=== PATIENT | female | born 1975 | race Caucasian/White ===

== ENCOUNTER 2024-10-19 06:40 | Observation (INO) | payer OTHER, SELFPAY ==
[2024-10-19] VITALS (15 sets, daily range): BP systolic 95–126; BP diastolic 53–85; PULSE 68–80; RESP 16–19; TEMP 36.6–37.1; O2SAT 97–100; BMI 28.3
--- NOTE | ~2024-10-19 | US_ITS ---
Limited Abdominal Sonogram: Real-time sonographic imaging of the right upper quadrant was performed. Clinical History: Gallstones Findings: The liver appears normal with no evidence of mass lesion or bile duct dilatation. Main por elio vein demonstrates normal direction of flow. The gallbladder is well distended, and appears normal with no evidence of gallstone or wall thickening. The common bile duct measures 2 mm. The visualize d pancreas, aorta, and IVC are unremarkable. Impression: No significant abnormality seen. Reviewed, dictated and finalized at location . Impression: No significant abnormality seen.
--- NOTE | ~2024-10-19 | CT_ITS ---
EXAMINATION: CTA chest abdomen pelvis DATE: 10/19/2024 08:45 INDICATION: Chest pain and radiation to back and abdomen TECHNIQUE: Computed tomographic angiography (CTA) of the chest, abdomen and pelvis was performed with 150 cc of Omnipaque-350 intravenous contrast. Additional 3D reconstructions utilizing rotating maxim um intensity projection (MIP) were performed. Automated exposure control and iterative reconstruction technique were employed. The dose-length product was 478.22 mGy-cm. COMPARISON: None FINDINGS: Chest: Lungs are clear with no pneumonia, pulmonary edema or other pulmonary infiltrates. No pleural effusi on or pneumothorax. Heart size is normal. No pericardial effusion. Thoracic aorta is normal in calibe r with no atherosclerotic plaque or dissection. Chronic appearing mild anterior wedging of T12 with s uperimposed Schmorl's node along the superior endplate. Mild thoracic and moderate lower cervical spo ndylosis. Abdomen and pelvis: Liver, spleen, pancreas, bilateral adrenal glands and kidneys are normal. Gallbladder is mildly dilat ed to maximal diameter 4.4 cm but with no abnormal wall thickening or pericolic cystic component proj ecting to suggest acute cholecystitis. The common bile duct is dilated to 9-10 mm with suggestion of subtle small gallstone at the distal common bile duct. Bones are unremarkable with no wall thickening or obstruction. Bladder is normal. The uterus is not identified and has likely been surgically resec fawad. No free intraperitoneal gas or fluid. No pathologically enlarged abdominal or pelvic lymphadenop athy. Abdominal aorta is normal in caliber with no dissection. No evident atherosclerotic plaque alexander g the abdominal aorta or its major branch vessels. Severe spondylosis at L5-S1 with mild spondylosis more cephalad lumbar spine. IMPRESSION: 1. Suggestion of obstructing choledocholithiasis with common bile duct measuring up to 9-10 mm and sm all intraluminal nodular density at the distal common bile duct. Correlate with liver function tests and if clinically indicated could consider further evaluation with MRCP or ERCP. 2. Normal caliber aorta with no dissection or evident atherosclerosis. Reviewed, dictated and finalized at location A. IMPRESSION: 1. Suggestion of obstructing choledocholithiasis with common bile duct measurin g up to 9-10 mm and small intraluminal nodular density at the distal common merry e duct. Correlate with liver function tests and if clinically indicated could c onsider further evaluation with MRCP or ERCP. 2. Normal caliber aorta with no dissection or evident atherosclerosis.
--- NOTE | ~2024-10-19 | MR_ITS ---
EXAMINATION: MR MRCP wo/w con/w 3D wo ind DATE: 10/20/2024 10:24 INDICATION: Choledocholithiasis TECHNIQUE: Magnetic resonance imaging (MRI) of the abdomen was performed without and with 13 mL Multi renetta intravenous contrast. Sequences included coronal T2-weighted SS-FSE, coronal T2-weighted FS SS- FSE, coronal T2-weighted FS FIESTA, axial T2-weighted FS FIESTA, axial T2-weighted FIESTA, sagittal T 2-weighted SS-FSE, axial T1-weighted dual-echo FSPGR, axial T2-weighted SS-FSE, axial T1-weighted LAV A, axial T2-weighted STIR FSE. Thick-slab T2-weighted FRFSE-XL images were obtained for magnetic reso nance cholangiopancreatography (MRCP). Rotating maximum intensity projection 3-D reconstructions of t he volumetric data were created by the technologist. Postcontrast sequences included a time course of axial T1-weighted LAVA. COMPARISON: CT dated 10/29/2024 FINDINGS: ABDOMEN MRI: Heart size is normal. No pericardial or pleural effusion. Liver, gallbladder, spleen, pancreas and bi lateral adrenal glands are normal. T2 hyperintense nonenhancing 1.4 cm parapelvic cyst at the lower p ole the left kidney and a couple subcentimeter T2 hyperintense nonenhancing probable cyst at the uppe r pole of the right kidney measuring up to 6 mm. Visualized bowels are unremarkable with no obstructi on. No pathologically enlarged abdominal or upper pelvic lymphadenopathy. Severe disc height loss wit h mild fibrofatty and fibrovascular degenerative endplate changes at L5-S1 with mild spondylosis and more cephalad lumbar spine. Chronic mild anterior wedging at T12 with superimposed Schmorl's node zelda ng the superior endplate. ABDOMEN MRCP: Common bile duct is up to 6-7 mm in maximal diameter which is at the upper limits of normal. No filli ng defects to suggest choledocholithiasis. No intrahepatic biliary ductal dilation. The main pancreat ic duct is normal. IMPRESSION: 1. No cholelithiasis or choledocholithiasis with borderline common bile duct measuring up to 6-7 mm. Reviewed, dictated and finalized at location A. IMPRESSION: 1. No cholelithiasis or choledocholithiasis with borderline common bile duct me asuring up to 6-7 mm.
--- NOTE | ~2024-10-19 | XR_ITS ---
EXAMINATION: XR chest 2V DATE: 10/19/2024 07:57 INDICATION: Chest pain and shortness of breath TECHNIQUE: PA and lateral views of the chest were obtained. COMPARISON: None FINDINGS: The lungs are clear with no focal airspace opacities, pulmonary edema, pleural effusion or pneumothor ax. The cardiomediastinal silhouette is normal. Moderate thoracic spondylosis. IMPRESSION: 1. No acute cardiopulmonary disease. Reviewed, dictated and finalized at location A.
--- NOTE | ~2024-10-19 | NM_ITS ---
EXAMINATION: NM stress w perf spect multi DATE: 10/20/2024 12:22 INDICATION: Chest pain TECHNIQUE: Rest images were obtained following intravenous administration of 10.8 mCi Tc99m tetrofosm in (NetMinder). The patient performed an exercise activity. At peak exercise, 32.8 mCi Tc99m tetrofosmi n (Myoview) was administered intravenously, and stress images were obtained. Data was reconstructed i nto short axis and horizontal and vertical long axis SPECT images. Gated SPECT images were also obtai gilmar. COMPARISON: None. FINDINGS: There is normal left ventricular perfusion without definite evidence of reversible or fixed perfusion abnormality to suggest ischemia or infarction. There is normal left ventricular chamber size, wall motion and ejection fraction. Left ventricular ejection fraction measures 57%. IMPRESSION: 1. Normal myocardial perfusion at rest and during stress. 2. Left ventricular ejection fraction measuring 57%. Reviewed, dictated and finalized at location A.
--- NOTE | 2024-10-19 06:46 | ECG_ITS ---
Test Date: 2024-10-19 06:51:05 Measurements Intervals [place] Rate: 73 P: -19 W[place]: 133 QRS: -16 QRSD: 93 T: -11 QT: 376 QTc: 415 Interpretive Statements SINUS RHYTHM MODERATE T-WAVE ABNORMALITY IN ANT/INF LEADS, CONSIDER ISCHEMIA BASELINE ARTIFACT- I, II, III, AVR, AVL ABNORMAL ECG No previous ECG available for comparison Electronically Signed On 10-19-2024 07:38:43 CDT by Cem Martin D.O.
[2024-10-19 06:57] LABS: Basophils Percent Auto 0.7 % (0.2-1.2); Hematocrit 39.4 % (37.0-47.0); Immature Granulocyte Absolute 0.01 K/mm3 (0.00-0.031); Immature Granulocyte Percent A 0.2 % (0-0.5); Lymphocytes Absolute Auto 0.98 K/mm3 (0.9-3.2); Lymphocytes Percent Auto 23.4 % (18.3-44.2); Mean Corpuscular Hemoglobin 29.4 pg (26-34); Mean Corpuscular Volume 89.1 fl (80-100); Mean Platelet Volume 8.7 fl (7.4-10.4); Monocytes Absolute Auto 0.3 K/mm3 (0.1-0.6); Monocytes Percent Auto 6.7 % (2.6-8.5); Neutrophils Absolute Auto 2.9 K/mm3 (1.3-6.7); Platelet Count Result 230 k/mm3 (150-375); Red Blood Count 4.42 M/mm3 (4.2-5.4); Red Cell Distribution Width 13.7 % (11.5-14.5); White Blood Count 4.2 K/mm3 (4.5-10.0)
[2024-10-19 07:08] LABS: INR 1.1; Prothrombin Time 14.2 Seconds (11.1-14.7)
[2024-10-19 07:09] LABS: Partial Thromboplastin Time 27.4 Seconds (22.3-36.8)
[2024-10-19 07:11] LABS: Alanine Aminotransferase 18 U/L (6-35); Albumin Level 4.4 g/dL (3.5-5.1); Alkaline Phosphatase 47 U/L (38-126); Anion Gap 11 mmol/L (4-12); Aspartate Amino Transferase 31 U/L (14-36); Bilirubin,Total 0.5 mg/dL (0.2-1.3); Blood Urea Nitrogen 8 mg/dL (7-17); Calcium 9.7 mg/dL (8.4-10.2); Carbon Dioxide 25 mmol/L (22-30); Chloride 97 mmol/L (98-107); Estimated CRCL calculation 85 ml/min; Estimated Glomerular Filt Rate > 60; Glucose 104 mg/dL (65-110); Lipase 371 U/L (23-300); Sodium 133 mmol/L (137-145); Total Protein 7.6 g/dL (6.3-8.2)
[2024-10-19 07:23] LABS: Troponin I < 0.012 ng/mL (0.000-0.034)
--- OUTSIDE RECORDS SUMMARY | 2024-10-19 07:43 | XMS_ITS | Data Portability ---
Author Organization [place] - [facility] [employer], Main Office Address [address] [place] [address] Assessment No assessment recorded. Plan of Treatment Reminders Order Date Submit Date Provider Last Modified By Organization Details Last Modified Time Details Appointments Follow Up 2024 04:40P M Chyna Levi NP Not available Not available Not available Any 15 2024 03:30P M Marbin Muñoz MD Not available Not available Not available Lab CBC w/ auto diff 2023 024 [email or web address], [facility] [address], [place], [address], 07/08/2024 11:25:51 CMP, serum or plasma 2023 024 [email or web address] [facility], [facility] [address], [place], [address], 07/08/2024 11:25:50 lipid panel, serum 2023 024 [email or web address] [facility], [facility] [address], [place], [address], 07/08/2024 11:25:51 Referral None recorded. Procedures colonosco py screening (PROC) - Please call patient to schedule. [address] [place] [address] Gastroenterol ogy, [address], [place], [address], 07/16/2024 09:55:10 Surgeries None recorded. Imaging None recorded. Medication Orders Medrol (Naveed) 4 mg tablets in a dose pack 2024 025 [facility] [address] In [facility], [address] [place] [address], [address], 09/23/2024 17:10:39 ipratropi um bromide 42 mcg (0.06 %) nasal spray 2024 025 [facility] [address], [address], 09/23/2024 17:10:39 Zepbound 7.5 mg/0.5 mL subcutane ous pen injector 2024 025 [facility] [address], [address], 08/04/2024 10:09:39 hydrochlo rothiazid e 25 mg tablet 2024 025 [facility] [address], [address], 08/04/2024 10:09:39 Zepbound 5 mg/0.5 mL subcutane ous pen injector 2024 025 [email or web address] [facility] [address], [address], 07/07/2024 09:06:59 Zepbound 2.5 mg/0.5 mL subcutane ous pen injector 2023 024 [email or web address] [address], [address], 05/15/2024 14:55:24 atorvasta tin 20 mg tablet 2023 024 [facility] [address], [address], 10/21/2023 17:01:41 Patient TargetsNo targets recorded. Patient Instructions Encounter Date Encounter Id Patient Instructions Last Modified By Organization Details Last Modified Time 04/29/2024 [id number] advance care planning: care instructions Not available 04/29/2024 17:17:25 advance directives: care instructions Not available 04/29/2024 17:17:25 [place] Advance Directives Not available 04/29/2024 17:17:25 risk assessment* Not available 04/29/2024 17:17:25 Reason for Referral None Reported. Results Created Date Observation Date Name Description Value Unit Range Abnormal Flag Note LastModifiedBy Organization Detail LastModifiedTime Result Notes None recorded. Problems Name Problem SNOMED Code Status Onset Date Resolution Date Notes Provider Name and Address Organization Details Recorded Time Bipolar disorder 12801888 Active 2021 Not Available [facility] 3 23:30:54 Serum iron below reference range 200682875 Active 2021 Not Available [facility] 3 23:30:54 Loose skin folds, abdominal wall 119349096 Active 2021 Not Available [facility] 3 23:30:54 Anemia 961312197 Active 2021 Not Available [facility] 3 23:30:55 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 Not Available [facility] 3 23:30:55 Injury of great toe 840384941 Active 2021 Not Available [facility] 3 23:30:55 Pain of multiple joints 20814955 Active 2021 Not Available [facility] 3 23:30:55 Closed fracture of metatarsa l bone 00950143 Completed Not Available [facility] 3 23:30:55 Fracture of lower leg 453948822 Completed Not Available [facility] 3 23:30:55 Obesity 320368844 Active 2021 Not Available [facility] 3 23:30:55 Anxiety 96651233 Active 2021 Not Available [facility] 3 23:30:55 Essential hypertens ion 56891181 Active 2021 Not Available [employer] 3 23:30:55 Melanocyt ic nevus of skin 985384785 Active 2023 Marbin Muñoz MD [address], [place], [address] , [facility] [employer] [facility] 4 16:35:45 Skin nodule 04955098 Active 2023 Marbin Muñoz MD [address], [place], [address] , [facility] [employer] [facility] [employer] [facility] 4 09:38:22 Chest pain 49995578 Active 2023 Marbin Muñoz MD [address], [place], [address] , [facility] [employer] [facility] 4 16:59:05 Hyperlipi demia 11645578 Active 2023 Marbin Muñoz MD [address], [place], [address] , [facility] [employer] [facility] [employer] [facility] 4 17:00:52 Abnormal weight 89487784 Active 2023 Danelle saez, RMA null, [place] - [facility] [employer] [facility] 4 12:06:22 Dysfuncti on of left eustachia n tube 62325317067 39163 Active 2024 RADHA Edwards [address], [place], [address] , [facility] 5 17:09:47 Posterior rhinorrhe a 10474756 Active 2024 RADHA Edwards [address], [place], [address] , [facility] [employer] [facility] 5 17:10:08 Pruritic rash 10986031 Active 2024 GINA Ferreira [address], [place], [address] , [facility] [employer] [facility] 11:00:48 Problem Notes None recorded. Procedures Surgical History Date Name Laterality Status Provider Name and Address Organization Details Recorded Time Gastric bypass for obesity completed Not Available [facility] 07/11/2022 23:29:21 completed Not Available [facility] 0 07/11/2022 23:29:21 completed Not Available [facility] 0 07/11/2022 23:29:21 Imaging Results None recorded. Procedure Notes None recorded. Medical Equipment None Reported. Allergies No known drug allergies Medications Name Sig Start Date Stop Date Status Note LastModified by Organization Details LastModified Time amoxicill in 500 mg capsule TAKE 1 CAPSULE BY MOUTH EVERY 8 HOURS 09/23 completed Not Available Not Available Not Available lamotrigi ne 150 mg tablet TAKE 1 TABLET BY MOUTH EVERY DAY AT BEDTIME FOR 30 DAYS active Not Available Not Available No t Available atorvasta tin 20 mg tablet TAKE 1 TABLET BY MOUTH EVERY DAY IN THE EVENING active Not Available Not Available No t Available lisinopri l 20 mg tablet TAKE 1 TABLET BY MOUTH EVERY DAY 02/20 completed Not Available Not Available Not Available Medrol (Naveed) 4 mg tablets in a dose pack Take 1 dose pk by oral route. 2024 active Not Available Not Available Not Avai lable chlorthal idone 25 mg tablet 04/24 completed Not Available Not Available Not Available lamotrigi ne 25 mg tablet TAKE 1 TABLET BY MOUTH TWICE A DAY active Pt states she is taking 75 mg twice a day Not Available Not Available Not Available ferrous sulfate 325 mg (65 mg iron) tablet TAKE 1 TABLET BY MOUTH TWICE A DAY 08/06 completed Not Available Not Available Not Available sertralin e 25 mg tablet TAKE 1 TABLET BY MOUTH EVERY DAY 08/06 completed Not Available Not Available Not Available diclofena c sodium 75 mg tablet,de layed release 04/24 completed Not Available Not Available Not Available hydrochlo rothiazid e 25 mg tablet TAKE 2 TABLETS BY MOUTH EVERY DAY IN THE MORNING active Not Available Not Available No t Available ipratropi um bromide 42 mcg (0.06 %) nasal spray [place] 2 sprays 3 times a day by intranas al route. 2024 active Not Available Not Available Not Avai lable fluoxetin e 20 mg capsule 04/24 completed Not Available Not Available Not Available fluticaso ne propionat e 50 mcg/actua tion nasal spray,lamine pension 08/06 completed Not Available Not Available Not Available clotrimaz ole 1 % topical cream APPLY TO AFFECTED AREA TWICE A DAY IN THE MORNING AND IN THE EVENING active Not Available Not Available No t Available lamotrigi ne 100 mg tablet TAKE 1 TABLET BY MOUTH EVERY DAY IN THE MORNING active Not Available Not Available No t Available aripipraz ole 5 mg tablet TAKE 1 TABLET BY MOUTH EVERY DAY 08/06 completed Not Available Not Available Not Available nitrofura ntoin monohydra te/macroc rystals 100 mg capsule 04/24 completed Not Available Not Available Not Available lamotrigi ne 25 mg (35) tablets in a dose pack Take 1 tablet by oral route as directed . 08/06 completed Please follow directio ns on packet Not Available Not Available Not Available chlorhexi dine gluconate 0.12 % mouthwash SWISH 15 ML IN MOUTH FOR 30 SECONDS THEN SPIT OUT TWICE A DAY AFTER MEALS active Not Available Not Available No t Available sertralin e 02/20 completed Not Available Not Available Not Available hydrochlo rothiazid e Once daily 02/20 completed Not Available Not Available Not Available Zepbound 5 mg/0.5 mL subcutane ous pen injector Inject 5 mg every week by subcutan eous route for 28 days. 07/07 completed Not Available Not Available Not Available Zepbound 2.5 mg/0.5 mL subcutane ous pen injector Inject 2.5 mg every week by subcutan eous route. 05/15 completed increase d to 5mg dose Not Available Not Available Not Available Zepbound 7.5 mg/0.5 mL subcutane ous pen injector INJECT 7.5MG SUBCUTAN EOUSLY ONE TIME PER WEEK active Not Available Not Available No t Available Vitals Date Recorded Body height Body mass index (BMI) Body weight Body temperature Heart rate Oxygen saturation Oxygen saturation in Arterial blood by Pulse oximetry Systolic blood pressure Diastolic blood pressure Provider Name and Address Organization Details Last Updated DateTime 01/16/202 5 152.4 cm 35.9 kg/m2 81462 g 97.2 [degF] 66 /min 96 % 96 % 122 mm[Hg] 84 mm[Hg] CASSIUS Caputo [place] [employer] [facility] [employer] [facility] 14:07:21 Date Recorded Body height Body mass index (BMI) Body weight Body temperature Oxygen saturation Oxygen saturation in Arterial blood by Pulse oximetry Heart rate Systolic blood pressure Diastolic blood pressure Provider Name and Address Organization Details Last Updated DateTime 5 152.4 cm 31.8 kg/m2 85386.5 6 g 97.1 [degF] 96 % 96 % 70 /min 118 mm[Hg] 82 mm[Hg] Alina castro [facility] [employer] [facility] 5 09:28:01 Date Recorded Body height Body mass index (BMI) Body weight Body temperature Provider Name and Address Organization Details Last Updated DateTime 09/23/2024 152.4 cm 31 kg/m2 66014.75 g 97.7 [degF] Apoorva Arriola RN [facility] [employer] [facility] 09/23/2024 16:56:59 Date Recorded Body height Body mass index (BMI) Body weight Body temperature Heart rate Oxygen saturation Oxygen saturation in Arterial blood by Pulse oximetry Systolic blood pressure Diastolic blood pressure Provider Name and Address Organization Details Last Updated DateTime 4 152.4 cm 36.9 kg/m2 60883.9 6 g 97.5 [degF] 55 /min 95 % 95 % 110 mm[Hg] 70 mm[Hg] Danelle quinteros Nery [place] [employer] [facility] [employer] [facility] 4 16:39:31 Date Recorded Body height Body mass index (BMI) Body weight Body temperature Heart rate Oxygen saturation Oxygen saturation in Arterial blood by Pulse oximetry Systolic blood pressure Diastolic blood pressure Provider Name and Address Organization Details Last Updated DateTime 4 152.4 cm 37.7 kg/m2 02389.3 3 g 97.5 [degF] 62 /min 98 % 98 % 120 mm[Hg] 80 mm[Hg] CASSIUS Caputo [place] [employer] [facility] [employer] [facility] 4 12:03:59 Social History Question Answer Notes LastModified by Organizat ion Details LastModified Time Tobacco Smoking Status Never Smoker Not Available [facility] 07/11/2022 23:29:12 Do You Have An Advance Directive? No MIGRATION.01116 [id number] Information not available 07/11/2022 What Is Your Level Of Caffeine Consumption? Moderate [email or web address] Information not available 04/29/2024 In The 14 Days Before Symptom Onset, Have You Had Close Contact With A Laboratory-confir med COVID-19 While That Case Was Ill? No MIGRATION.54311 45812 Information not available 07/11/2022 In The 14 Days Before Symptom Onset, Have You Had Close Contact With A Person Who Is Under Investigation For COVID-19 While That Person Was Ill? No MIGRATION.00275 32207 Information not available 07/11/2022 What Type Of Diet Are You Following? REGULAR MIGRATION.83503 17594 Information not available 07/11/2022 What Is The Highest Grade Or Level Of School You Have Completed Or The Highest Degree You Have Received? LR06107-1 MIGRATION.59320 85525 Information not available 07/11/2022 How Many Days Of Moderate To Strenuous Exercise, Like A Brisk Walk, Did You Do In The Last 7 Days? 7 [email or web address] Information not available 04/29/2024 On Those Days That You Engage In Moderate To Strenuous Exercise, How Many Minutes, On Average, Do You Exercise? 20 [email or web address] Information not available 04/29/2024 Have There Been Any Changes To Your Family Or Social Situation? No MIGRATION.15598 53902 Information not available 07/11/2022 What Is The Fluoride Status Of Your Home? Fluoridated [email or web address] Information not available 04/29/2024 Are There Any Guns Present In Your Home? Yes MIGRATION.57560 56833 Information not available 07/11/2022 Do You Use Insect Repellent Routinely? No MIGRATION.89689 81670 Information not available 07/11/2022 Where Do You Live? SingleLevelHouse [email or web address] Information not available 04/29/2024 Do You Have A Medical Power Of Drafter Commercial? No [email or web address] Information not available 04/29/2024 What Was The Date Of Your Most Recent Tobacco Screening? 04/29/2024 [email or web address] Information not available 04/29/2024 How Many Children Do You Have? 3 [email or web address] Information not available 04/29/2024 Do You Have Any Pets? Yes MIGRATION.37553 44058 Information not available 07/11/2022 What Is Your Relationship Status? MIGRATION.04078 95689 Information not available 07/11/2022 Do You Use Your Seat Belt Or Car Seat Routinely? Yes [email or web address] Information not available 04/29/2024 Are You Sexually Active? No [email or web address] Information not available 04/29/2024 Do You Have Smoke And Carbon Monoxide Detectors In Your Home? Yes MIGRATION.78257 09217 Information not available 07/11/2022 Are You Passively Exposed To Smoke? No MIGRATION.86298 20977 Information not available 07/11/2022 Are There Any Smokers In Your House? No MIGRATION.42717 66436 Information not available 07/11/2022 What Types Of Sporting Activities Do You Participate In? None [email or web address] Information not available 04/29/2024 Do You Use Sunscreen Routinely? No MIGRATION.44829 39920 Information not available 07/11/2022 Has Tobacco Cessation Counseling Been Provided? No MIGRATION.54566 99997 Information not available 07/11/2022 Have You Recently Traveled Abroad? No MIGRATION.65175 55075 Information not available 07/11/2022 Do You Have Any Dietary Restrictions? No MIGRATION.83563 44498 Information not available 07/11/2022 Sex: Unknown Functional Status Question Answer Note LastModified by Organizat ion Details LastModified Time Do you use any illicit or recreational drugs? No MIGRATION.503599 7794 Information not available 07/11/2022 Do you or have you ever used any other forms of tobacco or nicotine? No MIGRATION.060194 9277 Information not available 07/11/2022 What is your level of alcohol consumption? None MIGRATION.556565 2714 Information not available 07/11/2022 Are you currently employed? 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 Occasional MIGRATION.742194 0104 Information not available 07/11/2022 Mental Status Question Answer Note LastModified by Organizat ion Details LastModified Time Do you feel stressed (tense, restless, nervous, or anxious, or unable to sleep at night)? XI2766-7 MIGRATION.[id number] 6 Information not available 07/11/2022 Family History Relationship Description Onset Age of this Age Resolved Age Notes LastModified by Organization Details LastModified Time Unspecified Relation Hyperlipidem ia MIGRATION.008 [id number] Not available 07/11/2022 23:29:25 Unspecified Relation Hypertensive disorder MIGRATION.099 [id number] Not available 07/11/2022 23:29:25 Unspecified Relation Heart disease MIGRATION.028 7195537 Not available 07/11/2022 23:29:25 Unspecified Relation Depressive disorder MIGRATION.037 5180033 Not available 07/11/2022 23:29:25 Unspecified Relation Anxiety disorder MIGRATION.102 5395931 Not available 07/11/2022 23:29:25 Unspecified Relation Diabetes mellitus MIGRATION.893 [id number] Not available 07/11/2022 23:29:25 Notes:FAMILIAL HX: SINUSES Medical History Condition Response HEART DISEASE/HEART PROBLEMS Y HYPERTENSION Y Gynecological HistoryNo gynecological history recorded. Obstetrics History GPAL:G 0 P 0 0 0 0 Past Encounters Encounter ID Performer Location Encounter Start Date Encounter Closed Date Diagnosis/Indication Diagnosis SNOMED-CT Code Diagnosis ICD10 Code Diagnosis Note [id number] Marbin Muñoz MD [facility] [address] [place] [address] 02/20/2022 00:00:00 02/20/2022 15:36:58 [id number] Marbin Muñoz MD [facility] [address] [place] [address] 04/24/2022 00:00:00 04/24/2022 16:41:23 [id number] Marbin Muñoz MD [facility] [address] [place] [address] 03/13/2023 16:02:21 03/13/2023 16:36:10 Essential hypertension 09625474 I10 UNDER CONTYROL Anxiety 26613266 F41.9 under control Blind right eye 41297038 0 H54.40 Anemia 015709282 D64.9 labs Obesity 423803862 E66.9 advise dto lose more Pain of mu ltiple joints 54395813 M25.50 otc Bipolar disorder 5932726 4 F31.9 under contyrol Screening mammography 24 912424 Z12.31 did not get mammogram, willing [id number] Marbin Muñoz MD [facility] [address] [place] [address] 08/07/2023 16:13:09 08/07/2023 16:36:08 Essential hypertension 05548142 I10 under control Anxiety 85161002 F41.9 under control Blind right eye 75525644 0 H54.40 gets eye exam Anemia 751146448 D64.9 labs Obesity 518657848 E66.9 advised to lose more Pain of mu ltiple joints 18563233 M25.50 otc Bipolar disorder 0898726 4 F31.9 under control Screening mammography 24 192613 Z12.31 did not get mammogram, willing Screening for malignant neoplasm of colon 958246842 Z12.11 wants to wait Melanocyti c nevus of skin 022196089 D22.9 benign, [id number] Marbin Muñoz MD [facility] [address] [address] 09/26/2023 09:11:14 09/26/2023 09:36:38 Skin nodule 27849970 R22.9 watch [id number] Marbin Muñoz MD [facility] [address] [address] 10/21/2023 16:28:46 10/21/2023 17:02:29 Essential hypertension 84477871 I10 under control Anxiety 64110662 F41.9 under control Chest pain 66449545 R07. 9 [facility] Hyperlipidemia 31657701 E78.5 start meds [id number] Marbin Muñoz MD [facility] [address] [place] [address] 04/29/2024 11:47:24 04/29/2024 12:54:15 Obesity 406624755 E66.9 unable to lose on her own with diet and exercisesh e may benefit from zepboundsi de effects discussed Essential hypertension 70739148 I10 under control Hyperlipidemia 86150493 E78.5 on meds History of bariatric surgical procedure 058796730 Z98.84 Screening for malignant neoplasm of colon 561651062 Z12.11 wants to wait Adult heal th examination 498092750 Z00.00 Depression screening 171 700446 Z13.31 Normal bod y mass index 60024871 Z68.37 [id number] Marbin Muñoz MD [facility] Internal Med [facility] [address] [place] [address] 05/28/2024 14:01:29 05/28/2024 14:39:13 Obesity 696861283 E66.9 doing diet and exerciseke ep watching the portion size and stay active^ the dose [id number] Chyna Levi NP [facility] [address] [address] 06/09/2024 15:38:35 06/09/2024 18:37:41 [id number] Chyna Levi NP [facility] [address] [address] 07/08/2024 16:45:59 07/08/2024 18:31:21 [id number] Marbin Muñoz MD [facility] Internal [address] [place] [address] 08/04/2024 09:19:10 08/04/2024 14:19:57 Obesity 771518880 E66.9 doing diet and exerciseke ep the same dose Essential hypertension 84739034 I10 under control [id number] Chyna Levi NP [facility] [address] [address] 09/07/2024 16:47:46 09/08/2024 12:40:17 [id number] Orlando Vann MD [facility] ENT [place] [address] [place] [address] 09/23/2024 16:47:47 09/24/2024 10:40:06 Dysfunction of left eustachian tube 9511508855 916985 H69.92 Posterior rhinorrhea 758 86284 J34.89 [id number] Chyna Levi NP [facility] [address] [place] [address] 10/12/2024 17:10:21 10/13/2024 15:11:40 Health Concerns Section Related Observation LastModified by Organization Detai ls LastModified Time None Recorded Concern Status LastModified by Organization Details LastModified Time None Recorded Advance Directives Directive N: Payers Encounter Date Sequence Insurance Name Policy Number Policy Fuentes Covered Member ID Fuentes Member ID Guarantor Name 10/21/2023 1 [facility] [id number] Jazmin Lc [id number] [place]OS[place] [id number] GEHA Jazmin Lc 04/29/2024 1 [employer] [id number] Jazmin Lc [id number] SOSA [id number] GEHA Jazmin Lc 05/28/2024 1 [employer] [id number] Jazmin Lc [id number] SOSA [id number] GEHA Jazmin Lc 08/04/2024 1 [facility] DOS 05/13/2024 AND AFTER Jazmin Lc [id number] Jazmin Lc 09/23/2024 1 [facility] DOS 05/13/2024 AND AFTER Jazmin Lc [id number] Jazmin Lc Notes Date Note Type Note Provider Name and Address Organization Details Recorded Time 10/21/2023 text/html She is here toda y for a routine follow upRecord reviewed from the hospital and discussed.She was also recently admitted to [facility] for chest tightness and dizziness. Had a cardiac work up due to her troponin levels being elevated. 0.068. 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 HTN-under control with meds, was on Lisinopril but stopped due to bp being too low about a year agoMed- HCTZ 25 mgAnxiety- meds help , mood and anxiety is stableMed- lamictal Anemia/Low iron- has anemia all her life, h/o blood transfusion in the past, had anemia even before the gastric bypassMed- was on Ferrous sulfate 325Obesity- Has history of gastric bypass in 2009, has lost 130 lbs, gained some back, watching diet, Marbin Muñoz MD [address], [place], [address], [employer] 10/21/2023 17:01:48 04/29/2024 text/html Pt is here today to discuss a weight lossPossibly start Zepbound she is gaining weight instead of doing exercise and being on low carb diet.she had gastric bypass in 2009, was 340 lbs and lost a lot.she has HTN and hyperlipidemiano h/o thyroid disease hospital visit noteShe is here today for a routine follow upRecord reviewed from the hospital and discussed.She was also recently admitted to [facility] for chest tightness and dizziness. Had a cardiac work up due to her troponin levels being elevated. 0.068. 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 HTN-under control with meds, was on Lisinopril but stopped due to bp being too low about a year agoMed- HCTZ 25 mgAnxiety- meds help , mood and anxiety is stableMed- lamictal Anemia/Low iron- has anemia all her life, h/o blood transfusion in the past, had anemia even before the gastric bypass, last cbc nlMed- was on Ferrous sulfate 325Obesity- Has history of gastric bypass in 2009, did lose 130 lbs but gained some back Marbin Muñoz MD [address], [address], [place], [address], [employer] 04/29/2024 17:17:29 05/28/2024 text/html Pt is here today for a 1 month follow upShe was started on Zepbound 2.5mg last month and has lost 9 lbsTolerating it well. no side effects.she is has made changes with her diet. Also Kids are concerned about her hearing She was 340lb at her biggest and has a lost of loose skin and would like to have Panniculectomy done once she reaches her goal.Colonoscopy schedule for August 15 Marbin Muñoz MD [address], [address], [place], [address], [employer] [facility] [employer] [facility] 05/28/2024 14:38:43 08/04/2024 text/html Pt here for a 1 month f/u for zepbound 7.5, tolerating it well. She is watching her diet.no side effectsSHE HAS LOST 30 LBS IN 2 MONTHSshe is very active,Pt is not fasting Marbin Muñoz MD [address], [place], [address], [employer] [facility] [employer] 08/04/2024 10:11:35 09/23/2024 text/html This patient has a pmhx significant for HLD, obesity, anemia, bipolar disorder, anxiety, right eye blindness, and HTN who presents to the office for a complaint of left ear congestion that has been present over the last 1-2 years. She reports thinking that this is caused by silent reflux. She reports feeling that she sounds like she is in a tunnel. She also reports feeling of a lump in her throat and having to clear mucous, often. Denies any sinus infection hx or other related sinus pressures/pain. She has attempted OTC nasal sprays and antihistamines without relief. She reports that this has been going on for many years. She was recently started on Omeprazole 5 days ago by her PCP. She reports use of Gavascon with meals, additionally. She is having to clear her often throughout her examination. RADHA Edwards [address], [place], [address], [employer] [facility] [employer] 09/24/2024 10:39:39 OBGyn Episode No OBEpisode recorded.
--- OUTSIDE RECORDS SUMMARY | 2024-10-19 07:43 | XMS_ITS | Encounter Summary ---
Author Organization [employer] Address 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 Dx) Social History Tobacco Use Types Packs/Day Years Used Date Smoking Tobacco: Never Assessed Comments Unknown Sex and Gender Information Value Date Recorded Sex Assigned at Not on file 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
--- OUTSIDE RECORDS SUMMARY | 2024-10-19 07:43 | XMS_ITS | Referral Summary ---
Author Organization [facility] Address [address] [place] [address] Care Team Providers Care Deputy General Counsel Name Role Phone Marbin Muñoz MD Primary Care Provider Encounters Date Type Department Care Team Description 10/14/2024 3:00 PM CDT Office Visit [facility] Ophthalmology [address] [facility] [address] [place] [address] Dev Vinson MD Phthisis bulbi of right eye (Primary Dx) 09/25/2024 Telephone [facility]hthal[facility] [place] [address] Dev Vinson MD 09/24/2024 [facility] Ophthalmology [address] [place] [phone] No, Physician from Last 3 Months Allergies No known active allergies Medications lamoTRIgine (LaMICtal) 100 mg tablet 5 Active lamoTRIgine (LaMICtal) 150 mg tablet TAKE 1/2 TABLET BY MOUTH IN THE MORNING AND 1 AT BEDTIME Active Zepbound 7.5 mg/0.5 mL pen injector INJECT 7.5MG SUBCUTANEOUSLY ONE TIME PER WEEK Active hydroCHLOROthi azide (HYDRODIURIL) 25 mg tablet TAKE 2 TABLETS BY MOUTH EVERY DAY IN THE MORNING 1 Active zinc gluconate 100 mg tablet Take by mouth Ac tive Active Problems No known active problems Social History Tobacco Use Types Packs/Day Years Used Date Smoking Tobacco: Never Passive Smoke Exposure: Never Smokeless Tobacco: Never Tobacco Cessation:Counseling Given: No Comments Unknown Sex and Gender Information Value Date Recorded Sex Assigned at Not on file 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
--- OUTSIDE RECORDS SUMMARY | 2024-10-19 07:43 | XMS_ITS | Continuity of Care Document ---
Author Organization [facility] Address [address] [place] [address] Phone Care Team Providers Care Divine Healer Name Role Phone Deborah Matthew Unavailable Unavailable Deborah Matthew Unavailable Unavailable Allergies, Adverse Reactions, Alerts Substance [...] N Resin Composite, 3 Surfaces, Posterior O ct-2024 Periodontal Risk Assessment Substance Use Risk Assessment [...] Alcohol and/or drug screening HEMOGLOBIN; GLYCOSYLATED (A1C) Quantity Not Sufficient/Test Not Perform uri Carty [...] Evaluation 6 Surgical extr erupted tooth Full [facility] Series Of Radiographic Image s Dental Panoramic [...] Date Provider Providers Copied on Encounter [facility], [address], [place], [place], [address] , [place] tel:[phone] [facility] Other specified diseases of hard tissues of teethPartial loss of teeth due to oth cause, unspecified class 5 [facility]. [address], [place], [place], [address]. tel:[phone] Referring Provider: Shelby Meneses, [address], [place], [address]. tel:[phone] lting Provider: Deborah Vipul, [address], [place], [address]. tel:[phone] [facility], [address], [place], [place], [address] , [place] tel:[phone] [facility] Encounter for dental exam and cleaning w abnormal findings 5 [facility]. [address], [place], [place], [address]. tel:[phone] Referring Provider: Shelby Meneses, [address], [place], [address]. tel:[phone] [facility], [address], [place], [place], [address] , [place] tel:[phone] [facility] Dental caries on pit and fissure surfc penetrat into dentin 4 [facility]. [address], [place], [place], [address]. tel:[phone] Referring Provider: Shelby Meneses, [address], [place], [address]. tel:[phone] [facility], [address], [place], [place], [address] , [place] tel:[phone] [facility] Dental caries on pit and fissure surfc penetrat into dentin 4 [facility]. [address], [place], [place], [address]. tel:[phone] Referring Provider: Shelby Meneses [address], [place], [address]. tel:[phone] [facility], [address], [place], [place], [address] , [place] tel:[phone] [facility] Dental caries on smooth surface penetrating into dentin 4 [facility]. [address], [place], [place], [address]. tel:[phone] Referring Provider: Shelby Meneses [address], [place], [address]. tel:[phone] [facility], [address], [place], [place], [address] , [place] tel: [phone] [facility] Dental caries on pit and fissure surfc penetrat into dentin 4 [facility]. [address], [place], [place], [address]. tel:[phone] Referring Provider: Shelby Meneses [address], [place], [address]. tel:[phone] [facility], [address], [place], [place], [address] , [place] tel: [phone] [facility] Encounter for dental exam and cleaning w abnormal findings 4 [facility]. [address], [place], [place], [address]. tel:[phone] Referring Provider: Shelby Meneses [address], [place], [address]. tel:[phone] [facility], [address], [place], [place], [address] , [place] tel: [phone] [facility] Encounter for dental exam and cleaning w abnormal findings 4 [facility]. [address], [place], [place], [address]. tel:[phone] Referring Provider: Shelby Meneses [address], [place], [address]. tel:[phone] [facility], [address], [place], [place], [address] , [place] tel:[phone] [facility] Encounter for dental exam and cleaning w abnormal findings 4 [facility]. [address], [place], [place], [address]. tel:[phone] Referring Provider: Shelby Meneses, [address], [place], [address]. tel:[phone] [facility], [address], [place], [place], [address] , [place] tel: [phone] [facility] Abnormalities of size and form of teeth 4 [facility]. [address], [place], [place], [address]. tel:[phone] Referring Provider: Shelby Meneses, [address], [place], [address]. tel:[phone] [facility], [address], [place], [place], [address] , tel: [phone] [facility] Encounter for dental exam and cleaning w abnormal findings 4 [facility]. [address], [place], [place], [address]. tel:[phone] [facility], [address], [place], [place], [address] , tel: [phone] [facility] No Information 3 Strafford Caprice. [address], [place], [place], [address], [place]. tel:[phone] [facility], [address], [place], [place], [address] , [place] tel: [phone] [facility] No Information 2 Strafford Caprice. [address], [place], [place], [address], [place]. tel:[phone] OFFICE/OUTPA TIENT VISIT, EST [facility], [address], [place], [place], [address] , [place] tel: [phone] [facility] Leg swollen /Meds Refill (chief complaint) Body mass index (BMI) 38.0-38.9, adultEssential (primary) hypertensionEn counter for screening for other disorderEncoun ter for screening, unspecified 2 Lloyd Vasques. [address], [place], [place], [address], . tel:[phone] Referring Provider: Lucius Anthony, [address], [place], [address]. tel:[phone] [facility], [address], [place], [place], [address] , tel: [phone] [facility] No Information No Information OFFICE/OUTPA TIENT VISIT, EST [facility], [address], [place], [place], [address] , tel: [phone] [facility] episode dizziness (chief complaint) DizzinessEssen tial (primary) hypertension 7 No Information OFFICE/OUTPA TIENT VISIT, EST [facility], [address], [place], [place], [address] , [place] tel: [phone] [facility] (LT) earache (chief complaint) Acute upper respiratory infection, unspecified 7 Raj Kan. [address], [place], [place], [address], . tel:[phone] Referring Provider: Lucius Anthony, [address], [place], [address]. tel:[phone] OFFICE/OUTPA TIENT VISIT, EST [facility], [address], [place], [place], [address] , [place] tel: [phone] [facility] abnormal bleeding (chief complaint) Encntr screen for infections w sexl mode of transmissAbnor mal uterine and vaginal bleeding, unspecifiedEnc ounter for other screening for malignant neoplasm of breastGenerali zed abdominal pain 7 Luis Alberto Smith. [address], [place], [place], [address], [place]. tel:[phone] Referring Provider: Sarah Sahu, [address], [place], [address]. tel:[phone] [facility], [address], [place], [place], [address] , [place] tel: [phone] Urgent Care Encounter for screening for respiratory tuberculosis 7 Anthony Lucius. [address], [place], [place], [address], . tel:[phone] OFFICE/OUTPA TIENT VISIT, EST [facility], [address], [place], [place], [address] , [place] tel: [phone] [facility] nex/removal (chief complaint) Encounter for surveillance of other contraceptives 6 Pancho Kang. [address], [place], [place], [address], [place]. tel:[phone] Referring Provider: Pearl Deleon, [address], [place], [address]. [phone] OFFICE/OUTPA TIENT VISIT, EST [facility], [address], [place], [place], [address] , [place] tel: [phone] [facility] hypertension (chief complaint)kylie norrhea (chief complaint) Essential (primary) hypertensionAm enorrhea, unspecifiedOth er specified disorders of teeth and supporting structures 6 No Information [facility], [address], [place], [place], [address] , [place] tel: [phone] [facility] Encounter for dental exam and cleaning w abnormal findings 6 Hallie Horner. [address], [place], [place], [address]. tel:[phone] Referring Provider: Evens Paul, [address], [place], [address]. tel:[phone] [facility], [address], [place], [place], [address] , [place] tel:[phone] [facility] Dental caries on pit and fissure surface penetrat into pulp 0 6 No Information OFFICE OUTPT EST 25 MIN [facility], [address], [place], [place], [address] , [place] tel: [phone] [facility] hypertension (chief complaint)kylie norrhea (chief complaint) Essential (primary) hypertensionAm enorrhea, unspecifiedEnc ounter for screening mammogram for cancer of breast 6 No Information OFFICE/OUTPA TIENT VISIT, EST [facility], [address], [place], [place], [address] , [place] tel: [phone] Urgent Care high blood pressure (chief complaint)nec k pain (chief complaint) Essential (primary) hypertensionCe rvicalgiaAmeno rrheaChest pain 6 Christian Ortiz. [address], [place], [place], [address], [place]. tel:[phone] Referring Provider: Diana Gonzales, [address], [place], [address]. [phone] OFFICE OUTPT EST 25 MIN [facility], [address], [place], [place], [address] , [place] tel: [phone] [facility] hypertension (chief complaint)pre g test (chief complaint)ane camacho (chief complaint) Essential (primary) hypertensionAn emiaVitamin D deficiencyAmen orrhea, unspecified 6 No Information [facility], [address], [place], [place], [address] , [place] tel: [phone] [facility] Encounter for dental exam and cleaning w abnormal findings 6 Hallie Horner. [address], [place], [place], [address]. tel:[phone] Referring Provider: Evens Paul, [address], [place], [address]. tel:[phone] [facility], [address], [place], [place], [address] , [place] tel:[phone] [facility] No Information 6 Hallie Horner. [address], [place], [place], [address]. tel:[phone] Referring Provider: Evens Paul [address], [place], [address]. tel:[phone] OFFICE/OUTPA TIENT VISIT, EST [facility], [address], [place], [address] [place] [address] , tel: [phone] [facility] ED follow up (chief complaint) Chest painEssential (primary) hypertensionVi tamin B deficiencyAnem ia 6 No Information [facility], [address], [place], [address] [place] [address] , [place] tel: [phone] [facility] No Information 6 No Information [facility], [address], [place], [address] [place] [address] , [place] tel: [phone] [facility] No Information 6 Nurse Registered. [address], [place], [address] [place] [address], . tel:[phone] Referring Provider: Registered Nurse, [address], [place], [address] [place] [address]. tel:[phone] [facility], [address], [place], [address] [place] [address] , tel: [phone] [facility] Vitamin B deficiency 6 No Information [facility], [address], [place], [address] [place] [address] , [place] tel: [phone] [facility] No Information 6 Nurse Registered. [address], [place], [address] [place] [address], . tel:[phone] Referring Provider: Registered Nurse, [address], [place], [address] [place] [address]. tel:[phone] [facility], [address], [place], [address] [place] [address] , tel: [phone] [facility] Vitamin B deficiency 6 Nurse Registered. [address], [place], [address] [place] [address], . tel:[phone] Referring Provider: Km Piper, [address], [place], [address]. tel:[phone] [facility], [address], [place], [place], [address] , [place] tel: [phone] [facility] No Information Nurse Registered. [address], [place], [place], [address], [place]. tel:[phone] Referring Provider: Registered Nurse, [address], [place], [address]. tel:[phone] OFFICE OUTPT EST 25 MIN [facility], [address], [place], [place], [address] , [place] tel: [phone] [facility] Anemia (chief complaint)Toe nail fell off (chief complaint)ezra sea (chief complaint)not had a period in 2 months (chief complaint) Gastric bypass status for obesityEssenti al (primary) hypertensionAn emiaNail disorder, unspecifiedNau sea without vomitingAmenor rheaVitamin B deficiency No Information OFFICE/OUTPA TIENT VISIT, EST [facility], [address], [place], [place], [address] , [place] tel: [phone] [facility] Follow Up of blood test results (chief complaint) Anemia 6 Anitha Barbour. [address], [place], [place], [address], [place]. tel:[phone] Referring Provider: Km Piper, [address], [place], [address]. tel:[phone] [facility], [address], [place], [place], [address] , [place] tel: [phone] [facility] Encounter for test, result unknown 6 Anitha Barbour. [address], [place], [place], [address], [place]. 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) w/o abn findingsGastri c bypass status for obesityDisorde r of thyroid, unspecifiedEnc ntr screen for infections w sexl mode of transmissEncou nter for screening mammogram for malignant neoplasm of breastAnemia 6 No Information OFFICE/OUTPA TIENT VISIT, NEW [facility], [address], [place], [place], [address] , tel: [phone] [facility] [place] toothache (chief complaint) Broken tooth, sequelaEncount er for screening for other disorder No Information Family History Family Member Type Diagnosis Age At Onset Father Problem (finding) hypertension Brother Problem (finding) hypertension Mother Problem (finding) hypertension Immunizations Vaccine Date Status Comments Influenza, injectable, 3 yrs or older (Fluzone) administered Source: New Immuniza tion Record Payers Payer name Insurance type Covered green party ID Authoriza tion(s) D BCBS FEP CI [id number] [facility] CI [id number] Social History Type Description Quantity Date Captured Comments Sex Female Smoking Status No Information Sexual Orientation Straight or heterosexual Aug Gender Identity Female Chief Complaint And Reason For Visit No Information Reason For Referral Reason For Referral No Information Plan Of Treatment Date Type Action Status Referral Referred To: [facility] Hematology [address] [place], [id number] Ordered: Referrals: Hematology. [facility] Hematology ordered Appointment Loly Platt Cremer D3 BOOKED Appointment Jazmin Platt BOOKED Patient Education Iron-Rich Diet: Care In structions completed Patient Education DASH Diet: Care Instruc tions completed Future Order: Radiology Order Sc reening Mammography, Bilateral, Digital (G0202), Ordered on: Ordered Future Order: Lab Order Chlamydi a/Neisseria gonorrhoeae RNA, TMA () ([id number]), Collected on: , Sent on: Sent Future Order: Lab Order SureSwab (R), Trichomonas vaginalis FEMALE RNA, Qualitative, TMA () ([id number]), Collected on: , Sent on: Sent Future Order: Lab Order FSH (OC1 09), Ordered on: Ordered Future Order: Radiology Order Sc reening Mammography, Bilateral, Digital (G0202), Ordered on: Ordered Future Order: Lab Order HCG (Pre gnancy Test) - Urine - POC (OC5), Ordered on: Ordered Future Order: Radiology Order Ch est; 2 views ([id number]), Ordered on: Ordered Future Order: Lab Order Helicoba cter pylori Antigen, EIA, Stool () ([id number]), Ordered on: Ordered Future Order: Lab Order [...] y for 1 month. Mild night sweat. 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 Pt s/p Nexplanon 6 yrs ago - scheduled to see SENIOR TALENT ACQUISITION SPECIALIST for removal. amenorrhea LMP: 01/2016. Im planon placed in 2009. Amenorrheic [id number]. Irregular menses for last few years and no menses last two months. Using condoms inconsistently. Pt states has not had a mammogram. hypertension Here for HTN f/u . Dx in ER 5 to 6 months ago. Seen in f/u and lisinopril continued. Seen 3 weeks for increase in BP a/w with dental procedure. Lisinopril increased. Went to 03/14/16 and then [facility] ER in [place] on same day. Lisinopril increased 20 mg daily at . Given clonidine in ER and [place]=870/80 but did not send home with Rx. [...] Pt seen by Abel cho today for [place] tooth extraction & sent to PCP due to uncontrolled HTN. At Dental: initial KG=452/98, received 3 injections of lidocaine & septo BY=265/112 stopped procedure. Repeat BP 148/104, 152/102. Hx HTN - on lisinopril 5 mg daily x 3 months. Here [place]=014/98 and repeat 140/84. Pt denies any chest pain, palpitations, dyspnea, headache, or BLE edema. No tobacco use. Dental procedure rescheduled with oral surgery. ED follow up Went to [facility] muniz se her blood pressure was very highg and she was having chest pressure.EKG was normal in the ED and all blood work was negative for OH.Was told she has a spot on her [...] hemoglobin electrophoresiscontraception / condoms with spermicide, see [facility] regarding implant replacement Follow Up of blood [...] hypertension Thyroid test normalFollow up wit h SENIOR TALENT ACQUISITION SPECIALIST Related to Amenorrhea, unspecified Follow up SENIOR TALENT ACQUISITION SPECIALIST for contraception/ Nexplanon removal Related to Amenorrhea, [...] needed Related to Essential (primary) hypertension Continue iron daily. Eat iron rich diet.F/U 3 months daily. Related to Anemia Continue vitamin B o rally daily.F/U 3 months daily. Related to Vitamin B deficiency Continue lisinopril as prescribed. Exercise.Low sodium diet.Exercise.F/U 3 months. Related to Essential (primary) hypertension Normal EKG in office .Take a baby aspirin daily. Related to Chest pain More info - [employer] http://familydoctor.org Related to Essential (primary) hypertension Increase activity. Related to Es sential (primary) hypertension Follow a low sodium diet. Relate d to Essential (primary) hypertension Goal - Prevent [...] future visits Related to Essential (primary) hypertension 1mg Vit B 12 vax adm inistered today.F/U for Vit B 12 vax daily for 7 days.Get levels drawn.If still low, administered Vit B 12 vax once weekly for 1 month.Then administer Vit B 12 vax monthly for maintenance. Related to Vitamin B deficiency Labs ordered today.Take Fe.F/U w /OBGYN. Related to Amenorrhea Wash feet with antib acterial soap and water.Keep feet dry.Avoid getting pedicure at nail salon.F/U 6wks. Related to Nail disorder, unspecified Take Fe, folic acid, and vit d.Vit B 12 vax administered in office today.Labs drawn today.F/U in 6 wks for lab redraw. Related to Gastric bypass status for obesity H pylori test destiney vicenteDiscussed food elimination diet and handout given.F/U 6 wks. Related to Nausea without vomiting Start lisinopril.Low sodium diet.Exercise.Lose weight.F/U 1 month. Related to Essential (primary) hypertension Continue folic acid. Continue ferrous sulfate. Related to Anemia Goal - Prevent damag e to heart, brain & kidneys. Keep BP below 140/90 Related to Essential (primary) hypertension Diet - lots of veget sonam and fruits, avoid animal fat and excess salt Related to Essential (primary) hypertension Increase activity. [...] to Essential (primary) hypertension More info - [employer] http://familydoctor.org Related to Essential (primary) hypertension Safe sexual practices discussed. Related to Encntr screen for infections w sexl mode of transmiss Thyroid levels orderd today. Rel ated to Disorder of thyroid, unspecified Discussed well round ed diet.Take daily multivitamin.Labs ordered today. Related to Gastric bypass status for obesity Mammogram ordered. Related to En counter for screening mammogram for malignant neoplasm of breast Discussed contracept ion and removal of Nexplanon.Undecided on form of contraception.Will make appt for Nexplanon removal.Safe sexual practices discusses.STI screening ordered.Screening mammogram ordered.F/U annually for WWE. 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
--- OUTSIDE RECORDS SUMMARY | 2024-10-19 07:43 | XMS_ITS | Clinical Summary ---
Author Organization [facility] Address [address] [place] [address] Care Team Providers Care Sidehand Name Role Phone Marbin Muñoz MD Primary Care Provider Allergies No known active allergies Medications lamoTRIgine [...] tive Active Problems No known active problems Encounters Date Type Department Care Team Description 10/14/2024 3:00 PM CDT Office Visit [facility] Ophthalmology [address] [facility] Out[facility] Health [address] [place] [id number] Dev Vinson MD Phthisis bulbi of right eye (Primary Dx) 09/25/2024 Telephone [facility] Ophthalmology [address] [place] [address] Dev Vinson MD 09/24/2024 Telephone [facility] Ophthalmology [address] [place] [address] No, Physician from Last 3 Months Surgical History Surgery Date Site/Laterality Comments GASTRIC BYPASS 05/13/2009 - 05/12/2010 Social History Tobacco Use Types Packs/Day Years Used Date Smoking Tobacco: Never Passive Smoke Exposure: Never Smokeless Tobacco: Never Tobacco Cessation:Counseling Given: No Comments Unknown Sex and Gender Information Value Date Recorded Sex Assigned at Not on file 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 Gender Identity Not on file Sexual Orientation Not on file Obstetrics History Plan of Treatment Health Maintenance Due Date Last Done Comments Breast Cancer Screening-Mammogram 1973 Colon Cancer Screening-Colonoscopy 1973 Depression Screening 1973 Hepatitis C Screening 1973 DTaP/Tdap/Td Vaccine (1 - Tdap) 1984 Hepatitis B Screening 1991 Regular Well Visit/Exam 18-64 1991 Cervical Cancer Screening 02/27/2020 02/26/2019 Zoster Vaccine (1 of 2) 2023 Covid-19 Vaccine (2 - 2023-2 5 season) 2024 02/10/2021 Influenza Vaccine (Season Ended) 2025 03/18/2017, 03/22/2016 Pneumococcal vaccine <65 Aged Out No longer eligible based on patient's age to complete this topic [place] [address] [place] [address] [facility] H[facility]/PPO Address: [facility] [id number] [place] [id number] Care Teams Sidehand Relationship Specialty Start Date End Date Marbin Muñoz MD [address] [place] [address] PCP - General Internal Medicine 10/14/24
--- OUTSIDE RECORDS SUMMARY | 2024-10-19 07:43 | XMS_ITS | Clinical Summary ---
Author Organization [facility] [employer] Address [address] [place] [address] Care Team Providers Care Rider Ticket Worker Name Role Phone Héctor Lehman DO Unavailable [phone] Ezra Zhong MD Primary Care Provider [phone] Source Comments [facility],non-owned Affiliates and Associated Physician Practices is amultiple site organization consisting of ambulatory clinics and hospital sitesin [place], [place], [place] and [place]. This disclosure is being madepursuant to the Care Everywhere program and may not contain all information available regarding this patient. Last updated 18.[facility] [employer] Allergies No known active allergies Medications * Be aware that medications may not be up to date on this document. Alwaysverify current medications with the patient. etonogestrel (NEXPLANON) 68 MG implant Inject 68 mg subcutaneously 11/09/19 16 Active sertraline (ZOLOFT) 50 MG tabletIndication s:Major Depressive Disorder Take 1 tablet by mouth once daily Reasons: Major Depressive Disorder 30 tablet 5 11/24/19 20 Active phentermine (PRO-FAST SA) 8 MG tabletIndication s:Exogenous Obesity Take 1 tablet by mouth once daily Reasons: Obesity due to Overeating 30 tablet 5 12/17/19 20 Active ibuprofen (MOTRIN) 800 MG tabletIndication s:Osteoarthritis Take 1 tablet by mouth 3 times daily as needed with food for Pain Reasons: Joint Damage causing Pain and Loss of Function 90 tablet 5 01/22/20 20 Active fluticasone propionate (FLONASE) 50 MCG/ACT nasal spray SPRAY 2 SPRAYS INTO EACH NOSTRIL ONCE A DAY 16 g 5 04/04/20 20 Active topiramate (TOPAMAX) 50 MG tabletIndication s:Non morbid obesity due to excess calories,Encount er for weight loss counseling TAKE 1 TABLET BY MOUTH ONCE DAILY 30 tablet 5 04/25/20 20 Active hydroCHLOROthiaz sailaja (HYDRODIURIL) 25 MG tabletIndication s:Essential hypertension TAKE ONE TABLET BY MOUTH ONCE DAILY 90 tablet 1 11/18/19 21 Active lisinopril (PRINIVIL; ZESTRIL) 20 MG tabletIndication s:Essential hypertension TAKE 1 TABLET BY MOUTH EVERY DAY 30 tablet 02/18/20 21 Active Active Problems Problem Noted Date Diagnosed Date Closed fracture of metatarsal bone 11/24/2019 Fracture of lower leg 11/24/2019 Recurrent major depressive disorder, in [facility] n 08/06/2017 Essential hypertension Encounters Date Type Department Care Team Description 10/19/2024 2:20 AM CDT - 10/19/2024 4:32 AM CDT Emergency [facility] [address] [place] [address] Other chest pain Discharge Disposition: Left Against Medical Advice/Discontinued Care 10/18/2024 Travel from Last 3 Months Immunizations Immunization Administration Dates Next Due INFLUENZA VACCINE 03/18/2017 INFLUENZA VACCINE, QUADR. 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 Gender Identity Not on file Sexual Orientation Not on file Last Filed Vital Signs Vital Sign Reading Time Taken Comments Blood Pressure 136/87 10/18/2024 10:22 PM CDT Pulse 93 10/18/2024 10:20 PM CDT Temperature 36.5 C (97.7 F) 10/18/2024 10:20 PM CDT Respiratory Rate 16 10/18/2024 10:20 PM CDT Oxygen Saturation 100% 10/18/2024 10:20 PM CDT Inhaled Oxygen Concentration - - Weight 67.1 kg (148 lb) 10/18/2024 10:20 PM CDT Height 152.4 cm (5') 10/18/2024 10:20 PM CDT Body Mass Index 28.9 10/18/2024 10:20 PM CDT Plan of Treatment Health Maintenance Due Date Last Done Comments COLOGUARD (AGES 45-75) - COLON CA SCREENING 1973 COLON MONITORING 1973 COLONOSCOPY - COLON CA SCREENING 1973 CT COLONOGRAPHY - COLON CA SCREENING 1973 Colorectal Cancer Screening 1973 FIT - COLON CA SCREENING 1973 FLEX SIG - COLON CA SCREENING 1973 MAMMOGRAM 1973 DTAP/TDAP/TD VACCINES (1 - Tdap) 1992 HEPATITIS B VACCINE (1 of 3 - 19+ 3-dose series) 1992 PAP SMEAR 02/26/2022 02/26/2019, 10/08/2016 PNEUMOCOCCAL VACCINE 50+ (1 of 1 - PCV) 2023 ZOSTER VACCINE (1 of 2) 2023 COVID-19 VACCINE (2 - season) 2024 02/10/2021 DEPRESSION SCREENING 05/13/2024 INFLUENZA VACCINE (Season Ended) 2025 03/18/2017, 03/22/2016 SCREENING FOR DIABETES 07/07/2025 , 07/07/2022, 07/07/2022, Additional history exists LIPID TESTING 07/07/2027 07/07/2022, 04/06/2017, 03/04/2017, Additional history exists HEPATITIS C SCREENING Completed 06/28/2015 HIV SCREENING Completed 03/04/2018, 06/28/2015 HIB VACCINE Aged Out No longer eligi ble based on patient's age to complete this topic HPV VACCINE Aged Out No longer eligi ble based on patient's age to complete this topic MENINGOCOCCAL (Group B) VACCINE SHARED DECISION-MAKING Aged Out No longer eligible based on patient's age to complete this topic MENINGOCOCCAL GROUPS A/C/Y/W VACCINE Aged Out No longer eligible based on patient's age to complete this topic Procedures Procedure Name Priority Date/Time Associated Diagnosis Comments TROPONIN-I HIGH SENSITIVE REFLEX 1HOUR Timed 10/18/2024 11:57 PM CDT COMPREHENSIVE METABOLIC PANEL STAT 10/18/2024 10:42 PM CDT CBC W AUTO DIFFERENTIAL STAT 10/18/2024 10:42 PM CDT TROPONIN-I HIGH SENSITIVE BASELINE + 1HR STAT 10/18/2024 10:42 PM CDT HIV-1 HIV-2 ANTIGEN/ANTIBODY W RFLX Routine 03/04/2018 5:07 PM CDT Screen for STD (sexually transmitted disease) LIPID PROFILE Routine 08/22/2017 4:33 PM CDT Dyslipidemia from Last 3 Months or Most Recently Relevant to Health Maintenance Results * TROPONIN-I HIGH SENSITIVE REFLEX 1HOUR (10/18/2024 11:57 PM CDT) Troponin I High Sensitive 5 <=14 ng/L 10/19/2024 12:49 AM CDT [facility] Delta Troponin I HS <0 <6 ng/L 10/19/2024 12:49 AM CDT [facility] Blood BLOOD SPECIMEN / Unknown Venipuncture / Unknown 10/18/2024 11:57 PM CDT 10/19/2024 12:19 AM CDT us Gadiel Horvath MD LAB - CHEMISTRY ORDERABLES F inal Result [facility] [address] [place] [address], [facility] [phone] * TROPONIN-I HIGH SENSITIVE BASELINE + 1HR (10/18/2024 10:42 PM CDT) [facility] Troponin I High Sensitive 7 <=14 ng/L 10/18/2024 11:24 PM [facility] Blood BLOOD SPECIMEN / Unknown Venipuncture / Unknown 10/18/2024 10:42 PM CDT 10/18/2024 10:48 PM CDT Gadiel Horvath MD LAB - CHEMISTRY ORDERABLES F inal Result [facility] [address] [place] [address], [facility] [phone] * (ABNORMAL) CBC W AUTO DIFFERENTIAL (10/18/2024 10:42 PM CDT) [facility] WBC 4.1 4.0 - 10.7 x10E9/L 10/18/2024 10:55 PM [facility] RBC Count 4.68 3.90 - 5.20 x10E12/L 10/18/2024 10:55 PM [facility] Hemoglobin 14.2 11.9 - 15.8 g/dL 10/18/2024 10:55 PM [facility] Hematocrit 40.4 34.8 - 46.1 % 10/18/2024 10:55 PM [facility] MCV 86.3 80.0 - 98.0 fL 10/18/2024 10:55 PM [facility] MCH 30.3 26.7 - 33.6 pg 10/18/2024 10:55 PM [facility] MCHC 35.1 31.7 - 36.3 g/dL 10/18/2024 10:55 PM [facility] RDW-CV 13.6 11.3 - 14.8 % 10/18/2024 10:55 PM [facility] Platelet Count 225 150 - 420 x10E9/L 10/18/2024 10:55 PM [facility] MPV 8.9 7.8 - 11.4 fL 10/18/2024 10:55 PM [facility] Neutrophil % 68.8 41.0 - 74.0 % 10/18/2024 10:55 PM T [facility] Lymphocyte % 21.7 17.0 - 47.0 % 10/18/2024 10:55 PM [facility] Monocyte % 6.6 3.0 - 11.0 % 10/18/2024 10:55 PM [facility] Eosinophil % 1.5 0.0 - 7.0 % 10/18/2024 10:55 PM [facility] Basophil % 1.2 0.0 - 1.6 % 10/18/2024 10:55 PM [facility] Immature Granulocytes % 0.2 0.0 - 1.0 % 10/18/2024 10:55 PM [facility] Neutrophil Absolute 2.83 1.60 - 7.50 x10E9/L 10/18/2024 10:55 PM [facility] Lymphocyte Absolute 0.89(L) 1.00 - 4.40 x10E9/L 10/18/2024 10:55 PM [facility] Monocyte Absolute 0.27 0.15 - 1.00 x10E9/L 10/18/2024 10:55 PM [facility] Eosinophil Absolute 0.06 0.00 - 0.60 x10E9/L 10/18/2024 10:55 PM [facility] Basophil Absolute 0.05 0.00 - 0.13 x10E9/L 10/18/2024 10:55 PM [facility] Blood BLOOD SPECIMEN / Unknown Venipuncture / Unknown 10/18/2024 10:42 PM CDT 10/18/2024 10:48 PM CDT us Gadiel Horvath MD LAB - HEMATOLOGY ORDERABLES Final Result [address] [address], [facility] [phone] * (ABNORMAL) COMPREHENSIVE METABOLIC PANEL (10/18/2024 10:42 PM CDT) BUN 10 7 - 26 mg/dL 10/18/2024 11:21 PM [facility] Creatinine 0.58 0.56 - 0.96 mg/dL 10/18/2024 11:21 PM [facility] Sodium 137 136 - 145 mmol/L 10/18/2024 11:21 PM [facility] Potassium 3.0(L) 3.5 - 4.5 mmol/L 10/18/2024 11:21 PM [facility] Chloride 100 98 - 107 mmol/L 10/18/2024 11:21 PM [facility] CO2 23 22 - 29 mmol/L 10/18/2024 11:21 PM [facility] Glucose 86 70 - 99 mg/dL 10/18/2024 11:21 PM [facility] Calcium 9.8 8.4 - 10.2 mg/dL 10/18/2024 11:21 PM [facility] Protein Total 7.8 6.0 - 8.3 g/dL 10/18/2024 11:21 PM [facility] Albumin 4.3 3.4 - 5.0 g/dL 10/18/2024 11:21 PM [facility] Bilirubin Total 0.5 0.2 - 1.2 mg/dL 10/18/2024 11:21 PM [facility] Alkaline Phosphatase 47 40 - 150 U/L 10/18/2024 11:21 PM [facility] ALT 13 5 - 55 U/L 10/18/2024 11:21 PM [facility] AST 28 5 - 34 U/L 10/18/2024 11:21 PM [facility] Anion Gap 14 6 - 16 10/18/2024 11:21 PM [facility] BUN/Creatinine Ratio 17 7 - 23 10/18/2024 11:21 PM [facility] Osmolality Calculated 282 275 - 295 mOsm/kg 10/18/2024 11:21 PM [facility] Albumin/Globulin Ratio 1.2 1.1 - 2.3 10/18/2024 11:21 PM [facility] eGFR by CKD-EPI >90 >=90 mL/min/1.7 3 m2 10/18/2024 11:21 PM CDT [facility] Blood BLOOD SPECIMEN / Unknown Venipuncture / Unknown 10/18/2024 10:42 PM CDT 10/18/2024 10:48 PM CDT Narrative [facility] - 10/18/2024 11:21 PM CDT Estimated Glomerular Filtration Rate (eGFR) calculated using the CKD-EPI Creatinine Equation (2020), per the National Kidney Foundation and [place] Society [employer] Nephrology recommendations. us Gadiel Horvath MD LAB - CHEMISTRY ORDERABLES F inal Result [facility] [address] [place] [address], [facility] [phone] * HIV-1 HIV-2 ANTIGEN/ANTIBODY W RFLX (03/04/2018 5:07 PM CDT) HIV Screen 4th Generation w Reflex Non Reactive Non Reactive [facility] ACCOUNT BILL Blood BLOOD SPECIMEN / Unknown 03/04/2018 5:07 PM CDT 03/04/2018 Narrative Resulting Agency Comment [facility] [address] [facility] [phone] Ezra Zhong MD LAB - SEROLOGY ORDERABLES Bridgett l Result Performing Organization Address City/[facility]/ZIP Co de Phone Number [facility] ACCOUNT BILL [address] [place] [address] * (ABNORMAL) LIPID PROFILE (08/22/2017 4:33 PM CDT) Cholesterol 204(H) <200 mg/dL [facility] ACCOUNT BILL Triglycerides 58 <150 mg/dL [facility] ACCOUNT BILL HDL Cholesterol 82 >40 mg/dL [facility] ACCOUNT BILL VLDL Calculated 12 <=30 mg/dL [facility] ACCOUNT BILL LDL Calculated 110 <130 mg/dL [facility] ACCOUNT BILL Blood BLOOD SPECIMEN / Unknown 08/22/2017 4:33 PM CDT 08/22/2017 Narrative Resulting Agency Comment [facility] [address] [facility] [id number] Ezra Zhong MD LAB - CHEMISTRY ORDERABLES Fin al Result [facility] ACCOUNT BILL [address] [place] [address] from Last 3 Months or Most Recently Relevant to Health Maintenance Insurance [employer] [facility] * Guarantor: ARCHIE SAUCEDA Account Type Relation to Patient Date of Phone Billing Address Company Employer 1976 [phone] (Work) [address] [place] [id number] [employer] Member Subscriber Plan / Payer (Ef fective for All Dates) Name:Jazmin Platt Member ID:Not on file Relation to Subscriber:Employee Name:ARCHIE SAUCEDA Subscriber ID:Not on file [phone] (Home) [phone] (Work) Address: [address] [place] [address] Payer ID:Not on file Group ID:Not on file Type:Commercial [employer] Care Teams Rider Ticket Worker Relationship Specialty Start Date End Date Ezra Zhong MD [address] [place] [address] PCP - General Family Medicine 08/11/18 Héctor Lehman DO [address] [facility] [address] [place] [address] 03/24/18
--- OUTSIDE RECORDS SUMMARY | 2024-10-19 07:43 | XMS_ITS | Encounter Summary ---
Author Organization [employer] Address [address] [place] [address] Care Team Providers Care Cook Fish Eggs Name Role Phone Marbin Muñoz MD Primary Care Provider [phone] Encounter Details Date Type Department Care Team (Late st Contact Info) Description 12/05/2003 Outpatient Historical [facility] [place] [address] [address] Er, Authorized P NO ADDRESS ON FILE INSECT BITE HIP & LEG (Primary Dx) Social History Tobacco Use Types Packs/Day Years Used Date Smoking Tobacco: Never Assessed Comments Unknown Sex and Gender Information Value Date Recorded Sex Assigned at Not on file Legal Sex Female 3:28 AM EMTS Gender Identity Not on file Sexual Orientation Not on file documented as of this encounter Plan of Treatment Not on file documented as of this encounter Visit Diagnoses Diagnosis Hip, thigh, leg, and ankle, insect bite, nonvenomous, without mention of infection(916.4)- Primary Hip, thigh, leg, and ankle, insect bite, nonvenomous, without mention of infection documented in this encounter Care Teams Cook Fish Eggs Relationship Specialty Start Date End Date Marbin Muñoz MD [address] [address] PCP - General Internal Medicine 03/21/22 documented as of this encounter
--- OUTSIDE RECORDS SUMMARY | 2024-10-19 07:43 | XMS_ITS | Clinical Summary ---
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 Gender Identity Not on file Sexual Orientation Not on file Plan of Treatment Health Maintenance Due Date Last Done Comments Hepatitis C Virus (HCV) Screening 1973 TdaP Immunization 1973 Hepatitis B Immunization (1 of 3 - 19+ 3-dose series) 1992 Colonoscopy 2018 Colorectal Cancer Screening 2018 Cologuard 2023 Immunochemical Fecal Occult Blood 2023 Pneumococcal Immunization (5 0+ years) (1 of 1 - PCV) 2023 Zoster Immunization (1 of 2) 2023 SARS-COV-2 Immunization (3 - season) 2024 02/10/2021, 08/23/2020 Influenza Immunization (Seas on Ended) 2025 Respiratory Syncytial Virus (RSV) Immunization (Adult) (1 - 1-dose 75+ series) 2048 Human Papillomavirus (HPV) Immunization Aged Out No longer eligible b ased on patient's age to complete this topic Meningococcal Immunization (ACWY) Aged Out No longer eligible b ased on patient's age to complete this topic Rotavirus Immunization Aged Out No lo nger eligible based on patient's age to complete this topic
--- OUTSIDE RECORDS SUMMARY | 2024-10-19 07:44 | XMS_ITS | Encounter Summary ---
Author Organization [employer] Address 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
--- OUTSIDE RECORDS SUMMARY | 2024-10-19 07:44 | XMS_ITS | CONTINUITY OF CARE DOCUMENT ---
Author Name angelica dominguez Address Unknown Organization [facility] Address [address] [place] [address] Phone [phone] Care Team Providers Care Outboard Motor Tester Name Role Phone Lissa Mccabe MD Unavailable Radha Corey MD Unavailable Marbin Muñoz MD Unavailable PROBLEMS Condition Status Date Provider Notes Hypertension active Servando Ahmedzai Glaucoma active Servando Ahmedzalaura Chest pain--stress nuc nl, e cho ef 50%, mild phtn, 10/2023 active Servando Angulo Alcohol abuse completed - Lissa Mccabe MD Anxiety associated with depression completed - Servando Angulo Personality disorder active Servando Angulo Family hx of heart disease active Servando moulton Hyperlipidemia active Servando Ahmedzai ENCOUNTERS Date Type Provider Location Encounter Diag nosis - In-person encounter Office Visit Lissa Mccabe MD [place] [facility] Chest pain--stress nuc nl, echo ef 50%, mild phtn, lcohol abuseAnxiety associated with depressionPersonality disorderFamily hx of heart diseaseHyperlipidemia VITAL SIGNS Date Observation Value Provider Body Mass Index (Ratio) 36.09 kg/m2 Bridger Mccabe MD blood pressure, diastolic -1 mm[Hg] Li nkLogic blood pressure, systolic 107 mm[Hg] Nyla kLogic blood pressure, diastolic 77 mm[Hg] Duy blood pressure, systolic 107 mm[Hg] [facility] pulse rate 59 /min Manuel blood pressure, cuff size regular [facility] respiratory rate E&M 14 /min oxygen saturation, oximetry 93 % height E&M 61 [in_i] Manuel y weight E&M 191 [lb_av] Manuel ALLERGIES No Known Drug Allergies HISTORY OF MEDICATION USE Medication Status Instructions Dates Provider Indications Com ments atorvastatin 20 mg tablet active Take 1 tablet by mouth every evening Servando Ahmedzai hydrochlorothiazide 25 mg tablet active Servando Ahmedzai lamotrigine 150 mg tablet active Servando Ahmedzai SOCIAL HISTORY Date Observation Value Provider smoking status Never smoker INSURANCE PROVIDERS Payer name Policy type / Coverage type [place] [employer] party ID [id number] [id number] ADVANCE DIRECTIVES Name Date DISCUSSED - NO DECISION MADE TREATMENT PLAN Date Name Performer Cardiology Servando Angulo Cardiology Servando Ahmedzai Cardiology: H er updated medication list for this problem includes: Atorvastatin 20 Mg Tablet (Atorvastatin) ..... Take 1 tablet by mouth every evening Servando Kimimedzai Cardiology Servando Ahmedzai Cardiology: H er updated medication list for this problem includes: Hydrochlorothiazide 25 Mg Tablet (Hydrochlorothiazide) Servando Boldenmedzai HISTORY OF PROCEDURES Procedure Date Procedure Name Provider Procedure Notes S tatus EKG Lissa Mccabe MD completed
--- OUTSIDE RECORDS SUMMARY | 2024-10-19 07:44 | XMS_ITS | Encounter Summary ---
Author Organization [employer] Address [address] [place] [address] Care Team Providers Care Channeling Machine Runner Name Role Phone Marbin Muñoz MD Primary Care Provider [phone] Encounter Details Date Type Department Care Team (Late st Contact Info) Description 09/02/1999 Outpatient Historical [facility] Bradley Beebe MD NO ADDRESS ON FILE Er, Authorized P NO ADDRESS ON FILE Incomplete spontaneous without mention of complication (Primary Dx) Social History Tobacco Use Types Packs/Day Years Used Date Smoking Tobacco: Never Assessed Comments Unknown Sex and Gender Information Value Date Recorded Sex Assigned at Not on file 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
--- OUTSIDE RECORDS SUMMARY | 2024-10-19 07:44 | XMS_ITS | Encounter Summary ---
Author Organization [facility] Address [address] [place] [address] Care Team Providers Care Environmental Services Attendant Name Role Phone Héctor Lehman DO Unavailable [phone] Ezra Zhong MD Primary Care Provider [phone] Reason for Visit * Reason Comments Chest Pain PT BIBSelf for centr al CP that feels aching and like pressure, also endorses some pain to her back. Pt was at [place] but left AMA. Also endorses burning pain in epigastric region. Reports a previous cardiac event Encounter Details Date Type Department Care Team (Late st Contact Info) Description 10/19/2024 2:20 AM CDT - 10/19/2024 4:32 AM T Emergency [facility] [address] [place] [address] Other chest pain Discharge Disposition: Left Against Medical Advice/Discontinued Care Social History Tobacco Use Types Packs/Day Years Used Date Smoking Tobacco: Never Smokeless Tobacco: Never Alcohol Use Standard Drinks/Week Comments No 0 (1 standard drink = 0.6 oz pur e alcohol) recovering alcoholic Comments No Sex and Gender Information Value Date Recorded Sex Assigned at Not on file 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 Gender Identity Not on file Sexual Orientation Not on file documented as of this encounter Last Filed Vital Signs Vital Sign Reading [...] Mass Index 28.9 10/18/2024 10:20 PM CDT documented in this encounter Medications at Time of Discharge etonogestrel (NEXPLANON) 68 MG implant Inject 68 mg subcutaneously 6 fluticasone propionate (FLONASE) 50 MCG/ACT nasal spray SPRAY 2 SPRAYS INTO EACH NOSTRIL ONCE A DAY 16 g 5 0 hydroCHLOROthiazi de (HYDRODIURIL) 25 MG tabletIndications :Essential hypertension TAKE ONE TABLET BY MOUTH ONCE DAILY 90 tablet 1 1 ibuprofen (MOTRIN) 800 MG tabletIndications :Osteoarthritis Take 1 tablet by mouth 3 times daily as needed with food for Pain Reasons: Joint Damage causing Pain and Loss of Function 90 tablet 5 0 lisinopril (PRINIVIL; ZESTRIL) 20 MG tabletIndications :Essential hypertension TAKE 1 TABLET BY MOUTH EVERY DAY 30 tablet 1 phentermine (PRO-FAST SA) 8 MG tabletIndications :Exogenous Obesity Take 1 tablet by mouth once daily Reasons: Obesity due to Overeating 30 tablet 5 0 sertraline (ZOLOFT) 50 MG tabletIndications :Major Depressive Disorder Take 1 tablet by mouth once daily Reasons: Major Depressive Disorder 30 tablet 5 0 topiramate (TOPAMAX) 50 MG tabletIndications :Non morbid obesity due to excess calories,Encounte r for weight loss counseling TAKE 1 TABLET BY MOUTH ONCE DAILY 30 tablet 5 0 documented as of this encounter ED Notes * Bernice Green - 10/19/2024 2:18 AM CDT Patient left AMA when they were last seen they were alert and oriented x 4, walking with a steady gait AMA signed and uploaded * Amparo Campos, RN - 10/19/2024 1:22 AM CDT Patient up to triage asking about wait time, informed they are still in process waiting for provider at this time. Patient back to waiting room at this time * Ludy Liu RN - 10/18/2024 11:42 PM CDT Patient requesting why others are called back before her. Patient educated on triage process/rooming process. Based off Vitals/labs/acuity documented in this encounter Plan of Treatment Scheduled Orders Name Type Priority Associated Diagnoses Orde r Schedule EKG 12-LEAD ECG STAT Other chest pain ONCE for 1 Occurrences starting 10/18/2024 until 10/18/2024 documented as of this encounter Procedures Procedure Name Priority Date/Time Associated Diagnosis Comments TROPONIN-I HIGH SENSITIVE REFLEX 1HOUR Timed 10/18/2024 11:57 PM CDT TROPONIN-I HIGH SENSITIVE BASELINE + 1HR STAT 10/18/2024 10:42 PM CDT CBC W AUTO DIFFERENTIAL STAT 10/18/2024 10:42 PM CDT COMPREHENSIVE METABOLIC PANEL STAT 10/18/2024 10:42 PM CDT documented in this encounter Results * TROPONIN-I HIGH SENSITIVE REFLEX 1HOUR (10/18/2024 11:57 PM CDT) Troponin I High Sensitive 5 <=14 ng/L 10/19/2024 12:49 AM CDT [facility] Delta Troponin I HS <0 <6 ng/L 10/19/2024 12:49 AM [facility] Blood BLOOD SPECIMEN / Unknown Venipuncture / Unknown 10/18/2024 11:57 PM CDT 10/19/2024 12:19 AM CDT us Gadiel Horvath MD LAB - CHEMISTRY ORDERABLES F inal Result [facility] [address] [place] [phone], [facility] [phone] * (ABNORMAL) COMPREHENSIVE METABOLIC PANEL (10/18/2024 10:42 PM CDT) BUN 10 7 - 26 mg/dL 10/18/2024 11:21 PM [facility] Creatinine 0.58 0.56 - 0.96 mg/dL 10/18/2024 11:21 PM [facility] Sodium 137 136 - 145 mmol/L 10/18/2024 11:21 PM [facility] Potassium 3.0(L) 3.5 - 4.5 mmol/L 10/18/2024 11:21 PM [facility] Chloride 100 98 - 107 mmol/L 10/18/2024 11:21 PM [facility] CO2 23 22 - 29 mmol/L 10/18/2024 11:21 PM [facility] Glucose 86 70 - 99 mg/dL 10/18/2024 11:21 PM [facility] Calcium 9.8 8.4 - 10.2 mg/dL 10/18/2024 11:21 PM [facility] Protein Total 7.8 6.0 - 8.3 g/dL 10/18/2024 11:21 PM [facility] Albumin 4.3 3.4 - 5.0 g/dL 10/18/2024 11:21 PM [facility] Bilirubin Total 0.5 0.2 - 1.2 mg/dL 10/18/2024 11:21 PM [facility] Alkaline Phosphatase 47 40 - 150 U/L 10/18/2024 11:21 PM [facility] ALT 13 5 - 55 U/L 10/18/2024 11:21 PM [facility] AST 28 5 - 34 U/L 10/18/2024 11:21 PM [facility] Anion Gap 14 6 - 16 10/18/2024 11:21 PM [facility] BUN/Creatinine Ratio 17 7 - 23 10/18/2024 11:21 PM [facility] Osmolality Calculated 282 275 - 295 mOsm/kg 10/18/2024 11:21 PM [facility] Albumin/Globulin Ratio 1.2 1.1 - 2.3 10/18/2024 11:21 PM [facility] eGFR by CKD-EPI >90 >=90 mL/min/1.7 3 m2 10/18/2024 11:21 PM [facility] Blood BLOOD SPECIMEN / Unknown Venipuncture / Unknown 10/18/2024 10:42 PM CDT 10/18[facility]18/[facility]24 11:21 PM [facility] Estimated Glomerular Filtration Rate (eGFR) calculated using the CKD-EPI Creatinine Equation (2020), per the National Kidney Foundation and [place] [employer]ph[employer] recommendations. us Gadiel Horvath MD LAB - CHEMISTRY ORDERABLES F inal Result [facility] [address] [place] [address], [facility] [phone] * (ABNORMAL) CBC W AUTO DIFFERENTIAL (10/18/2024 10:42 PM CDT) WBC 4.1 4.0 - 10.7 x10E9/L 10/18/2024 10:55 PM [facility] RBC Count 4.68 3.90 - 5.20 x10E12/L 10/18/2024 10:55 PM [facility] Hemoglobin 14.2 11.9 - 15.8 g/dL 10/18/2024 10:55 PM [facility] Hematocrit 40.4 34.8 - 46.1 % 10/18/2024 10:55 PM [facility] MCV 86.3 80.0 - 98.0 fL 10/18/2024 10:55 PM [facility] MCH 30.3 26.7 - 33.6 pg 10/18/2024 10:55 PM [facility] MCHC 35.1 31.7 - 36.3 g/dL 10/18/2024 10:55 PM [facility] RDW-CV 13.6 11.3 - 14.8 % 10/18/2024 10:55 PM [facility] Platelet Count 225 150 - 420 x10E9/L 10/18/2024 10:55 PM [facility] MPV 8.9 7.8 - 11.4 fL 10/18/2024 10:55 PM [facility] Neutrophil % 68.8 41.0 - 74.0 % 10/18/2024 10:55 PM [facility] Lymphocyte % 21.7 17.0 - 47.0 % 10/18/2024 10:55 PM [facility] Monocyte % 6.6 3.0 - 11.0 % 10/18/2024 10:55 PM [facility] Eosinophil % 1.5 0.0 - 7.0 % 10/18/2024 10:55 PM [facility] Basophil % 1.2 0.0 - 1.6 % 10/18/2024 10:55 PM [facility] Immature Granulocytes % 0.2 0.0 - 1.0 % 10/18/2024 10:55 PM [facility] Neutrophil Absolute 2.83 1.60 - 7.50 x10E9/L 10/18/2024 10:55 PM [facility] Lymphocyte Absolute 0.89(L) 1.00 - 4.40 x10E9/L 10/18/2024 10:55 PM [facility] Monocyte Absolute 0.27 0.15 - 1.00 x10E9/L 10/18/2024 10:55 PM [facility] Eosinophil Absolute 0.06 0.00 - 0.60 x10E9/L 10/18/2024 10:55 PM [facility] Basophil Absolute 0.05 0.00 - 0.13 x10E9/L 10/18/2024 10:55 PM CDT [facility] Blood BLOOD SPECIMEN / Unknown Venipuncture / Unknown 10/18/2024 10:42 PM CDT 10/18/2024 10:48 PM CDT Gadiel Horvath MD LAB - HEMATOLOGY ORDERABLES Final Result Performing Organization Address City/[facility]/ZIP Co de Phone Number [address] [address], [facility] [phone] * TROPONIN-I HIGH SENSITIVE BASELINE + 1HR (10/18/2024 10:42 PM CDT) Troponin I High Sensitive 7 <=14 ng/L 10/18/2024 11:24 PM CDT [facility] Blood BLOOD SPECIMEN / Unknown Venipuncture / Unknown 10/18/2024 10:42 PM CDT 10/18/2024 10:48 PM CDT Gadiel Horvath MD LAB - CHEMISTRY ORDERABLES F inal Result Performing Organization Address City/[facility]/ZIP Co de Phone Number [address] [address], [facility] [phone] documented in this encounter Visit Diagnoses Diagnosis Other chest pain documented in this encounter Administered Medications Inactive Administered Medications - up to 3 most recent administrations Medication Order MAR Action Action Date Dose Rate Site 0.9% NaCl injection 1-10 mL 1-10 mL, Intracatheter, PRN, Other, peripheral line flush, Starting on Sat10/18/24 at 2223, Until Sat10/19/24 at 0532, Flush peripheral IV catheter with 1-10 mL of normal saline before and after medications and prn to clear blood from the line or to verify patency. 0.9% NaCl injection 3 mL 3 mL, Intracatheter, EVERY 8 HOURS, First dose on Sat10/18/24 at 2300, Until Discontinued, Flush peripheral IV catheter with 3 mL of normal saline every 8 hours. documented in this encounter Active and Recently Administered Medications Times are shown in CDT. Scheduled Medication Order 10/17/2024 10/18/2024 10/19/2024 0.9% NaCl injection 3 mL(Linked Group 1) 3 mL, Intracatheter, EVERY 8 HOURS, First dose on 10/18/24 at 2300, Until Discontinued, Flush peripheral IV catheter with 3 mL of normal saline every 8 hours. 2300 (Due) aspirin chew tablet 324 mg 324 mg, Oral, NOW, 1 dose, On 10/18/24 at 2230, Administer if not previously done by patient or EMS or medication is not contraindicated. 2243 (Not Administered - Provider: Ludy Liu RN - Reason: Taken prior to admission - Comment: given at [facility]) PRN Medication Order 10/17/2024 10/18/2024 10/19/2024 0.9% NaCl injection 1-10 mL(Linked Group 1) 1-10 mL, Intracatheter, PRN, Other, peripheral line flush, Starting on 10/18/24 at 2223, Until 10/19/24 at 0532, Flush peripheral IV catheter with 1-10 mL of normal saline before and after medications and prn to clear blood from the line or to verify patency. Linked Groups Order Group 1: SALINE LOCK, INSERT AND MAINTAIN (CANCELED) Routine, CONTINUOUS, Starting on 10/18/24 at 2230, Until Specified, New collection, Task Completed: Yes And 0.9% NaCl injection 3 mLJump to med 3 mL, Intracatheter, EVERY 8 HOURS, First dose on 10/18/24 at 2300, Until Discontinued, Flush peripheral IV catheter with 3 mL of normal saline every 8 hours. And 0.9% NaCl injection 1-10 mLJump to med 1-10 mL, Intracatheter, PRN, Other, peripheral line flush, Starting on 10/18/24 at 2223, Until Sat10/19/24 at 0532, Flush peripheral IV catheter with 1-10 mL of normal saline before and after medications and prn to clear blood from the line or to verify patency. documented in this encounter Care Teams Environmental Services Attendant Relationship Specialty Start Date End Date Ezra Zhong MD [address] [place] [phone] PCP - General Family Medicine 08/11/18 Héctor Lehman DO [address] [address] [place] [address] 03/24/18 documented as of this encounter
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
--- OUTSIDE RECORDS SUMMARY | 2024-10-19 07:44 | XMS_ITS | Encounter Summary ---
Author Organization [employer] Address [address] [place] [address] Care Team Providers Care Distributor Of Directories Name Role Phone Marbin Muñoz MD Primary Care Provider [phone] Encounter Details Date Type Department Care Team (Late st Contact Info) Description 07/21/1998 Inpatient Historical HIS PATIENT IN A BED Leandro Caballero MD [address] [facility] [address] [place] [address] Jair So MD [address] [place] [address] Obstruction caused by malposition of fetus at onset of labor, delivered(660.01) (Primary Dx) Social History Tobacco Use Types Packs/Day Years Used Date Smoking Tobacco: Never Assessed Comments Unknown Sex and Gender Information Value Date Recorded Sex Assigned at Not on file Legal Sex Female 3:28 AM ADMITTING OFFICER Gender Identity Not on file Sexual Orientation Not on file documented as of this encounter Plan of Treatment Not on file documented as of this encounter Visit Diagnoses Diagnosis Obstruction caused by malposition of fetus at onset of labor, delivered(660.01)- Primary Obstruction caused by malposition of fetus at onset of labor, delivered documented in this encounter Care Teams Distributor Of Directories Relationship Specialty Start Date End Date Marbin Muñoz MD [address] [facility] [address] [place] [address] PCP - General Internal Medicine 03/21/22 documented as of this encounter
--- OUTSIDE RECORDS SUMMARY | 2024-10-19 07:44 | XMS_ITS | Encounter Summary ---
Author Organization [facility] Address [address] [place] [address] Care Team Providers Care Fixture Maker Name Role Phone Héctor Lehman DO Unavailable [phone] Ezra Zhong MD Primary Care Provider [phone] Encounter Details Date Type Department Care Team (Latest Contact Info) Description 10/18/2024 Travel Social History Tobacco Use Types Packs/Day Years Used Date Smoking Tobacco: Never Smokeless Tobacco: Never Alcohol Use Standard Drinks/Week Comments No 0 (1 standard drink = 0.6 oz pur e alcohol) recovering alcoholic Comments No Sex and Gender Information Value Date Recorded Sex Assigned at Not on file Legal Sex Female 6:00 AM ONLINE MEDIA DIRECTOR Gender Identity Not on file Sexual Orientation Not on file documented as of this encounter Plan of Treatment Not on file documented as of this encounter Visit Diagnoses Not on filedocumented in this encounter Care Teams Fixture Maker Relationship Specialty Start Date End Date Ezra Zhong MD [facility] [facility] [address] [place] [address] PCP - General Family Medicine 08/11/18 Héctor Lehman DO [address] [facility] [address] [place] [address] 03/24/18 documented as of this encounter
--- OUTSIDE RECORDS SUMMARY | 2024-10-19 07:44 | XMS_ITS | Clinical Summary ---
Author Organization [facility] Address [address] [place] [address] Phone Care Team Providers Care Sat Math Tutor Name Role Phone Marbin Muñoz MD Primary Care Provider [phone] Allergies No known active allergies Medications hydroCHLOROthia zide 25 mg tablet Take 25 mg by mouth daily. Verified per [facility] pharmacy and patient Active multivitamin,ca lcium,minerals, iron,folic acid (THERA-M,THERA- M PLUS) 9 mg iron-400 mcg Tablet Take 1 Tablet by mouth daily. 03/25/2022 Active ferrous sulfate 325 mg (65 mg iron) tablet Take 325 mg by mouth daily. Active lamoTRIgine (LaMICtal) 25 mg tabletIndicatio ns:bipolar disorder Take 2 Tablets (50 mg) by mouth 2 times daily. 60 Tablet 1 07/10/2022 Active thiamine (VITAMIN B-1) 100 mg tabletIndicatio ns:Supplements. Take 1 Tablet (100 mg) by mouth daily. 30 Tablet 1 07/15/2022 Active Active Problems Problem Noted Date Diagnosed Date Alcohol dependence with uncomplicated intoxicati on 07/08/2022 Assessment & Plan (07/08/2022 12:30 PM SUNGLASS CLIP ATTACHER): SUBSTANCE USE DISORDER DIAGNOSIS DOCUMENTATION Patient Denies Patient Reports Within a 12 month period [] [] Often taken in larger amounts or over a longer period than intended [] [] Persistent desire or unsuccessful efforts to cut down or control use [] [] Great deal of time spent obtaining, using or recovering from substance's effects [] [] Craving or strong desire/urge to use [] [] Recurrent use resulting in failure to fulfill major role obligations at work, school or home [] [] Continued use despite persistent or recurrent social or interpersonal problems caused or exacerbated by effects of the substance [] [] Important social, occupational or recreational activities given up or reduced because of substance use [] [] Recurrent use in situations in which it is physically hazardous [] [] Continued use despite knowledge of having a persistent or recurrent physical or psychological problem likely to have been caused or exacerbated by the substance [] [] *Tolerance: need for markedly increased amounts to achieve intoxication or desired effect OR Markedly diminished affect with continued use of the same amount of substance [] [] * Withdrawal: characteristic withdrawal syndrome OR taking substance (or closely related one) to relieve or avoid withdrawal symptoms *NOT considered to be met individuals taking substances solely under appropriate medical supervision 2-3 - Mild Use Disorder (Abuse or Non-Dependent Use) 4-5 - Moderate Use Disorder (Dependence) >6 - Severe Use Disorder (Dependence) Remission status: not in remission -CIWA started with Ativan for detox and withdrawal symptoms -Highly recommend stopping alcohol consumption and looking at treatment OP Hyponatremia 03/22/2022 Bipolar affective disorder, depressed, severe Assessment & Plan (07/08/2022 12:28 PM SUNGLASS CLIP ATTACHER): Acute and Uncontrolled. Continue current treatment. -Restart Lamictal and increase dosage to 25 mg daily and 50 mg HS for mood stability. Every Word Counts - Depression ([facility]) PTSD (post-traumatic stress disorder) 03/22/2022 Assessment & Plan (07/08/2022 12:30 PM SUNGLASS CLIP ATTACHER): Acute. -Recommend trauma therapy in OP Borderline personality disorder 03/22/2022 Assessment & Plan (07/08/2022 12:29 PM SUNGLASS CLIP ATTACHER): Acute. -Recommend DBT therapy once discharged from the hospital setting. Alcohol dependence with withdrawal 03/22/2022 DOUG (generalized anxiety disorder) 03/22/2022 Assessment & Plan (07/08/2022 12:29 PM SUNGLASS CLIP ATTACHER): Acute. -Hydroxyzine PRN for anxiety Depression Hypertension Routine general medical examination at [facility] Family History Medical History Relation Name Comments Diabetes Father Heart Disease Father Seizures Father Cancer Mother Stroke Other Seizures Paternal Grandfather Stroke Paternal Grandfather Relation Name Status Comments Father Mother Other Paternal Grandfather Social History Tobacco Use Types Packs/Day Years Used Date Smoking Tobacco: Former Cigarettes Smokeless Tobacco: Never Tobacco Cessation:Counseling Given: Not Answered Alcohol Use Standard Drinks/Week Comments Yes 0 (1 standard drink = 0.6 oz pur e alcohol) 3 beers a day Comments No Sex and Gender Information Value Date Recorded Sex Assigned at Not on file Legal Sex Female 3:28 AM SUNGLASS CLIP ATTACHER Gender Identity Not on file Sexual Orientation Not on file Last Filed Vital Signs Vital Sign Reading Time Taken Comments Blood Pressure 129/87 07/10/2022 7:42 AM SUNGLASS CLIP ATTACHER Pulse 83 07/10/2022 7:42 AM SUNGLASS CLIP ATTACHER Temperature 36.5 C (97.7 F) 07/10/2022 7:42 AM SUNGLASS CLIP ATTACHER Respiratory Rate 18 07/10/2022 7:42 AM SUNGLASS CLIP ATTACHER Oxygen Saturation 99% 07/10/2022 7:42 AM SUNGLASS CLIP ATTACHER Inhaled Oxygen Concentration - - Weight 100.7 kg (222 lb) 07/07/2022 6:00 PM SUNGLASS CLIP ATTACHER Height 154.9 cm (5' 1) 07/07/2022 6:00 PM SUNGLASS CLIP ATTACHER Body Mass Index 41.95 07/07/2022 6:00 PM SUNGLASS CLIP ATTACHER Plan of Treatment Health Maintenance Due Date Last Done Comments DTAP/TDAP/TD VACCINES (1 - Tdap) 1992 HEPATITIS B VACCINES (1 of 3 - 19+ 3-dose series) 03/15 BREAST CANCER SCREENING 2013 COLORECTAL SCREENING 2018 Colorectal Cancer Screening 2018 FIT-DNA Q 3 years 2018 FIT/FOBT Q 1 year 2018 Flex Sig/CT Colonography Q 5 years 2018 PAP SMEAR 02/26/2022 02/26/2019 ZOSTER VACCINE (1 of 2) 2023 INFLUENZA VACCINE (#1) 2023 03/22/2016 COVID-19 Vaccine (2 - season) 01/12/202405/2020 CERVICAL CANCER SCREENING 02/27/2024 HPV/Cotest (21-29) 02/27/2024 02/26/2019 HPV/Cotest (30-65) 02/27/2024 02/26/2019 Procedures Procedure Name Priority Date/Time Associated Diagnosis Comments CERV/VAG CYTO AGE BASED SCREEN PAP Routine 02/26/2019 4:24 PM CDT Well woman exam with routine gynecological exam from Last 3 Months or Most Recently Relevant to Health Maintenance Results * CERV/VAG CYTO AGE BASED SCREEN PAP (02/26/2019 4:24 PM CDT) COMMENT (PAP): SEE COMMENT 2:09 PM CDT [facility] Comment: This order for age-based cervical cancer and STI screening follows ACOG guidelines(PB 168, 140, PMC928). See individual assays for performing site location. CLINICAL INFORMATION Information not provided 03/04/2019 2:09 PM CDT [facility] LAST MENSTRUAL PERIOD Information not provided 03/04/2019 2:09 PM CDT [facility] PREV PAP: Information not provided 03/04/2019 2:09 PM CDT [facility] PREV BX: Information not provided 03/04/2019 2:09 PM CDT [facility] SOURCE Endocervix 03/04/2019 2:09 PM CDT [facility] ADEQUACY: SEE COMMENT 03/04/2019 2:09 PM CDT [facility] Comment: Satisfactory for evaluation. Endocervical/transformation zone component absent. Age and/or menstrual status not provided PAP INTERP Negative for intraepithelial lesion or malignancy. 03/04/2019 2:09 PM CDT [facility] CYTOLOGY INFECTION Shift in vaginal kadi suggestive of bacterial vaginosis. 03/04/2019 2:09 PM CDT [facility] COMMENT SEE COMMENT 03/04/2019 2:09 PM CDT [facility] Comment: This case could not be evaluated with computer assisted technology. The slide was manually screened according to routine procedures. SENIOR SOFTWARE MANAGER: SEE COMMENT 2018 2:09 PM CDT [facility] Comment: ABC, CT(ASCP) CT screening location: [place] [address] [address] [address] REVIEW SENIOR SOFTWARE MANAGER: SEE COMMENT 03/04/2019 2:09 PM CDT [facility] Comment: MDG, CT(ASCP) CT screening location: [place] [address] [place] [address] EXPLANATORY NOTE SEE COMMENT 019 2:09 PM CDT [facility] Comment: EXPLANATORY NOTE: The Pap is a screening test for cervical cancer. It is not a diagnostic test and is subject to false negative and false positive results. It is most reliable when a satisfactory sample, regularly obtained, is submitted with relevant clinical findings and history, and when the Pap result is evaluated along with historic and current clinical information. HPV E6/E7 Not Detected Not Detected 03/04/2019 2:09 PM CDT [facility] Comment: This test was performed using the APTIMA HPV Assay ([employer] This assay detects E6/E7 viral messenger RNA (mRNA) from 14 high-risk HPV types (16,18,31,33,35,39,45,51,52,56,58,59,66,68). The analytical performance characteristics of this assay have been determined by [facility]. The modifications have not been cleared or approved by the FDA. This assay has been validated pursuant to the CLIA regulations and is used for clinical purposes. Genital SWAB OF ENDOCERVIX / Unknown Collection / Unknown 02/26/2019 4:24 PM CDT 02/26/2019 10:22 PM CDT Narrative [facility] - 03/04/2019 2:09 PM CDT Performing Organization Information: Site ID: [id number] Name: [facility] Address: [id number] [place] [id number] Director: Varun Johnston D.O., MPH Site ID: [id number] [facility] Address: [address] [address] [address] Director: Raj Garcia Pool Potter MD PATHOLOGY/CYTOLOGY ORDERABLES Final Result [facility] [phone] from Last 3 Months or Most Recently Relevant to Health Maintenance [place] [address] OPTIONS P[place] [id number] [place] [id number] Advance Directives For more information, please contact: [phone] * Full Code (Latest Code Status on File) Date Activated Date Inactivated Comments 07/07/2022 6:50 PM 07/10/2022 5:50 PM * Full Code Date Activated Date Inactivated Comments 03/22/2022 1:20 AM 03/24/2022 2:30 PM Care Teams Sat Math Tutor Relationship Specialty Start Date End Date Marbin Muñoz MD [address] [phone] PCP - General Internal Medicine 03/21/22
--- OUTSIDE RECORDS SUMMARY | 2024-10-19 07:44 | XMS_ITS | Encounter Summary ---
Author Organization [employer] Address [address] [place] [address] Care Team Providers Care Phd Intern Name Role Phone Marbin Muñoz MD Primary Care Provider [phone] Encounter Details Date Type Department Care Team (Late st Contact Info) Description 06/24/2003 Outpatient Historical HIS PATIENT IN A BED Jair So MD [address] [place] [address] [place] [phone] ANTEPARTUM HEMORR NOS-ANTEPAR (Primary Dx) Social History Tobacco Use Types Packs/Day Years Used Date Smoking Tobacco: Never Assessed Comments Unknown Sex and Gender Information Value Date Recorded Sex Assigned at Not on file Legal Sex Female 3:28 AM BEDSPREAD CUTTER HAND Gender Identity Not on file Sexual Orientation Not on file documented as of this encounter Plan of Treatment Not on file documented as of this encounter Visit Diagnoses Diagnosis Unspecified antepartum hemorrhage, antepartum- Primary documented in this encounter Care Teams Phd Intern Relationship Specialty Start Date End Date Marbin Muñoz MD [address] [address] PCP - General Internal Medicine 03/21/22 documented as of this encounter
--- OUTSIDE RECORDS SUMMARY | 2024-10-19 07:44 | XMS_ITS | Encounter Summary ---
Author Organization [facility] Address [address] [place] [address] Care Team Providers Care Operator Catalyst Concentration Name Role Phone Marbin Muñoz MD Primary Care Provider [phone] Encounter Details Date Type Department Care Team (Late st Contact Info) Description 08/02/2003 Outpatient Historical HIS PATIENT IN A BED Jair So MD [address] [place] [address] [place] [phone] OTHER CURR COND-ANTEPARTUM (Primary Dx) Social History Tobacco Use Types Packs/Day Years Used Date Smoking Tobacco: Never Assessed Comments Unknown Sex and Gender Information Value Date Recorded Sex Assigned at Not on file Legal Sex Female 3:28 AM BARREL WATERER Gender Identity Not on file Sexual Orientation Not on file documented as of this encounter Plan of Treatment Not on file documented as of this encounter Visit Diagnoses Diagnosis Other current maternal conditions classifiable elsewhere, antepartum- Primary documented in this encounter Care Teams Operator Catalyst Concentration Relationship Specialty Start Date End Date Marbin Muñoz MD [address] [address] PCP - General Internal Medicine 03/21/22 documented as of this encounter
[2024-10-19 07:56] LABS: D Dimer < 0.27 ug/mL (<0.48)
[2024-10-19] MEDS: ONDANSETRON INJ 4 MG/2 ML VIAL IV PUSH (08:02)
[2024-10-19] MEDS: MORPHINE SULFATE (*CRX) 2 MG/ML INJ IV PUSH (08:02)
--- NOTE | 2024-10-19 08:19 | ED_ITS ---
HPI - Arrhythmia/Palpitations General Chief Complaint: Arrhythmia/Palpitations Stated Complaint: palpitations, chest pressure Time Seen by Provider: 10/19/24 07:09 Source: patient, EMS, RN notes reviewed and old records reviewed Mode of arrival: EMS Limitations: no limitations History of Present Illness HPI narrative: This is a 49 year old female with history of bipolar who presents for evaluation of rapid heart rate. She states she has been having midsternal chest pain , epigastric pain and rapid heart rate for 2 weeks. She states her pain has been constant but there are not exacerbating factors. She states she feels like her heart is racing currently even with heart rate on monitor of 80. She denies associated cough, fever, shortness of breath. She has been to [place] and [facility] already but she left AMA. She states she had something similar 1 year ago , and she was observed in hospital at that time. She reports having negative stress test . 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 Related Data Home Medications ?Medication ?Instructions ?Recorded ?Confirmed ?Last Taken ?Type hydrochlorothiazide 25 mg tablet 50 mg PO DAILY 10/19/24 10/19/24 10/18/24 05:00 History lamotrigine 100 mg tablet 100 mg PO DAILY 10/19/24 10/19/24 10/18/24 05:00 History lamotrigine 150 mg tablet 150 mg PO HS 10/19/24 10/19/24 10/18/24 18:00 History Allergies Allergy/AdvReac Type Severity Reaction Status Date / Time No Known Allergies Allergy Verified 10/19/24 07:02 [facility] Past Medical History Medical History (Updated 10/19/24 @ 18:23 by Jory Larsen MD) Bipolar disorder Social History Social History Smoking status: Former smoker Tobacco type: cigarettes Smoking end date: 05/13/94 Alcohol intake: never Substance use: never Do You Feel Safe in your Home?: Yes Lack of Transportation: No Lack of Food: Never True Current Housing: I Have Housing Concerned About Future Housing: No Difficulty Paying Gas/Electric Bills: No Difficulty Paying for Meds: No Currently Unemployed: No Education: High School Diploma/GED Difficulty w/ Childcare or Family Care: No Spiritual care concerns: No Exam 2 Const: General: alert Nutritional Appearance: well nourished O rientation/consciousness: patient oriented x3 HENMT: Face and sinus: normal facial exam Eyes: EOM: EOMs intact bilaterally Resp: Effort & Inspection: normal respiratory effort Auscultation: clear to auscultation bilaterally Cardio: Rate: regular rate Rhythm: regular rhythm Heart sounds: no murmurs GI: GI Palp: Yes Soft to palpation, Yes Tenderness to palpation present (GI) (epigastric), No Guarding due to palpation present (GI) and No Rigid due to palpation Auscultation: normal bowel sounds Back/Spine/Pelvis: Back: no CVA tenderness Skin: General skin exam: normal color Wounds: no wounds Neuro: General: patient oriented x3 and moves all extremities Cranial nerves: Yes Nystagmus not present Extrem: General: normal to inspection Psych: Mental Status: mental status grossly normal Affect: normal affect Attitude: cooperative Course Reevaluation(s) Reevaluation #1: I Discussed with patient that troponin and heart rate have been normal. I discussed she may be having pain due to stone in her CBD. She is agreeable to admission for further evaluation. She reports pain resolved with morphine. HEr pain is likely noncardiac. Date: 10/19/24 Time: 11:30 Consultations Consultation #1: I spoke with Dr. Mathis with GI. I discussed CT shows possible choledocholithias and mildly elevated lipase. He request MRCP and he will consult Date: 10/19/24 Time: 11:20 Consultation #2: I spoke with Dr. Tilley , hospitalist. HE accepts patient to IMU. HE also request cardiology consult Date: 10/19/24 Time: 11:31 Consultation #3: Dr. Carlos mistry instructional systems designer will consult Date: 10/19/24 Time: 12:30 Vital Signs Vital signs: Vital Signs Temperature 98.1 F 10/19/24 06:39 Pulse Rate 77 10/19/24 06:39 Respiratory Rate 16 10/19/24 06:39 Blood Pressure 116/85 10/19/24 06:39 Pulse Oximetry 100 10/19/24 06:39 Oxygen Delivery Room Air 10/19/24 06:39 Temperature 97.9 F 10/19/24 15:50 Pulse Rate 76 10/19/24 18:00 Respiratory Rate 18 10/19/24 15:50 Blood Pressure 95/53 L 10/19/24 15:50 Pulse Oximetry 100 10/19/24 15:50 Oxygen Delivery Room Air 10/19/24 16:00 MDM - Arrhythmia/Palpitations Differential Diagnosis Differential diagnosis: Likely palpitations, anxiety, sinus tachycardia, artial fibrillation and other (CT, angina , pancreatitis, biliary colic) Medical Records Attestation: I reviewed the patient's medical records. Lab Data Attestation: I reviewed the patient's lab results. 10/19/24 06:52 10/19/24 06:52 Labs: Lab Results 10/19/24 10/19/24 Range/Units 06:52 09:43 WBC 4.2 L (4.5-10.0) K/mm3 RBC 4.42 (4.2-5.4) M/mm3 Hgb 13.0 (12.0-15.0) g/dL Hct 39.4 (37.0-47.0) % MCV 89.1 (80-100) fl MCH 29.4 (26-34) pg MCHC 33.0 (32-36) g/dl RDW 13.7 (11.5-14.5) % Plt Count 230 (150-375) k/mm3 MPV 8.7 (7.4-10.4) fl Immature Gran % (Auto) 0.2 (0-0.5) % Neut % (Auto) 68.0 (45.5-73.1) % Lymph % (Auto) 23.4 (18.3-44.2) % Prentiss % (Auto) 6.7 (2.6-8.5) % Eos % (Auto) 1.0 (0-4.4) % Baso % (Auto) 0.7 (0.2-1.2) % Lymph # (Auto) 0.98 (0.9-3.2) K/mm3 Prentiss # (Auto) 0.3 (0.1-0.6) K/mm3 Eos # (Auto) 0.0 (0-0.3) K/mm3 Baso # (Auto) 0.0 (0.0-0.1) K/mm3 Abs Immat Gran (auto) 0.01 (0.00-0.031) K/mm3 Absolute Neuts (auto) 2.9 (1.3-6.7) K/mm3 Absolute Nucleated RBC 0.000 (0.0-0.012) K/mm3 Nucleated RBC % 0.0 (0.0-0.2) % PT 14.2 (11.1-14.7) Seconds INR 1.1 APTT 27.4 (22.3-36.8) Seconds D-Dimer < 0.27 (<0.48) ug/mL Sodium 133 L (137-145) mmol/L Potassium 3.0 L (3.4-5.0) mmol/L Chloride 97 L (98-107) mmol/L Carbon Dioxide 25 (22-30) mmol/L Anion Gap 11 (4-12) mmol/L BUN 8 (7-17) mg/dL Creatinine 0.58 L (0.7-1.0) mg/dL Estim Creat Clear Calc 85 ml/min Estimated GFR > 60 (59 - ) Glucose 104 (65-110) mg/dL Calcium 9.7 (8.4-10.2) mg/dL Magnesium 1.8 (1.6-2.3) mg/dL Total Bilirubin 0.5 (0.2-1.3) mg/dL AST 31 (14-36) U/L ALT 18 (6-35) U/L Alkaline Phosphatase 47 (38-126) U/L Troponin I < 0.012 0.017 D (0.000-0.034) ng/mL Total Protein 7.6 (6.3-8.2) g/dL Albumin 4.4 (3.5-5.1) g/dL Lipase 371 H (23-300) U/L Imaging Data Radiologist's impression: ITS Impressions Chest X-Ray 10/19/24 08:22 IMPRESSION: 1. No acute cardiopulmonary disease. Chest/Abdomen/Pelvis CTA 10/19/24 08:48 IMPRESSION: 1. Suggestion of obstructing choledocholithiasis with common bile duct measuring up to 9-10 mm and small intraluminal nodular density at the distal common bile duct. Correlate with liver function tests and if clinically indicated could consider further evaluation with MRCP or ERCP. 2. Normal caliber aorta with no dissection or evident atherosclerosis. ECG Data EKG #1: Attestation: I personally reviewed and interpreted this ECG as follows: ECG completion date: 10/19/24 ECG completion time: 06:51 EKG Interpretation: normal rate, sinus rhythm and non-specific ST changes Discharge Plan Discharge Clinical Impression: Choledocholithiasis, Chest pain Patient Disposition: Still a Patient Condition: Stable
[2024-10-19 08:36] LABS: Magnesium 1.8 mg/dL (1.6-2.3)
[2024-10-19] MEDS: POTASSIUM CHLORIDE 20 MEQ ER TABLET 40 MEQ PO (08:59)
--- NOTE | 2024-10-19 10:00 | ECG_ITS ---
Test Date: 2024-10-19 10:03:11 Measurements Intervals [place] Rate: 68 P: 26 WA: 132 QRS: -15 QRSD: 98 T: -9 QT: 406 QTc: 434 Interpretive Statements SINUS RHYTHM ST-T WAVE ABNORMALITY IN INFERIOR LEADS- CONSIDER ISCHEMIA ABNORMAL ECG Compared to ECG 10/19/2024 06:51:05 NO SIGNIFICANT CHANGE Electronically Signed On 10-19-2024 10:17:22 CDT by Cem Martin D.O.
[2024-10-19] MEDS: SODIUM CHLORIDE 0.9% IV 500 ML 999 ML IV CONT (10:09)
[2024-10-19 10:19] LABS: Troponin I 0.017 ng/mL (0.000-0.034)
--- NOTE | 2024-10-19 11:20 | PC.NURSE ---
assumed care of pt from stephanie garcia. pt resting on stretcher, visitor at bedside. aware of plan of care, no questions at this time
[2024-10-19] MEDS: SODIUM CHLORIDE 0.9% IV 1,000 ML 125 ML IV CONT (12:16)
--- NOTE | 2024-10-19 13:04 | ADMGEN ---
This patient, Jazmin Platt, was admitted to IMU Room 209- at approximately 1249. Patient/family oriented to hospital policies and general routines including ID bracelet, bed and alarms, visiting hours, pain management, procedures, bathroom and other care routines, personal items, smoking policy, room service/diet, and visiting hours. Information on how to activate the Rapid Response Team has been discussed. Patient/Family are encouraged to report perceived risks to care and to ask questions if they do not understand what they are told or what they should do.
--- NOTE | 2024-10-19 13:17 | ADMGEN ---
This patient, Jazmin Platt, was admitted to IMU Room 209-01. Patient/family oriented to hospital policies and general routines including ID bracelet, bed and alarms, visiting hours, pain management, procedures, bathroom and other care routines, personal items, smoking policy, room service/diet, and visiting hours. Information on how to activate the Rapid Response Team has been discussed. Patient/Family are encouraged to report perceived risks to care and to ask questions if they do not understand what they are told or what they should do.
--- NOTE | 2024-10-19 13:36 | PC.NURSE ---
MRCP unable nto be done today. Planned for tomorrow. Cardiology ok with feeding the patient. K[facility] made aware. HH diet placed. PT NPO at midnight.
[2024-10-19 14:08] LABS: Magnesium 1.8 mg/dL (1.6-2.3)
--- NOTE | 2024-10-19 14:17 | PM.IMHP ---
H&P: HPI History of Present Illness Date/Time: 10/19/24 14:17 Chief Complaint: chest pain Narrative: This is a 49-year-old female patient with history of hypertension and bipolar disorder admitted to the hospital for chest pain with cardiology and GI consult. Workup in the emergency department reveals normal troponin on initial draw, mildly elevated lipase, decreased potassium and mildly decreased sodium. Chest x-ray appeared normal. CTA of the chest abdomen pelvis revealed dilation of the common bile duct to 9-10 mm with small intraluminal nodular density at the distal common bile duct suggestive of obstructing choledocholithiasis. Second troponin did have a delta change from less than 0.012 to 0.017 and 3rd troponin back to less than 0.012. Patient was evaluated by Gastroenterology who agreed with completing MRCP and also added ultrasound of the gallbladder to be done as a fasting study tomorrow. Patient was evaluated by Cardiology complains palpitations and tachycardia. Thiazide diuretic on hold and potassium replaced. Cardiology discussed with patient and she wants to undergo an exercise stress test with echocardiogram. Patient expressed frustration that she has been to multiple hospitals and nobody can figure out what is going on with her. Review of Systems Review of Systems: All systems reviewed & are unremarkable except as noted in HPI and below PMFSH Past Medical History Medical History Bipolar disorder Social History Social History Smoking status: Former smoker Tobacco type: cigarettes Smoking end date: 05/13/94 Alcohol intake: never Substance use: never Do You Feel Safe in your Home?: Yes Lack of Transportation: No Lack of Food: Never True Current Housing: I Have Housing Concerned About Future Housing: No Difficulty Paying Gas/Electric Bills: No Difficulty Paying for Meds: No Currently Unemployed: No Education: High School Diploma/GED Difficulty w/ Childcare or Family Care: No Spiritual care concerns: No Meds Home Medications and Allergies Home Medications ?Medication ?Instructions ?Recorded ?Confirmed ?Type hydrochlorothiazide 25 mg tablet 50 mg PO DAILY 10/19/24 10/19/24 History lamotrigine 100 mg tablet 100 mg PO DAILY 10/19/24 10/19/24 History lamotrigine 150 mg tablet 150 mg PO HS 10/19/24 10/19/24 History Allergies Allergy/AdvReac Type Severity Reaction Status Date / Time No Known Allergies Allergy Verified 10/19/24 07:02 Vital Signs Vital Signs - 24 hr 10/19/24 06:39 10/19/24 07:02 10/19/24 07:02 Temperature 36.7 C Pulse Rate 77 75 75 Respiratory Rate 16 16 Blood Pressure 116/85 103/77 Pulse Oximetry 100 100 Oxygen Delivery Room Air 10/19/24 08:03 10/19/24 10:38 10/19/24 11:29 Temperature 36.9 C Pulse Rate 79 68 70 Respiratory Rate 16 19 16 Blood Pressure 126/75 104/72 110/84 Pulse Oximetry 100 100 98 Oxygen Delivery 10/19/24 12:48 10/19/24 12:49 Temperature 36.8 C 36.6 C Pulse Rate 68 73 Respiratory Rate 16 16 Blood Pressure 108/54 L 98/67 L Pulse Oximetry 97 100 Oxygen Delivery Exam Const: General: cooperative and healthy appearing Resp: Effort & Inspection: normal respiratory effort and able to speak in complete sentences Auscultation: clear to auscultation bilaterally Cardio: Rate: regular rate Rhythm: regular rhythm GI: Inspection: normal to inspection GI Palp: No No hepatosplenomegaly present Auscultation: normal bowel sounds Skin: General skin exam: normal color Psych: Appearance: grossly normal Mental Status: mental status grossly normal H&P: Results Labs Labs: Short CBC 10/19/24 Range/Units 06:52 WBC 4.2 L (4.5-10.0) K/mm3 Hgb 13.0 (12.0-15.0) g/dL Hct 39.4 (37.0-47.0) % Plt Count 230 (150-375) k/mm3 [facility] 10/19/24 06:52 Sodium 133 L Potassium 3.0 L Chloride 97 L Carbon Dioxide 25 BUN 8 Creatinine 0.58 L Glucose 104 Calcium 9.7 Cardiac Enzymes 10/19/24 10/19/24 Range/Units 06:52 09:43 Troponin I < 0.012 0.017 D (0.000-0.034) ng/mL Liver Function 10/19/24 Range/Units 06:52 Total Bilirubin 0.5 (0.2-1.3) mg/dL AST 31 (14-36) U/L ALT 18 (6-35) U/L Alkaline Phosphatase 47 (38-126) U/L Albumin 4.4 (3.5-5.1) g/dL Pulse Oximetry SpO2 results: 97-100% on room air Attestation: I personally reviewed and interpreted this pulse oximetry as follows: Interpretation: No need for supplemental oxygenation at this time ECG Attestation: I personally reviewed and interpreted this ECG as follows: ECG completion date: 10/19/24 ECG completion time: 06:51 Prior ECG tracings: not available for review Interpretation: Sinus rhythm rate of 73 CA interval 133 QRS duration 93 QTC 415 QRS axis -16? with T-wave inversion in Lead 3 and AVF, no STEMI Imaging CTA Chest Abdomen Pelvis: Radiologist's impression: EXAMINATION: CTA chest abdomen pelvis DATE: 10/19/2024 08:45 INDICATION: Chest pain and radiation to back and abdomen TECHNIQUE: Computed tomographic angiography (CTA) of the chest, abdomen and pelvis was performed with 150 cc of Omnipaque-350 intravenous contrast. Additional 3D reconstructions utilizing rotating maximum intensity projection (MIP) were performed. Automated exposure control and iterative reconstruction technique were employed. The dose-length product was 478.22 mGy-cm. COMPARISON: None FINDINGS: Chest: Lungs are clear with no pneumonia, pulmonary edema or other pulmonary infiltrates. No pleural effusion or pneumothorax. Heart size is normal. No pericardial effusion. Thoracic aorta is normal in caliber with no atherosclerotic plaque or dissection. Chronic appearing mild anterior wedging of T12 with superimposed Schmorl's node along the superior endplate. Mild thoracic and moderate lower cervical spondylosis. Abdomen and pelvis: Liver, spleen, pancreas, bilateral adrenal glands and kidneys are normal. Gallbladder is mildly dilated to maximal diameter 4.4 cm but with no abnormal wall thickening or pericolic cystic component projecting to suggest acute cholecystitis. The common bile duct is dilated to 9-10 mm with suggestion of subtle small gallstone at the distal common bile duct. Bones are unremarkable with no wall thickening or obstruction. Bladder is normal. The uterus is not identified and has likely been surgically resected. No free intraperitoneal gas or fluid. No pathologically enlarged abdominal or pelvic lymphadenopathy. Abdominal aorta is normal in caliber with no dissection. No evident atherosclerotic plaque along the abdominal aorta or its major branch vessels. Severe spondylosis at L5-S1 with mild spondylosis more cephalad lumbar spine. IMPRESSION: 1. Suggestion of obstructing choledocholithiasis with common bile duct measuring up to 9-10 mm and small intraluminal nodular density at the distal common bile duct. Correlate with liver function tests and if clinically indicated could consider further evaluation with MRCP or ERCP. 2. Normal caliber aorta with no dissection or evident atherosclerosis. Reviewed, dictated and finalized at location A. Chest x-ray: Radiologist's impression: EXAMINATION: XR chest 2V DATE: 10/19/2024 07:57 INDICATION: Chest pain and shortness of breath TECHNIQUE: PA and lateral views of the chest were obtained. COMPARISON: None FINDINGS: The lungs are clear with no focal airspace opacities, pulmonary edema, pleural effusion or pneumothorax. The cardiomediastinal silhouette is normal. Moderate thoracic spondylosis. IMPRESSION: 1. No acute cardiopulmonary disease. Reviewed, dictated and finalized at location A. Assessment and Plan Assessment and plan (1) Choledocholithiasis: Code(s): K80.50 - Calculus of bile duct without cholangitis or cholecystitis without obstruction Status: Acute Assessment and Plan: -Chest pain is presenting symptom -CTA showed dilated CBD 9-10 mm with suggestion of stone in distal CBD -GI consulted, MRCP ordered -MRCP will happen on 10/20 -Lipase mildly elevated at 371, T-bili normal at 0.5 and LFTs normal -ultrasound of the gallbladder also ordered as a fasting study for 10/20 -trend labs in the a.m. (2) Chest pain: Code(s): R07.9 - Chest pain, unspecified Status: Acute Assessment and Plan: -Chest pain presenting symptom -Cardiology consulted due to abnormal EKG in ER -Troponin had mild delta change then return to normal on hour repeat -OK for diet per Cardiology, HH ordered -Cardiology recommending exercise stress test and Echocardiogram (3) Hypokalemia: Code(s): E87.6 - Hypokalemia Status: Acute Assessment and Plan: -Acute mild hyponatremia and hypokalemia with Na 133 and K 3.0. -Oral replacement of potassium in ER -Magnesium 1.8 -No arrhythmia -Recheck in AM (4) Bipolar disorder: Code(s): F31.9 - Bipolar disorder, unspecified Status: Chronic Assessment and Plan: -Continue home medications Quality VTE Prophylaxis VTE prophylaxis: mechanical ordered If No VTE Prophylaxis Answer both mechanical and pharmacologic: Reason no pharmacologic proph: medical contraindication (GI consulted, may need ERCP 10/20) Hospitalist MIPS Advance Care Plan I have confirmed that the patient's Advanced Care Plan is present, code status is documented, or surrogate decision maker is listed in patient medical record.: Yes Medication Reconciliation I have utilized all available resources to obtain, update and review the patients current medications (includes all prescriptions, OTC, herbals, cannabis, and nutritional supplements).: Yes
[2024-10-19 14:22] LABS: Troponin I < 0.012 ng/mL (0.000-0.034)
--- NOTE | 2024-10-19 14:31 | P.CONCA_ITS ---
Assessment and Plan Assessment and plan (1) Chest pain: Code(s): R07.9 - Chest pain, unspecified Status: Acute (2) Hypokalemia: Code(s): E87.6 - Hypokalemia Status: Acute (3) Palpitations: Code(s): R00.2 - Palpitations Status: Acute Plan 49-year-old woman with hypertension presented with chest pain Chest pain -she had a similar presentation at [facility] a year ago with a resulting normal nuclear stress test with Lexiscan -have discussed with her the options of pursuing nuclear stress test with exercise treadmill testing versus cardiac catheterization -she opted for exercise treadmill testing at this time and did not feel comfortable leaving the hospital and told this has been completed -we will also pursue a transthoracic echocardiogram Palpitations -continue telemetry monitoring -the exercise portion of the stress test will help delineate whether she has significant arrhythmia -if unremarkable, she can follow-up with Dr. Mccabe for discussion of holter monitoring Hypokalemia -likely secondary to thiazide diuretics She sees Dr. Mccabe for her cardiovascular care History of Present Illness History of Present Illness Consult date/time: 10/19/24 14:31 Requesting physician: Km Floyd APRN Reason For Visit: CHOLEDOCHLITHIASIS,CHEST PAIN Narrative: 49-year-old woman with hypertension presented with chest pain. For the past several weeks, she has been experiencing chest pain that is described as pressure sensation across her entire precordium with radiation to her shoulders and back. At 1st the symptoms would occur rarely and would be of short duration. She has noticed in the last few weeks, the duration is have been increasing and the frequency has also been increasing. This has culminated to the point chest pressure lasting from 11:00 a.m. yesterday until she arrived at the emergency room today. She also noted palpitations with heart rates up to the 120s associated with the symptoms. She also noted that the symptoms have been getting significantly worse in intensity with increasing levels of physical activity. She does feel that this is causing physical limitations from a cardiopulmonary perspective. No syncopal episodes. Does have associated shortness of breath. Review of Systems 2 Cardiovascular: Cardiovascular: Reports as per HPI Respiratory: Respiratory: Reports as per HPI [facility] Past Medical History Medical History (Updated 10/19/24 @ 14:39 by Carmine Gonzalez MD) Bipolar disorder Social History Social History Smoking status: Former smoker Tobacco type: cigarettes Smoking end date: 05/13/94 Alcohol intake: never Substance use: never Do You Feel Safe in your Home?: Yes Lack of Transportation: No Lack of Food: Never True Current Housing: I Have Housing Concerned About Future Housing: No Difficulty Paying Gas/Electric Bills: No Difficulty Paying for Meds: No Currently Unemployed: No Education: High School Diploma/GED Difficulty w/ Childcare or Family Care: No Spiritual care concerns: No Meds Home Medications and Allergies Home Medications ?Medication ?Instructions ?Recorded ?Confirmed ?Type hydrochlorothiazide 25 mg tablet 50 mg PO DAILY 10/19/24 10/19/24 History lamotrigine 100 mg tablet 100 mg PO DAILY 10/19/24 10/19/24 History lamotrigine 150 mg tablet 150 mg PO HS 10/19/24 10/19/24 History Allergies Allergy/AdvReac Type Severity Reaction Status Date / Time No Known Allergies Allergy Verified 10/19/24 07:02 Vital Signs Vital Signs - 24 hr 10/19/24 06:39 10/19/24 07:02 10/19/24 07:02 Temperature 36.7 C Pulse Rate 77 75 75 Respiratory Rate 16 16 Blood Pressure 116/85 103/77 Pulse Oximetry 100 100 Oxygen Delivery Room Air 10/19/24 08:03 10/19/24 10:38 10/19/24 11:29 Temperature 36.9 C Pulse Rate 79 68 70 Respiratory Rate 16 19 16 Blood Pressure 126/75 104/72 110/84 Pulse Oximetry 100 100 98 Oxygen Delivery 10/19/24 12:48 10/19/24 12:49 Temperature 36.8 C 36.6 C Pulse Rate 68 73 Respiratory Rate 16 16 Blood Pressure 108/54 L 98/67 L Pulse Oximetry 97 100 Oxygen Delivery Exam 2 Const: General: comfortable HENMT: Mouth: Yes moist mucous membranes Eyes: EOM: EOMs intact bilaterally Neck: Neck: no JVD Resp: Effort & Inspection: normal respiratory effort Auscultation: clear to auscultation bilaterally Cardio: Rate: regular rate Rhythm: regular rhythm GI: GI Palp: Yes Soft to palpation Extrem: General: no pedal edema Results Labs and Meds 10/19/24 06:52 10/19/24 06:52 Lab results: Cardiac Enzymes 06/02/0410/19/24 10/19/24 Range/Units 06:52 09:43 13:34 AST 31 (14-36) U/L Troponin I < 0.012 0.017 D < 0.012 D (0.000-0.034) ng/mL Coagulation 10/19/24 Range/Units 06:52 PT 14.2 (11.1-14.7) Seconds APTT 27.4 (22.3-36.8) Seconds CBC 10/19/24 Range/Units 06:52 WBC 4.2 L (4.5-10.0) K/mm3 RBC 4.42 (4.2-5.4) M/mm3 Hgb 13.0 (12.0-15.0) g/dL Hct 39.4 (37.0-47.0) % Plt Count 230 (150-375) k/mm3 Lymph # (Auto) 0.98 (0.9-3.2) K/mm3 [place] # (Auto) 0.3 (0.1-0.6) K/mm3 Eos # (Auto) 0.0 (0-0.3) K/mm3 Baso # (Auto) 0.0 (0.0-0.1) K/mm3 Comprehensive Metabolic Panel 10/19/24 Range/Units 06:52 Sodium 133 L (137-145) mmol/L Potassium 3.0 L (3.4-5.0) mmol/L Chloride 97 L (98-107) mmol/L Carbon Dioxide 25 (22-30) mmol/L BUN 8 (7-17) mg/dL Creatinine 0.58 L (0.7-1.0) mg/dL Glucose 104 (65-110) mg/dL Calcium 9.7 (8.4-10.2) mg/dL AST 31 (14-36) U/L ALT 18 (6-35) U/L Alkaline Phosphatase 47 (38-126) U/L Total Protein 7.6 (6.3-8.2) g/dL Albumin 4.4 (3.5-5.1) g/dL Intake and Output 10/18/24 10/19/24 10/19/24 23:59 07:59 15:59 Intake Total 687.5 Balance 687.5 Intake: IV 687.5 Sodium Chloride 0.9% IV 1,000 187.5 ml @ 70 mls/hr IV CONT .[id number] Rx#:[id number] Sodium Chloride 0.9% IV 500 ml 500 @ 999 mls/hr IV CONT .Q31M [facility] Rx#:[id number] Patient Weight 10/19/24 23:59 Weight 68 kg
--- NOTE | 2024-10-19 15:17 | P.CONGI_ITS ---
Assessment and Plan Assessment and plan (1) Choledocholithiasis: Code(s): K80.50 - Calculus of bile duct without cholangitis or cholecystitis without obstruction Status: Acute Assessment and Plan: Despite a questionable filling defect observed in the common bile duct, the patient's current clinical picture and past medical history do not align with the expected signs of choledocholithiasis : severe pain attacks, jaundice, or abnormal liver chemistries. To further evaluate, an abdominal ultrasound focusing on the gallbladder could identify subtle abnormalities missed by the CT. For definitive diagnosis, an MRCP is indicated to rule out the presence of a gallstone. If a gallstone is confirmed, an ERCP would then be necessary for intervention GI Consult Note Consult date/time: 10/19/24 15:17 HPI: Jazmin Platt is a 49-year-old female with a history of bipolar disorder. She presents with a two-week history of intermittent palpitations and chest discomfort, having previously presented to other facilities for similar complaints but consistently signed out against medical advice .Today, she is admitted with a presumptive diagnosis of choledocholithiasis. A CT scan performed today showed a mildly dilated gallbladder (without abnormal thickening or filling defects), a common bile duct measuring 9-10 mm, and a questionable gallstone in the distal common bile duct. However, she denies acute attacks of epigastric or right upper quadrant pain, jaundice, dark urine, fever, or chills, and reports no prior history of abdominal pain attacks. Review of Systems 2 Review of Systems: All systems reviewed & are unremarkable except as noted in HPI and below [facility] Past Medical History Medical History (Updated 10/19/24 @ 14:39 by Carmine Gonzalez MD) Bipolar disorder Social History Social History Smoking status: Former smoker Tobacco type: cigarettes Smoking end date: 05/13/94 Alcohol intake: never Substance use: never Do You Feel Safe in your Home?: Yes Lack of Transportation: No Lack of Food: Never True Current Housing: I Have Housing Concerned About Future Housing: No Difficulty Paying Gas/Electric Bills: No Difficulty Paying for Meds: No Currently Unemployed: No Education: High School Diploma/GED Difficulty w/ Childcare or Family Care: No Spiritual care concerns: No Meds Home Medications and Allergies Home Medications ?Medication ?Instructions ?Recorded ?Confirmed ?Type hydrochlorothiazide 25 mg tablet 50 mg PO DAILY 10/19/24 10/19/24 History lamotrigine 100 mg tablet 100 mg PO DAILY 10/19/24 10/19/24 History lamotrigine 150 mg tablet 150 mg PO HS 10/19/24 10/19/24 History Allergies Allergy/AdvReac Type Severity Reaction Status Date / Time No Known Allergies Allergy Verified 10/19/24 07:02 Vital Signs Vital Signs - 24 hr 10/19/24 06:39 10/19/24 07:02 10/19/24 07:02 Temperature 98.1 F Pulse Rate 77 75 75 Respiratory Rate 16 16 Blood Pressure 116/85 103/77 Pulse Oximetry 100 100 Oxygen Delivery Room Air 10/19/24 08:03 10/19/24 10:38 10/19/24 11:29 Temperature 98.4 F Pulse Rate 79 68 70 Respiratory Rate 16 19 16 Blood Pressure 126/75 104/72 110/84 Pulse Oximetry 100 100 98 Oxygen Delivery 10/19/24 12:48 10/19/24 12:49 Temperature 98.2 F 97.9 F Pulse Rate 68 73 Respiratory Rate 16 16 Blood Pressure 108/54 L 98/67 L Pulse Oximetry 97 100 Oxygen Delivery Exam 2 Const: General: cooperative and healthy appearing Resp: Effort & Inspection: normal respiratory effort and able to speak in complete sentences Auscultation: clear to auscultation bilaterally Cardio: Rate: regular rate Rhythm: regular rhythm GI: Inspection: normal to inspection GI Palp: No No hepatosplenomegaly present Auscultation: normal bowel sounds Rectal Exam: deferred Skin: General skin exam: normal color Psych: Appearance: grossly normal Mental Status: mental status grossly normal Results Labs 10/19/24 06:52 10/19/24 06:52 Labs: Short CBC 10/19/24 Range/Units 06:52 WBC 4.2 L (4.5-10.0) K/mm3 Hgb 13.0 (12.0-15.0) g/dL Hct 39.4 (37.0-47.0) % Plt Count 230 (150-375) k/mm3 [facility] 10/19/24 06:52 Sodium 133 L Potassium 3.0 L Chloride 97 L Carbon Dioxide 25 BUN 8 Creatinine 0.58 L Glucose 104 Calcium 9.7 Cardiac Enzymes 10/19/24 10/19/24 10/19/24 Range/Units 06:52 09:43 13:34 Troponin I < 0.012 0.017 D < 0.012 D (0.000-0.034) ng/mL Liver Function 10/19/24 Range/Units 06:52 Total Bilirubin 0.5 (0.2-1.3) mg/dL AST 31 (14-36) U/L ALT 18 (6-35) U/L Alkaline Phosphatase 47 (38-126) U/L Albumin 4.4 (3.5-5.1) g/dL
[2024-10-19] MEDS: lamoTRIgine 100 MG TABLET PO (20:44)
[2024-10-19] MEDS: lamoTRIgine 50 MG TABLET PO (20:44)
[2024-10-20] VITALS (8 sets, daily range): BP systolic 110–127; BP diastolic 58–67; PULSE 69–82; RESP 14–18; TEMP 36.8–37; O2SAT 99–100
--- NOTE | 2024-10-20 | EST_ITS ---
Patient Info Name: Jazmin Platt Age: 49 years : 1975 Gender: Female Ht: 61 in Wt: 149 lbs BSA: 1.73 m2 HR: 74 bpm BP: 128 / 71 mmHg Exam Date: 10/20/2024 2:55 PM Patient Status: I Admit Date: 10/19/2024 Exam Type: CA stress test treadmill w NM A nuclear stress test was performed. Staff Referring Physician: Carmine Gonzalez Attending Provider: Zuhair Valle Exercise Technologist: Diana Friedman Summary 1. Exercise capacity fair to good at 6-10 METS. 2. Stress ECG uninterpretable for ischemia due to significant baseline motion artifact. 3. Please correlate with nuclear medicine images, reported separately. 4. Stress test supervised by and interpreted by Lenard Johnson MD. Protocol: [place]o Stress ECG Details Stage: REST Duration (min): 0 min : 21 sec Speed (mph): 0.0 Grade (%): 0 HR (bpm): 72 SBP (mmHg): --- DBP (mmHg): --- METS: --- Stage: REST Duration (min): 0 min : 57 sec Speed (mph): 0.0 Grade (%): 0 HR (bpm): 75 SBP (mmHg): 128 DBP (mmHg): 71 METS: --- Stage: REST Duration (min): 23 min : 42 sec Speed (mph): 0.0 Grade (%): 0 HR (bpm): 81 SBP (mmHg): 128 DBP (mmHg): 71 METS: --- Stage: STAGE 1 Duration (min): 1 min : 0 sec Speed (mph): 1.7 Grade (%): 10 HR (bpm): 117 SBP (mmHg): 128 DBP (mmHg): 71 METS: --- Stage: STAGE 1 Duration (min): 2 min : 0 sec Speed (mph): 1.7 Grade (%): 10 HR (bpm): 137 SBP (mmHg): 128 DBP (mmHg): 71 METS: --- Stage: STAGE 1 Duration (min): 3 min : 0 sec Speed (mph): 1.7 Grade (%): 10 HR (bpm): 141 SBP (mmHg): 138 DBP (mmHg): 81 METS: --- Stage: STAGE 2 Duration (min): 1 min : 0 sec Speed (mph): 2.5 Grade (%): 12 HR (bpm): 155 SBP (mmHg): 138 DBP (mmHg): 81 METS: --- Stage: STAGE 2 Duration (min): 1 min : 32 sec Speed (mph): 2.5 Grade (%): 12 HR (bpm): 163 SBP (mmHg): 138 DBP (mmHg): 81 METS: --- Stage: RECOVERY Duration (min): 0 min : 21 sec Speed (mph): 1.5 Grade (%): 0 HR (bpm): 166 SBP (mmHg): 138 DBP (mmHg): 81 METS: --- Rest HR: 81 bpm Peak HR: 166 bpm Rest Sys BP: 128 mmHg Peak Sys BP: 138 mmHg Max Pred HR: 169 bpm % Max Pred HR: 98 % Target HR: 144 bpm Max RPP: 22,908 bpm*mmHg Mann Score: -12 Target HR Summary: Patient's target heart rate was achieved Termination Reason: Reached target heart rate or workload Max ST Seg Deviation: 3.30 mm Total Time: 4 min : 32 sec Rest Kimble BP: 71 mmHg Peak Kimble BP: 81 mmHg Angina Score: None Total METS: 7.1 Resting ECG Sinus rhythm. Stress ECG Non-diagnostic stress ECG response due to motion artifact. Report Signatures
--- NOTE | 2024-10-20 | ECHO_ITS ---
Patient Info Name: Jazmin Platt Age: 49 years : 1975 Gender: Female Ht: 61 in Wt: 152 lbs BSA: 1.75 m2 HR: 69 bpm BP: 110 / 67 mmHg Heart Rhythm: Sinus Rhythm Technical Quality: Good Exam Date: 10/20/2024 7:22 AM Patient Status: I Admit Date: 10/19/2024 Exam Type: CA echo doppler color flow Complete two-dimensional, color flow and Doppler transthoracic echocardiogram is performed. Staff Referring Physician: Oscar Mathis Plant Wire Chief: Maureen Omalley Attending Provider: Zuhair Valle Summary 1. Left ventricular chamber dimension is normal. 2. Left ventricular systolic function is normal, estimated at 50-55. 3. The left ventricular diastolic function is grade I diastolic dysfunction. 4. Right ventricular systolic function is normal. 5. Interatrial septum appears aneurysmal. 6. There is mild tricuspid valve regurgitation. Left Ventricle Left ventricular chamber dimension is normal. Left ventricular systolic function is normal, estimated at 50-55. There is no increased left ventricular wall thickness. The left ventricular diastolic function is grade I diastolic dysfunction. Right Ventricle Right ventricular chamber dimension is normal. Right ventricular systolic function is normal. Left Atria Left atrial chamber dimension is normal. Right Atria Right atrial chamber dimension is normal. Atrial Septum Interatrial septum appears aneurysmal. Aortic Valve The aortic valve is trileaflet. There is no aortic valve stenosis. There is no aortic valve regurgitation. Pulmonic Valve The pulmonic valve is normal. There is no pulmonic regurgitation. Mitral Valve There is trace mitral valve regurgitation. Tricuspid Valve There is mild tricuspid valve regurgitation. Pericardium/Pleural There is no pericardial effusion. Inferior Vena Cava Normal inferior vena cava with >50% collapse upon inspiration consistent with normal right atrial pressure, 3 mmHg. Aorta The aortic root size at the sinus of Valsalva is normal. Left Ventricular Outflow Tract Name Value Normal LVOT 2D LVOT Diameter 2.0 cm LVOT Doppler LVOT Peak Velocity 110 cm/s LVOT Peak Gradient 5 mmHg LVOT Mean Gradient 2 mmHg LVOT VTI 21 cm LVOT VTI/AV VTI Ratio 0.8 LVOT Stroke Volume 62 ml LVOT CO 4.5 l/min LVOT CI 2.6 l/min/m2 Pulmonic Valve Name Value Normal RVOT Doppler RVOT Peak Velocity 61 cm/s RVOT Peak Gradient 1 mmHg PV Doppler PV Peak Velocity 125 cm/s PV Peak Gradient 6 mmHg Mitral Valve Name Value Normal MV Diastolic Function MV E Peak Velocity 79 cm/s MV A Peak Velocity 85 cm/s MV E/A 0.9 MV Decel Time (PW) 124 ms MV Annular TDI MV E/e' (Septal) 9.7 MV E/e' (Lateral) 6.7 MV E/e' (Average) 8.2 Tricuspid Valve Name Value Normal TV Regurgitation Doppler TR Peak Velocity 236 cm/s TR Peak Gradient 22 mmHg Estimated PAP/RSVP RA Pressure 3 mmHg <=5 PA Systolic Pressure 25 mmHg <36 RV Systolic Pressure 25 mmHg <36 Aorta Name Value Normal Ascending Aorta Ao Root Diameter (MM) 3.1 cm Ao Root Diam Index (MM) 1.8 cm/m2 Aortic Valve Name Value Normal AV Doppler AV Peak Velocity 148 cm/s AV Peak Gradient 9 mmHg AV Mean Gradient 4 mmHg AV VTI 25 cm AV Area (Cont Eq VTI) 2.5 cm2 >=3.0 AV Area (Cont Eq Rock) 2.2 cm2 AV DI (Rock) 0.74 AV Regurgitation 2D LVOT Area 3.0 cm2 Ventricles Name Value Normal LV Dimensions 2D/MM IVS Diastolic Thickness (2D) 0.8 cm 0.6-1.0 LVID Diastole (2D) 5.3 cm 3.8-5.2 LVIW Diastolic Thickness (2D) 0.7 cm 0.6-0.9 LVID Systole (2D) 3.6 cm 2.2-3.5 LVOT Diameter 2.0 cm LV Mass (2D Cubed) 136.66 g 67.00-162.00 LV Mass Index (2D Cubed) 78 g/m2 43-95 Relative Wall Thickness (2D) 0.26 <=0.42 LV Fractional Shortening/Ejection Fraction 2D/MM LV Fractional Shortening (2D) 32 % 27-45 LV EF (2D Teichholz) 60 % LV Diastolic Volume (4C MOD) 92 ml LV EF (4C MOD) 55 % LV Diastolic Volume (2C MOD) 90 ml LV EF (2C MOD) 55 % LV Diastolic Volume (BP MOD) 91 ml 46-106 LV Diastolic Volume Index (BP MOD) 52 ml/m2 29-61 LV Systolic Volume (BP MOD) 42 ml 14-42 LV Systolic Volume Index (BP MOD) 24 ml/m2 8-24 LV EF (BP MOD) 54 % 54-74 LV Diastolic Length (4C) 7.7 cm LV Systolic Length (4C) 6.2 cm LV Stroke Volume (4C MOD) 50 ml Atria Name Value Normal LA Dimensions LA Dimension (MM) 4.0 cm 2.7-3.8 LA Volume (4C A-L) 52 ml LA Volume (BP A-L) 55 ml RA Dimensions RA Area (4C) 12.4 cm2 <=18.0 Report Signatures
[2024-10-20] MEDS: SODIUM CHLORIDE 0.9% IV 1,000 ML 70 ML IV CONT (01:24)
[2024-10-20 04:32] LABS: Eosinophils Absolute Auto 0.1 K/mm3 (0-0.3); Eosinophils Percent Auto 2.2 % (0-4.4); Hematocrit 43.8 % (37.0-47.0); Hemoglobin 14.1 g/dL (12.0-15.0); Lymphocytes Absolute Auto 1.11 K/mm3 (0.9-3.2); Lymphocytes Percent Auto 35.4 % (18.3-44.2); Mean Corpuscular HGB Conc 32.2 g/dl (32-36); Mean Corpuscular Hemoglobin 29.7 pg (26-34); Mean Corpuscular Volume 92.2 fl (80-100); Mean Platelet Volume 9.2 fl (7.4-10.4); Monocytes Absolute Auto 0.2 K/mm3 (0.1-0.6); Monocytes Percent Auto 6.1 % (2.6-8.5); Neutrophils Absolute Auto 1.7 K/mm3 (1.3-6.7); Neutrophils Percent Auto 55.3 % (45.5-73.1); Platelet Count Result 244 k/mm3 (150-375); Red Blood Count 4.75 M/mm3 (4.2-5.4); Red Cell Distribution Width 14.2 % (11.5-14.5); White Blood Count 3.1 K/mm3 (4.5-10.0)
[2024-10-20 04:46] LABS: Alanine Aminotransferase 17 U/L (6-35); Albumin Level 4.2 g/dL (3.5-5.1); Alkaline Phosphatase 53 U/L (38-126); Anion Gap 6 mmol/L (4-12); Aspartate Amino Transferase 32 U/L (14-36); Bilirubin,Total 0.5 mg/dL (0.2-1.3); Blood Urea Nitrogen 9 mg/dL (7-17); Calcium 9.2 mg/dL (8.4-10.2); Carbon Dioxide 27 mmol/L (22-30); Chloride 105 mmol/L (98-107); Estimated CRCL calculation 88 ml/min; Estimated Glomerular Filt Rate > 60; Glucose 85 mg/dL (65-110); Lipase 461 U/L (23-300); Magnesium 2.1 mg/dL (1.6-2.3); Potassium 3.4 mmol/L (3.4-5.0); Sodium 138 mmol/L (137-145); Total Protein 7.5 g/dL (6.3-8.2)
[2024-10-20] MEDS: ACETAMINOPHEN 325 MG TABLET 650 MG PO (06:17)
--- NOTE | 2024-10-20 11:59 | P.PNCA_ITS ---
Progress Note: A&P Assessment and Plan (1) Chest pain: Code(s): R07.9 - Chest pain, unspecified Status: Acute Plan 49-year-old woman with hypertension presented with chest pain Chest pain -She had a similar presentation at [facility] a year ago with a resulting normal nuclear stress test with Lexiscan -TTE unremarkable. -Treadmill nuclear stress test today. If nuclear stress test is negative, okay for discharge from a cardiology standpoint. Palpitations -Continue telemetry monitoring -Recommend outpatient 48 hour Holter monitor upon discharge (order placed). Hypokalemia -Likely secondary to thiazide diuretics She sees Dr. Mccabe for her cardiovascular care. Has an upcoming appointment this Saturday per patient. Subjective Date/time seen: 10/20/24 11:59 Interval history: Reason for visit: Chest pain HPI: 49-year-old woman with hypertension presented with chest pain. For the past several weeks, she has been experiencing chest pain that is described as pressure sensation across her entire precordium with radiation to her shoulders and back. At 1st the symptoms would occur rarely and would be of short duration. She has noticed in the last few weeks, the duration is have been increasing and the frequency has also been increasing. This has culminated to the point chest pressure lasting from 11:00 a.m. yesterday until she arrived at the emergency room today. She also noted palpitations with heart rates up to the 120s associated with the symptoms. She also noted that the symptoms have been getting significantly worse in intensity with increasing levels of physical activity. She does feel that this is causing physical limitations from a cardiopulmonary perspective. No syncopal episodes. Does have associated shortness of breath. Date of service 10/20: Reports intermittent chest pain. Reports her heart rate has been in the 80s to 100s, which is not normal for her. Review of Systems Cardiovascular: Cardiovascular: Reports as per HPI Exam Const: General: no acute distress HENMT: Mouth: Yes moist mucous membranes Eyes: General: appearance normal, both eyes and all related structures Sclera: sclerae normal Resp: Effort & Inspection: normal respiratory effort Cardio: Rate: regular rate Rhythm: regular rhythm Skin: General skin exam: normal color Neuro: Speech: normal speech Psych: Mental Status: mental status grossly normal Affect: normal affect Objective Data Vital Signs Vital Signs: Vital Signs - 24 hr 10/19/24 12:48 10/19/24 12:49 10/19/24 14:00 Temperature 36.8 C 36.6 C Pulse Rate 68 73 80 Respiratory Rate 16 16 Blood Pressure 108/54 L 98/67 L Pulse Oximetry 97 100 Oxygen Delivery 10/19/24 15:50 10/19/24 16:00 10/19/24 16:00 Temperature 36.6 C Pulse Rate 78 74 Respiratory Rate 18 Blood Pressure 95/53 L Pulse Oximetry 100 Oxygen Delivery Room Air 10/19/24 18:00 10/19/24 19:39 10/19/24 20:00 Temperature 37.0 C Pulse Rate 76 73 Respiratory Rate 18 Blood Pressure 111/62 Pulse Oximetry 99 Oxygen Delivery Room Air 10/19/24 20:00 10/19/24 22:00 10/19/24 23:18 Temperature 37.1 C Pulse Rate 72 70 74 Respiratory Rate 16 Blood Pressure 102/64 Pulse Oximetry 100 Oxygen Delivery 10/20/24 00:00 10/20/24 00:00 10/20/24 02:00 Temperature Pulse Rate 69 73 Respiratory Rate Blood Pressure Pulse Oximetry Oxygen Delivery Room Air 10/20/24 03:58 10/20/24 04:00 10/20/24 04:00 Temperature 36.8 C Pulse Rate 80 82 Respiratory Rate 18 Blood Pressure 110/67 Pulse Oximetry 100 Oxygen Delivery Room Air 10/20/24 06:00 10/20/24 08:00 10/20/24 08:00 Temperature 36.9 C Pulse Rate 69 74 74 Respiratory Rate 14 14 Blood Pressure 111/64 Pulse Oximetry 100 99 Oxygen Delivery Room Air 10/20/24 08:55 Temperature Pulse Rate Respiratory Rate Blood Pressure Pulse Oximetry 99 Oxygen Delivery Room Air Intake/Output Intake/Output: Intake & Output 10/17/24 10/18/24 10/19/24 10/20/24 23:59 23:59 23:59 23:59 Intake Total 927.5 932.5 Output Total 250 300 Balance 677.5 632.5 Meds/Results Medications: Active Medications Generic Name Dose Route Start Last Admin Trade Name Freq PRN Reason Stop Dose Admin Acetaminophen 650 mg 10/19/24 12:50 10/20/24 06:17 Acetaminophen 325 Mg Tablet PO 650 mg Q4H PRN Administration Pain Rated 5 or Less or Fever Aspirin 81 mg 10/20/24 08:00 Aspirin 81 Mg Chewable Tablet PO DAILY@0800 [facility] Sodium Chloride 1,000 mls @ 70 mls/hr 10/19/24 11:55 10/20/24 01:24 Normal Saline Iv IV CONT 70 mls/hr .[id number] HALEY Administration Lamotrigine 100 mg 10/19/24 21:00 10/19/24 20:44 Lamotrigine 100 Mg Tablet PO 100 mg Q12HR HALEY Administration Lamotrigine 50 mg 10/19/24 21:00 10/19/24 20:44 Lamotrigine 50 Mg Tablet PO 50 mg HS HALEY Administration Morphine Sulfate 2 mg 10/19/24 11:53 Morphine Sulfate (*Crx) 2 Mg/Ml Inj IV PUSH Q2H PRN Pain Rated 6 or Greater Ondansetron HCl 4 mg 10/19/24 11:53 Ondansetron Inj 4 Mg/2 Ml Vial IV PUSH Q4H PRN Nausea Perflutren Lipid Microsphere 0 ml 10/19/24 14:19 Perflutren Lipid Microspheres 1.5 Ml Vial Diluted To 10 Ml Total Volume IV PUSH 10/22/24 14:19 ONCE PRN adequate visualization Protocol Radiology Results: ITS Impressions Chest X-Ray 10/19/24 08:22 IMPRESSION: 1. No acute cardiopulmonary disease. Chest/Abdomen/Pelvis CTA 10/19/24 08:48 IMPRESSION: 1. Suggestion of obstructing choledocholithiasis with common bile duct measuring up to 9-10 mm and small intraluminal nodular density at the distal common bile duct. Correlate with liver function tests and if clinically indicated could consider further evaluation with MRCP or ERCP. 2. Normal caliber aorta with no dissection or evident atherosclerosis. MRCP 10/20/24 10:36 IMPRESSION: 1. No cholelithiasis or choledocholithiasis with borderline common bile duct measuring up to 6-7 mm. Abdomen Ultrasound 10/20/24 11:13 Impression: No significant abnormality seen. Labs Labs: Laboratory Results - last 24 hr 10/19/24 10/20/24 13:34 03:59 WBC 3.1 L RBC 4.75 Hgb 14.1 Hct 43.8 MCV 92.2 MCH 29.7 MCHC 32.2 RDW 14.2 Plt Count 244 MPV 9.2 Immature Gran % (Auto) 0.0 Neut % (Auto) 55.3 Lymph % (Auto) 35.4 [place] % (Auto) 6.1 Eos % (Auto) 2.2 Baso % (Auto) 1.0 Lymph # (Auto) 1.11 [place] # (Auto) 0.2 Eos # (Auto) 0.1 Baso # (Auto) 0.0 Abs Immat Gran (auto) 0.00 Absolute Neuts (auto) 1.7 Absolute Nucleated RBC 0.000 Nucleated RBC % 0.0 Sodium 138 Potassium 3.4 Chloride 105 Carbon Dioxide 27 Anion Gap 6 BUN 9 Creatinine 0.57 L Estim Creat Clear Calc 88 Estimated GFR > 60 Glucose 85 Calcium 9.2 Magnesium 1.8 2.1 Total Bilirubin 0.5 AST 32 ALT 17 Alkaline Phosphatase 53 Troponin I < 0.012 D Total Protein 7.5 Albumin 4.2 Lipase 461 H
[2024-10-20] MEDS: lamoTRIgine 100 MG TABLET PO (12:44)
[2024-10-20] MEDS: ASPIRIN 81 MG CHEWABLE TABLET PO (12:44)
--- NOTE | 2024-10-20 13:33 | P.PNGI_ITS ---
Progress Note: A&P Assessment and Plan (1) Common bile duct dilatation: Code(s): K83.8 - Other specified diseases of biliary tract Status: Acute Assessment and Plan: results of MRCP and ultrasound noticed. The common bile duct is borderline increased in diameter, although with no evidence of tumors or stones. Therefore, the patient does not have any need for intervention from our specialty. She can be followed as an outpatient by her primary care physician and referred back to us if needed. Subjective Date/time seen: 10/20/24 13:33 Objective Data Vital Signs Vital Signs: Vital Signs - 24 hr 10/19/24 14:00 10/19/24 15:50 10/19/24 16:00 Temperature 97.9 F Pulse Rate 80 78 Respiratory Rate 18 Blood Pressure 95/53 L Pulse Oximetry 100 Oxygen Delivery Room Air 10/19/24 16:00 10/19/24 18:00 10/19/24 19:39 Temperature 98.6 F Pulse Rate 74 76 73 Respiratory Rate 18 Blood Pressure 111/62 Pulse Oximetry 99 Oxygen Delivery 10/19/24 20:00 10/19/24 20:00 10/19/24 22:00 Temperature Pulse Rate 72 70 Respiratory Rate Blood Pressure Pulse Oximetry Oxygen Delivery Room Air 10/19/24 23:18 10/20/24 00:00 10/20/24 00:00 Temperature 98.7 F Pulse Rate 74 69 Respiratory Rate 16 Blood Pressure 102/64 Pulse Oximetry 100 Oxygen Delivery Room Air 10/20/24 02:00 10/20/24 03:58 10/20/24 04:00 Temperature 98.2 F Pulse Rate 73 80 Respiratory Rate 18 Blood Pressure 110/67 Pulse Oximetry 100 Oxygen Delivery Room Air 10/20/24 04:00 10/20/24 06:00 10/20/24 08:00 Temperature 98.5 F Pulse Rate 82 69 74 Respiratory Rate 14 Blood Pressure 111/64 Pulse Oximetry 100 Oxygen Delivery 10/20/24 08:00 10/20/24 08:55 10/20/24 12:56 Temperature 98.6 F Pulse Rate 74 78 Respiratory Rate 14 18 Blood Pressure 127/58 L Pulse Oximetry 99 99 100 Oxygen Delivery Room Air Room Air Intake/Output Intake/Output: Intake & Output 10/17/24 10/18/24 10/19/24 10/20/24 23:59 23:59 23:59 23:59 Intake Total 927.5 932.5 Output Total 250 300 Balance 677.5 632.5 Meds/Results Medications: Active Medications Generic Name Dose Route Start Last Admin Trade Name Freq PRN Reason Stop Dose Admin Acetaminophen 650 mg 10/19/24 12:50 10/20/24 06:17 Acetaminophen 325 Mg Tablet PO 650 mg Q4H PRN Administration Pain Rated 5 or Less or Fever Aspirin 81 mg 10/20/24 08:00 10/20/24 12:44 Aspirin 81 Mg Chewable Tablet PO 81 mg DAILY@0800 HALEY Administration Sodium Chloride 1,000 mls @ 70 mls/hr 10/19/24 11:55 10/20/24 01:24 Normal Saline Iv IV CONT 70 mls/hr .[id number] HALEY Administration Lamotrigine 100 mg 10/19/24 21:00 10/20/24 12:44 Lamotrigine 100 Mg Tablet PO 100 mg Q12HR HALEY Administration Lamotrigine 50 mg 10/19/24 21:00 10/19/24 20:44 Lamotrigine 50 Mg Tablet PO 50 mg HS HALEY Administration Morphine Sulfate 2 mg 10/19/24 11:53 Morphine Sulfate (*Crx) 2 Mg/Ml Inj IV PUSH Q2H PRN Pain Rated 6 or Greater Ondansetron HCl 4 mg 10/19/24 11:53 Ondansetron Inj 4 Mg/2 Ml Vial IV PUSH Q4H PRN Nausea Perflutren Lipid Microsphere 0 ml 10/19/24 14:19 Perflutren Lipid Microspheres 1.5 Ml Vial Diluted To 10 Ml Total Volume IV PUSH 10/22/24 14:19 ONCE PRN adequate visualization Protocol Radiology Results: ITS Impressions Chest X-Ray 10/19/24 08:22 IMPRESSION: 1. No acute cardiopulmonary disease. Chest/Abdomen/Pelvis CTA 10/19/24 08:48 IMPRESSION: 1. Suggestion of obstructing choledocholithiasis with common bile duct measuring up to 9-10 mm and small intraluminal nodular density at the distal common bile duct. Correlate with liver function tests and if clinically indicated could consider further evaluation with MRCP or ERCP. 2. Normal caliber aorta with no dissection or evident atherosclerosis. MRCP 10/20/24 10:36 IMPRESSION: 1. No cholelithiasis or choledocholithiasis with borderline common bile duct measuring up to 6-7 mm. Abdomen Ultrasound 10/20/24 11:13 Impression: No significant abnormality seen. Pharmacological Stress Test 10/20/24 12:25 IMPRESSION: 1. Normal myocardial perfusion at rest and during stress. 2. Left ventricular ejection fraction measuring 57%. Labs Labs: Laboratory Results - last 24 hr 10/19/24 10/20/24 13:34 03:59 WBC 3.1 L RBC 4.75 Hgb 14.1 Hct 43.8 MCV 92.2 MCH 29.7 MCHC 32.2 RDW 14.2 Plt Count 244 MPV 9.2 Immature Gran % (Auto) 0.0 Neut % (Auto) 55.3 Lymph % (Auto) 35.4 [place] % (Auto) 6.1 Eos % (Auto) 2.2 Baso % (Auto) 1.0 Lymph # (Auto) 1.11 [place] # (Auto) 0.2 Eos # (Auto) 0.1 Baso # (Auto) 0.0 Abs Immat Gran (auto) 0.00 Absolute Neuts (auto) 1.7 Absolute Nucleated RBC 0.000 Nucleated RBC % 0.0 Sodium 138 Potassium 3.4 Chloride 105 Carbon Dioxide 27 Anion Gap 6 BUN 9 Creatinine 0.57 L Estim Creat Clear Calc 88 Estimated GFR > 60 Glucose 85 Calcium 9.2 Magnesium 1.8 2.1 Total Bilirubin 0.5 AST 32 ALT 17 Alkaline Phosphatase 53 Troponin I < 0.012 D Total Protein 7.5 Albumin 4.2 Lipase 461 H
--- NOTE | 2024-10-20 13:41 | P.DS_ITS ---
DS: Admitting Diagnosis Discharge Date o10/20/24 Admitting Diagnosis chest pain DS: Discharge Diagnosis Discharge Diagnosis (1) Choledocholithiasis: Code(s): K80.50 - Calculus of bile duct without cholangitis or cholecystitis without obstruction Status: Deleted Assessment and Plan: -Chest pain is presenting symptom -CTA showed dilated CBD 9-10 mm with suggestion of stone in distal CBD -GI consulted, MRCP ordered -MRCP will happen on 10/20 -Lipase mildly elevated at 371, T-bili normal at 0.5 and LFTs normal -ultrasound of the gallbladder also ordered as a fasting study for 10/20 -trend labs in the a.m. (2) Chest pain: Code(s): R07.9 - Chest pain, unspecified Status: Acute Assessment and Plan: -Chest pain presenting symptom -Cardiology consulted due to abnormal EKG in ER -Troponin had mild delta change then return to normal on 6 hour repeat -OK for diet per Cardiology, HH ordered -Cardiology recommending exercise stress test and Echocardiogram (3) Hypokalemia: Code(s): E87.6 - Hypokalemia Status: Acute Assessment and Plan: -Acute mild hyponatremia and hypokalemia with Na 133 and K 3.0. -Oral replacement of potassium in ER -Magnesium 1.8 -No arrhythmia -Recheck in AM (4) Bipolar disorder: Code(s): F31.9 - Bipolar disorder, unspecified Status: Chronic Assessment and Plan: -Continue home medications DS: Summary Hospital Course Hospital Course: patient presented with CP, patient's 3 sets of cardiac enzymes are negative, cardiac stress test is negative, patient is seen by check writer salesperson, patient is clinically stable, will discharge home today. Time Spent with Patient Time attestation: Total time spent providing and/or coordinating discharge services: DS: Data Data Completed and Pending Labs on day of discharge: Labs from last 24 hours 10/20/24 10/19/24 03:59 13:34 WBC 3.1 L RBC 4.75 Hgb 14.1 Hct 43.8 MCV 92.2 MCH 29.7 MCHC 32.2 RDW 14.2 Plt Count 244 MPV 9.2 Immature Gran % (Auto) 0.0 Neut % (Auto) 55.3 Lymph % (Auto) 35.4 [place] % (Auto) 6.1 Eos % (Auto) 2.2 Baso % (Auto) 1.0 Lymph # (Auto) 1.11 [place] # (Auto) 0.2 Eos # (Auto) 0.1 Baso # (Auto) 0.0 Abs Immat Gran (auto) 0.00 Absolute Neuts (auto) 1.7 Absolute Nucleated RBC 0.000 Nucleated RBC % 0.0 Sodium 138 Potassium 3.4 Chloride 105 Carbon Dioxide 27 Anion Gap 6 BUN 9 Creatinine 0.57 L Estim Creat Clear Calc 88 Estimated GFR > 60 Glucose 85 Calcium 9.2 Magnesium 2.1 1.8 Total Bilirubin 0.5 AST 32 ALT 17 Alkaline Phosphatase 53 Troponin I < 0.012 D Total Protein 7.5 Albumin 4.2 Lipase 461 H Discharge Plan Discharge Attending physician on discharge: Zuhair Valle Consulting providers: Carmine Gonzalez; Km Floyd; Oscar Mathis; Cem Martin; Lenard Johnson; Girma Miller; Royer Lopez Discharging Clinician: Liz Carvalho Patient Disposition: Home Activity: as tolerated Diet: heart healthy Discharge Instructions: patient to follow up with her primary care provider as soon as possible, patient is instructed if any symptoms redevelop to go to nearest ER. Patient Instructions: MRCP (Magnetic Resonance Cholangiopancreatography) (DC) Patient Language: Moldovan Stand Alone Forms: General Discharge Information, Work/School Release IP Follow-up/Referrals: Toni,Marbin Watson MD [Primary Care Provider] - Discharge Medications: New aspirin [Children's Aspirin] 81 mg Tablet,Chewable 81 mg PO DAILY@0800 Qty: 30 0RF Continued lamotrigine 150 mg tablet 150 mg PO HS hydrochlorothiazide 25 mg tablet 50 mg PO DAILY lamotrigine 100 mg tablet 100 mg PO DAILY Date of admission: 10/19/24 11:54 Primary Care Provider: LoboMarbin Admitting Provider: Zuhair Valle Attending physician on admission: Liz Carvalho Condition: Stable
== END 2024-10-20 15:10 | disposition home or self-care (01) ==
LOC: ANHED 07:41 → ANHIMU 12:50
PROVIDERS: Emergency Medicine; Nurse Practitioner; Admitting Provider General Practice; Emergency Provider General Practice; PCP Internal Medicine; Visit Provider Family Medicine
DX: R07.9 Chest pain, unspecified (principal); R00.2 Palpitations; I10 Essential (primary) hypertension; K80.50 Calculus of bile duct without cholangitis or cholecystitis without obstruction; K83.8 Other specified diseases of biliary tract; E87.6 Hypokalemia; E87.1 Hypo-osmolality and hyponatremia; F17.210 Nicotine dependence, cigarettes, uncomplicated; F31.9 Bipolar disorder, unspecified
CPT/HCPCS: 36415; 71046; 71275; 74174; 74183; 76376; 76705; 78452; 80053; 83690; 83735; 84484; 85025; 85380; 85610; 85730; 93005; 93017; 93306; 96361; 96374; 96375; 96376; 99285; A9270; A9502; A9577; G0378; J2270; J2405; J7030; J7040; Q9967

== ENCOUNTER 2025-03-19 16:25 | Outpatient (CLI) | payer OTHER, SELFPAY ==
--- OUTSIDE RECORDS SUMMARY | 2024-08-21 02:30 | XMS_ITS | Continuity of Care Document ---
Author Organization 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 Name Role Phone Shelby Meneses DMD Unavailable Unavailable Allergies, Adverse Reactions, Alerts Substance Reaction Status Criticality No Known Allergies Active No Inform ation Medications Medication Instructions Dosage Effective Dates (start - stop) Status Comments Tylenol 325 mg tablet take 2 tablet by oral route every 8 hours as needed 650 MG - Active amoxicillin 500 mg capsule take 1 capsule by oral route every 8 hours 500 MG - Active chlorhexidine gluconate 0.12 % mouthwash place 15 milliliter by mucous membrane route 2 times every day in the mouth (after meals), swish in mouth for 30 seconds then spit out 15.00 milliliter - Active PreviDent 5000 Booster Plus 1.1 % dental paste At bedtime, place pea-sized amount on soft toothbrush and brush for 2 minutes; spit out excess and do not rinse. - Active HYDROCHLOROTHIAZIDE 25 MG TAB TAKE 1 TABLET BY MOUTH EVERY DAY IN THE MORNING 25 MG - Active FERROUS SULFATE 325 MG TABLET TAKE 1 TABLET BY MOUTH TWICE A DAY 1 Tablet - Active Procedures Procedure Date Extraction erupted tooth or exposed root Bone replacement graft Voided Encounter Office Visit (No Chrg) Amalgam Two Surfaces, Primary Or Permane nt Resin Composite, 2 Surfaces, Posterior N Resin Composite, 3 Surfaces, Posterior O ct Periodontal Risk Assessment Substance Use Risk Assessment Oral Cancer Risk Assessment Resin Composite, 2 Surfaces, Posterior O Dental Prophylaxis Adult Office Visit (No Chrg) Office Visit (No Chrg) Office Visit (No Chrg) Surgical extr erupted tooth Surgical extr erupted tooth Comprehensive Oral Evaluation-New/Est Pt Intra-Oral - Complete Series Of Radiogra phic Images Dental Panoramic Radiographic Image Oral/facial 2D photo images Diagnostic Casts No Charge OFFICE/OUTPATIENT VISIT, EST Alcohol and/or drug screening HEMOGLOBIN; GLYCOSYLATED (A1C) 22 Quantity Not Sufficient/Test Not Perform uri [facility] Use Only Quantity Not Sufficient/Test Not Perform uri [facility] Use Only OFFICE/OUTPATIENT VISIT, EST HEMOGLOBIN; GLYCOSYLATED (A1C) 17 THYROID STIMULATING HORMONE (TSH) FERRITIN BLOOD COUNT; COMPLETE (CBC), AUTOMATED D IFF COMPRE METAB PANEL LIPID PANEL IRON IRON BINDING CAPACITY OFFICE/OUTPATIENT VISIT, EST OFFICE/OUTPATIENT VISIT, EST URINE TEST, BY VISUAL COLOR CO MPARISON METHODS Urinalysis, Auto, w/o Scope COLLECTION OF VENOUS BLOOD BY VENIPUNCTU RE SKIN TEST; TUBERCULOSIS, INTRADERMAL May NEXPLANON/IMPLANON (ETONOGESTREL (CONTRA CEPTIVE) IMPLANT SYSTEM,) REMOVAL, IMPLANTABLE CONTRACEPTIVE CAPSU LES INSERTION, NON-BIODEGRADABLE DRUG DELIVE RY IMPLANT OFFICE/OUTPATIENT VISIT, EST OFFICE/OUTPATIENT VISIT, EST Dental prophylaxis adult Limit oral eval problem focused 016 OFFICE OUTPT EST 25 MIN Immun admin-adult or WO counseling - fir st vaccine/toxoid Influenza Virus Vaccine, Williams drivalent, Preservative Free, 3 and Older, Intraderm URINE TEST, BY VISUAL COLOR CO MPARISON METHODS COLLECTION OF VENOUS BLOOD BY VENIPUNCTU RE THYROID STIMULATING HORMONE (TSH) COMPRE METAB PANEL OFFICE/OUTPATIENT VISIT, EST Urinalysis, Auto, w/o Scope URINE TEST, BY VISUAL COLOR CO MPARISON METHODS OFFICE OUTPT EST 25 MIN URINE TEST, BY VISUAL COLOR CO MPARISON METHODS COLLECTION OF VENOUS BLOOD BY VENIPUNCTU RE CALCIFEDIOL (25-OH VITAMIN D-3) 016 CYANOCOBALAMIN (VITAMIN B-12); 16 FERRITIN BLOOD COUNT; COMPLETE (CBC), AUTOMATED (HGB, HCT, RBC, WBC AND PLATELET COUNT) IRON IRON BINDING CAPACITY Comprehensive Oral Evaluation 6 Surgical extr erupted tooth Full [facility] Series Of Radiographic Image s Dental Panoramic Radiographic Image Limit oral eval problem focused 016 OFFICE/OUTPATIENT VISIT, EST COLLECTION OF VENOUS BLOOD BY VENIPUNCTU RE CYANOCOBALAMIN (VITAMIN B-12); 16 BLOOD COUNT; COMPLETE (CBC), AUTOMATED (HGB, HCT, RBC, WBC AND PLATELET COUNT) X-RAY EXAM, CHEST, FRONTAL/LATERAL, 2 EWS INJECTION, VITAMIN B-12 CYANOCOBALAMIN, UP TO 1000 MCG Voided Encounter INJECTION, VITAMIN B-12 CYANOCOBALAMIN, UP TO 1000 MCG INJECTION, VITAMIN B-12 CYANOCOBALAMIN, UP TO 1000 MCG OFFICE OUTPT EST 25 MIN URINE TEST, BY VISUAL COLOR CO MPARISON METHODS Urinalysis, Auto, w/o Scope COLLECTION OF VENOUS BLOOD BY VENIPUNCTU RE BASIC METABOLIC PANEL CALCIUM TOTAL BLOOD COUNT; COMPLETE (CBC), AUTOMATED D IFF IRON IRON BINDING CAPACITY THYROID STIMULATING HORMONE (TSH) CALCIFEDIOL (25-OH VITAMIN D-3) 016 CYANOCOBALAMIN (VITAMIN B-12); 16 FERRITIN INJECTION, VITAMIN B-12 CYANOCOBALAMIN, UP TO 1000 MCG OFFICE/OUTPATIENT VISIT, EST COLLECTION OF VENOUS BLOOD BY VENIPUNCTU RE URINE TEST, BY VISUAL COLOR CO MPARISON METHODS OFFICE OUTPT EST 25 MIN HEPATITIS C ANTIBODY; BASIC METABOLIC PANEL CALCIUM TOTAL CYANOCOBALAMIN (VITAMIN B-12); 16 CALCIFEDIOL (25-OH VITAMIN D-3) 016 THYROID STIMULATING HORMONE (TSH) BLOOD COUNT; COMPLETE (CBC), AUTOMATED (HGB, HCT, RBC, WBC AND PLATELET COUNT) LIPID PANEL HIV-1 Antigen, W/HIV-1 & HIV-2 Antibody, Single Re URINE TEST, BY VISUAL COLOR CO MPARISON METHODS COLLECTION OF VENOUS BLOOD BY VENIPUNCTU RE HEMOGLOBIN; GLYCOSYLATED (A1C) 16 Urinalysis, Auto, w/o Scope COLLECTION OF CAPILLARY BLOOD SPECIMEN ( EG, FINGER, HEEL, EAR STICK) OFFICE/OUTPATIENT VISIT, NEW Alcohol and/or drug screening 6 Advance Directives Directive Yes / No Effective Date File Name No Information Encounters Encounter Description Practice Location Reason(s) For Visit Diagnoses Date Provider Providers Copied on Encounter Carlin garcia, [address], [place], [place], [address] , [place] tel: [phone] [facility] Other specified diseases of hard tissues of teethPartial loss of teeth due to oth cause, unspecified class Aug- 5 Gideon Ryan. [address], [place], [place], [address]. tel:[phone] Carlin garcia, [address], [place], [place], [address] , [place] tel: [phone] [facility] Encounter for dental exam and cleaning w abnormal findings 5 [facility]. [address], [place], [place], [address]. tel:[phone] Referring Provider: Shelby Meneses, [address], [place], [address]. tel:[phone] Carlin garcia, [address], [place], [place], [address] , [place] tel: [phone] [facility] Dental caries on pit and fissure surfc penetrat into dentin Apr- 4 [facility]. [address], [place], [place], [address]. tel:[phone] Referring Provider: Shelby Meneses, [address], [place], [address]. tel:[phone] Carlin garcia, [address], [place], [place], [address] , [place] tel:[phone] [facility] caries on pit and fissure surfc penetrat into dentin Nov- 4 [facility]. [address], [place], [place], [address]. tel:[phone] Referring Provider: Shelby Meneses, [address], [place], [address]. tel:[phone] Carlin Splendiaama garcia, [address], [place], [place], [address] , tel:[phone] [facility] Dental caries on smooth surface penetrating into dentin Oct- 4 [facility]. [address], [place], [place], [address]. tel:[phone] Referring Provider: Shelby Meneses [address], [place], [address]. tel:[phone] [facility], [address], [place], [place], [address] , [place] tel:[phone] [facility] Dental caries on pit and fissure surfc penetrat into dentin 4 [facility]. [address], [place], [place], [address]. tel:[phone] Referring Provider: Shelby Meneses [address], [place], [address]. tel:[phone] [facility], [address], [place], [place], [address] , [place] tel:[phone] [facility] Encounter for dental exam and cleaning w abnormal findings 4 [facility]. [address], [place], [place], [address]. tel:[phone] Referring Provider: Shelby Meneses [address], [place], [address]. tel:[phone] [facility], [address], [place], [place], [address] , [place] tel:[phone] [facility] Encounter for dental exam and cleaning w abnormal findings 4 [facility]. [address], [place], [place], [address]. tel:[phone] Referring Provider: Shelby Meneses [address], [place], [address]. tel:[phone] [facility], [address], [place], [place], [address] , [place] tel:[phone] [facility] Encounter for dental exam and cleaning w abnormal findings 4 [facility]. [address], [place], [place], [address]. tel:[phone] Referring Provider: Shelby Meneses [address], [place], [address]. tel:[phone] [facility], [address], [place], [place], [address] , [place] tel:[phone] [facility] Abnormalities of size and form of teeth 4 [facility]. [address], [place], [place], [address]. tel:[phone] Referring Provider: Shelby Meneses, [address], [place], [address]. tel:[phone] [facility], [address], [place], [place], [address] , [place] tel:[phone] [facility] [place] Encounter for dental exam and cleaning w abnormal findings 4 [facility]. [address], [place], [place], [address]. tel:[phone] [facility], [address], [place], [place], [address] , [place] tel: [phone] [facility] No Information 3 Cheraw Caprice. [address], [place], [place], [address], [place]. tel:[phone] [facility], [address], [place], [place], [address] , [place] tel:[phone] [facility] No Information 2 Lloyd Caprice. [address], [place], [place], [address], [place]. tel:[phone] OFFICE/OUTPA TIENT VISIT, EST [facility], [address], [place], [place], [address] , [place] tel:[phone] [facility] Leg swollen /Meds Refill (chief complaint) Body mass index (BMI) 38.0-38.9, adultEssential (primary) hypertensionEn counter for screening for other disorderEncoun ter for screening, unspecified 2 Lloyd Caprice. [address], [place], [place], [address], [place]. tel:[phone] Referring Provider: Lucius Anthony, [address], [place], [address]. tel:[phone] [facility], [address], [place], [place], [address] , [place] tel: [phone] [facility] No Information No Information OFFICE/OUTPA TIENT VISIT, EST [facility], [address], [place], [place], [address] , [place] tel: [phone] [facility] episode dizziness (chief complaint) DizzinessEssen tial (primary) hypertension No Information OFFICE/OUTPA TIENT VISIT, EST [facility], [address], [place], [place], [address] , [place] tel: [phone] [facility] (LT) earache (chief complaint) Acute upper respiratory infection, unspecified 7 Raj Kan. [address], [place], [place], [address], [place]. tel:[phone] Referring Provider: Lucius Anthony, [address], [place], [address]. tel:[phone] OFFICE/OUTPA TIENT VISIT, EST [facility], [address], [place], [place], [address] , [place] tel: [phone] [facility] abnormal bleeding (chief complaint) Encntr screen for infections w sexl mode of transmissAbnor mal uterine and vaginal bleeding, unspecifiedEnc ounter for other screening for malignant neoplasm of breastGenerali zed abdominal pain 7 Luis Alberto Smith. [address], [place], [place], [address], [place]. [phone] Referring Provider: Sarah Sahu, [address], [place], [address]. tel:[phone] [facility], [address], [place], [place], [address] , [place] tel: [phone] [facility] Encounter for screening for respiratory tuberculosis 7 Raj Kan. [address], [place], [place], [address], [place]. tel:[phone] OFFICE/OUTPA TIENT VISIT, EST [facility], [address], [place], [place], [address] , [place] tel:[phone] [facility] nex/removal (chief complaint) Encounter for surveillance of other contraceptives 6 Pancho Kang. [address], [place], [place], [address], . tel:[phone] Referring Provider: Pearl Deleon, [address], [place], [address]. tel:[phone] OFFICE/OUTPA TIENT VISIT, EST [facility], [address], [place], [place], [address] , tel:[phone] [facility] hypertension (chief complaint)kylie norrhea (chief complaint) Essential (primary) hypertensionAm enorrhea, unspecifiedOth er specified disorders of teeth and supporting structures 6 No Information [facility], [address], [place], [place], [address] , tel:[phone] [facility] Encounter for dental exam and cleaning w abnormal findings 6 Hallie Horner. [address], [place], [place], [address]. tel:[phone] Referring Provider: Evens Paul, [address], [place], [address]. tel:[phone] [facility], [address], [place], [place], [address] , tel:[phone] [facility] Dental caries on pit and fissure surface penetrat into pulp 6 No Information OFFICE OUTPT EST 25 MIN [facility], [address], [place], [place], [address] , tel:[phone] [facility] hypertension (chief complaint)kylie norrhea (chief complaint) Essential (primary) hypertensionAm enorrhea, unspecifiedEnc ounter for screening mammogram for cancer of breast 6 No Information OFFICE/OUTPA TIENT VISIT, EST [facility], [address], [place], [place], [address] , [place] tel:[phone] [facility] high blood pressure (chief complaint)nec k pain (chief complaint) Essential (primary) hypertensionCe rvicalgiaAmeno rrheaChest pain Nov-0 6 Christian Ortiz. [address], [place], [place], [address], [place]. tel:[phone] Referring Provider: Diana Gonzales, [address], [place], [address]. tel:[phone] OFFICE OUTPT EST 25 MIN [facility], [address], [place], [place], [address] , [place] tel:[phone] [facility] hypertension (chief complaint)pre g test (chief complaint)ane camacho (chief complaint) Essential (primary) hypertensionAn emiaVitamin D deficiencyAmen orrhea, unspecified 6 No Information [facility], [address], [place], [place], [address] , [place] tel:[phone] [facility] Encounter for dental exam and cleaning w abnormal findings 6 Hallie Horner. [address], [place], [place], [address]. tel:[phone] Referring Provider: Evens Paul, [address], [place], [address]. tel:[phone] [facility], [address], [place], [place], [address] , [place] tel:[phone] [facility] No Information 6 Hallie Horner. [address], [place], [place], [address]. tel:[phone] Referring Provider: Evens Paul, [address], [place], [address]. tel:[phone] OFFICE/OUTPA TIENT VISIT, EST [facility], [address], [place], [place], [address] , [place] tel:[phone] [facility] ED follow up (chief complaint) Chest painEssential (primary) hypertensionVi tamin B deficiencyAnem ia 6 No Information [facility], [address], [place], [place], [address] , tel: [phone] [facility] No Information 6 No Information [facility], [address], [place], [place], [address] , [place] tel: [phone] [facility] No Information 6 Nurse Registered. [address], [place], [place], [address] [place] [address], [place]. tel:[phone] Referring Provider: Registered Nurse, [address], [place], [place], [address] [place] [address]. tel:[phone] [facility], [address], [place], [place], [address] [place] [address] , tel: [phone] [facility] Vitamin B deficiency 6 No Information [facility], [address], [place], [address] [place] [address] , [place] tel: [phone] [facility] No Information 6 Nurse Registered. [address], [place], [address] [place] [address], . tel:[phone] Referring Provider: Registered Nurse, [address], [place], [address] [place] [address]. tel:[phone] [facility], [address], [place], [address] [place] [address] , tel: [phone] [facility] Vitamin B deficiency 6 Nurse Registered. [address], [place], [address] [place] [address], . tel:[phone] Referring Provider: Km Piper, [address], [place], [address] [place] [address]. tel:[phone] [facility], [address], [place], [address] [place] [address] , tel: [phone] [facility] No Information 6 Nurse Registered. [address], [place], [place], [address], . tel:[phone] Referring Provider: Registered Nurse, [address], [place], [address]. tel:[phone] OFFICE OUTPT EST 25 MIN [facility], [address], [place], [place], [address] , tel: [phone] [facility] Anemia (chief complaint)Toe nail fell off (chief complaint)ezra sea (chief complaint)not had a period in 2 months (chief complaint) Gastric bypass status for obesityEssenti al (primary) hypertensionAn emiaNail disorder, unspecifiedNau sea without vomitingAmenor rheaVitamin B deficiency 6 No Information OFFICE/OUTPA TIENT VISIT, EST [facility], [address], [place], [place], [address] , tel: [phone] [facility] Follow Up of blood test results (chief complaint) Anemia 6 Anitha Barbour. [address], [place], [place], [address], [place]. tel:[phone] Referring Provider: Km Piper, [address], [place], [address]. tel:[phone] [facility], [address], [place], [place], [address] , tel: [phone] [facility] Encounter for test, result unknown 6 Anitha Barbour. [address], [place], [place], [address], [place]. tel:[phone] OFFICE OUTPT EST 25 MIN [facility], [address], [place], [place], [address] , tel: [phone] [facility] WWE (chief complaint)gas tric bypass (chief complaint)Thy roid problems (chief complaint) Encntr for conservation educator exam (general) (routine) w/o abn findingsGastri c bypass status for obesityDisorde r of thyroid, unspecifiedEnc ntr screen for infections w sexl mode of transmissEncou nter for screening mammogram for malignant neoplasm of breastAnemia No Information OFFICE/OUTPA TIENT VISIT, LISBETH Miranda, [address], [place], [place], [address] , [place] tel:[phone] [facility] toothache (chief complaint) Broken tooth, sequelaEncount er for screening for other disorder No Information Family History Family Member Type Diagnosis Age At Onset Father Problem (finding) hypertension Brother Problem (finding) hypertension Mother Problem (finding) hypertension Immunizations Vaccine Date Status Comments Influenza, injectable, 3 yrs or older (Fluzone) administered Source: New Immuniza tion Record Payers Payer name Insurance type Covered alliance party ID Authoriza tion(s) D BCBS FEP CI [id number] [facility] CI [id number] Social History Type Description Quantity Date Captured Comments Sex Female Smoking Status No Information Sexual Orientation Straight or heterosexual Aug Gender Identity Female Chief Complaint And Reason For Visit No Information Reason For Referral Reason For Referral No Information Plan Of Treatment Date Type Action Status Referral Referred To: [facility] Hematology [address] [place], [phone] Ordered: Referrals: Hematology. [facility] Hematology ordered Patient Education Iron-Rich Diet: Care In structions completed Patient Education DASH Diet: Care Instruc tions completed Future Order: Radiology Order Sc reening Mammography, Bilateral, Digital (G0202), Ordered on: Ordered Future Order: Lab Order Chlamydi a/Neisseria gonorrhoeae RNA, TMA () ([id number]), Collected on: , Sent on: Sent Future Order: Lab Order SureSwab (R), Trichomonas vaginalis FEMALE RNA, Qualitative, TMA () ([id number]), Collected on: , Sent on: Sent Future Order: Lab Order FSH (OC1 09), Ordered on: Ordered Future Order: Radiology Order Sc reening Mammography, Bilateral, Digital ([id number]), Ordered on: Ordered Future Order: Lab Order HCG (Pre gnancy Test) - Urine - POC (OC5), Ordered on: Ordered Future Order: Radiology Order Ch est; 2 views ([id number]), Ordered on: Ordered Future Order: Lab Order Helicoba cter pylori Antigen, EIA, Stool (QH) ([id number]), Ordered on: Ordered Future Order: Lab Order Folate, Serum (OC51), Ordered on: Ordered Future Order: Radiology Order Sc reening Mammography, Bilateral, Digital ([id number]), Ordered on: Ordered Nutrition Recommendation Nutrition therap y completed History Of Present Illness Encounter Date Complaint History Of Prese nt Illness Leg swollen /Meds Refill known H TN no medications for the last few monthswould like to change PCP back to [facility] getting worse was up shopping with daughter for dress yesterday and ankles got worse episode dizziness Pt reports epi sode of hypoglycemia - did not check BG at time of incidentPt reports felt sweaty, dizziness, out of it after eating a bagelPt reports similar previous episodes - occur after eating bagels or donutsDenies any palpitations, dyspnea, LOC, or BLE edemaPt admits eats lots of sugar/ candy dailyExercises daily on treadmill - denies any symptoms w/ exertionHx HTN - controlled on current medicationsPt sees psychiatrist/ therapist for depression/ anxiety (LT) earache C/O URI symptoms for several days with left ear congestion and pressure, sinus congestion and pressure, frontal headache, post nasal drainage, sore throat, nonproductive cough. No abd pain, emesis, diarrhea, dyspnea. Missed work today and needs note. abnormal bleeding 40yo c /o irreg VB Nexplanon 04/09/16changing pads, 4-5 times per day x 3wkstoday spotting is lighterPap: 06/2015- negMMG never nex/removal 40yo her e for AUB2 LTCS/1 SVDImplant placed 6 years ago1 year ago return of regular menses, then no period x 3 months Desires exchangeHot flushes, night sweats +SA one male partner - no contraception Pap: 06/2015- neg hypertension It is currently improving. Risk factors include family history HTN, gout or CAD, high salt intake and obesity. Pertinent negatives include chest pain, diaphoresis, dyspnea, epistaxis, fatigue, headache, hematuria, irregular heartbeat/palpitations, nausea, transient weakness and visual disturbances. Additional information: Currently on lisinopril, chlorthalidone. SOSA improved. Recent dental pain d/t wisdom teeth. amenorrhea Hot flashes marlene y for 1 month. Mild night sweat. Oral [facility] Maxillofacial Surgery Resident menses for 9 months ago and no menses for last 3 months. 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 amenorrhea LMP: 01/2016. Im planon placed in 2009. Amenorrheic [phone]. Irregular menses for last few years and no menses last two months. Using condoms inconsistently. Pt states has not had a mammogram. hypertension Here for HTN f/u . Dx in ER 5 to 6 months ago. Seen in f/u and lisinopril continued. Seen 3 weeks for increase in BP a/w with dental procedure. Lisinopril increased. Went to 03/14/16 and then [facility] ER in [place] on same day. Lisinopril increased 20 mg daily at . Given clonidine in ER and KR=824/80 but did not send home with Rx. Continues on lisinopril 20 mg daily. Taking ibuprofen 800 mg twice daily for 3 weeks due to dental pain. Going back to oral surgery to establish plan for dental extraction. Has been limiting salt. ECG negative. Pt reports headache, abominal upset today. Hx constipation - requests colace. neck pain Pt also with mil d left sided neck pain/stiffness. Just noticed today. Denies injury. high blood pressure Pt here for elevated BP. Dx with HTN approx 6 months ago. Took BP at home this morning and was 168/122. Reports has been 160s/110s past 3-4 days. Had been on 5mg lisinopril and was increased to 10mg daily 2 weeks ago. Has been taking regularly. Last took this morning. Pt with very slight headache and nausea. Also c/o mild chest discomfort/tightness and SOB. Denies dizziness or visual disturbances. Denies LE edema. Had been seen in ER for HTN and same symptoms in November and all cardiac testing was normal. Pt denies h/o anxiety but reports has been a little more stressed lately. anemia Hx anemia. Takes ferrous sulfate, vitamin B12. Takes vitamin D once weekly. Pt is s/p gastric bypass surgery. preg test Pt reports 2 mon ths of amenorrhea. LMP 2 months ago. Uses condoms for contraception. One incident condom fell off upon withdrawal. Pt reports hot flashes. Reports intermittent LLQ abdominal pain x 3 weeks. No nausea, vomiting or diarrhea. hypertension Pt seen by Abel cho today for [place] tooth extraction & sent to PCP due to uncontrolled HTN. At Dental: initial FC=221/98, received 3 injections of lidocaine & septo CR=657/112 stopped procedure. Repeat BP 148/104, 152/102. Hx HTN - on lisinopril 5 mg daily x 3 months. Here VG=883/98 and repeat 140/84. Pt denies any chest pain, palpitations, dyspnea, headache, or BLE edema. No tobacco use. Dental procedure rescheduled with oral surgery. ED follow up Went to ED flavio se her blood pressure was very highg and she was having chest pressure.EKG was normal in the ED and all blood work was negative for OR.Was told she has a spot on her chest xray. Anemia Associated sympt oms include amenorrhea and nausea. Pertinent negatives include abdominal pain, anorexia, black tarry stools, bleeding gums, bone pain, brittle nails, chest pain, chills, cold intolerance, constipation, dark urine, decreased libido, depression, diarrhea, dizziness, dyspnea, fatigue, gait disturbance, headache, hypotension, impaired sense of smell, impotence, irritability, jaundice, joint pain, numbness, pagophagia, pallor, pica, pigment change, sore mouth, sore tongue, syncope, tachycardia, tingling, vomiting and weakness. nausea Pertinent negati ves include abdominal pain, anxiety, blood in stool, chest pain, cough, decreased appetite, diarrhea, dizziness, fever, flatulence, headache, jaundice, lightheadedness, photophobia, rash, vomiting and weakness. Additional information: happens when she eats. happening for yrs. damon, rice, bread, bananas and burger. post gastric bypass.. not had a period in 2 months LMP: 2 months ago.Spotting 2 days ago.De nied abnormal vaginal discharge, dysuria, abdominal pain. Toe nail fell off 3 wks ago pt d ropped something on her right big toe.Toenail fell off.Healing well. Follow Up of blood t est results (comments) Comes for follow-up of anemiafeeling wel l, no bleeding except for occasional uterine blood spottingtaking iron, vitamin B12, folate, vitamin Dno history of anemiano family historyDesires testdesires to avoid pregnancyhas outdated implantExamcomfortableadditional history: No other new drug allergies nor problems since last visit. Patient is taking medications as listed without problems except as noted above.ASSESSMENTS / PLANS (see also medication and order details)Medications are reconciled from any interval medical encounters elsewhere.Education about problems addressed today, active medication list, and information on new medications are provided to patient or parent.Patient or guardian verbalized understanding of and agreement with plan, including medications and return for next visit.Patient is to return in 2 months, or sooner for new or worsening or persisting problems.Discrepant red blood cell indices / hemoglobin electrophoresiscontraception / condoms with spermicide, see CABIN WORKER regarding implant replacement Follow Up of blood t est results WWE LMP: 2wks agoNo mammogram ever pap smear 4 yrs ago.condyloma were froze off many yrs ago and haven't come backImplanon: 2009. still in arm. no control for a few yrs.Denies abnormal vaginal bleeding and discahrge.Denies breast pain, nipple discharge, lumps/bumps of breasts. gastric bypass Gastric bypass 2 010. Hasn't been on any vitamins.Pt replaced eating w/ETOH and drugs. Now in remission.Has gotten job and hasn't used or drank ETOh.Goes to AA and support groups. WWE LMP: 2wks agoNo mammogram ever pap smear 4 yrs ago.condyloma were froze off many yrs ago and haven't come backImplanon: 2009. still in arm. no control for a few yrs.Denies abnormal vaginal bleeding and discahrge.Denies breast pain, nipple discharge, lumps/bumps of breasts. Thyroid problems Presenting symp toms do not include atrial fibrillation, dysphagia, enlarged thyroid, exophthalmus, fatigue, hoarseness, increased perspiration, insomnia, intolerance to cold, intolerance to heat, irregular menses, muscle weakness, nervousness, rapid heart beat, skin and nail changes, tremor, hard mass and rapid growth of nodule. Risk factors include female. Additional information: was on meds in past, but hasn't taken them in yrs. Has gastric bypass. toothache pt has R upper l ast molar with half tooth missing and pain. very tender to palpation. she is using NSAIDS daily. she has a dentist she plans to go to. Pain has gotten worse in the last few days and she would like antibiotics.also bottom R molar is tender.she was told she needed to see oral surgeon but has not yet. 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 Related to Vitamin B deficiency Continue iron daily. Eat iron rich diet.F/U 3 months daily. Related to Anemia Continue lisinopril as prescribed. Exercise.Low sodium diet.Exercise.F/U 3 months. Related to Essential (primary) hypertension Normal EKG in office .Take a baby aspirin daily. Related to Chest pain More info - [employer] [email or web address] Related to Essential (primary) hypertension No smoking cigarette s. If you drink, keep it to two or less drinks a day. Related to Essential (primary) hypertension Goal - Prevent damag e to heart, brain & kidneys. Keep BP below 140/90 Related to Essential (primary) hypertension Diet - lots of veget sonam and fruits, avoid animal fat and excess salt Related to Essential (primary) hypertension Exercise - 20-30 min utes of aerobic exercise 5 days a week Related to Essential (primary) hypertension Stress Reduction - v ariety of simple enjoyable relaxation techniques Related to Essential (primary) hypertension Medication - Take da gonzales for benefit. Bring medication bottles to ALL appts. Related to Essential (primary) hypertension Monitor BP - May buy machine and record log for future visits Related to Essential (primary) hypertension Increase activity. Related to Es sential (primary) hypertension Follow a low sodium diet. Relate d to Essential (primary) hypertension 1mg Vit B 12 vax adm inistered today.F/U for Vit B 12 vax daily for 7 days.Get levels drawn.If still low, administered Vit B 12 vax once weekly for 1 month.Then administer Vit B 12 vax monthly for maintenance. Related to Vitamin B deficiency Wash feet with antib acterial soap and water.Keep feet dry.Avoid getting pedicure at nail salon.F/U 6wks. Related to Nail disorder, unspecified Labs ordered today.Take Fe.F/U w /OBGYN. Related to Amenorrhea H pylori test ordere d.Discussed food elimination diet and handout given.F/U 6 wks. Related to Nausea without vomiting Take Fe, folic acid, and vit d.Vit B 12 vax administered in office today.Labs drawn today.F/U in 6 wks for lab redraw. Related to Gastric bypass status for obesity Start lisinopril.Low sodium diet.Exercise.Lose weight.F/U 1 month. Related to Essential (primary) hypertension Continue folic acid. Continue ferrous sulfate. Related to Anemia Increase activity. Related to Es sential (primary) hypertension Follow a low sodium diet. Relate d to Essential (primary) hypertension Exercise - 20-30 min utes of aerobic exercise 5 days a week Related to Essential (primary) hypertension Stress Reduction - v ariety of simple enjoyable relaxation techniques Related to Essential (primary) hypertension No smoking cigarette s. If you drink, keep it to two or less drinks a day. Related to Essential (primary) hypertension Medication - Take da gonzales for benefit. Bring medication bottles to ALL appts. Related to Essential (primary) hypertension Monitor BP - May buy machine and record log for future visits Related to Essential (primary) hypertension More info - [employer] [email or web address] Related to Essential (primary) hypertension Goal - Prevent damag e to heart, brain & kidneys. Keep BP below 140/90 Related to Essential (primary) hypertension Diet - lots of veget sonam and fruits, avoid animal fat and excess salt Related to Essential (primary) hypertension Safe sexual practices discussed. Related to Encntr screen for infections w sexl mode of transmiss Mammogram ordered. Related to En counter for screening mammogram for malignant neoplasm of breast Thyroid levels orderd today. Rel ated to Disorder of thyroid, unspecified Discussed well round ed diet.Take daily multivitamin.Labs ordered today. Related to Gastric bypass status for obesity Discussed contracept ion and removal of Nexplanon.Undecided on form of contraception.Will make appt for Nexplanon removal.Safe sexual practices discusses.STI screening ordered.Screening mammogram ordered.F/U annually for WWE. 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
--- OUTSIDE RECORDS SUMMARY | 2025-03-19 16:27 | XMS_ITS | Clinical Summary ---
Author Organization [facility] Address [address] [place] [address] Phone Care Team Providers Care Sales Service Professional Name Role Phone Marbin Muñoz MD Primary Care Provider [phone] Allergies No known active allergies Medications hydroCHLOROthia zide 25 mg tablet Take 25 mg by mouth daily. Verified per [facility] pharmacy and patient Active multivitamin,ca lcium,minerals, iron,folic [...] 07/08/2022 Assessment & Plan (07/08/2022 12:30 PM SILK BRUSHER): SUBSTANCE USE DISORDER DIAGNOSIS DOCUMENTATION Patient Denies [...] severe Assessment & Plan (07/08/2022 12:28 PM SILK BRUSHER): Acute and Uncontrolled. Continue current treatment. -Restart Lamictal and increase dosage to 25 mg daily and 50 mg HS for mood stability. Every Word Counts - Depression ([facility]) PTSD (post-traumatic stress disorder) 03/22/2022 Assessment & Plan (07/08/2022 12:30 PM SILK BRUSHER): Acute. -Recommend trauma therapy in OP Borderline personality disorder 03/22/2022 Assessment & Plan (07/08/2022 12:29 PM SILK BRUSHER): Acute. -Recommend DBT therapy once discharged from the hospital setting. Alcohol dependence with withdrawal 03/22/2022 DOUG (generalized anxiety disorder) 03/22/2022 Assessment & Plan (07/08/2022 12:29 PM SILK BRUSHER): Acute. -Hydroxyzine PRN for anxiety Depression Hypertension Routine general medical examination at health ca re facility Encounters Date Type Department Care Team Description 03/16/2025 External Device Data ST[facility] ABSTRACTION Provider, Abstract 02/16/2025 External Device Data [facility] ABSTRACTION Provider, Abstract 02/16/2025 External Device Data [facility] ABSTRACTION Provider, Abstract 01/12/2025 External Device Data [facility] ABSTRACTION Provider, Abstract 12/29/2024 External Device Data [facility] ABSTRACTION Provider, Abstract from Last 3 Months Family History Medical History Relation Name Comments [...] pur e alcohol) 3 beers a day Feeling Safe Answer Date Recorded Are you in a relationship wi th someone who hurts you emotionally and/or physically? No 11/19/2024 Comments No Sex and Gender Information Value Date Recorded Sex Assigned at Not on file Legal Sex Female 3:28 AM SILK BRUSHER Gender Identity Not on file Sexual Orientation Not on file Last Filed Vital Signs Vital Sign Reading Time Taken Comments Blood Pressure 105/72 11/19/2024 12:25 PM CDT Pulse 71 11/19/2024 12:05 PM CDT Temperature 36.8 C (98.3 F) 11/19/2024 12:25 PM CDT Respiratory Rate 8 11/19/2024 12:25 PM CDT Oxygen Saturation 100% 11/19/2024 12:25 PM CDT Inhaled Oxygen Concentration - - Weight 100.7 kg (222 lb) 07/07/2022 6:00 PM SILK BRUSHER Height 154.9 cm (5' 1) 07/07/2022 6:00 PM SILK BRUSHER Body Mass Index 41.95 07/07/2022 6:00 PM SILK BRUSHER Plan of Treatment Health Maintenance Due Date Last Done Comments DTAP/TDAP/TD VACCINES (1 - Tdap) 1992 HEPATITIS B VACCINES (1 of 3 - 19+ 3-dose series) 1992 BREAST CANCER SCREENING 2013 COLORECTAL SCREENING 2018 Colorectal Cancer Screening 2018 FIT-DNA Q 3 years 2018 FIT/FOBT Q 1 year 2018 Flex Sig/CT Colonography Q 5 years 2018 PAP SMEAR 02/26/2022 02/26/2019 ZOSTER VACCINE (1 of 2) 2023 CERVICAL CANCER SCREENING 02/27/2024 HPV/Cotest (21-29) 02/27/2024 02/26/2019 HPV/Cotest (30-65) 02/27/2024 02/26/2019 INFLUENZA VACCINE (#1) 2024 03/22/2016 COVID-19 Vaccine (2 - season) 01/11/202505/2020 Pre-Diabetes and Diabetes Screening 07/07/202507/07, 03/23/2022 Procedures Procedure Name Priority Date/Time Associated Diagnosis Comments HEMOGLOBIN A1C Routine 07/07/2022 12:28 PM SILK BRUSHER CERV/VAG CYTO AGE BASED SCREEN PAP Routine 02/26/2019 4:24 PM CDT Well woman exam with routine gynecological exam from Last 3 Months or Most Recently Relevant to Health Maintenance Results * HEMOGLOBIN A1C (07/07/2022 12:28 PM SILK BRUSHER) HEMOGLOBIN A1C 5.2 <5.7 % 07/07/2022 7:22 PM SILK BRUSHER [facility] EST. AVG GLUCOSE, A1C 103 mg/dL 07/07/2022 7:22 PM SILK BRUSHER [facility] Blood Venipuncture / Unknown 07/07/2022 12:28 PM SILK BRUSHER 07/07/2022 12:31 PM SILK BRUSHER Narrative [facility] - 07/07/2022 7:22 PM SILK BRUSHER HGB A1C INTERPRETATION NORMAL: <5.7% PRE-DIABETES: 5.7 - 6.4% DIABETES: 6.5% OR GREATER us Ranulfo Keating MD CHEMISTRY ORDERABLES Final Resu lt [facility] [employer] [facility] CLIA# [id number] [address] [place] [address] * CERV/VAG CYTO AGE BASED SCREEN PAP (02/26/2019 4:24 PM CDT) COMMENT (PAP): SEE COMMENT 2:09 PM CDT [facility] Comment: This order for age-based cervical cancer and STI screening follows ACOG guidelines(PB 168, 140, UXJ093). See individual assays for performing site location. [...] was manually screened according to routine procedures. COMPLEX MANAGER: SEE COMMENT 2018 2:09 PM CDT [facility] Comment: ABC, CT(ASCP) CT screening location: [place] [address] [place] [address] REVIEW COMPLEX MANAGER: SEE COMMENT 03/04/2019 2:09 PM CDT [facility] Comment: G, CT(ASCP) CT screening location: [place] [address] [address] [facility] EXPLANATORY NOTE SEE COMMENT 019 2:09 PM [...] was performed using the APTIMA HPV Assay ([employer] This assay detects E6/E7 viral messenger RNA (mRNA) from 14 high-risk HPV types (16,18,31,33,35,39,45,51,52,56,58,59,66,68). The analytical performance characteristics of this assay have been determined by [employer]. The modifications have not been cleared or approved by the FDA. This assay has been validated pursuant to the CLIA regulations and is used for clinical purposes. Genital SWAB OF ENDOCERVIX / Unknown Collection / Unknown 02/26/2019 4:24 PM CDT 02/26/2019 10:22 PM CDT Narrative [facility] - 03/04/2019 2:09 PM CDT Performing Organization Information: Site ID: [place] Name: [facility] Address: [address] [place] [address] Director: Varun Johnston D.O., MPH Site ID: [place] [facility]: [facility] Address: [address] [place] [address] Director: Raj Garcia Pool Potter MD PATHOLOGY/CYTOLOGY ORDERABLES Final Result [facility] [phone] from Last 3 Months or Most Recently Relevant to Health Maintenance Insurance [facility] CHOICE PLUS [id number] [id number] Advance Directives For more information, please contact: [phone] * Full Code (Latest Code Status on File) Date Activated Date Inactivated Comments 07/07/2022 6:50 PM 07/10/2022 5:50 PM * Full Code Date Activated Date Inactivated Comments 03/22/2022 1:20 AM 03/24/2022 2:30 PM Care Teams Sales Service Professional Relationship Specialty Start Date End Date Marbin Muñoz MD [address] [phone] PCP - General Internal Medicine 03/21/22
--- OUTSIDE RECORDS SUMMARY | 2025-03-19 16:27 | XMS_ITS | Encounter Summary ---
Author Organization [facility] Address [address] [place] [address] Care Team Providers Care Asphalt Mixer Name Role Phone Marbin Muñoz MD Primary Care Provider [phone] Encounter Details Date Type Department Care Team (Late st Contact Info) Description 08/16/2003 Inpatient Historical HIS PATIENT IN A BED Jair So MD [address] [place] [phone] BREECH PRESENTAT-DELIVER (Primary Dx) Social History Tobacco Use Types Packs/Day Years Used Date Smoking Tobacco: Never Assessed Comments Unknown Sex and Gender Information Value Date Recorded Sex Assigned at Not on file Legal Sex Female 3:28 AM BOX INSPECTOR Gender Identity Not on file Sexual Orientation Not on file documented as of this encounter Plan of Treatment Not on file documented as of this encounter Visit Diagnoses Diagnosis Breech presentation without mention of version, delivered- Primary documented in this encounter Care Teams Asphalt Mixer Relationship Specialty Start Date End Date Marbin Muñoz MD [address] [phone] PCP - General Internal Medicine 03/21/22 documented as of this encounter
--- OUTSIDE RECORDS SUMMARY | 2025-03-19 16:27 | XMS_ITS | Encounter Summary ---
Author Organization [facility] Address [address] [place] [address] Care Team Providers Care Glass Mechanic Name Role Phone Marbin Muñoz MD Primary Care Provider Encounter Details Date Type Department Care Team (Late st Contact Info) Description 12/05/2003 Emergency [facility] [place] [address] [address] Er, Authorized P NO ADDRESS ON FILE INSECT BITE HIP & LEG (Primary Dx) Social History Tobacco Use Types Packs/Day Years Used Date Smoking Tobacco: Never Assessed Comments Unknown Sex and Gender Information Value Date Recorded Sex Assigned at Not on file Legal Sex Female 3:28 AM PHOTOGRAMMETRIST Gender Identity Not on file Sexual Orientation Not on file documented as of this encounter Plan of Treatment Not on file documented as of this encounter Visit Diagnoses Diagnosis Hip, thigh, leg, and ankle, insect bite, nonvenomous, without mention of infection(916.4)- Primary Hip, thigh, leg, and ankle, insect bite, nonvenomous, without mention of infection documented in this encounter Care Teams Glass Mechanic Relationship Specialty Start Date End Date Marbin Muñoz MD [address] [facility] [address] [place] [phone] PCP - General Internal Medicine 03/21/22 documented as of this encounter
--- OUTSIDE RECORDS SUMMARY | 2025-03-19 16:27 | XMS_ITS | Encounter Summary ---
Author Organization [employer] [facility] Address [address] [place] [address] Care Team Providers Care Journeyman Level Acoustic Analyst Name Role Phone Marbin Muñoz MD Primary Care Provider [phone] Encounter Details Date Type Department Care Team (Late st Contact Info) Description 07/21/1998 Inpatient Historical HIS PATIENT IN A BED Leandro Caballero MD [address] [facility] [address] [place] [address] Jair So MD [address] [facility] [address] [address] Obstruction caused by malposition of fetus at onset of labor, delivered(660.01) (Primary Dx) Social History Tobacco Use Types Packs/Day Years Used Date Smoking Tobacco: Never Assessed Comments Unknown Sex and Gender Information Value Date Recorded Sex Assigned at Not on file 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 Gender Identity Not on file Sexual Orientation Not on file documented as of this encounter Plan of Treatment Not on file documented as of this encounter Visit Diagnoses Diagnosis Obstruction caused by malposition of fetus at onset of labor, delivered(660.01)- Primary Obstruction caused by malposition of fetus at onset of labor, delivered documented in this encounter Care Teams Journeyman Level Acoustic Analyst Relationship Specialty Start Date End Date Marbin Muñoz MD [address] [facility] [address] [place] [phone] PCP - General Internal Medicine 03/21/22 documented as of this encounter
--- OUTSIDE RECORDS SUMMARY | 2025-03-19 16:27 | XMS_ITS | Clinical Summary ---
Author Organization [facility] Address [address] [place] [address] Care Team Providers Care Rehabilitation Caseworker Name Role Phone Unavailable Primary Care Provider Unavailabl e Encounters Date Type Department Care Team Description 02/04[facility]2025 [facility] [address] [place] [address] Shaneka Mccabe MD Surgical Clearance from Last 3 Months Social History Tobacco Use Types Packs/Day Years Used Date Smoking Tobacco: Never Assessed Comments Unknown Sex and Gender Information Value Date Recorded Sex Assigned at Not on file Legal Sex Female 8:10 AM CDT Gender Identity Not on file Sexual Orientation Not on file Plan of Treatment Health Maintenance Due Date Last Done Comments Cervical Cancer Screening Pa p Smear (Age 30 to 64) Every 3 Years 1973 Colorectal Cancer Screening Colonoscopy (10 Years) 1973 Annual Physical 1976 Hepatitis C 1991 DTaP, Tdap and Td Vaccines ( 1 - Tdap) 1992 Hepatitis B Vaccines (1 of 3 - 19+ 3-dose series) 1992 Cervical Cancer Screening Pa p with HPV Testing (Age 30 to 64) Every 5 Years 2003 Cervical Cancer Screening with HPV 2003 Mammogram Screening 2013 Pneumococcal Vaccine: 50+ Ye ars (1 of 1 - PCV) 2023 Zoster Vaccines (1 of 2) 2023 COVID-19 Vaccine ( - 2024-2 6 season) 2025 Influenza Adult (#1) 2025 Hepatitis A Vaccines Aged Out No long er eligible based on patient's age to complete this topic Meningococcal B Vaccine Aged Out No l onger eligible based on patient's age to complete this topic Meningococcal Vaccine Aged Out No faby tamie eligible based on patient's age to complete this topic RSV Immunizations Under 20 Months Aged Out No longer eligible based on patient's age to complete this topic
--- OUTSIDE RECORDS SUMMARY | 2025-03-19 16:27 | XMS_ITS | Clinical Summary ---
Author Organization [facility] Address [address] [place] [phone] Care Team Providers Care Product Safety Associate Name Role Phone Marbin Muñoz MD Primary [...] tive Active Problems No known active problems Surgical History Surgery Date Site/Laterality Comments GASTRIC BYPASS 05/13/2009 - 05/12/2010 Social History Tobacco Use Types Packs/Day Years Used Date Smoking Tobacco: Never Passive Smoke Exposure: Never Smokeless Tobacco: Never Tobacco Cessation:Counseling Given: No Comments Unknown Sex and Gender Information Value Date Recorded Sex Assigned at Not on file 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 Female 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 Gender Identity Not on file Sexual Orientation Not on file Plan of Treatment Health Maintenance Due Date Last Done Comments Breast Cancer Screening-Mammogram 1973 Colon Cancer Screening-Colonoscopy 1973 Depression Screening 1973 Hepatitis C Screening 1973 DTaP/Tdap/Td Vaccine (1 - Tdap) 1984 Hepatitis B Screening 1991 Regular Well Visit/Exam 18-64 1991 Pneumococcal vaccine <65 (1 of 2 - PCV) 1992 Cervical Cancer Screening 02/27/2020 02/26/2019 Zoster Vaccine (1 of 2) 2023 Covid-19 Vaccine (2 - season) 01/11/202505/2020 Influenza Vaccine (#1) 2025 03/18/2017, 2015 Insurance [facility] Care Teams Product Safety Associate Relationship Specialty Start Date End Date Marbin Muñoz [place] [address] [place] [address] [place] [address] PCP - General Internal Medicine 10/14/24
--- OUTSIDE RECORDS SUMMARY | 2025-03-19 16:27 | XMS_ITS | Clinical Summary ---
Author Organization [facility] Address [address] [place] [address] Care Team Providers Care Meat Hostess Name Role Phone Héctor Lehman DO Unavailable [phone] Ezra Zhong MD Primary Care Provider [phone] Source Comments [facility],non-owned Affiliates and Associated Physician Practices is amultiple site organization consisting of ambulatory clinics and hospital sitesin [place], [place], [place] and [place]. This disclosure is being madepursuant to the Care Everywhere program and may not contain all information available regarding this patient. 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 Gender Identity Not on file Sexual Orientation [...] - COLON CA SCREENING 1973 MAMMOGRAM 1973 HEPATITIS C SCREENING 04/07/1991 DTAP/TDAP/TD VACCINES (1 - Tdap) 1992 HEPATITIS B VACCINE (1 of 3 - 19+ 3-dose series) 1992 PAP SMEAR 02/26/2022 02/26/2019, 10/08/2016 LIPID TESTING 08/22/2022 08/22/2017 PNEUMOCOCCAL VACCINE 50+ (1 of 1 - PCV) 2023 ZOSTER VACCINE (1 of 2) 2023 DEPRESSION SCREENING 05/13/2024 COVID-19 VACCINE (2 - 2024- season) 2025 02/10/2021 INFLUENZA VACCINE (#1) 2025 03/18/2017, 2015 SCREENING FOR DIABETES 10/19/2027 , 08/22/2017, 08/22/2017, Additional history exists HIV SCREENING Completed 03/04/2018, 06/28/2015 HIB VACCINE [...] Procedure Name Priority Date/Time Associated Diagnosis Comments COMPREHENSIVE METABOLIC PANEL STAT 10/18/2024 10:42 PM CDT HIV-1 HIV-2 ANTIGEN/ANTIBODY W RFLX Routine 03/04/2018 5:07 PM CDT Screen for STD (sexually transmitted disease) LIPID PROFILE Routine 08/22/2017 4:33 PM CDT Dyslipidemia from Last 3 Months or Most Recently Relevant to Health Maintenance Results * (ABNORMAL) COMPREHENSIVE METABOLIC PANEL (10/18/2024 10:42 PM CDT) BUN 10 7 - 26 mg/dL 10/18/2024 11:21 PM [facility] Creatinine 0.58 0.56 - 0.96 mg/dL 10/18/2024 11:21 PM [facility] Sodium 137 136 - 145 mmol/L 10/18/2024 11:21 PM [facility] Potassium 3.0(L) 3.5 - 4.5 mmol/L 10/18/2024 11:21 PM [facility] Chloride 100 98 - 107 mmol/L 10/18/2024 11:21 PM [facility] CO2 23 22 - 29 mmol/L 10/18/2024 11:21 PM [facility] Glucose 86 70 - 99 mg/dL 10/18/2024 11:21 PM [facility] Calcium 9.8 8.4 - 10.2 mg/dL 10/18/2024 11:21 PM [facility] Protein Total 7.8 6.0 - 8.3 g/dL 10/18/2024 11:21 PM [facility] Albumin 4.3 3.4 - 5.0 g/dL 10/18/2024 11:21 PM [facility] Bilirubin Total 0.5 0.2 - 1.2 mg/dL 10/18/2024 11:21 PM [facility] Alkaline Phosphatase 47 40 - 150 U/L 10/18/2024 11:[address] [facility] ALT 13 5 - 55 U/L 10/18/2024 11:[address] [facility] AST 28 5 - 34 U/L 10/18/2024 11:21 PM CDT [facility] Anion Gap 14 6 - 16 10/18/2024 11:21 PM CDT [facility] BUN/Creatinine Ratio 17 7 - 23 10/18/2024 11:21 PM CDT [facility] Osmolality Calculated 282 275 - 295 mOsm/kg 10/18/2024 11:21 PM CDT [facility] Albumin/Globulin Ratio 1.2 1.1 - 2.3 10/18/2024 11:21 PM CDT [facility] eGFR by CKD-EPI >90 >=90 mL/min/1.7 3 m2 10/18/2024 11:21 PM CDT [facility] Blood BLOOD SPECIMEN / Unknown Venipuncture / Unknown 10/18/2024 10:42 PM CDT 10/18/2024 10:48 PM CDT Narrative [facility] - 10/18/2024 11:21 PM CDT Estimated Glomerular Filtration Rate (eGFR) calculated using the CKD-EPI Creatinine Equation (2020), per the National Kidney Foundation and [place] Society of Nephrology recommendations. us Gadiel Horvath MD LAB - CHEMISTRY ORDERABLES F inal Result [facility] [address] [place] [address], [facility] [phone] * HIV-1 HIV-2 ANTIGEN/ANTIBODY W RFLX (03/04/2018 5:07 PM CDT) HIV Screen 4th Generation w Reflex Non Reactive Non Reactive [facility] ACCOUNT BILL Blood BLOOD SPECIMEN / Unknown 03/04/2018 5:07 PM CDT 03/04/2018 Narrative Resulting Agency Comment [facility] [address] [facility] [phone] us Ezra Zhong MD LAB - SEROLOGY ORDERABLES Bridgett l Result [facility] ACCOUNT BILL [address] [place] [address] * (ABNORMAL) LIPID PROFILE (08/22/2017 4:33 PM [...] PM CDT 08/22/2017 Narrative Resulting Agency Comment [facility] [address] [facility] [phone] Ezra Zhong MD LAB - CHEMISTRY ORDERABLES Fin al Result [facility] ACCOUNT BILL [address] [place] [address] from Last 3 Months or Most Recently Relevant to Health Maintenance Insurance [employer] [facility] * Guarantor: [employer] Account Type Relation to Patient Date of Phone Billing Address Company Employer 1976 [phone] (Work) [address] [place] [address] [employer] Member Subscriber Plan / Payer (Ef fective for All Dates) Name:Lc Jazmin Member ID:Not on file Relation to Subscriber:Employee Name:[email or web address] Subscriber ID:Not on file [phone] (Home) [phone] (Work) Address: [address] [place] [address] Payer ID:Not on file Group ID:Not on file Type:Commercial [employer] Care Teams Meat Hostess Relationship Specialty Start Date End Date Ezar Zhong MD [address] [facility] [address] [place] [address] PCP - General Family Medicine 08/11/18 Héctor Lehman DO [address] [facility] [address] [place], [place] [id number] 03/24/18
--- OUTSIDE RECORDS SUMMARY | 2025-03-19 16:27 | XMS_ITS | Encounter Summary ---
Author Organization [facility] Address [address] [place] [address] Care Team Providers Care Chief Procurement Officer Name Role Phone Marbin Muñoz MD Primary Care Provider [phone] Encounter Details Date Type Department Care Team (Late st Contact Info) Description 09/02/1999 Emergency [facility] Bradley Beebe MD NO ADDRESS ON FILE Er, Authorized P NO ADDRESS ON FILE Incomplete spontaneous without mention of complication (Primary Dx) Social History Tobacco Use Types Packs/Day Years Used Date Smoking Tobacco: Never Assessed Comments Unknown Sex and Gender Information Value Date Recorded Sex Assigned at Not on file 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
--- OUTSIDE RECORDS SUMMARY | 2025-03-19 16:27 | XMS_ITS | Encounter Summary ---
Author Organization [facility] Address 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
--- OUTSIDE RECORDS SUMMARY | 2025-03-19 16:27 | XMS_ITS | Data Portability ---
Author Organization [place] - [facility] [employer], Main Office Address [address] [place] [address] Assessment Encounter Date Assessment Date Assessment LastModified by Organization Details LastModified Time 10/26/2024 10/26/2024 I have reconciled the patient's medications post their discharge from inpatient facility. [email or web address] Not available 10/25/2024 16:37:27 Plan of Treatment Reminders Order Date Submit Date Provider Last Modified By Organization Details Last Modified Time Details Appointments Follow Up 2024 04:20P M Chyna Levi NP Not available Not available Not available Any 15 2024 03:30P M Marbin Muñoz MD Not available Not available Not available Lab CBC w/ auto diff 2024 025 [email or web address] Desk [facility], [address], [place], [address], 01/15/2025 09:36:18 vitamin B12 + folate, serum or blood 2024 025 [email or web address] Desk [facility], [address], [place], [address], 01/15/2025 09:36:18 iron + total iron-bind ing capacity (TIBC), serum 2024 025 [email or web address] Desk [facility], [place], [address], 01/15/2025 09:36:18 CMP, serum or plasma 2024 025 nacho Desk [facility], [address], [place], [address], 01/15/2025 09:36:17 lipid panel, serum 2024 025 [email or web address] Desk [facility], [address], [place], [address], 01/15/2025 09:36:18 CBC w/ auto diff 2024 025 [email or web address] Desk [facility], [address], [place], [address], 01/07/2025 08:58:29 Referral plastic surgeon referral - Please call patient to schedule an appointme nt. Thank you. 2024 025 TAMANNA Garcia MD, [address] [facility] [address], [place], [address], 01/07/2025 08:55:45 Procedures None recorded. Surgeries None recorded. Imaging MAMMO, screening , bilateral - Please call patient to schedule. 2024 [email or web address] [facility] Central Scheduling, [address] [place], [address], 02/04/2025 15:24:22 Medication Orders Medrol (Naveed) 4 mg tablets in a dose pack 2024 025 [email or web address] an1 [facility] [address], [address], 12/31/2024 16:01:41 ipratropi um bromide 42 mcg (0.06 %) nasal spray 2024 025 [email or web address] an1 [facility] [address], [address], 12/31/2024 16:01:28 Zepbound 7.5 mg/0.5 mL subcutane ous pen injector 2024 025 FABBY [facility] [address], [address], 08/04/2024 10:09:39 hydrochlo rothiazid e 25 mg tablet 2024 025 FAB[address] [facility] [address], [address], 08/04/2024 10:09:39 Zepbound 5 mg/0.5 mL subcutane ous pen injector 2024 025 [email or web address] 2 [facility] [address], [address], 07/07/2024 09:06:59 Patient TargetsNo targets recorded. Patient InstructionsNo instructions recorded. Reason for Referral Plastic Surgeon Referral for Skin finding Please call patient to schedule an appointment. Thank you. Referring Physician: Marbin Muñoz, Internal Medicine, Encounter Date: 12/31/2024 Results Created Date Observation Date Name Description Value Unit Range Abnormal Flag Note LastModifiedBy Organization Detail LastModifiedTime Result Notes None recorded. Problems Name Problem SNOMED Code Status Onset Date Resolution Date Notes Provider Name and Address Organization Details Recorded Time Closed fracture of metatarsa l bone 28816655 Completed Not Available [facility] 3 23:30:55 Fracture of lower leg 016578879 Completed Not Available [facility] 3 23:30:55 Serum iron below reference range 891318579 Active 2021 Not Available [facility] 3 23:30:54 Loose skin folds, abdominal wall 163220177 Active 2021 Not Available [facility] 3 23:30:54 Anemia 775080838 Active 2021 Not Available [facility] 3 23:30:55 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 2021 Not Available [facility] 3 23:30:55 Pain of multiple joints 57367413 Active 2021 Not Available [facility] 3 23:30:55 Obesity 350994744 Active 2021 Not Available [facility] 3 23:30:55 Anxiety 51260702 Active 2021 Not Available [facility] 3 23:30:55 Essential hypertens ion 57282833 Active 2021 Not Available [facility] 3 23:30:55 Bipolar disorder 88527456 Active 2021 Not Available [facility] 3 23:30:54 Injury of great toe 011851502 Active 2021 Not Available [facility] 3 23:30:55 Melanocyt ic nevus of skin 352954931 Active 2023 Marbin Muñoz MD [address], [address], [place], [address] , [facility] 4 16:35:45 Skin nodule 60869674 Active 2023 Marbin Muñoz MD [address], [address], [place], [address] , [facility] 4 09:38:22 Chest pain 65601929 Active 2023 [email or web address] Muñoz MD [address], [address], [place], [address] , [facility] 4 16:59:05 Hyperlipi demia 03908145 Active 2023 Marbin Muñoz MD [address], [address], [place], [address] , [facility] 4 17:00:52 Abnormal weight 18421805 Active 2023 CASSIUS Dejesus null, [place] - [facility] 4 12:06:22 Dysfuncti on of left eustachia n tube 97245754189 35209 Active 2024 RADHA Edwards [address], [address], [place], [address] , [facility] 5 17:09:47 Posterior rhinorrhe a 94575164 Active 2024 RADHA Edwards [address], [place], [address] , [facility] 5 17:10:08 Pruritic rash 77981711 Active 2024 GINA Ferreira [address], [place], [address] , [facility] 5 11:00:48 Hypokalem ia 50390245 Active 2024 GINA Ferreira [address], [place], [address] , [facility] 5 16:14:55 Cardiac arrhythmi a 332041799 Active 2024 GINA Ferreira [address], [place], [address] , [facility] 5 16:19:17 Skin finding 170244341 Active 2024 Marbin Muñoz MD [address], [place], [address] , [facility] 5 16:26:10 Problem Notes None recorded. Procedures Surgical History Date Name Laterality Status Provider Name and Address Organization Details Recorded Time Transitional _Care_Manage ment completed GINA Ferreira [address], [place], [address], [facility] 10/26/2024 16:17:24 Gastric bypass for obesity completed Not Available [facility] 07/11/2022 23:29:21 completed Not Available [facility] 0 07/11/2022 23:29:21 completed Not Available [facility] 0 07/11/2022 23:29:21 Imaging Results None recorded. [...] BY MOUTH EVERY DAY IN THE EVENING 12/31 completed Not Available Not Available Not Available lisinopri l 20 mg tablet TAKE 1 TABLET BY MOUTH EVERY DAY 02/20 completed Not Available Not Available Not Available Medrol (Naveed) 4 mg tablets in a dose pack Take 1 dose pk by oral route. 12/31 completed Not Available Not Available Not Available chlorthal idone 25 mg tablet 04/24 completed Not Available Not Available Not Available spironola ctone 25 mg tablet TAKE 1 TABLET BY MOUTH EVERY DAY 12/31 completed Not Available Not Available Not Available lamotrigi ne 25 mg tablet TAKE 1 TABLET BY MOUTH TWICE A DAY 10/26 completed Pt states she is taking 75 mg twice a day Not Available Not Available Not Available ferrous sulfate 325 mg (65 mg iron) tablet TAKE 1 TABLET BY MOUTH TWICE A DAY 08/06 completed Not Available Not Available Not Available sertralin e 25 mg tablet TAKE 1 TABLET BY MOUTH EVERY DAY 08/06 completed Not Available Not Available Not Available aspirin 81 mg chewable tablet CHEW 1 TABLET BY MOUTH EVERY DAY IN THE MORNING 2024 active Not Available Not Available Not Avai lable diclofena c sodium 75 mg tablet,de layed release 04/24 completed Not Available Not Available Not Available hydrochlo rothiazid e 25 mg tablet TAKE 2 TABLETS BY MOUTH EVERY DAY IN THE MORNING 2024 active DANIELLE: 12/31/24 - NOV: 05/08/25 Not Available Not Available Not Available metoprolo l succinate ER 25 mg tablet,ex tended release 24 hr TAKE 1 TABLET BY MOUTH EVERY DAY active Not Available Not Available No t Available ipratropi um bromide 42 mcg (0.06 %) nasal spray [place] 2 sprays 3 times a day by intranas al route. 12/31 completed Not Available Not Available Not Available hydroxyzi ne HCl 10 mg tablet TAKE 1 TABLET BY MOUTH EVERY DAY AT BEDTIME NEEDED FOR 30 DAYS 12/31 completed Not Available Not Available Not Available fluoxetin e 20 mg capsule 04/24 completed Not Available Not Available Not Available fluticaso ne propionat e 50 mcg/actua tion nasal spray,lamine pension 08/06 completed Not Available Not Available Not Available clotrimaz ole 1 % topical cream APPLY TO AFFECTED AREA TWICE A DAY IN THE MORNING AND IN THE EVENING 12/31 completed Not Available Not Available Not Available lamotrigi ne 100 mg tablet TAKE 1 TABLET BY MOUTH EVERY DAY IN THE MORNING active Not Available Not Available No t Available hydroxyzi ne pamoate 25 mg capsule TAKE 1 CAPSULE BY MOUTH EVERY DAY AT BEDTIME NEEDED 12/31 completed Not Available Not Available Not Available aripipraz ole 5 mg tablet TAKE [...] SPIT OUT TWICE A DAY AFTER MEALS 12/31 completed Not Available Not Available Not Available sertralin e 02/20 completed Not Available Not Available Not Available hydrochlo rothiazid e Once daily 02/20 completed Not Available Not Available Not Available Zepbound 5 mg/0.5 mL subcutane ous pen injector Inject 5 mg every week by subcutan eous route for 28 days. 07/07 completed Not Available Not Available Not Available Zepbound 2.5 mg/0.5 mL subcutane ous pen injector active Not Available Not Available Not Available Zepbound 7.5 mg/0.5 mL subcutane ous pen injector INJECT 7.5MG SUBCUTAN EOUSLY ONE TIME PER WEEK 2024 active DANIELLE 12/31/24 NOV 04/28/25 ok to rf Not Available Not Available Not Available Vitals Date Recorded Body height Body mass index (BMI) Body weight Body temperature Heart rate Oxygen saturation Oxygen saturation in Arterial blood by Pulse oximetry Systolic And Diastolic Provider Name and Address Organization Details Last Updated DateTime 5 152.4 cm 35.9 kg/m2 22005 g 97.2 [degF] 66 /min 96 % 96 % 122/84 mm[Hg] CASSIUS Caputo [place] [facility] 14:07:21 Date Recorded Body height Body mass index (BMI) Body weight Body temperature Oxygen saturation Oxygen saturation in Arterial blood by Pulse oximetry Heart rate Systolic And Diastolic Provider Name and Address Organization Details Last Updated DateTime 5 152.4 cm 31.8 kg/m2 86127.5 6 g 97.1 [degF] 96 % 96 % 70 /min 118/82 mm[Hg] Alina castro [facility] 5 09:28:01 Date Recorded Body height Body mass index (BMI) Body weight Body temperature Provider Name and Address Organization Details Last Updated DateTime 09/23/2024 152.4 cm 31 kg/m2 29105.75 g 97.7 [degF] Apoorva Arriola RN [facility] [employer] 09/23/2024 16:56:59 Date Recorded Body height Body mass index (BMI) Body weight Body temperature Heart rate Respiratory rate Oxygen saturation Oxygen saturation in Arterial blood by Pulse oximetry Systolic And Diastolic Provider Name and Address Organization Details Last Updated DateTime 5 152.4 cm 28.8 kg/m2 64344.8 7 g 97.6 [degF] 80 /min 17 /min 98 % 98 % 120/78 mm[Hg] Floresita Salazar [facility] 5 14:53:05 Date Recorded Body height Body mass index (BMI) Body weight Body temperature Heart rate Oxygen saturation Oxygen saturation in Arterial blood by Pulse oximetry Systolic And Diastolic Provider Name and Address Organization Details Last Updated DateTime 5 152.4 cm 27.9 kg/m2 40810.7 1 g 97.4 [degF] 65 /min 95 % 95 % 110/80 mm[Hg] Danelle quinteros, CASSIUS [place] [facility] [place] [facility] 5 15:55:37 Social History Question Answer Notes LastModified by Organizat ion Details LastModified Time Tobacco Smoking Status Never [facility]oker Not Available [facility] 07/11/2022 23:29:12 Do You Have An Advance Directive? No MIGRATION.[id number] Information not available 07/11/2022 What Is Your Level Of Caffeine Consumption? Moderate [email or web address] Information not available 04/29/2024 In The 14 Days Before Symptom Onset, Have You Had Close Contact With A Laboratory-confir med COVID-19 While That Case Was Ill? No MIGRATION.43517 79795 Information not available 07/11/2022 In The 14 Days Before Symptom Onset, Have You Had Close Contact With A Person Who Is Under Investigation For COVID-19 While That Person Was Ill? No MIGRATION.46234 15028 Information not available 07/11/2022 What Type Of Diet Are You Following? REGULAR MIGRATION.46860 16897 Information not available 07/11/2022 What Is The Highest Grade Or Level Of School You Have Completed Or The Highest Degree You Have Received? [id number] MIGRATION. 92154 Information not available 07/11/2022 How Many Days Of Moderate To Strenuous Exercise, Like A Brisk Walk, Did You Do In The Last 7 Days? 7 [email or web address] Information not available 04/29/2024 On Those Days That You Engage In Moderate To Strenuous Exercise, How Many Minutes, On Average, Do You Exercise? 20 [email or web address] Information not available 04/29/2024 Have There Been Any Changes To Your Family Or Social Situation? No MIGRATION.66951 60447 Information not available 07/11/2022 What Is The Fluoride Status Of Your Home? Fluoridated [email or web address] Information not available 04/29/2024 Are There Any Guns Present In Your Home? Yes MIGRATION.93145 73132 Information not available 07/11/2022 Do You Use Insect Repellent Routinely? No MIGRATION.36898 93163 Information not available 07/11/2022 Where Do You Live? SingleLevelHouse [email or web address] Information not available 04/29/2024 Do You Have A Medical Power Of [employer]orer [employer]? No [email or web address] Information not available 04/29/2024 What Was The Date Of Your Most Recent Tobacco Screening? 04/29/2024 [email or web address] Information not available 04/29/2024 How Many Children Do You Have? 3 [email or web address] Information not available 04/29/2024 Do You Have Any Pets? Yes MIGRATION.91159 21024 Information not available 07/11/2022 What Is Your Relationship Status? MIGRATION.36445 19882 Information not available 07/11/2022 Do You Use Your Seat Belt Or Car Seat Routinely? Yes [email or web address] Information not available 04/29/2024 Are You Sexually Active? No [email or web address] Information not available 04/29/2024 Do You Have Smoke And Carbon Monoxide Detectors In Your Home? Yes MIGRATION.03192 62959 Information not available 07/11/2022 Are You Passively Exposed To Smoke? No MIGRATION.12737 48044 Information not available 07/11/2022 Are There Any Smokers In Your House? No MIGRATION.06453 48782 Information not available 07/11/2022 What Types Of Sporting Activities Do You Participate In? None [email or web address] Information not available 04/29/2024 Do You Use Sunscreen Routinely? No MIGRATION.84661 76932 Information not available 07/11/2022 Has Tobacco Cessation Counseling Been Provided? No MIGRATION.70644 30532 Information not available 07/11/2022 Have You Recently Traveled Abroad? No MIGRATION.81347 40637 Information not available 07/11/2022 Do You Have Any Dietary Restrictions? No MIGRATION.99441 61437 Information not available 07/11/2022 Sex: Unknown Functional Status Question Answer Note LastModified by Organizat ion Details LastModified Time Do you use any illicit or recreational drugs? No MIGRATION.716090 7806 Information not available 07/11/2022 Do you or have you ever used any other forms of tobacco or nicotine? No MIGRATION.488409 2018 Information not available 07/11/2022 What is your level of alcohol consumption? None MIGRATION.157996 0483 Information not available 07/11/2022 Are you currently employed? 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 Occasional MIGRATION.535322 8054 Information not available 07/11/2022 Mental Status Question Answer Note LastModified by Organizat ion Details LastModified Time Do you feel stressed (tense, restless, nervous, or anxious, or unable to sleep at night)? [id number] MIGRATION.[id number] 6 Information not available 07/11/2022 Family History Relationship Description Onset Age of this Age Resolved Age Notes LastModified by Organization Details LastModified Time Unspecified Relation Hyperlipidem ia MIGRATION.872 [id number] Not available 07/11/2022 23:29:25 Unspecified Relation Hypertensive disorder MIGRATION.735 [id number] Not available 07/11/2022 23:29:25 Unspecified Relation Heart disease MIGRATION.165 [id number] Not available 07/11/2022 23:29:25 Unspecified Relation Depressive disorder MIGRATION.680 5056187 Not available 07/11/2022 23:29:25 Unspecified Relation Anxiety disorder MIGRATION.421 7808996 Not available 07/11/2022 23:29:25 Unspecified Relation Diabetes mellitus MIGRATION.181 [id number] Not available 07/11/2022 23:29:25 Notes:FAMILIAL HX: SINUSES Medical History Condition Response HEART DISEASE/HEART PROBLEMS Y HYPERTENSION Y Gynecological HistoryNo gynecological history recorded. Obstetrics History GPAL:G 0 P 0 0 0 0 Immunizations Vaccine Type Date Status Note Provider Nam e and Address Organization Details Recorded Time Influenza, split virus, quadrivalent, PF 6 completed Not Available [facility] 12/31/2024 15:49:07 influenza, unspecified formulation 7 completed Not Available [facility] 12/31/2024 15:49:07 COVID-19, mRNA, LNP-S, PF, 30 mcg/0.3 mL dose 1 completed Not Available [facility] 12/31/2024 15:49:07 COVID-19, mRNA, LNP-S, PF, 30 mcg/0.3 mL dose 1 completed Not Available [facility] 12/31/2024 15:49:07 Past Encounters Encounter ID Performer Location Encounter Start Date Encounter Closed Date Diagnosis/Indication Diagnosis SNOMED-CT Code Diagnosis ICD10 Code Diagnosis IMO Codes Diagnosis Note [id number] Marbin Muñoz MD [facility] Internal Med [facility] [address] [place] [address] 02/20/2022 00:00:00 02/20/2022 15:36:58 [id number] Marbin Muñoz MD [facility] Internal [facility] [address] [facility] [place] [address] 04/24/2022 00:00:00 04/24/2022 16:41:23 [id number] Marbin Muñoz MD [facility] Internal [facility] [address] [facility] [place] [address] 03/13/2023 16:02:21 03/13/2023 16:36:10 Essential hypertension 40050728 I10 UNDER CONTYROL Anxiety 41977930 F41.9 under control Blind right eye 67805669 0 H54.40 Anemia 151650197 D64.9 labs Obesity 635940075 E66.9 advise dto lose more Pain of mu ltiple joints 49915988 M25.50 otc Bipolar disorder 4495449 4 F31.9 under contyrol Screening mammography 24 301902 Z12.31 did not get mammogram, willing [id number] Marbin Muñoz MD [facility] Internal [facility] [address] [facility] [place] [address] 08/07/2023 16:13:09 08/07/2023 16:36:08 Essential hypertension 80478023 I10 under control Anxiety 07619373 F41.9 under control Blind right eye 08922750 0 H54.40 gets eye exam Anemia 872482698 D64.9 labs Obesity 625166110 E66.9 advised to lose more Pain of mu ltiple joints 53360613 M25.50 otc Bipolar disorder 6098965 4 F31.9 under control Screening mammography 24 994701 Z12.31 did not get mammogram, willing Screening for malignant neoplasm of colon 887627471 Z12.11 wants to wait Melanocyti c nevus of skin 192929388 D22.9 benign, [id number] Marbin Muñoz MD [facility] Internal [address] [facility] [place] [address] 09/26/2023 09:11:14 09/26/2023 09:36:38 Skin nodule 04471453 R22.9 watch [id number] Marbin Muñoz MD [facility] [address] [place] [address] 10/21/2023 16:28:46 10/21/2023 17:02:29 Essential hypertension 25919979 I10 under control Anxiety 31064551 F41.9 under control Chest pain 68818451 R07. 9 has improvedwa tch dietlose weighthas appt with cardiology Hyperlipidemia 66257231 E78.5 start meds [id number] Marbin Muñoz MD [facility] [address] [place] [address] 04/29/2024 11:47:24 04/29/2024 12:54:15 Obesity 314489912 E66.9 unable to lose on her own with diet and exercisesh e may benefit from [email or web address] de effects discussed Essential hypertension 91669260 I10 under control Hyperlipidemia 61780026 E78.5 on meds History of bariatric surgical procedure 098981009 Z98.84 Screening for malignant neoplasm of colon 147170750 Z12.11 wants to wait Adult heal th examination 422666384 Z00.00 Depression screening 171 015937 Z13.31 Normal bod y mass index 37931182 Z68.37 [id number] Marbin Muñoz MD [facility] [address] [place] [address] 05/28/2024 14:01:29 05/28/2024 14:39:13 Obesity 014366753 E66.9 doing diet and exerciseke ep watching the portion size and stay active^ the dose [id number] Chyna Levi NP [facility] [address] [address] 06/09/2024 15:38:35 06/09/2024 18:37:41 [id number] Chyna Levi NP [facility] [address] [address] 07/08/2024 16:45:59 07/08/2024 18:31:21 [id number] Marbin Muñoz MD [facility] Med [address] [facility] [place] [address] 08/04/2024 09:19:10 08/04/2024 14:19:57 Obesity 591418997 E66.9 doing diet and exerciseke ep the same dose Essential hypertension 65008223 I10 under control [id number] Chyna Levi NP [facility] [address] [address] 09/07/2024 16:47:46 09/08/2024 12:40:17 [id number] Orlando Vann MD [facility] [place] [address] [place] [address] 09/23/2024 16:47:47 09/24/2024 10:40:06 Dysfunction of left eustachian tube 6201927670 043928 H69.92 70508988 Posterior rhinorrhea 758 64786 J34.89 [id number] Chyna Levi NP [facility] [address] [address] 10/12/2024 17:10:21 10/13/2024 15:11:40 [id number] Marbin Muñoz MD [facility] Med [address] [place] [address] 10/26/2024 14:42:32 10/26/2024 15:52:17 Transition of care 9452223801 105 Z75.8 Patient seeing cardiology on 10/26 Hypokalemia 67725421 E87 .6 9791 Will recheck labs in two weeks Cardiac arrhythmia 05579 7007 I49.9 [id number] Seeing cardiology for evaluation and stress testDr. Eliot 10/26 [id number] Chyna Levi NP [facility] [address] [address] 11/11/2024 17:12:13 11/11/2024 18:36:07 [id number] Chyna Levi NP [facility] [address] [place] [address] 12/10/2024 16:22:13 12/10/2024 16:51:18 [id number] Marbin Muñoz MD [facility] [address] [place] [address] 12/31/2024 15:47:16 12/31/2024 16:52:47 Obesity 911288393 E66.9 keep the same dose, watching diet Essential hypertension 42909152 I10 under control Hyperlipidemia 11229627 E78.5 on meds History of bariatric surgical procedure 449474424 Z98.84 General ex amination of patient 608516694 Z00.00 [id number] Colonoscop y- NEVER- had one ordered but never scheduled, wants to waitMammog lorrie- 08/09/2023 DEXA- NEVERFLU- NEVERPneum ovax- NEVERCOVID - NEVER Screening mammography 24 924074 Z12.31 did not get mammogram, willing Skin finding 139066402 L 98.7 [id number] she may get benefit form pannicule patricia [id number] Chyna Levi NP [facility] [address] [place] [address] 01/06/2025 17:06:04 01/06/2025 18:14:59 Health Concerns Section Related Observation LastModified by Organization Detai ls LastModified Time None Recorded Concern Status LastModified by Organization Details LastModified Time None Recorded Advance Directives Directive N: Payers Insurance Date Sequence Insurance Name Policy Number Policy Fuentes Covered Member ID Fuentes Member ID Guarantor Name 09/01/2024 1 [facility] [id number] Jazmin Platt [id number] [facility] [id number] [facility] Jazmin Platt 01/06/2025 1 [facility] - DOS 05/13/2024 AND AFTER Jazmin Platt [id number] Jazmin Lc 09/01/2024 2 [facility] - DOS PRIOR TO 2024 (PPO) Jazmin Platt [id number] Jazmin Lc 09/01/2024 1 [facility] [id number] Jazmin Platt [id number] Jazmin Platt 09/01/2024 1 [facility] - DOS PRIOR TO 2024 (PPO) Jazmin Platt [id number] Jazmin Platt 09/01/2024 1 [facility] - DOS PRIOR TO 2024 (PPO) Jazmin Platt [id number] Jazmin Platt Notes Date Note Type Note Provider Name and Address Organization Details Recorded Time 5 text/html ROS as noted in the HPI Pt is here today for a 1 [...] Muñoz MD [address], [place], [address], [facility] 05/28/2024 14:38:43 5 text/html ROS as noted in the HPI Pt here for a 1 month f/u for zepbound 7.5, tolerating it well. She is watching her diet.no side effectsSHE HAS LOST 30 LBS IN 2 MONTHSshe is very active,Pt is not fasting Marbin Muñoz MD [address], [place], [address], [facility] 08/04/2024 10:11:35 5 text/html This patient has a pmhx significant [...] throughout her examination. RADHA Edwards [address], [place], [address], [facility] 09/24/2024 10:39:39 5 text/html ROS as noted in the HPI Patient is a 49 year old female who is here for hospital follow up for admission to [facility] for chest pains on 10/19. Lab work was drawn showing normal troponin and low potassium which was replaced. CT of abdomen did show obstructing choledocholithiasis and was evaluated with GI and abdominal US ruling out abnormalities. Patient was not sent home on any medications at this time and will follow up with cardiology today 10/26. Patient currently denies chest pains, shortness of breath, dizziness or abdominal pains at this time. Patient reports recent increase in psych medications at this time- to notify pyschCardiology- Dr. 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 HTN-under control with meds, was on Lisinopril but stopped due to bp being too low about a year agoMed- Metoprolol 25mg daily, HCTZ 25 mgAnxiety- meds help , mood and anxiety is stableMed- lamictal 100mg in the AM and 150mg in the PM Anemia/Low iron- has anemia all her life, h/o blood transfusion in the past, had anemia even before the gastric bypass, last cbc nlMed- was on Ferrous sulfate 325Obesity- Has history of gastric bypass in 2009, did lose 130 lbs but gained some back. Currently on Zepbound and has lost a total of 50lbs. Would like discuss getting a tum[facility] F/UPatient is a 49 year old female who is here for hospital follow up for admission to [facility] for chest pains on 10/19. Lab work was drawn showing normal troponin and low potassium which was replaced. CT of abdomen did show obstructing choledocholithiasis and was evaluated with GI and abdominal US ruling out abnormalities. Patient was not sent home on any medications at this time and will follow up with cardiology today 10/26. Patient currently denies chest pains, shortness of breath, dizziness or abdominal pains at this time. she had echo, stress test and Heart monitor, all the w/u neg Marbin Muñoz MD [address] [facility], [facility] [address], [place], [address], [facility] 12/31/2024 16:28:03 OBGyn Episode No OBEpisode recorded.
--- OUTSIDE RECORDS SUMMARY | 2025-03-19 16:27 | XMS_ITS | Encounter Summary ---
Author Organization [facility] Address 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
--- OUTSIDE RECORDS SUMMARY | 2025-03-19 16:27 | XMS_ITS | Encounter Summary ---
Author Organization [facility] Address 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
--- OUTSIDE RECORDS SUMMARY | 2025-03-19 16:27 | XMS_ITS | Clinical Summary ---
Author Organization 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 Gender Identity Not on file Sexual Orientation Not on file Plan of Treatment Health Maintenance Due Date Last Done Comments Hepatitis C Virus (HCV) Screening 1973 TdaP Immunization 1973 Hepatitis B Immunization (1 of 3 - 19+ 3-dose series) 1992 Pap Smear 1994 Cervical Cancer Screening (CCS) 2003 HPV/Cotest 2003 Cologuard 2018 Colonoscopy 2018 Colorectal Cancer Screening 2018 Immunochemical Fecal Occult Blood 2018 Pneumococcal Immunization (5 0+ years) (1 of 1 - PCV) 2023 Zoster Immunization (1 of 2) 2023 Influenza Immunization (#1) 2025 SARS-COV-2 Immunization (3 - 2024- season) 2025 02/10/2021, 08/23/2020 Respiratory Syncytial Virus (RSV) Immunization (Adult) (1 [...]
--- OUTSIDE RECORDS SUMMARY | 2025-03-19 16:27 | XMS_ITS | Encounter Summary ---
Author Organization [facility] Healthcare Address [address] [place] [address] Care Team Providers Care Ad Compositor Name Role Phone Marbin Muñoz MD Primary Care Provider [phone] Encounter Details Date Type Department Care Team ([facility] Contact Info) Description 10/26/2024 Orders Only 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 Gender Identity Not on file Sexual Orientation Not on file documented as of this encounter Plan of Treatment Not on file documented as of this encounter Procedures Procedure Name Priority Date/Time Associated Diagnosis Comments SCAN - RADIOLOGY/IMAGING 10/26/2024 9:28 PM CDT documented in this encounter Results * SCAN - RADIOLOGY/IMAGING (10/26/2024 9:28 PM CDT) Anatomical Region Laterality Modality Other us Provider Scanning Final Result documented in this encounter Visit Diagnoses Not on filedocumented in this encounter Care Teams Ad Compositor Relationship Specialty Start Date End Date Marbin Muñoz [place] [address] [place] [address] [place] [address] PCP - General Internal Medicine 10/14/24 documented as of this encounter
[2025-03-19 16:42] LABS: Hematocrit 41.4 % (37.0-47.0); Hemoglobin 13.8 g/dL (12.0-15.0)
[2025-03-19 16:56] LABS: Anion Gap 7 mmol/L (4-12); Blood Urea Nitrogen 20 mg/dL (7-17); Calcium 9.4 mg/dL (8.4-10.2); Carbon Dioxide 33 mmol/L (22-30); Chloride 95 mmol/L (98-107); Estimated Glomerular Filt Rate > 60; Glucose 78 mg/dL (65-110); Potassium 3.2 mmol/L (3.4-5.0); Sodium 135 mmol/L (137-145)
== END 2025-03-19 16:26 | disposition home or self-care (01) ==
LOC: ANHLAB 16:25
PROVIDERS: PCP Internal Medicine; Visit Provider Anesthesiology
DX: Z86.2 Personal history of diseases of the blood and blood-forming organs and certain disorders involving the immune mechanism (principal); Z01.818 Encounter for other preprocedural examination; I10 Essential (primary) hypertension
CPT/HCPCS: 36415; 80048; 85014; 85018

== ENCOUNTER 2025-03-29 05:46 | Day surgery (SDC) | payer OTHER, SELFPAY ==
[2025-03-18 11:09] VITALS: BMI 26.4
[2025-03-29] VITALS (10 sets, daily range): BP systolic 103–126; BP diastolic 68–89; PULSE 59–90; RESP 12–17; TEMP 36.1–37.9; O2SAT 95–100
[2025-03-29] MEDS: ACETAMINOPHEN 500 MG TABLET 1000 MG PO (06:26)
[2025-03-29] MEDS: LACTATED RINGERS 1,000 ML 30 ML IV CONT ×3 (06:40→09:30)
--- NOTE | 2025-03-29 06:50 | WPDHPUPDATE1 ---
History and Physical Update Update Date/Time: 03/29/25 06:50 Patient seen and examined in pre-operative holding area. No interval change in medical history or symptoms. Patient remembers previous discussion of benefits and alternatives to procedure. Continues to desire to proceed with panniculectomy. I reviewed the risks including but not limited to bleeding ,infection, asymmetry, undesireable cosmetic appearance, partial/total skin/umbilicus loss, no change or worsening of symptoms, change in sensation, seroma. I discussed the possible use of assistants and their level of participation in the case. Patient stated understanding and signed the consent form wishing to proceed
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
--- NOTE | 2025-03-29 07:06 | WPDANESEPPF ---
Anes - Initial Pre Proc Eval Procedure: Operation Date: 03/29/25 07:30 Proposed Procedures p Panniculectomy - Cr Garcia MD Date/Time: 03/29/25 07:06 Surgeon: Cr Garcia MD Pre Op Diagnosis: Excessive Skin and Subcutaneous Tissue Patient Data Age: 49 Gender: F Height: 1.52 m Weight: 65.55 kg Last Vital Signs Temp 99 F 03/29/25 06:35 Pulse 59 L 03/29/25 06:20 Resp 15 03/29/25 06:20 BP 119/72 03/29/25 06:20 Pulse Ox 100 03/29/25 06:20 O2 Del Method Room Air 03/29/25 06:20 Allergies Allergy/AdvReac Type Severity Reaction Status Date / Time No Known Allergies Allergy Verified 03/29/25 06:19 Home Medications ?Medication ?Instructions ?Recorded ?Confirmed ?Type hydrochlorothiazide 25 mg tablet 50 mg PO DAILY 10/19/24 03/29/25 History lamotrigine 100 mg tablet 100 mg PO DAILY 10/19/24 03/29/25 History lamotrigine 150 mg tablet 150 mg PO HS 10/19/24 03/29/25 History tirzepatide (weight loss) 7.5 7.5 mg subcut WEEKLY 03/18/25 03/29/25 History mg/0.5 mL subcutaneous pen injector (Zepbound) Other studies: history of drug abuse ,recovering Patient hx anesthesia problems: none Family hx anesthesia problems: none Results Review: All pre-operative results and documents have been reviewed as part of the pre-operative evaluation. [facility] Past Medical History Medical History Bipolar disorder Social History Social History Smoking status: Former smoker Tobacco type: cigarettes Second hand tobacco smoke exposure: Yes Smoking end date: 05/13/94 Alcohol intake: former Substance use: former Do You Feel Safe in your Home?: Yes Lack of Transportation: No Lack of Food: Never True Current Housing: I Have Housing Concerned About Future Housing: No Difficulty Paying Gas/Electric Bills: No Difficulty Paying for Meds: No Currently Unemployed: No Education: High School Diploma/GED Difficulty w/ Childcare or Family Care: No Living arrangements: with family Spiritual care concerns: No Anes - Eval Final PreProcedure Day of Procedure 03/29/25 07:06 Heart: regular rate and rhythm Lungs: clear to auscultation Airway: Mallampati scale class 1 Neurological: alert and oriented Last oral intake: 4 hours (black coffee) ASA classification: II Anesthetic plan: proceed Anesthesia type and monitoring: general Results Review: All pre-operative results and documents have been reviewed as part of the pre-operative evaluation. Informed Consent: The patient's anesthetic plan and its attendant risks and benefits were discussed with the patient/family/POA. Questions were solicited and answers provided to the satisfaction of the patient/family/POA.
[2025-03-29] MEDS: ceFAZolin SODIUM 2 GM/20 ML SW SYRINGE IV PUSH (07:33)
--- NOTE | 2025-03-29 08:25 | SUR.OPER ---
BD Davol hubless silicone flat drain 10mm wide- with 100cc silicone closed wound suction evacuator kit times two
[2025-03-29] MEDS: LIDO 1%/EPINEPHRINE 1:100,000 20 ML VIAL (09:03)
[2025-03-29] MEDS: BUPivacaine HCL 0.5% 10 ML AMP 20 ML (09:03)
[2025-03-29] MEDS: fentaNYL CITRATE INJ (*CRX) 100 MCG/2 ML VIAL 25 MCG IV PUSH ×7 (09:21→10:02)
[2025-03-29] MEDS: oxyCODONE HCL (*CRX) 5 MG TAB IR PO (10:39)
== END 2025-03-29 11:25 | disposition home or self-care (01) ==
LOC: ASC 06:04
PROVIDERS: PCP Internal Medicine; Visit Provider Plastic Surgery
PROC: 0JB80ZZ Excision of Abdomen Subcutaneous Tissue and Fascia, Open Approach (ICD-10-PCS; CPT 15830; principal; 2025-03-29 07:30)
DX: L98.7 Excessive and redundant skin and subcutaneous tissue (principal)
CPT/HCPCS: 15830; 15834

== ENCOUNTER 2025-03-29 14:08 | Outpatient (NON) | payer OTHER, SELFPAY ==
--- NOTE | 2025-03-29 | S_PTH ---
PATIENT: Jazmin Paltt LOC: ANAB #:[id number] AGE/SX: 49/F ROOM: RE03/29/[address]: Cr Garcia MD : 1975 BED: DIS: 03/29/2025 SPEC #: [id number] RECD: 03/31/25 07:27 STATUS: CRISTIANO REMiquel #: [id number] ANT: 03/29/25 00:[address]: Cr Garcia DEPT: [facility] Surgical RECD BY: Nelly Malone ENTERED: 03/31/25 07:30 SP TYPE: Surgical OTHR DR: Marbin Muñoz, Tissues: A - Soft Tissue Procedures: Hematoxylin and Eosin Stain Gross and Microscopic Level 3
== END 2025-03-29 14:09 | disposition home or self-care (01) ==
LOC: ANHLAB 03-30 14:10
PROVIDERS: PCP Internal Medicine; Visit Provider Plastic Surgery
DX: L98.7 Excessive and redundant skin and subcutaneous tissue (principal)
CPT/HCPCS: 88304

== ENCOUNTER 2025-03-30 10:46 | Inpatient (IN) | payer OTHER, SELFPAY ==
[2025-03-30] VITALS (30 sets, daily range): BP systolic 84–110; BP diastolic 50–73; PULSE 71–90; RESP 10–21; TEMP 36.7–37.5; O2SAT 97–100; BMI 27.7
[2025-03-30] MEDS: NOREPINEPHRINE 8 MG/D5W 250 ML 8 MG/250 ML BAG 13.13 MG IV CONT ×2 (11:00→12:00)
--- NOTE | 2025-03-30 11:00 | ADMGEN ---
This patient, Jazmin Platt, was admitted to Intensive Care Unit-8. Patient/family oriented to hospital policies and general routines including ID bracelet, bed and alarms, visiting hours, pain management, procedures, bathroom and other care routines, personal items, smoking policy, room service/diet, and visiting hours. Information on how to activate the Rapid Response Team has been discussed. Patient/Family are encouraged to report perceived risks to care and to ask questions if they do not understand what they are told or what they should do.
[2025-03-30] MEDS: LIDOCAINE 1% PF INJ 5 ML VIAL INFILTRATE (11:45)
--- NOTE | 2025-03-30 12:01 | WPDCNINT ---
Assessment and Plan Assessment and plan (1) Shock: Code(s): R57.9 - Shock, unspecified Status: Acute Assessment and Plan: Patient presented to [facility] on 03/29 with near syncope and lightheadedness. Patient's systolic blood pressure was in the 70s at the outside hospital ER. Status post panniculectomy on 03/29 -patient was given 3 L IV fluid bolus, -1 unit of packed RBCs were transfused at the outside hospital on 03/29 -started on peripheral Levophed and transfer the [facility] ICU for further management CT scan at the outside hospital showed: postoperative changes in the anterior abdominal wall and stomach with diffuse subcutaneous edema and ill-defined hemorrhagic foci measuring 18.6 by 5.6 cm. Mild soft tissue emphysema along the anterior pelvic wall bilaterally. Mild hepatic steatosis -will place PICC line switch Levophed from peripheral to central access -plastic surgery has been notified await their recommendation -will obtain labs including coags (2) S/P panniculectomy: Code(s): Z98.890 - Other specified postprocedural states Status: Acute Assessment and Plan: Postop hematoma likely causing hemorrhagic shock, hypotension, patient's symptoms -plastic surgeon here to evaluate the patient, await recommendation -will reorder labs including hemoglobin (3) Bipolar disorder: Code(s): F31.9 - Bipolar disorder, unspecified Status: Chronic Assessment and Plan: Patient has history of bipolar, takes Lamictal at home (4) Essential hypertension: Code(s): I10 - Essential (primary) hypertension Status: Acute Assessment and Plan: Patient does take metoprolol and hydrochlorothiazide at home. Will hold for now since she is hypotensive, in shock and on vasopressors Plan DVT prophylaxis: SCDs Stress ulcer prophylaxis: Protonix Nutrition: NPO Code Status: Full code Critical Care Time Spent: 48 minutes Due to a high probability of clinically significant, life threatening deterioration, the patient required my highest level of preparedness to intervene emergently and I personally spent this critical care time directly and personally managing the patient. This critical care time included obtaining a history; examining the patient; pulse oximetry; ordering and review of studies; arranging urgent treatment with development of a management plan; evaluation of patient's response to treatment; frequent reassessment; and discussions with other providers. It was exclusive of separately billable procedures and treating other patients and teaching time. Please see Assessment and Plan section and the rest of the note for further information on patient assessment and treatment This dictation may have been done utilizing a voice recognition system. Attempts have been made to correct errors. However, there may be uncorrected grammatical, spelling, and recognitions errors present. 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 Patient was found to have a systolic blood pressures in the 70s and 80s, was given 3 L IV fluid bolus and 1 unit of packed RBCs at the outside hospital. Off note she had a panniculectomy at the outpatient surgery center affiliated with [facility] by Dr. Garcia. She called EMS when she became lightheaded and nearly passed out. EMS could not palpate peripheral pulses as she was hypotensive. She did take her metoprolol and HCTZ. She did receive glucagon at the outside hospital. Was started on Levophed via peripheral access and transferred to [facility] for further management Chest x-ray the outside facility was clear CT scan of the abdomen and pelvis showed postoperative changes in the anterior abdominal wall and stomach with diffuse subcutaneous edema and ill-defined hemorrhagic foci measuring 18.6 by 5.6 cm. Mild soft tissue emphysema along the anterior pelvic wall bilaterally. Mild hepatic steatosis Patient seen examined upon arrival to the ICU, is awake alert, oriented, nonfocal. Pleasant female currently in no acute distress, remains on Levophed 7 mcg/min with adequate mean arterial pressures. PICC line has been ordered. Patient currently denies any shortness of breath, chest pain, nausea vomiting, she does complain of abdominal discomfort at the site of surgery. She also states she feels a little dizzy. She denies any alcohol, tobacco or illicit drug use. She stated that she has been in rehab for narcotics. And only takes Tylenol, ibuprofen and tramadol for pain. See does work for the [employer] and at [employer]. Review of Systems Review of Systems: All systems reviewed & are unremarkable except as noted in HPI and below PMFSH Past Medical History Medical History Bipolar disorder Social History Social History Smoking status: Former smoker Tobacco type: cigarettes Second hand tobacco smoke exposure: Yes Smoking end date: 05/13/94 Alcohol intake: former Substance use: former Do You Feel Safe in your Home?: Yes Lack of Transportation: No Lack of Food: Never True Current Housing: I Have Housing Concerned About Future Housing: No Difficulty Paying Gas/Electric Bills: No Difficulty Paying for Meds: No Currently Unemployed: No Education: High School Diploma/GED Difficulty w/ Childcare or Family Care: No Living arrangements: with family Spiritual care concerns: No Meds Home Medications and Allergies Home Medications ?Medication ?Instructions ?Recorded ?Confirmed ?Type hydrochlorothiazide 25 mg tablet 50 mg PO DAILY 10/19/24 03/29/25 History lamotrigine 100 mg tablet 100 mg PO DAILY 10/19/24 03/29/25 History lamotrigine 150 mg tablet 150 mg PO HS 10/19/24 03/29/25 History tirzepatide (weight loss) 7.5 7.5 mg subcut WEEKLY 03/18/25 03/29/25 History mg/0.5 mL subcutaneous pen injector (Zepbound) cephalexin 500 mg capsule 500 mg PO Q12H #14 caps 03/29/25 Rx tramadol 50 mg tablet 50 mg PO Q4-6H PRN pain #16 tabs 03/29/25 Rx Allergies Allergy/AdvReac Type Severity Reaction Status Date / Time No Known Allergies Allergy Verified 03/29/25 06:19 Vital Signs Vital Signs - 24 hr 03/30/25 11:00 03/30/25 11:42 Temperature 98.8 F Pulse Rate 78 Respiratory Rate 10 L Blood Pressure 101/70 Pulse Oximetry 98 98 Oxygen Delivery Room Air Exam Narrative: General: Pleasant female currently in no acute distress HEENT:? Pupils equal and reactive, sclera is clear, moist oral mucosa Neck:? Supple Respiratory:? Clear to auscultation bilaterally, no wheezing, adequate air entry Cardiac:? S1-S2 normal, regular rate and rhythm Abdomen:? Soft, tenderness noted at the site of the incision, NBA drains x2 on each side. No drainage noted from the incision site Extremities:? Pedal pulses are palpable, no edema or cyanosis Neuro:? Patient is awake, alert, oriented, nonfocal, follows simple commands and answers to questions appropriately Skin:? Surgical incision site noted to be clean dry and intact Psych:? Normal mentation and affect Quality VTE Prophylaxis VTE prophylaxis: mechanical ordered If No VTE Prophylaxis Answer both mechanical and pharmacologic: Reason no pharmacologic proph: medical contraindication active bleeding/bleeding risk Hospitalist MIPS Advance Care Plan I have confirmed that the patient's Advanced Care Plan is present, code status is documented, or surrogate decision maker is listed in patient medical record.: Yes Medication Reconciliation I have utilized all available resources to obtain, update and review the patients current medications (includes all prescriptions, OTC, herbals, cannabis, and nutritional supplements).: Yes
[2025-03-30 12:30] LABS: Hematocrit 27.5 % (37.0-47.0); Hemoglobin 9.1 g/dL (12.0-15.0); Immature Granulocyte Percent A 0.2 % (0-0.5); Lymphocytes Absolute Auto 1.63 K/mm3 (0.9-3.2); Mean Corpuscular HGB Conc 33.1 g/dl (32-36); Mean Corpuscular Hemoglobin 29.5 pg (26-34); Mean Corpuscular Volume 89.3 fl (80-100); Nucleated Red Blood Cells Absolute Auto 0.000 K/mm3 (0.0-0.012); Nucleated Red Blood Cells Perc 0.0 % (0.0-0.2); Platelet Count Result 161 k/mm3 (150-375); Red Blood Count 3.08 M/mm3 (4.2-5.4); White Blood Count 5.7 K/mm3 (4.5-10.0)
[2025-03-30] MEDS: PANTOPRAZOLE SODIUM IV 40 MG VIAL IV PUSH (12:31)
[2025-03-30] MEDS: LACTATED RINGERS 1,000 ML 75 ML IV CONT (12:34)
[2025-03-30 12:41] LABS: INR 1.2; Prothrombin Time 14.9 Seconds (11.1-14.7)
[2025-03-30 12:42] LABS: Partial Thromboplastin Time 23.5 Seconds (22.3-36.8)
[2025-03-30 12:48] LABS: Alanine Aminotransferase 13 U/L (6-35); Albumin Level 2.8 g/dL (3.5-5.1); Alkaline Phosphatase 40 U/L (38-126); Anion Gap 4 mmol/L (4-12); Aspartate Amino Transferase 30 U/L (14-36); Bilirubin,Total 0.7 mg/dL (0.2-1.3); Blood Urea Nitrogen 12 mg/dL (7-17); Calcium 7.9 mg/dL (8.4-10.2); Carbon Dioxide 27 mmol/L (22-30); Chloride 105 mmol/L (98-107); Estimated CRCL calculation 85 ml/min; Estimated Glomerular Filt Rate > 60; Glucose 97 mg/dL (65-110); Magnesium 1.9 mg/dL (1.6-2.3); Potassium 3.2 mmol/L (3.4-5.0); Sodium 136 mmol/L (137-145); Total Protein 5.3 g/dL (6.3-8.2)
--- NOTE | 2025-03-30 12:53 | P.PN_ITS ---
Progress Note: A&P Assessment and Plan (1) Hematoma: Code(s): T14.8XXA - Other injury of unspecified body region, initial encounter Status: Acute Assessment and Plan: 49yo female pod #1 s/p panniculectomy with likely acute post-op hemorrhage and blood loss resulting in hypovolemia though active hemorrhage appears to have stopped given patient exam and relatively improving labs and vitals. outside ct images reviwed and agree with report discussed impression and Dx with patient and daughter about options of which options 1) would be to give another unit of blood since she is still mildly symptomatic and see if Hgb is stable while option 2) would be to return to OR for drainage and exploration. Plan: 1) ICU to give another Unit and reassess Hgb and vitals in hopes pressors can be stopped 2) cont npo til then and will decide upon possible surgical intervention after. (2) S/P panniculectomy: Code(s): Z98.890 - Other specified postprocedural states Status: Acute Subjective Date/time seen: 03/30/25 12:53 Interval history: I received a call from [facility] housekeeper around 3AM requesting I speak to Dr. Cartagena/robe (sp?) at [place] [facility] regarding patient. I spoke to this physician who informed me the patient had hypotensive near syncopal episode and was brought in via ambulance. I was informed her blood pressure was in the 70s systolic and she received 3 liters of saline. He stated the patient reports only having needed to empty her drains once since the OR and then once emptied in the ER but her abdomen appeared soft and nondistended and scant bleeding on dressing but her hemoglobin was ~8. Because her blood pressure remained low in the 80s she was started on pressors and a unit of blood was hung. CT report noted 15x6 hemorrhagic collection with drains in place. I was informed that the ICU physician at [facility] was refusing transfer. I again spoke to the medical housekeeper and the plan was discussed to see how patient responded to the blood and she would also discuss with Dr. Gregorio about accepting transfer or if patient remained unstable perhaps we would transfer to [facility] ER where I could evaluate her. I was then called back approximately 45 minutes later and told the patients hgb had increased to ~9.7 and was coming down on the pressors. It appeared patient was being adequately resuscitated and no longer actively bleeding. cardiac and PE workup also were reportedly negative. Eventually transfer was accepted by ICU staff where I saw patient at bedside with her daughter. Patient reported doing better than yesterday and even asked if she could eat. patient still on pressors at lower rate than previous. patient also noted that they did empty her drains ~3-4 times after surgery prior to going to ER. Exam Narrative: patient awake alert and oriented x3 in NAD. normal pallor . abdomen binder in place with scant spots of post-op bleeding. no ecchymosis or erythema. abdomen is soft and appropriate post-op tenderness without appreciable fluid collection, skin tightening, etc. b/l drains functiioing with darker red drainage. drains were stripped noting darker coagulated blood drainage. Objective Data Vital Signs Vital Signs: Vital Signs - 24 hr 03/30/25 11:00 03/30/25 11:42 03/30/25 12:00 Temperature 37.1 C Pulse Rate 78 77 Respiratory Rate 10 L Blood Pressure 101/70 Pulse Oximetry 98 98 Oxygen Delivery Room Air 03/30/25 12:00 Temperature 37.5 C Pulse Rate 73 Respiratory Rate 15 Blood Pressure 110/50 L Pulse Oximetry 100 Oxygen Delivery Meds/Results Medications: Active Medications Generic Name Dose Route Start Last Admin Trade Name Freq PRN Reason Stop Dose Admin Acetaminophen 650 mg 03/30/25 11:25 Acetaminophen 325 Mg Tablet PO Q4H PRN Mild Pain (1-3) or Fever Lactated Ringer's 1,000 mls @ 75 mls/hr 03/30/25 11:25 03/30/25 12:34 Lr - Lactated Ringers Iv IV CONT 03/31/25 00:44 75 mls/hr .[id number] HALEY Administration Ondansetron HCl 4 mg 03/30/25 11:25 Ondansetron Inj 4 Mg/2 Ml Vial IV PUSH Q6H PRN Nausea And Vomiting Pantoprazole Sodium 40 mg 03/30/25 11:30 03/30/25 12:31 Pantoprazole Sodium Iv 40 Mg Vial IV PUSH 40 mg QAM HALEY Administration Sodium Chloride 10 ml 03/30/25 14:00 Central Line Flush IV PUSH Q8HR HALEY Sodium Chloride 10 ml 03/30/25 12:29 Central Line Flush IV PUSH PRN PRN with TPN bag changes Sodium Chloride 20 ml 03/30/25 12:29 Central Line Flush IV PUSH PRN PRN after blood draws Labs Labs: Laboratory Results - last 24 hr 03/30/25 12:25 WBC 5.7 RBC 3.08 L Hgb 9.1 L D Hct 27.5 L MCV 89.3 MCH 29.5 MCHC 33.1 RDW 14.3 Plt Count 161 MPV 8.5 Immature Gran % (Auto) 0.2 Neut % (Auto) 61.9 Lymph % (Auto) 28.6 Dickinson % (Auto) 7.7 Eos % (Auto) 0.9 Baso % (Auto) 0.7 Lymph # (Auto) 1.63 Dickinson # (Auto) 0.4 Eos # (Auto) 0.1 Baso # (Auto) 0.0 Abs Immat Gran (auto) 0.01 Absolute Neuts (auto) 3.5 Absolute Nucleated RBC 0.000 Nucleated RBC % 0.0 PT 14.9 H INR 1.2 APTT 23.5 Sodium 136 L Potassium 3.2 L Chloride 105 Carbon Dioxide 27 Anion Gap 4 BUN 12 D Creatinine 0.55 L Estim Creat Clear Calc 85 Estimated GFR > 60 Glucose 97 Lactic Acid 0.7 Calcium 7.9 L Phosphorus 2.5 Magnesium 1.9 Total Bilirubin 0.7 AST 30 ALT 13 Alkaline Phosphatase 40 Total Protein 5.3 L Albumin 2.8 L
--- NOTE | 2025-03-30 13:21 | PM.IMHP ---
H&P: HPI History of Present Illness Date/Time: 03/30/25 13:21 Chief Complaint: Lightheadedness, Near-Syncope Narrative: 49 y/o F with PMH of alcohol abuse, anxiety, depression, hypertension, glaucoma, bipolar disorder, history of gastric bypass, and history of panniculectomy presents here with lightheadedness and near-syncope. The patient presents here as a transfer from [facility] on on 03/30 for further evaluation of lightheadedness and near syncope. HPI obtained through patient report and chart review of OSH paperwork. Per the outside hospital, the patient arrived with a systolic blood pressure in the 70s and 80s with nonpalpable peripheral pulses due to hypotension with complaints of lightheadedness and near syncope. She reports yesterday evening while at home she went from sitting to standing to go use the restroom when she had a near-syncope/syncopal event. She did not sustain a fall as her son was able to catch her. She reports she felt diaphoretic and nauseated along with the lightheadedness/dizziness. She had bilateral drains in place post surgery that she reports she had to empty 3 times on both side prior to seeking treatment at the OSH, has not had to empty them since. She does report she took her antihypertensives including metoprolol and hydrochlorothiazide after her surgery (in the afternoon). She was treated with IV crystalloids (3L), glucagon, started on a Levophed gtt, and 1 unit of PRBC prior to transfer. She has a past medical history significant for a panniculectomy earlier that morning on 03/29 at the outpatient surgery center affiliated with [facility] with Dr. Garcia on 03/29. She had lost 200 lbs due to Zepbound and a previous gastric bypass. Her CT of the abdomen/pelvis from the OSH was significant for postoperative changes in the anterior abdominal wall and stomach with diffuse subcutaneous edema and ill-defined hemorrhagic foci measuring 18.6 by 5.6 cm. Mild soft tissue emphysema along the anterior pelvic wall bilaterally. Mild hepatic steatosis. Initial VS upon arrival: 98.8? F, HR 78, RR 110, 101/70, and 98% on RA. Initial lab work upon arrival: No leukocytosis, hemoglobin 9.1 (13.8 on 03/19), INR 1.2, sodium 136, potassium 3.2, calcium 7.98/albumin 2.8. Review of Systems Review of Systems: All systems reviewed & are unremarkable except as noted in HPI and below [facility] Past Medical History Medical History Glaucoma Depression Anxiety Alcohol abuse Essential hypertension Bipolar disorder Surgical History Surgical History S/P gastric bypass S/P panniculectomy Social History Social History Smoking status: Never smoker Tobacco type: cigarettes Second hand tobacco smoke exposure: Yes Smoking end date: 05/13/94 Alcohol intake: former Substance use: former Substance use type: crack/cocaine and methamphetamine Last use: 06/2022 Do You Feel Safe in your Home?: Yes Lack of Transportation: No Lack of Food: Never True Current Housing: I Have Housing Concerned About Future Housing: No Difficulty Paying Gas/Electric Bills: No Difficulty Paying for Meds: No Currently Unemployed: No Education: High School Diploma/GED Difficulty w/ Childcare or Family Care: No Living arrangements: with family Spiritual care concerns: No Meds Home Medications and Allergies Home Medications ?Medication ?Instructions ?Recorded ?Confirmed ?Type hydrochlorothiazide 25 mg tablet 50 mg PO DAILY 10/19/24 03/30/25 History lamotrigine 100 mg tablet 100 mg PO DAILY 10/19/24 03/30/25 History lamotrigine 150 mg tablet 150 mg PO HS 10/19/24 03/30/25 History tirzepatide (weight loss) 7.5 7.5 mg subcut WEEKLY 03/18/25 03/30/25 History mg/0.5 mL subcutaneous pen injector (Zepbound) cephalexin 500 mg capsule 500 mg PO Q12H #14 caps 03/29/25 03/30/25 Rx tramadol 50 mg tablet 50 mg PO Q4-6H PRN pain #16 tabs 03/29/25 03/30/25 Rx metoprolol succinate 25 mg 25 mg PO DAILY 03/30/25 03/30/25 History tablet,extended release 24 hr Allergies Allergy/AdvReac Type Severity Reaction Status Date / Time ketamine AdvReac Unknown Hallucinati Verified 03/30/25 12:59 ng Vital Signs Vital Signs - 24 hr 03/30/25 11:00 03/30/25 11:42 03/30/25 12:00 Temperature 98.8 F Pulse Rate 78 77 Respiratory Rate 10 L Blood Pressure 101/70 Pulse Oximetry 98 98 Oxygen Delivery Room Air 03/30/25 12:00 Temperature 99.5 F Pulse Rate 73 Respiratory Rate 15 Blood Pressure 110/50 L Pulse Oximetry 100 Oxygen Delivery Exam Const: General: comfortable and no acute distress Other: Female, nontoxic appearance HENMT: Face/Nose/Sinus: Normal nares present Mouth: Yes moist mucous membranes Eyes: General: appearance normal, both eyes and all related structures Sclera: sclerae normal Pupils: Equal, round and reactive pupils present EOM: EOMs intact bilaterally Resp: Effort & Inspection: normal respiratory effort Auscultation: clear to auscultation bilaterally Cardio: Rate: regular rate Rhythm: regular rhythm Other: S1-S2 present without murmur, rub, ectopy GI: Other: Abdomen soft and nondistended. NBA drain at present bilaterally with modest sanguinous output bilaterally. Mild tenderness at the site of her incision. Incision remains intact, approximated, and no drainage present. Skin: General skin exam: no rashes or lesions noted Wounds: no wounds Other: + pallor Neuro: Speech: normal speech Motor exam (neuro): 5/5 motor strength present throughout Sensory Exam: normal sensation Other: A/Ox4 Extrem: General: normal to inspection Psych: Mental Status: mental status grossly normal Affect: normal affect Other: Good insight and judgment, very pleasant H&P: Results Labs Labs: Short CBC 03/30/25 Range/Units 12:25 WBC 5.7 (4.5-10.0) K/mm3 Hgb 9.1 L D (12.0-15.0) g/dL Hct 27.5 L (37.0-47.0) % Plt Count 161 (150-375) k/mm3 BMP 03/30/25 12:25 Sodium 136 L Potassium 3.2 L Chloride 105 Carbon Dioxide 27 BUN 12 D Creatinine 0.55 L Glucose 97 Calcium 7.9 L Liver Function 03/30/25 Range/Units 12:25 Total Bilirubin 0.7 (0.2-1.3) mg/dL AST 30 (14-36) U/L ALT 13 (6-35) U/L Alkaline Phosphatase 40 (38-126) U/L Albumin 2.8 L (3.5-5.1) g/dL Assessment and Plan Assessment and plan (1) Shock: Code(s): R57.9 - Shock, unspecified Status: Acute Assessment and Plan: The patient presented to [facility] on 03/29 with near-syncope/syncope and lightheadedness. Reportedly emptied her bilateral NBA drains x3 prior to seeking care on both sides. Initial BP systolic in the 70s. Given 3L of IV crystalloids and 1u of PRBC. Subsequently started on peripheral Levophed and was promptly transferred to [facility] Intensive Care Unit for further care and plastic surgery consultation as she recently had a panniculectomy on 03/[address] scan at the OSH from 03/29 showed postoperative changes in the anterior abdominal wall and stomach with diffuse subcutaneous edema and ill-defined hemorrhagic foci measuring 18.6 by 5.6 cm. Mild soft tissue emphysema along the anterior pelvic wall bilaterally. Mild hepatic steatosis. Workup concerning for a postop hematoma likely causing hemorrhagic shock, hypotension, and patient's subjective complaints. - peripheral Levophed continued upon transfer, currently hemodynamically stable - hemoglobin 13.8 on 03/19, post 1 unit transfusion 9.1 upon arrival. Given clinical compression consistent with hemorrhagic shock, plan for 2nd unit this afternoon. repeat H/H this evening. - plastic surgeon consulted, Radha VILLEDA. consult reviewed >> low suspicion for active hemorrhage as the patient is lab/vitals are improving and based off patient's clinical exam. Shared decision making/impression discussed via the plastic surgeon and the patient/her daughter with plan to give another unit as she is still mildly symptomatic with possibility of returning to the OR for drainage in expiration. NPO until decision later for possible surgical intervention - monitor NBA drain output, had to empty the her drains 3 times bilaterally prior to seeking care and reports the output has significantly reduced. Remains sanguinous. - strict I&Os, Hobson in place - monitor hemodynamic stability - monitor renal function, CBC, WBC, and electrolytes (2) Hematoma: Code(s): T14.8XXA - Other injury of unspecified body region, initial encounter Status: Acute Assessment and Plan: - see above (3) S/P panniculectomy: Code(s): Z98.890 - Other specified postprocedural states Status: Acute Assessment and Plan: - see above (4) Hypokalemia: Code(s): E87.6 - Hypokalemia Status: Acute Assessment and Plan: Mild hypokalemia noted upon transfer at 3.2. KCL 40 IVPB given on 03/30. - trend electrolytes, correct anemia (5) Essential hypertension: Code(s): I10 - Essential (primary) hypertension Status: Acute Assessment and Plan: - chronic, recurrent concern for hemorrhagic shock postop. Did take her metoprolol and hydrochlorothiazide this morning. Will hold patient's antihypertensive until normotensive and off pressors. Resume when appropriate. - monitor (6) Bipolar disorder: Qualifiers: Active/Remission status: remission status unspecified Qualified Code(s): F31.9 - Bipolar disorder, unspecified Code(s): F31.9 - Bipolar disorder, unspecified Status: Chronic Assessment and Plan: History of bipolar disorder on Lamictal. - resume Lamictal when patient is no longer NPO Plan Diet: NPO GI Prophylaxis: Pantoprazole DVT Prophylaxis: SCDs IV fluids: None Lines/Tubes: Peripheral IV, PICC (RUE), hobson Code Status: Full code Quality VTE Prophylaxis VTE prophylaxis: mechanical ordered If No VTE Prophylaxis Answer both mechanical and pharmacologic: Reason no pharmacologic proph: medical contraindication active bleeding/bleeding risk Critical Care Time: I personally spent 35 minutes of direct patient care including (but not limited to) the physical examination, decision-making, bedside evaluation, review of medical records, review of labs and imaging, discussion with nursing staff and other providers for collaborative, critical care management of this patient. Hospitalist [facility] Advance Care Plan I have confirmed that the patient's Advanced Care Plan is present, code status is documented, or surrogate decision maker is listed in patient medical record.: Yes Medication Reconciliation I have utilized all available resources to obtain, update and review the patients current medications (includes all prescriptions, OTC, herbals, cannabis, and nutritional supplements).: Yes
[2025-03-30] MEDS: SODIUM CHLORIDE 0.9% IV 250 ML 30 ML IV CONT ×2 (13:26→20:20)
[2025-03-30 14:07] LABS: MRSA (PCR) NOT DETECTED (NOT DETECTE)
[2025-03-30] MEDS: KCL 40 MEQ/WATER 100 ML 100 ML 25 ML IVPB (14:13)
[2025-03-30] MEDS: CENTRAL LINE FLUSH 10 ML IV PUSH ×2 (14:14→20:20)
[2025-03-30] MEDS: traMADol HCL (*CRX) 50 MG TABLET PO ×2 (15:10→21:12)
[2025-03-30 17:22] LABS: Hematocrit 28.5 % (37.0-47.0); Hemoglobin 9.5 g/dL (12.0-15.0); Mean Corpuscular HGB Conc 33.3 g/dl (32-36); Mean Corpuscular Hemoglobin 29.6 pg (26-34); Mean Corpuscular Volume 88.8 fl (80-100); Platelet Count Result 155 k/mm3 (150-375); Red Blood Count 3.21 M/mm3 (4.2-5.4); White Blood Count 5.5 K/mm3 (4.5-10.0)
[2025-03-30] MEDS: ALBUMIN HUMAN 25% 12.5 GM/50ML 50 ML IVPB ×2 (17:25→23:25)
[2025-03-30] MEDS: ACETAMINOPHEN 325 MG TABLET 650 MG PO (20:37)
[2025-03-30] MEDS: CENTRAL LINE FLUSH 20 ML IV PUSH (23:30)
[2025-03-31] VITALS (37 sets, daily range): BP systolic 84–114; BP diastolic 52–70; PULSE 64–97; RESP 12–24; TEMP 36.6–37.3; O2SAT 93–100
[2025-03-31] MEDS: ACETAMINOPHEN 325 MG TABLET 650 MG PO ×3 (00:37→20:40)
[2025-03-31] MEDS: traMADol HCL (*CRX) 50 MG TABLET PO ×4 (03:18→23:50)
[2025-03-31] MEDS: ALBUMIN HUMAN 25% 12.5 GM/50ML 50 ML IVPB ×4 (05:20→23:50)
[2025-03-31] MEDS: CENTRAL LINE FLUSH 10 ML IV PUSH ×3 (05:22→19:55)
[2025-03-31 05:34] LABS: Hematocrit 29.8 % (37.0-47.0); Hemoglobin 9.9 g/dL (12.0-15.0); Immature Granulocyte Percent A 0.2 % (0-0.5); Lymphocytes Absolute Auto 1.41 K/mm3 (0.9-3.2); Mean Corpuscular HGB Conc 33.2 g/dl (32-36); Mean Corpuscular Hemoglobin 29.5 pg (26-34); Mean Corpuscular Volume 88.7 fl (80-100); Nucleated Red Blood Cells Absolute Auto 0.000 K/mm3 (0.0-0.012); Nucleated Red Blood Cells Perc 0.0 % (0.0-0.2); Platelet Count Result 134 k/mm3 (150-375); Red Blood Count 3.36 M/mm3 (4.2-5.4); White Blood Count 4.7 K/mm3 (4.5-10.0)
[2025-03-31 05:59] LABS: Alanine Aminotransferase 11 U/L (6-35); Albumin Level 2.8 g/dL (3.5-5.1); Alkaline Phosphatase 37 U/L (38-126); Anion Gap 1 mmol/L (4-12); Aspartate Amino Transferase 22 U/L (14-36); Bilirubin,Total 0.6 mg/dL (0.2-1.3); Blood Urea Nitrogen 5 mg/dL (7-17); Calcium 8.1 mg/dL (8.4-10.2); Carbon Dioxide 30 mmol/L (22-30); Chloride 105 mmol/L (98-107); Estimated CRCL calculation 98 ml/min; Estimated Glomerular Filt Rate > 60; Glucose 92 mg/dL (65-110); Magnesium 1.9 mg/dL (1.6-2.3); Potassium 3.5 mmol/L (3.4-5.0); Sodium 136 mmol/L (137-145); Total Protein 5.2 g/dL (6.3-8.2)
--- NOTE | 2025-03-31 06:16 | WPDPN ---
Progress Note: A&P Assessment and Plan (1) S/P panniculectomy: Code(s): Z98.890 - Other specified postprocedural states Status: Acute Assessment and Plan: 49yo female pod #2 s/p panniculectomy complciated by post-op bleeding and hypovolemia that appears to be stabilizing but I would expect slightly more improvment after 3 units of blood and still requiring pressors and concern whether there may still be slow hemorrhage occuring or just refractory changes. I discussed option with patient for exploration and washout, post-op expectations and risks including but not limited to bleeding, infection, undesireable cosmetic appearance, seroma, no change/worsening of symptoms. patient stated understanding and desires to proceed and signing consent. Plan: 1) exploration and washout this AM (2) Hematoma: Code(s): T14.8XXA - Other injury of unspecified body region, initial encounter Status: Acute Subjective Date/time seen: 03/31/25 06:16 Interval history: pt. seen and examined at bedside this AM. reports doing well overnight. received second unit RBC and also getting albumin. no concerns per pt. levo drip down to 3/hr and pressures improving 90s to low 100s further discussed with patient noting she did take her metoprolol in the afternoon after her surgery before incident occured. Exam Narrative: A&O x3 NAD abdomen binder in place and drains with patient services rep sanguinous fluid with clot abdomen soft and appropriately tender without ecchymosis though slightly edematous around midline and mons area consistent with hematoma vs post-op edema. dressing c/d/i Objective Data Vital Signs Vital Signs: Vital Signs - 24 hr 03/30/25 11:00 03/30/25 11:00 03/30/25 11:42 Temperature 37.1 C Pulse Rate 78 76 Respiratory Rate 10 L Blood Pressure 101/70 106/73 Pulse Oximetry 98 98 Oxygen Delivery Room Air 03/30/25 12:00 03/30/25 12:00 03/30/25 12:00 Temperature 37.5 C Pulse Rate 77 73 73 Respiratory Rate 15 Blood Pressure 110/50 L 110/50 L Pulse Oximetry 100 Oxygen Delivery 03/30/25 13:00 03/30/25 14:00 03/30/25 14:00 Temperature 37.1 C Pulse Rate 76 78 74 Respiratory Rate 16 17 Blood Pressure 89/56 L 99/53 L Pulse Oximetry 100 99 Oxygen Delivery 03/30/25 14:00 03/30/25 14:44 03/30/25 15:00 Temperature 36.9 C 36.9 C Pulse Rate 73 79 78 Respiratory Rate 17 17 Blood Pressure 94/50 L 90/59 L 92/53 L Pulse Oximetry 100 100 Oxygen Delivery 03/30/25 15:03 03/30/25 16:00 03/30/25 16:00 Temperature 36.9 C Pulse Rate 78 76 73 Respiratory Rate 14 20 Blood Pressure 92/53 L 96/55 L 96/55 L Pulse Oximetry 100 98 Oxygen Delivery 03/30/25 16:00 03/30/25 16:20 03/30/25 16:47 Temperature 37.2 C Pulse Rate 76 84 84 Respiratory Rate 19 15 Blood Pressure 95/62 L 95/62 L Pulse Oximetry 99 99 Oxygen Delivery 03/30/25 17:46 03/30/25 18:00 03/30/25 18:15 Temperature Pulse Rate 81 88 90 Respiratory Rate 21 H Blood Pressure 92/51 L 88/51 L Pulse Oximetry 99 Oxygen Delivery 03/30/25 19:00 03/30/25 19:34 03/30/25 20:00 Temperature 36.8 C Pulse Rate 87 87 82 Respiratory Rate 20 19 Blood Pressure 96/60 L 96/60 L 91/57 L Pulse Oximetry 98 98 Oxygen Delivery 03/30/25 20:00 03/30/25 20:00 03/30/25 20:00 Temperature Pulse Rate 82 77 Respiratory Rate Blood Pressure 91/57 L Pulse Oximetry Oxygen Delivery Room Air 03/30/25 20:39 03/30/25 20:45 03/30/25 20:55 Temperature 36.8 C 36.9 C Pulse Rate 85 81 75 Respiratory Rate 19 13 Blood Pressure 104/60 97/58 L 97/58 L Pulse Oximetry 99 99 Oxygen Delivery 03/30/25 21:00 03/30/25 21:00 03/30/25 21:15 Temperature 36.8 C Pulse Rate 80 80 89 Respiratory Rate 20 Blood Pressure 84/52 L 84/52 L 89/55 L Pulse Oximetry 98 Oxygen Delivery 03/30/25 21:30 03/30/25 21:55 03/30/25 22:00 Temperature 36.7 C Pulse Rate 75 72 71 Respiratory Rate 18 Blood Pressure 92/61 L 108/66 Pulse Oximetry 97 Oxygen Delivery 03/30/25 22:00 03/30/25 22:00 03/30/25 22:00 Temperature 36.7 C Pulse Rate 72 72 72 Respiratory Rate 18 Blood Pressure 108/66 108/66 98/57 L Pulse Oximetry 97 Oxygen Delivery 03/30/25 22:55 03/30/25 23:00 03/30/25 23:00 Temperature 36.8 C Pulse Rate 82 79 79 Respiratory Rate 19 19 Blood Pressure 87/69 L 89/59 L 89/59 L Pulse Oximetry 98 99 Oxygen Delivery 03/30/25 23:24 03/30/25 23:30 03/30/25 23:35 Temperature 36.8 C Pulse Rate 79 81 Respiratory Rate 16 Blood Pressure 95/73 L 95/61 L Pulse Oximetry 99 Oxygen Delivery Room Air 03/30/25 23:45 03/31/25 00:00 03/31/25 00:00 Temperature 36.8 C Pulse Rate 76 73 73 Respiratory Rate 17 Blood Pressure 86/50 L 87/57 L 87/57 L Pulse Oximetry 99 Oxygen Delivery 03/31/25 00:00 03/31/25 01:00 03/31/25 01:00 Temperature Pulse Rate 73 86 86 Respiratory Rate 18 Blood Pressure 97/64 L 97/64 L Pulse Oximetry 98 Oxygen Delivery 03/31/25 02:00 03/31/25 02:00 03/31/25 02:00 Temperature 36.8 C Pulse Rate 70 70 70 Respiratory Rate 17 Blood Pressure 100/58 L 100/58 L Pulse Oximetry 97 Oxygen Delivery 03/31/25 02:15 03/31/25 02:30 03/31/25 03:00 Temperature Pulse Rate 70 79 85 Respiratory Rate Blood Pressure 100/63 111/68 113/69 Pulse Oximetry Oxygen Delivery 03/31/25 03:00 03/31/25 03:18 03/31/25 03:59 Temperature Pulse Rate 85 81 Respiratory Rate 13 Blood Pressure 113/69 93/67 L Pulse Oximetry 99 Oxygen Delivery Room Air 03/31/25 04:00 03/31/25 04:00 03/31/25 04:00 Temperature 36.8 C Pulse Rate 72 72 68 Respiratory Rate 20 Blood Pressure 98/68 L 98/68 L Pulse Oximetry 99 Oxygen Delivery 03/31/25 05:00 03/31/25 05:00 03/31/25 05:15 Temperature Pulse Rate 68 68 70 Respiratory Rate 17 Blood Pressure 100/64 100/64 99/65 L Pulse Oximetry 98 Oxygen Delivery Intake/Output Intake/Output: Intake & Output 03/28/25 03/29/25 03/30/25 03/31/25 23:59 23:59 23:59 23:59 Intake Total 1046.8 1285.5 Output Total 380 350 Balance 666.8 935.5 Meds/Results Medications: Active Medications Generic Name Dose Route Start Last Admin Trade Name Freq PRN Reason Stop Dose Admin Acetaminophen 650 mg 03/30/25 11:25 03/31/25 05:20 Acetaminophen 325 Mg Tablet PO 650 mg Q4H PRN Administration Mild Pain (1-3) or Fever Norepinephrine Bitartrate 8 mg in 250 mls @ 7.5 mls/hr 03/30/25 10:45 03/31/25 05:15 Levophed 8 Mg/D5w 250 Ml IV CONT 3 mcg/min .Q24H HALEY 5.63 mls/hr Protocol Titration 4 MCG/MIN Albumin Human 50 mls @ 50 mls/hr 03/30/25 18:00 03/31/25 05:20 Albutein IVPB 50 mls/hr Q6HR HALEY Administration Ondansetron HCl 4 mg 03/30/25 11:25 Ondansetron Inj 4 Mg/2 Ml Vial IV PUSH Q6H PRN Nausea And Vomiting Pantoprazole Sodium 40 mg 03/30/25 11:30 03/30/25 12:31 Pantoprazole Sodium Iv 40 Mg Vial IV PUSH 40 mg QAM HALEY Administration Sodium Chloride 10 ml 03/30/25 14:00 03/31/25 05:22 Central Line Flush IV PUSH 10 ml Q8HR HALEY Administration Sodium Chloride 10 ml 03/30/25 12:29 Central Line Flush IV PUSH PRN PRN with TPN bag changes Sodium Chloride 20 ml 03/30/25 12:29 03/30/25 23:30 Central Line Flush IV PUSH 10 ml PRN PRN Administration after blood draws Tramadol HCl 50 mg 03/30/25 14:56 03/31/25 03:18 Tramadol Hcl (*Crx) 50 Mg Tablet PO 50 mg Q6H PRN Administration Pain Rated 4-6 Labs Labs: Laboratory Results - last 24 hr 03/30/25 03/30/25 03/30/25 12:25 12:45 17:15 WBC 5.7 5.5 RBC 3.08 L 3.21 L Hgb 9.1 L D 9.5 L Hct 27.5 L 28.5 L MCV 89.3 88.8 MCH 29.5 29.6 MCHC 33.1 33.3 RDW 14.3 14.1 Plt Count 161 155 MPV 8.5 8.9 Immature Gran % (Auto) 0.2 Neut % (Auto) 61.9 Lymph % (Auto) 28.6 [place] % (Auto) 7.7 Eos % (Auto) 0.9 Baso % (Auto) 0.7 Lymph # (Auto) 1.63 [place] # (Auto) 0.4 Eos # (Auto) 0.1 Baso # (Auto) 0.0 Abs Immat Gran (auto) 0.01 Absolute Neuts (auto) 3.5 Absolute Nucleated RBC 0.000 Nucleated RBC % 0.0 PT 14.9 H INR 1.2 APTT 23.5 Sodium 136 L Potassium 3.2 L Chloride 105 Carbon Dioxide 27 Anion Gap 4 BUN 12 D Creatinine 0.55 L Estim Creat Clear Calc 85 Estimated GFR > 60 Glucose 97 Lactic Acid 0.7 Calcium 7.9 L Phosphorus 2.5 Magnesium 1.9 Total Bilirubin 0.7 AST 30 ALT 13 Alkaline Phosphatase 40 Total Protein 5.3 L Albumin 2.8 L Nasal MRSA (PCR) Not detected Blood Type A Positive Antibody Screen Negative Crossmatch See Detail 03/31/25 05:24 WBC 4.7 RBC 3.36 L Hgb 9.9 L Hct 29.8 L MCV 88.7 MCH 29.5 MCHC 33.2 RDW 14.8 H Plt Count 134 L MPV 8.6 Immature Gran % (Auto) 0.2 Neut % (Auto) 57.7 Lymph % (Auto) 29.9 [place] % (Auto) 9.3 H Eos % (Auto) 2.3 Baso % (Auto) 0.6 Lymph # (Auto) 1.41 [place] # (Auto) 0.4 Eos # (Auto) 0.1 Baso # (Auto) 0.0 Abs Immat Gran (auto) 0.01 Absolute Neuts (auto) 2.7 Absolute Nucleated RBC 0.000 Nucleated RBC % 0.0 PT INR APTT Sodium 136 L Potassium 3.5 Chloride 105 Carbon Dioxide 30 Anion Gap 1 L BUN 5 L D Creatinine 0.48 L Estim Creat Clear Calc 98 Estimated GFR > 60 Glucose 92 Lactic Acid Calcium 8.1 L Phosphorus 2.4 L Magnesium 1.9 Total Bilirubin 0.6 AST 22 ALT 11 Alkaline Phosphatase 37 L Total Protein 5.2 L Albumin 2.8 L Nasal MRSA (PCR) Blood Type Antibody Screen Crossmatch
--- NOTE | 2025-03-31 06:42 | WPDHPUPDATE1 ---
History and Physical Update Update Date/Time: 03/31/25 06:42 Patient seen and examined in ICU. No interval change in medical history or symptoms. Patient recalls previous discussion of benefits and alternatives to procedure. Continues to desire to proceed with exploration and washout abdominal hematoma . Reviewed procedure, post-op expectations and risks including but not limited to bleeding, infection, seroma, undesireable cosmetic appearance, partial/total skin loss, no change or worsening of symptoms. I discussed the possible use of assistants and their participation in the case. Patient stated understanding and signed the consent form wishing to proceed.
--- NOTE | 2025-03-31 06:43 | W.PM.PROC2 ---
Procedure Note - Detailed Date of Procedure 03/31/25 Pre-op Diagnosis hematoma s/p panniculectomy Post-op Diagnosis Same Procedure Performed exploration and washout abdomen hematoma Surgeon Cr Garcia MD Learning And Development Associate Teresa Waters PA-C Anesthesia General Description of Procedure Patient was seen and marked in ICU and take to OR and placed on table in supine position. TIme out was performed with anesthesia, surgeon and staff agreeing on patient's name, site and surgery to be performed. SCDs were placed on LE and inflated. antibiotics were given IV. After general anesthesia was administered her previous NBA drains were removed and the abdomen was prepped and draped in sterile fashion. I proceedwith opening her previous panniculectomy incision with combination of scalpel and scissors. Approximate;y 500cc blood clot was removed from the midline operative space. Copious irrigation with normal saline was performed. No clearly idendifiable significant blleding vessel was idenitifed and some general post-operative weeping was noted. Bovie cautery was used for any areas of bleeding noted. After further irrigation and satisfied with hemostasis three 10 kinyarwanda NBA drains were placed followed by don powder to furtther help ensure hemostasis. Closure was then done with 2-0 vicryl for Raffi's then 2-0 and 3-0 vicryl for dermis and 4-0 monocryl for subcuticular. Next I injected 40cc 1%lido with epi and 0.5%marcaine plain along incision and drains were hooked to bulb suction. A dressing of mastisol, steri-strip, 4x4, abds abd abdominal binder was applied. patient was awaken from anestheis and transferred back to the SICU in stable condition noting presors were able to be weaned off during the procedure. Complications: none Estimated Blood Loss: 20cc in addition to removed clot Disposition: patient tolerated procedure well and will continue post-op monitioring as inpatient Teresa Waters PA-C was essential for positioning, retraction, closure and dressing placement. Urine Output 350 [facility] Billing Surgery - Charge Forward: Surgery Billing ([id number] same for Teresa adding )
[2025-03-31] MEDS: NOREPINEPHRINE 8 MG/D5W 250 ML 8 MG/250 ML BAG 3.75 MG IV CONT (07:41)
[2025-03-31] MEDS: LIDO 1%/EPINEPHRINE/PF 1:200,000 30 ML VIAL 20 ML INFILTRATE (09:27)
--- NOTE | 2025-03-31 09:29 | PC.NURSE ---
To OR per bed.
[2025-03-31] MEDS: BUPivacaine HCL 0.5% 10 ML AMP 20 ML INFILTRATE (09:57)
--- NOTE | 2025-03-31 10:03 | WPDANESEPPF ---
Anes - Initial Pre Proc Eval Procedure: Operation Date: 03/31/25926 Proposed Procedures p Evacuation Hematoma Of Abdomen - Cr Garcia MD Date/Time: 03/31/25 10:03 Surgeon: Amina Pre Op Diagnosis: Post op Hematoma s/p panniculectomy Pre Op Diagnosis: panniculectomy post op complications Patient Data Age: 49 Gender: F Height: 1.52 m Weight: 66.3 kg Last Vital Signs Temp 36.9 C 03/31/25 09:00 Pulse 71 03/31/25 09:00 Resp 20 03/31/25 09:00 BP 102/65 03/31/25 09:00 Pulse Ox 98 03/31/25 09:00 O2 Del Method Room Air 03/31/25 08:18 Allergies Allergy/AdvReac Type Severity Reaction Status Date / Time ketamine AdvReac Unknown Hallucinati Verified 03/30/25 12:59 ng Home Medications ?Medication ?Instructions ?Recorded ?Confirmed ?Type hydrochlorothiazide 25 mg tablet 50 mg PO DAILY 10/19/24 03/30/25 History lamotrigine 100 mg tablet 100 mg PO DAILY 10/19/24 03/30/25 History lamotrigine 150 mg tablet 150 mg PO HS 10/19/24 03/30/25 History tirzepatide (weight loss) 7.5 7.5 mg subcut WEEKLY 03/18/25 03/30/25 History mg/0.5 mL subcutaneous pen injector (Zepbound) cephalexin 500 mg capsule 500 mg PO Q12H #14 caps 03/29/25 03/30/25 Rx tramadol 50 mg tablet 50 mg PO Q4-6H PRN pain #16 tabs 03/29/25 03/30/25 Rx metoprolol succinate 25 mg 25 mg PO DAILY 03/30/25 03/30/25 History tablet,extended release 24 hr Laboratory Tests 03/30/25 03/30/25 03/30/25 12:25 12:45 17:15 WBC 5.7 K/mm3 5.5 K/mm3 (4.5-10.0) (4.5-10.0) RBC 3.08 L M/mm3 3.21 L M/mm3 (4.2-5.4) (4.2-5.4) Hgb 9.1 L D g/dL 9.5 L g/dL (12.0-15.0) (12.0-15.0) Hct 27.5 L % 28.5 L % (37.0-47.0) (37.0-47.0) MCV 89.3 fl 88.8 fl (80-100) (80-100) MCH 29.5 pg 29.6 pg (26-34) (26-34) MCHC 33.1 g/dl 33.3 g/dl (32-36) (32-36) RDW 14.3 % 14.1 % (11.5-14.5) (11.5-14.5) Plt Count 161 k/mm3 155 k/mm3 (150-375) (150-375) MPV 8.5 fl 8.9 fl (7.4-10.4) (7.4-10.4) Immature Gran % (Auto) 0.2 % (0-0.5) Neut % (Auto) 61.9 % (45.5-73.1) Lymph % (Auto) 28.6 % (18.3-44.2) [place] % (Auto) 7.7 % (2.6-8.5) Eos % (Auto) 0.9 % (0-4.4) Baso % (Auto) 0.7 % (0.2-1.2) Lymph # (Auto) 1.63 K/mm3 (0.9-3.2) [place] # (Auto) 0.4 K/mm3 (0.1-0.6) Eos # (Auto) 0.1 K/mm3 (0-0.3) Baso # (Auto) 0.0 K/mm3 (0.0-0.1) Abs Immat Gran (auto) 0.01 K/mm3 (0.00-0.031) Absolute Neuts (auto) 3.5 K/mm3 (1.3-6.7) Absolute Nucleated RBC 0.000 K/mm3 (0.0-0.012) Nucleated RBC % 0.0 % (0.0-0.2) PT 14.9 H Seconds (11.1-14.7) INR 1.2 APTT 23.5 Seconds (22.3-36.8) Sodium 136 L mmol/L (137-145) Potassium 3.2 L mmol/L (3.4-5.0) Chloride 105 mmol/L (98-107) Carbon Dioxide 27 mmol/L (22-30) Anion Gap 4 mmol/L (4-12) BUN 12 D mg/dL (7-17) Creatinine 0.55 L mg/dL (0.7-1.0) Estim Creat Clear Calc 85 ml/min Estimated GFR > 60 (59 - ) Glucose 97 mg/dL (65-110) Lactic Acid 0.7 mmol/L (0.7-2.0) Calcium 7.9 L mg/dL (8.4-10.2) Phosphorus 2.5 mg/dL (2.5-4.5) Magnesium 1.9 mg/dL (1.6-2.3) Total Bilirubin 0.7 mg/dL (0.2-1.3) AST 30 U/L (14-36) ALT 13 U/L (6-35) Alkaline Phosphatase 40 U/L (38-126) Total Protein 5.3 L g/dL (6.3-8.2) Albumin 2.8 L g/dL (3.5-5.1) Nasal MRSA (PCR) Not detected (NOT DETECTE) Blood Type A Positive Antibody Screen Negative Crossmatch See Detail 03/31/25 05:24 WBC 4.7 K/mm3 (4.5-10.0) RBC 3.36 L M/mm3 (4.2-5.4) Hgb 9.9 L g/dL (12.0-15.0) Hct 29.8 L % (37.0-47.0) MCV 88.7 fl (80-100) MCH 29.5 pg (26-34) MCHC 33.2 g/dl (32-36) RDW 14.8 H % (11.5-14.5) Plt Count 134 L k/mm3 (150-375) MPV 8.6 fl (7.4-10.4) Immature Gran % (Auto) 0.2 % (0-0.5) Neut % (Auto) 57.7 % (45.5-73.1) Lymph % (Auto) 29.9 % (18.3-44.2) [place] % (Auto) 9.3 H % (2.6-8.5) Eos % (Auto) 2.3 % (0-4.4) Baso % (Auto) 0.6 % (0.2-1.2) Lymph # (Auto) 1.41 K/mm3 (0.9-3.2) [place] # (Auto) 0.4 K/mm3 (0.1-0.6) Eos # (Auto) 0.1 K/mm3 (0-0.3) Baso # (Auto) 0.0 K/mm3 (0.0-0.1) Abs Immat Gran (auto) 0.01 K/mm3 (0.00-0.031) Absolute Neuts (auto) 2.7 K/mm3 (1.3-6.7) Absolute Nucleated RBC 0.000 K/mm3 (0.0-0.012) Nucleated RBC % 0.0 % (0.0-0.2) PT INR APTT Sodium 136 L mmol/L (137-145) Potassium 3.5 mmol/L (3.4-5.0) Chloride 105 mmol/L (98-107) Carbon Dioxide 30 mmol/L (22-30) Anion Gap 1 L mmol/L (4-12) BUN 5 L D mg/dL (7-17) Creatinine 0.48 L mg/dL (0.7-1.0) Estim Creat Clear Calc 98 ml/min Estimated GFR > 60 (59 - ) Glucose 92 mg/dL (65-110) Lactic Acid Calcium 8.1 L mg/dL (8.4-10.2) Phosphorus 2.4 L mg/dL (2.5-4.5) Magnesium 1.9 mg/dL (1.6-2.3) Total Bilirubin 0.6 mg/dL (0.2-1.3) AST 22 U/L (14-36) ALT 11 U/L (6-35) Alkaline Phosphatase 37 L U/L (38-126) Total Protein 5.2 L g/dL (6.3-8.2) Albumin 2.8 L g/dL (3.5-5.1) Nasal MRSA (PCR) Blood Type Antibody Screen Crossmatch Patient hx anesthesia problems: none Family hx anesthesia problems: none Results Review: All pre-operative results and documents have been reviewed as part of the pre-operative evaluation. [facility] Past Medical History Medical History Glaucoma Depression Anxiety Alcohol abuse Essential hypertension Bipolar disorder Surgical History Surgical History S/P gastric bypass S/P panniculectomy Social History Social History Smoking status: Never smoker Tobacco type: cigarettes Second hand tobacco smoke exposure: Yes Smoking end date: 05/13/94 Alcohol intake: former Substance use: former Substance use type: crack/cocaine and methamphetamine Last use: 06/2022 Do You Feel Safe in your Home?: Yes Lack of Transportation: No Lack of Food: Never True Current Housing: I Have Housing Concerned About Future Housing: No Difficulty Paying Gas/Electric Bills: No Difficulty Paying for Meds: No Currently Unemployed: No Education: High School Diploma/GED Difficulty w/ Childcare or Family Care: No Living arrangements: with family Spiritual care concerns: No Comments Pt brought directly to OR 5 from ICU, full monitors, pt is awake and alert x3 in no acute distress. Anes - Eval Final PreProcedure Day of Procedure 03/31/25 10:03 Patient weight: normal Heart: regular rate and rhythm Lungs: clear to auscultation Airway: Mallampati scale class II Neurological: alert and oriented Last oral intake: >/= 8 hours ASA classification: III Emergent: yes Anesthetic plan: proceed Anesthesia type and monitoring: general and standard monitoring Other findings: right arm PICC line with Norepinephrine gtt at 3mcq/min Results Review: All pre-operative results and documents have been reviewed as part of the pre-operative evaluation. Informed Consent: The patient's anesthetic plan and its attendant risks and benefits were discussed with the patient/family/POA. Questions were solicited and answers provided to the satisfaction of the patient/family/POA.
[2025-03-31] MEDS: LACTATED RINGERS 1,000 ML 30 ML IV CONT ×2 (10:51)
[2025-03-31] MEDS: fentaNYL CITRATE INJ (*CRX) 100 MCG/2 ML VIAL 25 MCG IV PUSH ×5 (11:01→11:36)
[2025-03-31] MEDS: PANTOPRAZOLE SODIUM IV 40 MG VIAL IV PUSH (12:32)
--- NOTE | 2025-03-31 12:41 | WPDINTPN ---
Progress Note: A&P Assessment and Plan (1) Shock: Code(s): R57.9 - Shock, unspecified Status: Acute Assessment and Plan: Patient presented to [facility] on 03/29 with near syncope and lightheadedness. Patient's systolic blood pressure was in the 70s at the outside hospital ER. Status post panniculectomy on 03/29 -patient was given 3 L IV fluid bolus, -1 unit of packed RBCs were transfused at the outside hospital on 03/29 -patient was started on peripheral Levophed and transferred to [facility] ICU for further management CT scan at the outside hospital showed: postoperative changes in the anterior abdominal wall and stomach with diffuse subcutaneous edema and ill-defined hemorrhagic foci measuring 18.6 by 5.6 cm. Mild soft tissue emphysema along the anterior pelvic wall bilaterally. Mild hepatic steatosis -03/30: PICC line switch Levophed from peripheral to central access -plastic surgery has been notified await their recommendation -03/30: Received 2 units of packed RBCs despite which however hemoglobin remained 9.9. Off note she also had been transfused 1 unit of packed RBCs at [facility] -03/31 morning, patient still was on Levophed, surgeon decided taken to the OR for exploration and washout abdominal hematoma. --03/31: upon arrival from the OR patient has been off Levophed (2) S/P panniculectomy: Code(s): Z98.890 - Other specified postprocedural states Status: Acute Assessment and Plan: Postop hematoma likely causing hemorrhagic shock, hypotension, patient's symptoms -plastic surgeon here to evaluate the patient, await recommendation -if blood pressures drop, will check hemoglobin (3) Bipolar disorder: Qualifiers: Active/Remission status: remission status unspecified Qualified Code(s): F31.9 - Bipolar disorder, unspecified Code(s): F31.9 - Bipolar disorder, unspecified Status: Chronic Assessment and Plan: Patient has history of bipolar, takes Lamictal at home (4) Essential hypertension: Code(s): I10 - Essential (primary) hypertension Status: Acute Assessment and Plan: Patient does take metoprolol and hydrochlorothiazide at home. Will hold for now as patient has borderline blood pressures in just came off pressors Plan DVT prophylaxis: SCDs Stress ulcer prophylaxis: Protonix Nutrition: Regular diet Code Status: Full code Critical Care Time Spent: 32 minutes Due to a high probability of clinically significant, life threatening deterioration, the patient required my highest level of preparedness to intervene emergently and I personally spent this critical care time directly and personally managing the patient. This critical care time included obtaining a history; examining the patient; pulse oximetry; ordering and review of studies; arranging urgent treatment with development of a management plan; evaluation of patient's response to treatment; frequent reassessment; and discussions with other providers. It was exclusive of separately billable procedures and treating other patients and teaching time. Please see Assessment and Plan section and the rest of the note for further information on patient assessment and treatment This dictation may have been done utilizing a voice recognition system. Attempts have been made to correct errors. However, there may be uncorrected grammatical, spelling, and recognitions errors present. Subjective Date/time seen: 03/31/25 12:41 Interval history: Reason for consult: Shock, anemia, panniculectomy (03/29) status post hypertension, hematoma, drop in hemoglobin 03/31: exploration and washout abdomen hematoma 03/31: Patient seen and examined after arrival from the OR when she had gone for exploration washout of the abdomen hematoma. Patient is sitting up in bed, having her lunch. Complains of some abdominal discomfort. Denies any nausea, vomiting, chest pain, shortness of breath at this time. Hemodynamically stable, off Levophed. Urine output has been adequate Review of Systems Review of Systems: All systems reviewed & are unremarkable except as noted in HPI and below Exam Narrative: General: Pleasant female currently in no acute distress HEENT:? Pupils equal and reactive, sclera is clear, moist oral mucosa Neck:? Supple Respiratory:? Clear to auscultation bilaterally, no wheezing, adequate air entry Cardiac:? S1-S2 normal, regular rate and rhythm Abdomen:? Soft, tenderness noted at the site of the incision, NBA drains x3 . No drainage noted from the incision site Extremities:? Pedal pulses are palpable, no edema or cyanosis Neuro:? Patient is awake, alert, oriented, nonfocal, follows simple commands and answers to questions appropriately Skin:? S dressing on the surgical incision site Psych:? Normal mentation and affect Objective Data Vital Signs Vital Signs: Vital Signs - 24 hr 03/30/25 13:00 03/30/25 14:00 03/30/25 14:00 Temperature 98.7 F Pulse Rate 76 78 74 Respiratory Rate 16 17 Blood Pressure 89/56 L 99/53 L Pulse Oximetry 100 99 Oxygen Delivery Oxygen Flow Rate 03/30/25 14:00 03/30/25 14:44 03/30/25 15:00 Temperature 98.5 F 98.4 F Pulse Rate 73 79 78 Respiratory Rate 17 17 Blood Pressure 94/50 L 90/59 L 92/53 L Pulse Oximetry 100 100 Oxygen Delivery Oxygen Flow Rate 03/30/25 15:03 03/30/25 16:00 03/30/25 16:00 Temperature 98.4 F Pulse Rate 78 76 73 Respiratory Rate 14 20 Blood Pressure 92/53 L 96/55 L 96/55 L Pulse Oximetry 100 98 Oxygen Delivery Oxygen Flow Rate 03/30/25 16:00 03/30/25 16:20 03/30/25 16:47 Temperature 98.9 F Pulse Rate 76 84 84 Respiratory Rate 19 15 Blood Pressure 95/62 L 95/62 L Pulse Oximetry 99 99 Oxygen Delivery Oxygen Flow Rate 03/30/25 17:46 03/30/25 18:00 03/30/25 18:15 Temperature Pulse Rate 81 88 90 Respiratory Rate 21 H Blood Pressure 92/51 L 88/51 L Pulse Oximetry 99 Oxygen Delivery Oxygen Flow Rate 03/30/25 19:00 03/30/25 19:34 03/30/25 20:00 Temperature 98.2 F Pulse Rate 87 87 82 Respiratory Rate 20 19 Blood Pressure 96/60 L 96/60 L 91/57 L Pulse Oximetry 98 98 Oxygen Delivery Oxygen Flow Rate 03/30/25 20:00 03/30/25 20:00 03/30/25 20:00 Temperature Pulse Rate 82 77 Respiratory Rate Blood Pressure 91/57 L Pulse Oximetry Oxygen Delivery Room Air Oxygen Flow Rate 03/30/25 20:39 03/30/25 20:45 03/30/25 20:55 Temperature 98.2 F 98.4 F Pulse Rate 85 81 75 Respiratory Rate 19 13 Blood Pressure 104/60 97/58 L 97/58 L Pulse Oximetry 99 99 Oxygen Delivery Oxygen Flow Rate 03/30/25 21:00 03/30/25 21:00 03/30/25 21:15 Temperature 98.2 F Pulse Rate 80 80 89 Respiratory Rate 20 Blood Pressure 84/52 L 84/52 L 89/55 L Pulse Oximetry 98 Oxygen Delivery Oxygen Flow Rate 03/30/25 21:30 03/30/25 21:55 03/30/25 22:00 Temperature 98.1 F Pulse Rate 75 72 71 Respiratory Rate 18 Blood Pressure 92/61 L 108/66 Pulse Oximetry 97 Oxygen Delivery Oxygen Flow Rate 03/30/25 22:00 03/30/25 22:00 03/30/25 22:00 Temperature 98.1 F Pulse Rate 72 72 72 Respiratory Rate 18 Blood Pressure 108/66 108/66 98/57 L Pulse Oximetry 97 Oxygen Delivery Oxygen Flow Rate 03/30/25 22:55 03/30/25 23:00 03/30/25 23:00 Temperature 98.2 F Pulse Rate 82 79 79 Respiratory Rate 19 19 Blood Pressure 87/69 L 89/59 L 89/59 L Pulse Oximetry 98 99 Oxygen Delivery Oxygen Flow Rate 03/30/25 23:24 03/30/25 23:30 03/30/25 23:35 Temperature 98.2 F Pulse Rate 79 81 Respiratory Rate 16 Blood Pressure 95/73 L 95/61 L Pulse Oximetry 99 Oxygen Delivery Room Air Oxygen Flow Rate 03/30/25 23:45 03/31/25 00:00 03/31/25 00:00 Temperature 98.2 F Pulse Rate 76 73 73 Respiratory Rate 17 Blood Pressure 86/50 L 87/57 L 87/57 L Pulse Oximetry 99 Oxygen Delivery Oxygen Flow Rate 03/31/25 00:00 03/31/25 01:00 03/31/25 01:00 Temperature Pulse Rate 73 86 86 Respiratory Rate 18 Blood Pressure 97/64 L 97/64 L Pulse Oximetry 98 Oxygen Delivery Oxygen Flow Rate 03/31/25 02:00 03/31/25 02:00 03/31/25 02:00 Temperature 98.3 F Pulse Rate 70 70 70 Respiratory Rate 17 Blood Pressure 100/58 L 100/58 L Pulse Oximetry 97 Oxygen Delivery Oxygen Flow Rate 03/31/25 02:15 03/31/25 02:30 03/31/25 03:00 Temperature Pulse Rate 70 79 85 Respiratory Rate Blood Pressure 100/63 111/68 113/69 Pulse Oximetry Oxygen Delivery Oxygen Flow Rate 03/31/25 03:00 03/31/25 03:18 03/31/25 03:59 Temperature Pulse Rate 85 81 Respiratory Rate 13 Blood Pressure 113/69 93/67 L Pulse Oximetry 99 Oxygen Delivery Room Air Oxygen Flow Rate 03/31/25 04:00 03/31/25 04:00 03/31/25 04:00 Temperature 98.2 F Pulse Rate 72 72 68 Respiratory Rate 20 Blood Pressure 98/68 L 98/68 L Pulse Oximetry 99 Oxygen Delivery Oxygen Flow Rate 03/31/25 05:00 03/31/25 05:00 03/31/25 05:15 Temperature Pulse Rate 68 68 70 Respiratory Rate 17 Blood Pressure 100/64 100/64 99/65 L Pulse Oximetry 98 Oxygen Delivery Oxygen Flow Rate 03/31/25 06:00 03/31/25 06:00 03/31/25 06:00 Temperature 98.4 F Pulse Rate 72 72 75 Respiratory Rate 17 Blood Pressure 99/63 L 99/63 L Pulse Oximetry 99 Oxygen Delivery Oxygen Flow Rate 03/31/25 06:30 03/31/25 07:00 03/31/25 07:00 Temperature Pulse Rate 69 76 76 Respiratory Rate 18 Blood Pressure 105/66 93/55 L 93/55 L Pulse Oximetry 99 Oxygen Delivery Oxygen Flow Rate 03/31/25 07:41 03/31/25 07:41 03/31/25 07:55 Temperature 98.6 F Pulse Rate 71 71 70 Respiratory Rate 16 Blood Pressure 96/61 L 96/61 L 84/52 L Pulse Oximetry 99 Oxygen Delivery Oxygen Flow Rate 03/31/25 08:00 03/31/25 08:00 03/31/25 08:18 Temperature Pulse Rate 72 72 72 Respiratory Rate 16 Blood Pressure Pulse Oximetry 99 99 Oxygen Delivery Room Air Room Air Oxygen Flow Rate 03/31/25 09:00 03/31/25 09:00 03/31/25 09:00 Temperature 98.4 F Pulse Rate 72 81 71 Respiratory Rate 20 19 Blood Pressure 95/64 L 114/52 L 102/65 Pulse Oximetry 98 Oxygen Delivery Oxygen Flow Rate 03/31/25 10:51 03/31/25 11:00 03/31/25 11:05 Temperature 98.7 F Pulse Rate 97 95 Respiratory Rate 12 12 Blood Pressure 103/62 99/66 L Pulse Oximetry 100 100 98 Oxygen Delivery Simple Face Mask Simple Face Mask Room Air Oxygen Flow Rate 8 8 03/31/25 11:15 03/31/25 11:30 03/31/25 11:45 Temperature 97.9 F Pulse Rate 95 91 86 Respiratory Rate 15 20 18 Blood Pressure 98/60 L 100/63 96/59 L Pulse Oximetry 95 95 96 Oxygen Delivery Room Air Room Air Room Air Oxygen Flow Rate Intake/Output Intake/Output: Intake & Output 03/28/25 03/29/25 03/30/25 03/31/25 23:59 23:59 23:59 23:59 Intake Total 1046.8 2521.9 Output Total 380 735 Balance 666.8 1786.9 Meds/Results Medications: Active Medications Generic Name Dose Route Start Last Admin Trade Name Freq PRN Reason Stop Dose Admin Acetaminophen 650 mg 03/30/25 11:25 03/31/25 05:20 Acetaminophen 325 Mg Tablet PO 650 mg Q4H PRN Administration Mild Pain (1-3) or Fever Norepinephrine Bitartrate 8 mg in 250 mls @ 3.75 mls/hr 03/30/25 10:45 03/31/25 09:00 Levophed 8 Mg/D5w 250 Ml IV CONT 2 mcg/min .Q24H HALEY 3.75 mls/hr Protocol Titration 2 MCG/MIN Albumin Human 50 mls @ 50 mls/hr 03/30/25 18:00 03/31/25 12:33 Albutein IVPB 60 mls/hr Q6HR HALEY Administration Ondansetron HCl 4 mg 03/30/25 11:25 Ondansetron Inj 4 Mg/2 Ml Vial IV PUSH Q6H PRN Nausea And Vomiting Pantoprazole Sodium 40 mg 03/30/25 11:30 03/31/25 12:32 Pantoprazole Sodium Iv 40 Mg Vial IV PUSH 40 mg QAM HALEY Administration Sodium Chloride 10 ml 03/30/25 14:00 03/31/25 05:22 Central Line Flush IV PUSH 10 ml Q8HR HALEY Administration Sodium Chloride 10 ml 03/30/25 12:29 Central Line Flush IV PUSH PRN PRN with TPN bag changes Sodium Chloride 20 ml 03/30/25 12:29 03/30/25 23:30 Central Line Flush IV PUSH 10 ml PRN PRN Administration after blood draws Tramadol HCl 50 mg 03/30/25 14:56 03/31/25 03:18 Tramadol Hcl (*Crx) 50 Mg Tablet PO 50 mg Q6H PRN Administration Pain Rated 4-6 Labs Labs: Laboratory Results - last 24 hr 03/30/25 03/30/25 03/30/25 12:25 12:45 17:15 WBC 5.5 RBC 3.21 L Hgb 9.5 L Hct 28.5 L MCV 88.8 MCH 29.6 MCHC 33.3 RDW 14.1 Plt Count 155 MPV 8.9 Immature Gran % (Auto) Neut % (Auto) Lymph % (Auto) [place] % (Auto) Eos % (Auto) Baso % (Auto) Lymph # (Auto) [place] # (Auto) Eos # (Auto) Baso # (Auto) Abs Immat Gran (auto) Absolute Neuts (auto) Absolute Nucleated RBC Nucleated RBC % PT 14.9 H INR 1.2 APTT 23.5 Sodium 136 L Potassium 3.2 L Chloride 105 Carbon Dioxide 27 Anion Gap 4 BUN 12 D Creatinine 0.55 L Estim Creat Clear Calc 85 Estimated GFR > 60 Glucose 97 Lactic Acid 0.7 Calcium 7.9 L Phosphorus 2.5 Magnesium 1.9 Total Bilirubin 0.7 AST 30 ALT 13 Alkaline Phosphatase 40 Total Protein 5.3 L Albumin 2.8 L Nasal MRSA (PCR) Not detected Blood Type A Positive Antibody Screen Negative Crossmatch See Detail 03/31/25 05:24 WBC 4.7 RBC 3.36 L Hgb 9.9 L Hct 29.8 L MCV 88.7 MCH 29.5 MCHC 33.2 RDW 14.8 H Plt Count 134 L MPV 8.6 Immature Gran % (Auto) 0.2 Neut % (Auto) 57.7 Lymph % (Auto) 29.9 [place] % (Auto) 9.3 H Eos % (Auto) 2.3 Baso % (Auto) 0.6 Lymph # (Auto) 1.41 [place] # (Auto) 0.4 Eos # (Auto) 0.1 Baso # (Auto) 0.0 Abs Immat Gran (auto) 0.01 Absolute Neuts (auto) 2.7 Absolute Nucleated RBC 0.000 Nucleated RBC % 0.0 PT INR APTT Sodium 136 L Potassium 3.5 Chloride 105 Carbon Dioxide 30 Anion Gap 1 L BUN 5 L D Creatinine 0.48 L Estim Creat Clear Calc 98 Estimated GFR > 60 Glucose 92 Lactic Acid Calcium 8.1 L Phosphorus 2.4 L Magnesium 1.9 Total Bilirubin 0.6 AST 22 ALT 11 Alkaline Phosphatase 37 L Total Protein 5.2 L Albumin 2.8 L Nasal MRSA (PCR) Blood Type Antibody Screen Crossmatch Quality VTE Prophylaxis VTE prophylaxis: mechanical ordered
--- NOTE | 2025-03-31 16:27 | P.PN_ITS ---
Subjective Date/time seen: 03/31/25 16:27 Interval history: spoke to patient bedside after abdominal hematoma washout. patient A&)x3 NAD and reports doing well with pain controlled. off pressors.. dressing c/d/i. draines with sanguinous output appropriate volume for post-op. discussed with patient that she will be monitored overnight and likely transferred to floor tomorrow and can then likley be discharged home from there assuming tolerating a diet, ambulating and stable. patient scheduled to f/u in office next week. cont drains and binder abx as prescribed. Objective Data Vital Signs Vital Signs: Vital Signs - 24 hr 03/30/25 16:47 03/30/25 17:46 03/30/25 18:00 Temperature Pulse Rate 84 81 88 Respiratory Rate 15 21 H Blood Pressure 95/62 L 92/51 L Pulse Oximetry 99 99 Oxygen Delivery Oxygen Flow Rate Fraction of Inspired Oxygen 03/30/25 18:15 03/30/25 19:00 03/30/25 19:34 Temperature Pulse Rate 90 87 87 Respiratory Rate 20 Blood Pressure 88/51 L 96/60 L 96/60 L Pulse Oximetry 98 Oxygen Delivery Oxygen Flow Rate Fraction of Inspired Oxygen 03/30/25 20:00 03/30/25 20:00 03/30/25 20:00 Temperature 36.8 C Pulse Rate 82 82 Respiratory Rate 19 Blood Pressure 91/57 L 91/57 L Pulse Oximetry 98 Oxygen Delivery Room Air Oxygen Flow Rate Fraction of Inspired Oxygen 03/30/25 20:00 03/30/25 20:39 03/30/25 20:45 Temperature 36.8 C Pulse Rate 77 85 81 Respiratory Rate 19 Blood Pressure 104/60 97/58 L Pulse Oximetry 99 Oxygen Delivery Oxygen Flow Rate Fraction of Inspired Oxygen 03/30/25 20:55 03/30/25 21:00 03/30/25 21:00 Temperature 36.9 C 36.8 C Pulse Rate 75 80 80 Respiratory Rate 13 20 Blood Pressure 97/58 L 84/52 L 84/52 L Pulse Oximetry 99 98 Oxygen Delivery Oxygen Flow Rate Fraction of Inspired Oxygen 03/30/25 21:15 03/30/25 21:30 03/30/25 21:55 Temperature 36.7 C Pulse Rate 89 75 72 Respiratory Rate 18 Blood Pressure 89/55 L 92/61 L 108/66 Pulse Oximetry 97 Oxygen Delivery Oxygen Flow Rate Fraction of Inspired Oxygen 03/30/25 22:00 03/30/25 22:00 03/30/25 22:00 Temperature 36.7 C Pulse Rate 71 72 72 Respiratory Rate 18 Blood Pressure 108/66 108/66 Pulse Oximetry 97 Oxygen Delivery Oxygen Flow Rate Fraction of Inspired Oxygen 03/30/25 22:00 03/30/25 22:55 03/30/25 23:00 Temperature 36.8 C Pulse Rate 72 82 79 Respiratory Rate 19 19 Blood Pressure 98/57 L 87/69 L 89/59 L Pulse Oximetry 98 99 Oxygen Delivery Oxygen Flow Rate Fraction of Inspired Oxygen 03/30/25 23:00 03/30/25 23:24 03/30/25 23:30 Temperature 36.8 C Pulse Rate 79 79 81 Respiratory Rate 16 Blood Pressure 89/59 L 95/73 L 95/61 L Pulse Oximetry 99 Oxygen Delivery Oxygen Flow Rate Fraction of Inspired Oxygen 03/30/25 23:35 03/30/25 23:45 03/31/25 00:00 Temperature 36.8 C Pulse Rate 76 73 Respiratory Rate 17 Blood Pressure 86/50 L 87/57 L Pulse Oximetry 99 Oxygen Delivery Room Air Oxygen Flow Rate Fraction of Inspired Oxygen 03/31/25 00:00 03/31/25 00:00 03/31/25 01:00 Temperature Pulse Rate 73 73 86 Respiratory Rate 18 Blood Pressure 87/57 L 97/64 L Pulse Oximetry 98 Oxygen Delivery Oxygen Flow Rate Fraction of Inspired Oxygen 03/31/25 01:00 03/31/25 02:00 03/31/25 02:00 Temperature 36.8 C Pulse Rate 86 70 70 Respiratory Rate 17 Blood Pressure 97/64 L 100/58 L Pulse Oximetry 97 Oxygen Delivery Oxygen Flow Rate Fraction of Inspired Oxygen 03/31/25 02:00 03/31/25 02:15 03/31/25 02:30 Temperature Pulse Rate 70 70 79 Respiratory Rate Blood Pressure 100/58 L 100/63 111/68 Pulse Oximetry Oxygen Delivery Oxygen Flow Rate Fraction of Inspired Oxygen 03/31/25 03:00 03/31/25 03:00 03/31/25 03:18 Temperature Pulse Rate 85 85 81 Respiratory Rate 13 Blood Pressure 113/69 113/69 93/67 L Pulse Oximetry 99 Oxygen Delivery Oxygen Flow Rate Fraction of Inspired Oxygen 03/31/25 03:59 03/31/25 04:00 03/31/25 04:00 Temperature 36.8 C Pulse Rate 72 72 Respiratory Rate 20 Blood Pressure 98/68 L 98/68 L Pulse Oximetry 99 Oxygen Delivery Room Air Oxygen Flow Rate Fraction of Inspired Oxygen 03/31/25 04:00 03/31/25 05:00 03/31/25 05:00 Temperature Pulse Rate 68 68 68 Respiratory Rate 17 Blood Pressure 100/64 100/64 Pulse Oximetry 98 Oxygen Delivery Oxygen Flow Rate Fraction of Inspired Oxygen 03/31/25 05:15 03/31/25 06:00 03/31/25 06:00 Temperature 36.9 C Pulse Rate 70 72 72 Respiratory Rate 17 Blood Pressure 99/65 L 99/63 L 99/63 L Pulse Oximetry 99 Oxygen Delivery Oxygen Flow Rate Fraction of Inspired Oxygen 03/31/25 06:00 03/31/25 06:30 03/31/25 07:00 Temperature Pulse Rate 75 69 76 Respiratory Rate 18 Blood Pressure 105/66 93/55 L Pulse Oximetry 99 Oxygen Delivery Oxygen Flow Rate Fraction of Inspired Oxygen 03/31/25 07:00 03/31/25 07:41 03/31/25 07:41 Temperature Pulse Rate 76 71 71 Respiratory Rate Blood Pressure 93/55 L 96/61 L 96/61 L Pulse Oximetry Oxygen Delivery Oxygen Flow Rate Fraction of Inspired Oxygen 03/31/25 07:55 03/31/25 08:00 03/31/25 08:00 Temperature 37.0 C Pulse Rate 70 72 72 Respiratory Rate 16 16 Blood Pressure 84/52 L Pulse Oximetry 99 99 Oxygen Delivery Room Air Oxygen Flow Rate Fraction of Inspired Oxygen 03/31/25 08:18 03/31/25 09:00 03/31/25 09:00 Temperature 36.9 C Pulse Rate 72 72 81 Respiratory Rate 20 19 Blood Pressure 95/64 L 114/52 L Pulse Oximetry 99 98 Oxygen Delivery Room Air Oxygen Flow Rate Fraction of Inspired Oxygen 03/31/25 09:00 03/31/25 10:51 03/31/25 11:00 Temperature 37.1 C Pulse Rate 71 97 95 Respiratory Rate 12 12 Blood Pressure 102/65 103/62 99/66 L Pulse Oximetry 100 100 Oxygen Delivery Simple Face Mask Simple Face Mask Oxygen Flow Rate 8 8 Fraction of Inspired Oxygen 03/31/25 11:05 03/31/25 11:15 03/31/25 11:30 Temperature 36.6 C Pulse Rate 95 91 Respiratory Rate 15 20 Blood Pressure 98/60 L 100/63 Pulse Oximetry 98 95 95 Oxygen Delivery Room Air Room Air Room Air Oxygen Flow Rate Fraction of Inspired Oxygen 03/31/25 11:45 03/31/25 12:00 03/31/25 12:00 Temperature Pulse Rate 86 90 Respiratory Rate 18 Blood Pressure 96/59 L Pulse Oximetry 96 Oxygen Delivery Room Air Room Air Oxygen Flow Rate Fraction of Inspired Oxygen 97 03/31/25 12:00 03/31/25 13:00 03/31/25 14:00 Temperature 37.3 C 36.9 C Pulse Rate 90 80 75 Respiratory Rate 21 H 17 Blood Pressure 97/62 L 103/65 94/59 L Pulse Oximetry 98 94 Oxygen Delivery Oxygen Flow Rate Fraction of Inspired Oxygen 03/31/25 14:00 03/31/25 15:00 03/31/25 16:00 Temperature 36.8 C Pulse Rate 67 81 75 Respiratory Rate 18 15 Blood Pressure 94/64 L Pulse Oximetry 98 98 Oxygen Delivery Room Air Oxygen Flow Rate Fraction of Inspired Oxygen 97 03/31/25 16:00 Temperature Pulse Rate 75 Respiratory Rate Blood Pressure Pulse Oximetry Oxygen Delivery Oxygen Flow Rate Fraction of Inspired Oxygen Intake/Output Intake/Output: Intake & Output 03/28/25 03/29/25 03/30/25 03/31/25 23:59 23:59 23:59 23:59 Intake Total 1046.8 2683.2 Output Total 380 735 Balance 666.8 1948.2 Meds/Results Medications: Active Medications Generic Name Dose Route Start Last Admin Trade Name Freq PRN Reason Stop Dose Admin Acetaminophen 650 mg 03/30/25 11:25 03/31/25 05:20 Acetaminophen 325 Mg Tablet PO 650 mg Q4H PRN Administration Mild Pain (1-3) or Fever Cephalexin HCl 500 mg 03/31/25 17:00 Cephalexin 500 Mg Capsule PO 04/05/25 16:59 TID HALEY Albumin Human 50 mls @ 50 mls/hr 03/30/25 18:00 03/31/25 13:23 Albutein IVPB 04/01/25 00:59 Infused Q6HR [facility] Infusion Norepinephrine Bitartrate 8 mg in 250 mls @ 0 mls/hr 03/31/25 13:20 Levophed 8 Mg/D5w 250 Ml IV CONT .Q0M [facility] Protocol Lamotrigine 150 mg 03/31/25 21:00 Lamotrigine 50 Mg Tablet PO 04/30/25 20:59 HS [facility] Lamotrigine 100 mg 03/31/25 13:05 03/31/25 13:27 Lamotrigine 100 Mg Tablet PO 100 mg DAILY HALEY Administration Ondansetron HCl 4 mg 03/30/25 11:25 Ondansetron Inj 4 Mg/2 Ml Vial IV PUSH Q6H PRN Nausea And Vomiting Pantoprazole Sodium 40 mg 03/30/25 11:30 03/31/25 12:32 Pantoprazole Sodium Iv 40 Mg Vial IV PUSH 40 mg QAM HALEY Administration Sodium Chloride 10 ml 03/30/25 14:00 03/31/25 14:18 Central Line Flush IV PUSH 10 ml Q8HR HALEY Administration Sodium Chloride 10 ml 03/30/25 12:29 Central Line Flush IV PUSH PRN PRN with TPN bag changes Sodium Chloride 20 ml 03/30/25 12:29 03/30/25 23:30 Central Line Flush IV PUSH 10 ml PRN PRN Administration after blood draws Tramadol HCl 50 mg 03/30/25 14:56 03/31/25 12:45 Tramadol Hcl (*Crx) 50 Mg Tablet PO 50 mg Q6H PRN Administration Pain Rated 4-6 Labs Labs: Laboratory Results - last 24 hr 03/30/25 03/30/25 03/31/25 12:25 17:15 05:24 WBC 5.5 4.7 RBC 3.21 L 3.36 L Hgb 9.5 L 9.9 L Hct 28.5 L 29.8 L MCV 88.8 88.7 MCH 29.6 29.5 MCHC 33.3 33.2 RDW 14.1 14.8 H Plt Count 155 134 L MPV 8.9 8.6 Immature Gran % (Auto) 0.2 Neut % (Auto) 57.7 Lymph % (Auto) 29.9 [place] % (Auto) 9.3 H Eos % (Auto) 2.3 Baso % (Auto) 0.6 Lymph # (Auto) 1.41 [place] # (Auto) 0.4 Eos # (Auto) 0.1 Baso # (Auto) 0.0 Abs Immat Gran (auto) 0.01 Absolute Neuts (auto) 2.7 Absolute Nucleated RBC 0.000 Nucleated RBC % 0.0 Sodium 136 L Potassium 3.5 Chloride 105 Carbon Dioxide 30 Anion Gap 1 L BUN 5 L D Creatinine 0.48 L Estim Creat Clear Calc 98 Estimated GFR > 60 Glucose 92 Calcium 8.1 L Phosphorus 2.4 L Magnesium 1.9 Total Bilirubin 0.6 AST 22 ALT 11 Alkaline Phosphatase 37 L Total Protein 5.2 L Albumin 2.8 L Blood Type A Positive Antibody Screen Negative Crossmatch See Detail
[2025-03-31] MEDS: CEPHALEXIN 500 MG CAPSULE PO (18:00)
[2025-03-31] MEDS: lamoTRIgine 50 MG TABLET 150 MG PO (20:40)
[2025-04-01] VITALS (25 sets, daily range): BP systolic 93–109; BP diastolic 55–79; PULSE 65–101; RESP 16–22; TEMP 36.6–36.9; O2SAT 91–100
[2025-04-01 05:19] LABS: Hematocrit 25.3 % (37.0-47.0); Hemoglobin 8.3 g/dL (12.0-15.0); Immature Granulocyte Percent A 0.3 % (0-0.5); Lymphocytes Absolute Auto 1.07 K/mm3 (0.9-3.2); Mean Corpuscular HGB Conc 32.8 g/dl (32-36); Mean Corpuscular Hemoglobin 30.0 pg (26-34); Mean Corpuscular Volume 91.3 fl (80-100); Nucleated Red Blood Cells Absolute Auto 0.000 K/mm3 (0.0-0.012); Nucleated Red Blood Cells Perc 0.0 % (0.0-0.2); Platelet Count Result 111 k/mm3 (150-375); Red Blood Count 2.77 M/mm3 (4.2-5.4); White Blood Count 3.5 K/mm3 (4.5-10.0)
[2025-04-01] MEDS: CENTRAL LINE FLUSH 10 ML IV PUSH ×3 (05:27→21:30)
[2025-04-01] MEDS: ACETAMINOPHEN 325 MG TABLET 650 MG PO ×2 (05:27→20:13)
[2025-04-01 05:39] LABS: Alanine Aminotransferase 9 U/L (6-35); Albumin Level 3.3 g/dL (3.5-5.1); Alkaline Phosphatase 37 U/L (38-126); Anion Gap 4 mmol/L (4-12); Aspartate Amino Transferase 16 U/L (14-36); Bilirubin,Total 0.6 mg/dL (0.2-1.3); Blood Urea Nitrogen 6 mg/dL (7-17); Calcium 8.5 mg/dL (8.4-10.2); Carbon Dioxide 30 mmol/L (22-30); Chloride 102 mmol/L (98-107); Estimated CRCL calculation 97 ml/min; Estimated Glomerular Filt Rate > 60; Glucose 81 mg/dL (65-110); Magnesium 1.8 mg/dL (1.6-2.3); Potassium 3.5 mmol/L (3.4-5.0); Sodium 136 mmol/L (137-145); Total Protein 5.7 g/dL (6.3-8.2)
[2025-04-01] MEDS: MAGNESIUM SULF 2 GM/WATER 50ML 2 GM/50 ML BAG IVPB (08:35)
[2025-04-01] MEDS: POTASSIUM CHLORIDE 20 MEQ ER TABLET 40 MEQ PO (08:35)
[2025-04-01] MEDS: CEPHALEXIN 500 MG CAPSULE PO ×3 (08:35→16:32)
[2025-04-01] MEDS: PANTOPRAZOLE SODIUM IV 40 MG VIAL IV PUSH (08:36)
[2025-04-01] MEDS: traMADol HCL (*CRX) 50 MG TABLET PO ×2 (10:25→16:32)
--- NOTE | 2025-04-01 10:36 | WPDINTPN ---
Progress Note: A&P Assessment and Plan (1) Shock: Code(s): R57.9 - Shock, unspecified Status: Acute Assessment and Plan: Patient presented to [facility] on 03/29 with near syncope and lightheadedness. Patient's systolic blood pressure was in the 70s at the outside hospital ER. Status post panniculectomy on 03/29 -patient was given 3 L IV fluid bolus, -1 unit of packed RBCs were transfused at the outside hospital on 03/29 -patient was started on peripheral Levophed and transferred to [facility] ICU for further management CT scan at the outside hospital showed: postoperative changes in the anterior abdominal wall and stomach with diffuse subcutaneous edema and ill-defined hemorrhagic foci measuring 18.6 by 5.6 cm. Mild soft tissue emphysema along the anterior pelvic wall bilaterally. Mild hepatic steatosis -03/30: PICC line switch Levophed from peripheral to central access -plastic surgery has been notified await their recommendation -03/30: Received 2 units of packed RBCs despite which however hemoglobin remained 9.9. Off note she also had been transfused 1 unit of packed RBCs at [facility] -03/31 morning, patient still was on Levophed, surgeon decided taken to the OR for exploration and washout abdominal hematoma. --03/31: upon arrival from the OR patient has been off Levophed - 04/01 remains off vasopressors and IV fluids over last 24 hours (2) S/P panniculectomy: Code(s): Z98.890 - Other specified postprocedural states Status: Acute Assessment and Plan: Postop hematoma likely causing hemorrhagic shock, hypotension, patient's symptoms 04/01 status post exploration and washout abdomen hematoma Three NBA drains in place. Amount of output noted. Management per surgeon. (3) Bipolar disorder: Qualifiers: Active/Remission status: remission status unspecified Qualified Code(s): F31.9 - Bipolar disorder, unspecified Code(s): F31.9 - Bipolar disorder, unspecified Status: Chronic Assessment and Plan: Patient has history of bipolar, takes Lamictal at home (4) Essential hypertension: Code(s): I10 - Essential (primary) hypertension Status: Acute Assessment and Plan: Patient does take metoprolol and hydrochlorothiazide at home. Will hold for now as patient has borderline blood pressures in just came off pressors (5) Hematoma: Code(s): T14.8XXA - Other injury of unspecified body region, initial encounter Status: Acute Assessment and Plan: See above (6) Acute blood loss anemia: Code(s): D62 - Acute posthemorrhagic anemia Status: Acute Assessment and Plan: Hemoglobin 8.3 today. He status post transfusion of 3 units PRBC Output from NBA drains noted Continue to hold any anticoagulation Continue moderate hemoglobin Transfuse if hypotensive or hemoglobin less than 7 (7) Electrolyte abnormality: Code(s): E87.8 - Other disorders of electrolyte and fluid balance, not elsewhere classified Status: Acute Assessment and Plan: Replace potassium and calcium Plan DVT prophylaxis: SCDs Stress ulcer prophylaxis: Protonix Nutrition: Regular diet Code Status: Full code Up in chair Incentive spirometry PT OT Transfer out of ICU today Subjective Date/time seen: 04/01/25 Overnight events reviewed. Patient is afebrile. Blood pressure has been stable and she is not on any infusions. He denies any new complaints and states she would like to get out of bed. Patient denies fever, chest pain, shortness of breath, cough, nausea vomiting, abdominal pain,, diarrhea, headache or constipation. All other systems were reviewed and were negative She has 3 NBA drains and they had around 10 mL output from each overnight which was serosanguineous Urine output is adequate. She is afebrile Tolerating p.o. diet Interval history: Reason for consult: Shock, anemia, panniculectomy (03/29) status post hypertension, hematoma, drop in hemoglobin 03/31: exploration and washout abdomen hematoma Review of Systems Review of Systems: All systems reviewed & are unremarkable except as noted in HPI and below Exam Narrative: General: Pleasant female currently in no acute distress HEENT:? Pupils equal and reactive, sclera is clear, moist oral mucosa Neck:? Supple Respiratory:? Clear to auscultation bilaterally, no wheezing, adequate air entry Cardiac:? S1-S2 normal, regular rate and rhythm Abdomen:? Soft, abdominal binder is on, no tenderness to palpation, NBA drains x3 with serosanguineous output Extremities:? Pedal pulses are palpable, no edema or cyanosis Neuro:? Patient is awake, alert, oriented, nonfocal, follows simple commands and answers to questions appropriately AO x3 Skin:? S dressing on the surgical incision site Psych:? Normal mentation and affect Objective Data Vital Signs Vital Signs: Vital Signs - 24 hr 03/31/25 10:51 03/31/25 11:00 03/31/25 11:05 Temperature 37.1 C Pulse Rate 97 95 Respiratory Rate 12 12 Blood Pressure 103/62 99/66 L Pulse Oximetry 100 100 98 Oxygen Delivery Simple Face Mask Simple Face Mask Room Air Oxygen Flow Rate 8 8 Fraction of Inspired Oxygen 03/31/25 11:15 03/31/25 11:30 03/31/25 11:45 Temperature 36.6 C Pulse Rate 95 91 86 Respiratory Rate 15 20 18 Blood Pressure 98/60 L 100/63 96/59 L Pulse Oximetry 95 95 96 Oxygen Delivery Room Air Room Air Room Air Oxygen Flow Rate Fraction of Inspired Oxygen 03/31/25 12:00 03/31/25 12:00 03/31/25 12:00 Temperature Pulse Rate 90 90 Respiratory Rate Blood Pressure 97/62 L Pulse Oximetry Oxygen Delivery Room Air Oxygen Flow Rate Fraction of Inspired Oxygen 97 03/31/25 13:00 03/31/25 14:00 03/31/25 14:00 Temperature 37.3 C 36.9 C Pulse Rate 80 75 67 Respiratory Rate 21 H 17 Blood Pressure 103/65 94/59 L Pulse Oximetry 98 94 Oxygen Delivery Oxygen Flow Rate Fraction of Inspired Oxygen 03/31/25 15:00 03/31/25 16:00 03/31/25 16:00 Temperature 36.8 C Pulse Rate 81 75 75 Respiratory Rate 18 15 Blood Pressure 94/64 L Pulse Oximetry 98 98 Oxygen Delivery Room Air Oxygen Flow Rate Fraction of Inspired Oxygen 97 03/31/25 16:00 03/31/25 17:00 03/31/25 18:00 Temperature 36.9 C 37.1 C Pulse Rate 95 89 Respiratory Rate 15 Blood Pressure 94/62 L Pulse Oximetry 98 Oxygen Delivery Oxygen Flow Rate Fraction of Inspired Oxygen 03/31/25 18:00 03/31/25 18:43 03/31/25 20:00 Temperature 37.0 C 36.9 C Pulse Rate 76 90 Respiratory Rate 22 H 24 H Blood Pressure 112/62 94/63 L Pulse Oximetry 98 98 94 Oxygen Delivery Room Air Oxygen Flow Rate Fraction of Inspired Oxygen 03/31/25 20:00 03/31/25 20:00 03/31/25 20:40 Temperature 36.6 C Pulse Rate 66 83 Respiratory Rate 20 Blood Pressure 91/70 L Pulse Oximetry 95 95 Oxygen Delivery Autopap Oxygen Flow Rate Fraction of Inspired Oxygen 03/31/25 21:00 03/31/25 22:00 03/31/25 23:00 Temperature 36.6 C Pulse Rate 66 74 64 Respiratory Rate 16 18 20 Blood Pressure 90/57 L 89/64 L 109/67 Pulse Oximetry 95 100 93 Oxygen Delivery Oxygen Flow Rate Fraction of Inspired Oxygen 04/01/25 00:00 04/01/25 00:00 04/01/25 00:00 Temperature 36.8 C Pulse Rate 65 74 Respiratory Rate 19 Blood Pressure 109/67 Pulse Oximetry 94 94 Oxygen Delivery Room Air Oxygen Flow Rate Fraction of Inspired Oxygen 04/01/25 01:00 04/01/25 01:40 04/01/25 02:00 Temperature Pulse Rate 70 65 68 Respiratory Rate 16 16 Blood Pressure 94/66 L 106/64 Pulse Oximetry 91 92 Oxygen Delivery Oxygen Flow Rate Fraction of Inspired Oxygen 04/01/25 03:00 04/01/25 03:47 04/01/25 04:00 Temperature 36.6 C Pulse Rate 65 66 Respiratory Rate 16 Blood Pressure 107/63 Pulse Oximetry 94 95 Oxygen Delivery Room Air Oxygen Flow Rate Fraction of Inspired Oxygen 04/01/25 04:00 04/01/25 05:00 04/01/25 06:00 Temperature 36.6 C Pulse Rate 66 77 67 Respiratory Rate 16 17 Blood Pressure 100/66 98/79 L Pulse Oximetry 95 97 Oxygen Delivery Oxygen Flow Rate Fraction of Inspired Oxygen 04/01/25 06:00 04/01/25 07:00 04/01/25 07:56 Temperature 36.8 C Pulse Rate 67 80 77 Respiratory Rate 20 19 21 H Blood Pressure 100/73 93/55 L 99/63 L Pulse Oximetry 95 99 98 Oxygen Delivery Oxygen Flow Rate Fraction of Inspired Oxygen 04/01/25 08:00 04/01/25 08:00 04/01/25 09:00 Temperature Pulse Rate 77 77 73 Respiratory Rate 19 18 Blood Pressure 102/61 Pulse Oximetry 98 96 Oxygen Delivery Room Air Oxygen Flow Rate Fraction of Inspired Oxygen 97 04/01/25 09:53 Temperature Pulse Rate 77 Respiratory Rate 21 H Blood Pressure 93/73 L Pulse Oximetry 97 Oxygen Delivery Oxygen Flow Rate Fraction of Inspired Oxygen Intake/Output Intake/Output: Intake & Output 1103/30/25 03/31/25 04/01/25 23:59 23:59 23:59 23:59 Intake Total 1046.8 2973.2 740 Output Total 380 1725 390 Balance 666.8 1248.2 350 Meds/Results Medications: Active Medications Generic Name Dose Route Start Last Admin Trade Name Freq PRN Reason Stop Dose Admin Acetaminophen 650 mg 03/30/25 11:25 04/01/25 05:27 Acetaminophen 325 Mg Tablet PO 650 mg Q4H PRN Administration Mild Pain (1-3) or Fever Cephalexin HCl 500 mg 03/31/25 17:00 04/01/25 08:35 Cephalexin 500 Mg Capsule PO 04/05/25 16:59 500 mg TID HALEY Administration Lamotrigine 150 mg 03/31/25 21:00 03/31/25 20:40 Lamotrigine 50 Mg Tablet PO 04/30/25 20:59 150 mg HS HALEY Administration Lamotrigine 100 mg 03/31/25 13:05 04/01/25 08:35 Lamotrigine 100 Mg Tablet PO 100 mg DAILY HALEY Administration Ondansetron HCl 4 mg 03/30/25 11:25 Ondansetron Inj 4 Mg/2 Ml Vial IV PUSH Q6H PRN Nausea And Vomiting Pantoprazole Sodium 40 mg 03/30/25 11:30 04/01/25 08:36 Pantoprazole Sodium Iv 40 Mg Vial IV PUSH 40 mg QAM HALEY Administration Sodium Chloride 10 ml 03/30/25 14:00 04/01/25 05:27 Central Line Flush IV PUSH 10 ml Q8HR HALEY Administration Sodium Chloride 10 ml 03/30/25 12:29 Central Line Flush IV PUSH PRN PRN with TPN bag changes Sodium Chloride 20 ml 03/30/25 12:29 03/30/25 23:30 Central Line Flush IV PUSH 10 ml PRN PRN Administration after blood draws Tramadol HCl 50 mg 03/30/25 14:56 04/01/25 10:25 Tramadol Hcl (*Crx) 50 Mg Tablet PO 50 mg Q6H PRN Administration Pain Rated 4-6 Labs Labs: Laboratory Results - last 24 hr 04/01/25 05:00 WBC 3.5 L RBC 2.77 L Hgb 8.3 L Hct 25.3 L MCV 91.3 MCH 30.0 MCHC 32.8 RDW 14.5 Plt Count 111 L MPV 8.6 Immature Gran % (Auto) 0.3 Neut % (Auto) 60.5 Lymph % (Auto) 30.6 [place] % (Auto) 6.6 Eos % (Auto) 1.4 Baso % (Auto) 0.6 Lymph # (Auto) 1.07 [place] # (Auto) 0.2 Eos # (Auto) 0.1 Baso # (Auto) 0.0 Abs Immat Gran (auto) 0.01 Absolute Neuts (auto) 2.1 Absolute Nucleated RBC 0.000 Nucleated RBC % 0.0 Sodium 136 L Potassium 3.5 Chloride 102 Carbon Dioxide 30 Anion Gap 4 BUN 6 L Creatinine 0.48 L Estim Creat Clear Calc 97 Estimated GFR > 60 Glucose 81 Calcium 8.5 Phosphorus 2.6 Magnesium 1.8 Total Bilirubin 0.6 AST 16 ALT 9 Alkaline Phosphatase 37 L Total Protein 5.7 L Albumin 3.3 L Quality VTE Prophylaxis VTE prophylaxis: mechanical ordered
[2025-04-01 14:52] LABS: Hematocrit 26.3 % (37.0-47.0); Hemoglobin 8.6 g/dL (12.0-15.0); Mean Corpuscular HGB Conc 32.7 g/dl (32-36); Mean Corpuscular Hemoglobin 29.5 pg (26-34); Mean Corpuscular Volume 90.1 fl (80-100); Platelet Count Result 133 k/mm3 (150-375); Red Blood Count 2.92 M/mm3 (4.2-5.4); White Blood Count 4.4 K/mm3 (4.5-10.0)
[2025-04-01] MEDS: lamoTRIgine 50 MG TABLET 150 MG PO (20:12)
--- NOTE | 2025-04-01 22:39 | PC.NURSE ---
This patient, Jazmin Platt, was transferred to [facility] on 04/01/25 at 2220. Personal belongings sent with patient. Report given to ELEAZAR Yates. Appropriate documentation sent with patient.
[2025-04-02] VITALS (15 sets, daily range): BP systolic 90–105; BP diastolic 50–69; PULSE 66–89; RESP 15–18; TEMP 36.7–37.2; O2SAT 98–100
[2025-04-02] MEDS: MELATONIN 5 MG TABLET PO (00:31)
[2025-04-02] MEDS: traMADol HCL (*CRX) 50 MG TABLET PO ×3 (00:33→15:30)
[2025-04-02 05:05] LABS: Hematocrit 29.0 % (37.0-47.0); Hemoglobin 9.5 g/dL (12.0-15.0); Immature Granulocyte Percent A 0.3 % (0-0.5); Lymphocytes Absolute Auto 1.16 K/mm3 (0.9-3.2); Mean Corpuscular HGB Conc 32.8 g/dl (32-36); Mean Corpuscular Hemoglobin 29.9 pg (26-34); Mean Corpuscular Volume 91.2 fl (80-100); Nucleated Red Blood Cells Absolute Auto 0.000 K/mm3 (0.0-0.012); Nucleated Red Blood Cells Perc 0.0 % (0.0-0.2); Platelet Count Result 151 k/mm3 (150-375); Red Blood Count 3.18 M/mm3 (4.2-5.4); White Blood Count 3.9 K/mm3 (4.5-10.0)
[2025-04-02 05:22] LABS: Alanine Aminotransferase 11 U/L (6-35); Albumin Level 3.1 g/dL (3.5-5.1); Alkaline Phosphatase 38 U/L (38-126); Anion Gap 0 mmol/L (4-12); Aspartate Amino Transferase 25 U/L (14-36); Bilirubin,Total 0.5 mg/dL (0.2-1.3); Blood Urea Nitrogen 11 mg/dL (7-17); Calcium 8.3 mg/dL (8.4-10.2); Carbon Dioxide 31 mmol/L (22-30); Chloride 106 mmol/L (98-107); Estimated CRCL calculation 91 ml/min; Estimated Glomerular Filt Rate > 60; Glucose 81 mg/dL (65-110); Magnesium 2.1 mg/dL (1.6-2.3); Potassium 3.9 mmol/L (3.4-5.0); Sodium 137 mmol/L (137-145); Total Protein 5.6 g/dL (6.3-8.2)
[2025-04-02] MEDS: CENTRAL LINE FLUSH 10 ML IV PUSH ×3 (05:29→20:56)
[2025-04-02] MEDS: CEPHALEXIN 500 MG CAPSULE PO ×3 (08:58→17:23)
[2025-04-02] MEDS: PANTOPRAZOLE SODIUM IV 40 MG VIAL IV PUSH (08:58)
--- NOTE | 2025-04-02 11:30 | P.PNIM_ITS ---
Progress Note: A&P Assessment and Plan (1) Shock: Code(s): R57.9 - Shock, unspecified Status: Acute Assessment and Plan: Patient presented to [facility] [place] on 03/29 with near syncope and lightheadedness. Patient's systolic blood pressure was in the 70s at the outside hospital ER. Status post panniculectomy on 03/29 -patient was given 3 L IV fluid bolus, -1 unit of packed RBCs were transfused at the outside hospital on 03/29 -patient was started on peripheral Levophed and transferred to [facility] ICU for further management CT scan at the outside hospital showed: postoperative changes in the anterior abdominal wall and stomach with diffuse subcutaneous edema and ill-defined hemorrhagic foci measuring 18.6 by 5.6 cm. Mild soft tissue emphysema along the anterior pelvic wall bilaterally. Mild hepatic steatosis -03/30: PICC line switch Levophed from peripheral to central access -plastic surgery has been notified await their recommendation -03/30: Received 2 units of packed RBCs despite which however hemoglobin remained 9.9. Off note she also had been transfused 1 unit of packed RBCs at [facility] -03/31 morning, patient still was on Levophed, surgeon decided taken to the OR for exploration and washout abdominal hematoma. --03/31: upon arrival from the OR patient has been off Levophed - 04/01 remains off vasopressors and IV fluids over last 24 hours 04/02: Vital stable. Continue cephalexin 500 mg p.o. t.i.d.. (2) S/P panniculectomy: Code(s): Z98.890 - Other specified postprocedural states Status: Acute Assessment and Plan: Postop hematoma likely causing hemorrhagic shock, hypotension, patient's symptoms 04/01 status post exploration and washout abdomen hematoma Three NBA drains in place. Amount of output noted. Management per surgeon. (3) Bipolar disorder: Qualifiers: Active/Remission status: remission status unspecified Qualified Code(s): F31.9 - Bipolar disorder, unspecified Code(s): F31.9 - Bipolar disorder, unspecified Status: Chronic Assessment and Plan: Patient has history of bipolar, takes Lamictal at home (4) Essential hypertension: Code(s): I10 - Essential (primary) hypertension Status: Acute Assessment and Plan: Patient does take metoprolol and hydrochlorothiazide at home. Will hold for now as patient has borderline blood pressures in just came off pressors (5) Hematoma: Code(s): T14.8XXA - Other injury of unspecified body region, initial encounter Status: Acute Assessment and Plan: See above (6) Acute blood loss anemia: Code(s): D62 - Acute posthemorrhagic anemia Status: Acute Assessment and Plan: status post transfusion of 3 units PRBC Hemoglobin 9.5 today. Output from NBA drains noted Continue to hold any anticoagulation Continue moderate hemoglobin Transfuse if hypotensive or hemoglobin less than 7 (7) Electrolyte abnormality: Code(s): E87.8 - Other disorders of electrolyte and fluid balance, not elsewhere classified Status: Acute Assessment and Plan: Replace potassium and calcium Plan DVT prophylaxis: SCDs Stress ulcer prophylaxis: Protonix Nutrition: Regular diet Code Status: Full code Up in chair Incentive spirometry PT OT Transfer out of ICU today Subjective Date/time seen: 04/02/25 11:30 Interval history: Reason for Admission: Shock, anemia, panniculectomy (03/29) status post hypertension, hematoma, drop in hemoglobin 03/31: exploration and washout abdomen hematoma 04/02: Patient downgraded from ICU. Currently on cephalexin find mg p.o. t.i.d.. Patient reports doing well. Review of Systems Review of Systems: All systems reviewed & are unremarkable except as noted in HPI and below Exam Narrative: General: Pleasant female currently in no acute distress HEENT:? Pupils equal and reactive, sclera is clear, moist oral mucosa Neck:? Supple Respiratory:? Clear to auscultation bilaterally, no wheezing, adequate air entry Cardiac:? S1-S2 normal, regular rate and rhythm Abdomen:? Soft, abdominal binder is on, no tenderness to palpation, NBA drains x3 with serosanguineous output Extremities:? Pedal pulses are palpable, no edema or cyanosis Neuro:? Patient is awake, alert, oriented, nonfocal, follows simple commands and answers to questions appropriately AO x3 Skin:? S dressing on the surgical incision site Psych:? Normal mentation and affect Const: General: comfortable and no acute distress Other: Female, nontoxic appearance HENMT: Face/Nose/Sinus: Normal nares present Mouth: Yes moist mucous membranes Eyes: General: appearance normal, both eyes and all related structures Sclera: sclerae normal Pupils: Equal, round and reactive pupils present EOM: EOMs intact bilaterally Resp: Effort & Inspection: normal respiratory effort Auscultation: clear to auscultation bilaterally Cardio: Rate: regular rate Rhythm: regular rhythm Other: S1-S2 present without murmur, rub, ectopy GI: Other: Abdomen soft and nondistended. NBA drain at present bilaterally with modest sanguinous output bilaterally. Mild tenderness at the site of her incision. Incision remains intact, approximated, and no drainage present. Skin: General skin exam: no rashes or lesions noted Wounds: no wounds Other: + pallor Neuro: Cranial nerves: Yes Equal, round and reactive pupils present Speech: normal speech Motor exam (neuro): 5/5 motor strength present throughout Sensory Exam: normal sensation Other: A/Ox4 Extrem: General: normal to inspection Psych: Mental Status: mental status grossly normal Affect: normal affect Other: Good insight and judgment, very pleasant Objective Data Vital Signs Vital Signs: Vital Signs - 24 hr 04/01/25 12:00 04/01/25 12:00 04/01/25 14:00 Temperature Pulse Rate 71 71 71 Respiratory Rate 22 H Blood Pressure Pulse Oximetry 94 Oxygen Delivery Room Air Fraction of Inspired Oxygen 97 04/01/25 16:00 04/01/25 16:00 04/01/25 16:00 Temperature 98.4 F Pulse Rate 76 77 77 Respiratory Rate 18 18 Blood Pressure 98/63 L Pulse Oximetry 100 97 Oxygen Delivery Room Air Fraction of Inspired Oxygen 04/01/25 18:00 04/01/25 19:34 04/01/25 19:55 Temperature Pulse Rate 79 76 Respiratory Rate 16 Blood Pressure 98/63 L Pulse Oximetry 98 98 Oxygen Delivery Room Air Fraction of Inspired Oxygen 04/01/25 20:00 04/01/25 22:00 04/01/25 23:52 Temperature 98.3 F Pulse Rate 101 H 68 66 Respiratory Rate 16 Blood Pressure 100/62 Pulse Oximetry 98 Oxygen Delivery Fraction of Inspired Oxygen 04/02/25 00:00 04/02/25 00:00 04/02/25 02:00 Temperature Pulse Rate 66 69 Respiratory Rate Blood Pressure Pulse Oximetry Oxygen Delivery Room Air Fraction of Inspired Oxygen 04/02/25 04:00 04/02/25 04:00 04/02/25 04:00 Temperature 98.2 F Pulse Rate 79 69 Respiratory Rate 16 Blood Pressure 94/62 L Pulse Oximetry 99 Oxygen Delivery Room Air Fraction of Inspired Oxygen 04/02/25 06:00 04/02/25 08:00 Temperature 98.3 F Pulse Rate 72 73 Respiratory Rate 16 Blood Pressure 105/69 Pulse Oximetry 100 Oxygen Delivery Fraction of Inspired Oxygen Intake/Output Intake/Output: Intake & Output 03/30/25 03/31/25 04/01/25 04/02/25 23:59 23:59 23:59 23:59 Intake Total 1046.8 2973.2 1720 420 Output Total 380 1725 695 60 Balance 666.8 1248.2 1025 360 Meds/Results Medications: Active Medications Generic Name Dose Route Start Last Admin Trade Name Freq PRN Reason Stop Dose Admin Acetaminophen 650 mg 03/30/25 11:25 04/01/25 20:13 Acetaminophen 325 Mg Tablet PO 650 mg Q4H PRN Administration Mild Pain (1-3) or Fever Cephalexin HCl 500 mg 03/31/25 17:00 04/02/25 08:58 Cephalexin 500 Mg Capsule PO 04/05/25 16:59 500 mg TID HALEY Administration Lamotrigine 150 mg 03/31/25 21:00 04/01/25 20:12 Lamotrigine 50 Mg Tablet PO 04/30/25 20:59 150 mg HS HALEY Administration Lamotrigine 100 mg 03/31/25 13:05 04/02/25 08:57 Lamotrigine 100 Mg Tablet PO 100 mg DAILY HALEY Administration Ondansetron HCl 4 mg 03/30/25 11:25 Ondansetron Inj 4 Mg/2 Ml Vial IV PUSH Q6H PRN Nausea And Vomiting Pantoprazole Sodium 40 mg 03/30/25 11:30 04/02/25 08:58 Pantoprazole Sodium Iv 40 Mg Vial IV PUSH 40 mg QAM HALEY Administration Sodium Chloride 10 ml 03/30/25 14:00 04/02/25 05:29 Central Line Flush IV PUSH 10 ml Q8HR HALEY Administration Sodium Chloride 10 ml 03/30/25 12:29 Central Line Flush IV PUSH PRN PRN with TPN bag changes Sodium Chloride 20 ml 03/30/25 12:29 03/30/25 23:30 Central Line Flush IV PUSH 10 ml PRN PRN Administration after blood draws Tramadol HCl 50 mg 03/30/25 14:56 04/02/25 09:26 Tramadol Hcl (*Crx) 50 Mg Tablet PO 50 mg Q6H PRN Administration Pain Rated 4-6 Labs Labs: Laboratory Results - last 24 hr 04/01/25 04/02/25 14:26 04:59 WBC 4.4 L 3.9 L RBC 2.92 L 3.18 L Hgb 8.6 L 9.5 L Hct 26.3 L 29.0 L MCV 90.1 91.2 MCH 29.5 29.9 MCHC 32.7 32.8 RDW 14.6 H 14.5 Plt Count 133 L 151 MPV 8.9 8.6 Immature Gran % (Auto) 0.3 Neut % (Auto) 60.8 Lymph % (Auto) 29.7 [place] % (Auto) 5.4 Eos % (Auto) 3.3 Baso % (Auto) 0.5 Lymph # (Auto) 1.16 [place] # (Auto) 0.2 Eos # (Auto) 0.1 Baso # (Auto) 0.0 Abs Immat Gran (auto) 0.01 Absolute Neuts (auto) 2.4 Absolute Nucleated RBC 0.000 Nucleated RBC % 0.0 Sodium 137 Potassium 3.9 Chloride 106 Carbon Dioxide 31 H Anion Gap 0 L BUN 11 D Creatinine 0.52 L Estim Creat Clear Calc 91 Estimated GFR > 60 Glucose 81 Calcium 8.3 L Phosphorus 3.0 Magnesium 2.1 Total Bilirubin 0.5 AST 25 ALT 11 Alkaline Phosphatase 38 Total Protein 5.6 L Albumin 3.1 L Quality VTE Prophylaxis VTE prophylaxis: mechanical ordered Hospitalist MIPS Advance Care Plan I have confirmed that the patient's Advanced Care Plan is present, code status is documented, or surrogate decision maker is listed in patient medical record.: Yes Medication Reconciliation I have utilized all available resources to obtain, update and review the patients current medications (includes all prescriptions, OTC, herbals, cannabis, and nutritional supplements).: Yes
[2025-04-02] MEDS: ACETAMINOPHEN 325 MG TABLET 650 MG PO ×2 (11:59→20:55)
[2025-04-02] MEDS: HYDROCORTISONE 1% 30 GM OINTMENT 1 APPLIC TOPICAL (20:53)
[2025-04-02] MEDS: lamoTRIgine 50 MG TABLET 150 MG PO (20:54)
[2025-04-03] VITALS (18 sets, daily range): BP systolic 90–103; BP diastolic 50–63; PULSE 7–78; RESP 16–18; TEMP 36.8–37.1; O2SAT 98–100
[2025-04-03] MEDS: CENTRAL LINE FLUSH 20 ML IV PUSH (04:15)
[2025-04-03] MEDS: CENTRAL LINE FLUSH 10 ML IV PUSH ×3 (04:16→21:29)
[2025-04-03 04:28] LABS: Hematocrit 29.8 % (37.0-47.0); Hemoglobin 9.7 g/dL (12.0-15.0); Mean Corpuscular HGB Conc 32.6 g/dl (32-36); Mean Corpuscular Hemoglobin 29.8 pg (26-34); Mean Corpuscular Volume 91.7 fl (80-100); Platelet Count Result 186 k/mm3 (150-375); Red Blood Count 3.25 M/mm3 (4.2-5.4); White Blood Count 3.3 K/mm3 (4.5-10.0)
[2025-04-03] MEDS: traMADol HCL (*CRX) 50 MG TABLET PO ×3 (04:28→18:08)
[2025-04-03 04:42] LABS: Alanine Aminotransferase 11 U/L (6-35); Albumin Level 3.1 g/dL (3.5-5.1); Alkaline Phosphatase 45 U/L (38-126); Anion Gap 2 mmol/L (4-12); Aspartate Amino Transferase 19 U/L (14-36); Bilirubin,Total 0.6 mg/dL (0.2-1.3); Blood Urea Nitrogen 12 mg/dL (7-17); Calcium 8.6 mg/dL (8.4-10.2); Carbon Dioxide 29 mmol/L (22-30); Chloride 106 mmol/L (98-107); Estimated CRCL calculation 89 ml/min; Estimated Glomerular Filt Rate > 60; Glucose 84 mg/dL (65-110); Potassium 4.0 mmol/L (3.4-5.0); Sodium 137 mmol/L (137-145); Total Protein 5.7 g/dL (6.3-8.2)
[2025-04-03] MEDS: PANTOPRAZOLE SODIUM IV 40 MG VIAL IV PUSH (08:23)
[2025-04-03] MEDS: CEPHALEXIN 500 MG CAPSULE PO ×3 (08:23→17:27)
[2025-04-03] MEDS: HYDROCORTISONE 1% 30 GM OINTMENT 1 APPLIC TOPICAL ×2 (08:24→21:29)
[2025-04-03] MEDS: ACETAMINOPHEN 325 MG TABLET 650 MG PO ×3 (08:27→21:24)
--- NOTE | 2025-04-03 13:53 | P.PNIM_ITS ---
Progress Note: A&P Assessment and Plan (1) Shock: Code(s): R57.9 - Shock, unspecified Status: Acute Assessment and Plan: Patient presented to [facility] on 03/29 with near syncope and lightheadedness. Patient's systolic blood pressure was in the 70s at the outside hospital ER. Status post panniculectomy on 03/29 -patient was given 3 L IV fluid bolus, -1 unit of packed RBCs were transfused at the outside hospital on 03/29 -patient was started on peripheral Levophed and transferred to [facility] ICU for further management CT scan at the outside hospital showed: postoperative changes in the anterior abdominal wall and stomach with diffuse subcutaneous edema and ill-defined hemorrhagic foci measuring 18.6 by 5.6 cm. Mild soft tissue emphysema along the anterior pelvic wall bilaterally. Mild hepatic steatosis -03/30: PICC line switch Levophed from peripheral to central access -plastic surgery has been notified await their recommendation -03/30: Received 2 units of packed RBCs despite which however hemoglobin remained 9.9. Off note she also had been transfused 1 unit of packed RBCs at [facility] -03/31 morning, patient still was on Levophed, surgeon decided taken to the OR for exploration and washout abdominal hematoma. --03/31: upon arrival from the OR patient has been off Levophed - 04/01 remains off vasopressors and IV fluids over last 24 hours 04/02: Vital stable. Continue cephalexin 500 mg p.o. t.i.d.. Blood pressure borderline. Blood pressure medication on hold. (2) S/P panniculectomy: Code(s): Z98.890 - Other specified postprocedural states Status: Acute Assessment and Plan: Postop hematoma likely causing hemorrhagic shock, hypotension, patient's symptoms 04/01 status post exploration and washout abdomen hematoma Three NBA drains in place. Amount of output noted. Management per surgeon. (3) Bipolar disorder: Qualifiers: Active/Remission status: remission status unspecified Qualified Code(s): F31.9 - Bipolar disorder, unspecified Code(s): F31.9 - Bipolar disorder, unspecified Status: Chronic Assessment and Plan: Patient has history of bipolar, takes Lamictal at home (4) Essential hypertension: Code(s): I10 - Essential (primary) hypertension Status: Acute Assessment and Plan: Patient does take metoprolol and hydrochlorothiazide at home. Will hold for now as patient has borderline blood pressures in just came off pressors Continue to hold blood pressure medication (5) Hematoma: Code(s): T14.8XXA - Other injury of unspecified body region, initial encounter Status: Acute Assessment and Plan: See above (6) Acute blood loss anemia: Code(s): D62 - Acute posthemorrhagic anemia Status: Acute Assessment and Plan: status post transfusion of 3 units PRBC Hemoglobin 9.5 today. Output from NBA drains noted Continue to hold any anticoagulation Continue moderate hemoglobin Transfuse if hypotensive or hemoglobin less than 7 (7) Electrolyte abnormality: Code(s): E87.8 - Other disorders of electrolyte and fluid balance, not elsewhere classified Status: Acute Assessment and Plan: Replace potassium and calcium Plan DVT prophylaxis: SCDs Stress ulcer prophylaxis: Protonix Nutrition: Regular diet Code Status: Full code Up in chair Incentive spirometry PT OT Subjective Date/time seen: 04/03/25 13:53 Interval history: No overnight events. Drain in place. Blood pressure Marleni. Denies any dizziness or lightheadedness. Labs reviewed. Review of Systems Review of Systems: All systems reviewed & are unremarkable except as noted in HPI and below Exam Narrative: General: Pleasant female currently in no acute distress HEENT:? Pupils equal and reactive, sclera is clear, moist oral mucosa Neck:? Supple Respiratory:? Clear to auscultation bilaterally, no wheezing, adequate air entry Cardiac:? S1-S2 normal, regular rate and rhythm Abdomen:? Soft, abdominal binder is on, no tenderness to palpation, NBA drains x3 with serosanguineous output Extremities:? Pedal pulses are palpable, no edema or cyanosis Neuro:? Patient is awake, alert, oriented, nonfocal, follows simple commands and answers to questions appropriately AO x3 Skin:? Surgical dressing on the surgical incision site with drain in place Psych:? Normal mentation and affect Objective Data Vital Signs Vital Signs: Vital Signs - 24 hr 04/02/25 14:00 04/02/25 15:38 04/02/25 16:00 Temperature 98.1 F Pulse Rate 77 80 Respiratory Rate 18 Blood Pressure 97/54 L Pulse Oximetry 100 100 Oxygen Delivery Room Air Fraction of Inspired Oxygen 04/02/25 16:00 04/02/25 18:00 04/02/25 20:00 Temperature 99 F Pulse Rate 80 78 79 Respiratory Rate 15 Blood Pressure 90/50 L Pulse Oximetry 99 Oxygen Delivery Fraction of Inspired Oxygen 04/02/25 20:00 04/02/25 20:35 04/02/25 22:00 Temperature Pulse Rate 89 79 73 Respiratory Rate 15 Blood Pressure Pulse Oximetry 99 Oxygen Delivery Room Air Fraction of Inspired Oxygen 04/02/25 23:39 04/03/25 00:00 04/03/25 00:00 Temperature 98.3 F Pulse Rate 71 71 70 Respiratory Rate 16 16 Blood Pressure 90/53 L Pulse Oximetry 98 98 Oxygen Delivery Room Air Fraction of Inspired Oxygen 04/03/25 02:00 04/03/25 04:00 04/03/25 04:00 Temperature 98.3 F Pulse Rate 71 74 7 L Respiratory Rate 16 Blood Pressure 99/58 L Pulse Oximetry 98 Oxygen Delivery Fraction of Inspired Oxygen 04/03/25 04:05 04/03/25 06:00 04/03/25 07:36 Temperature 98.8 F Pulse Rate 74 67 73 Respiratory Rate 16 18 Blood Pressure 103/50 L Pulse Oximetry 98 100 Oxygen Delivery Room Air Fraction of Inspired Oxygen 04/03/25 07:51 04/03/25 08:00 04/03/25 08:00 Temperature 98.8 F Pulse Rate 73 75 Respiratory Rate 18 18 Blood Pressure 103/50 L Pulse Oximetry 100 100 Oxygen Delivery Room Air Fraction of Inspired Oxygen 04/03/25 10:00 04/03/25 10:48 04/03/25 11:32 Temperature 98.5 F Pulse Rate 78 70 Respiratory Rate 18 Blood Pressure 92/60 L 102/59 L Pulse Oximetry 100 Oxygen Delivery Fraction of Inspired Oxygen 04/03/25 11:45 04/03/25 11:46 04/03/25 12:00 Temperature 98.5 F Pulse Rate 70 Respiratory Rate 18 Blood Pressure 92/60 L 102/59 L Pulse Oximetry 100 Oxygen Delivery Room Air Fraction of Inspired Oxygen 97 04/03/25 12:00 Temperature Pulse Rate 76 Respiratory Rate Blood Pressure Pulse Oximetry Oxygen Delivery Fraction of Inspired Oxygen Intake/Output Intake/Output: Intake & Output 03/31/25 04/01/25 04/02/25 04/03/25 23:59 23:59 23:59 23:59 Intake Total 2973.2 7481 718 4974 Output Total 1725 695 130 341 Balance 1248.2 9504 000 5644 Meds/Results Medications: Active Medications Generic Name Dose Route Start Last Admin Trade Name Freq PRN Reason Stop Dose Admin Acetaminophen 650 mg 03/30/25 11:25 04/03/25 08:27 Acetaminophen 325 Mg Tablet PO 650 mg Q4H PRN Administration Mild Pain (1-3) or Fever Cephalexin HCl 500 mg 03/31/25 17:00 04/03/25 13:06 Cephalexin 500 Mg Capsule PO 04/05/25 16:59 500 mg TID HALEY Administration Hydrocortisone 1 applic 04/02/25 21:00 04/03/25 08:24 Hydrocortisone 1% 30 Gm Ointment TOPICAL 1 applic Q12HR HALEY Administration Lamotrigine 150 mg 03/31/25 21:00 04/02/25 20:54 Lamotrigine 50 Mg Tablet PO 04/30/25 20:59 150 mg HS HALEY Administration Lamotrigine 100 mg 03/31/25 13:05 04/03/25 08:23 Lamotrigine 100 Mg Tablet PO 100 mg DAILY HALEY Administration Ondansetron HCl 4 mg 03/30/25 11:25 Ondansetron Inj 4 Mg/2 Ml Vial IV PUSH Q6H PRN Nausea And Vomiting Pantoprazole Sodium 40 mg 03/30/25 11:30 04/03/25 08:23 Pantoprazole Sodium Iv 40 Mg Vial IV PUSH 40 mg QAM HALEY Administration Sodium Chloride 10 ml 03/30/25 14:00 04/03/25 13:08 Central Line Flush IV PUSH 10 ml Q8HR HALEY Administration Sodium Chloride 10 ml 03/30/25 12:29 Central Line Flush IV PUSH PRN PRN with TPN bag changes Sodium Chloride 20 ml 03/30/25 12:29 04/03/25 04:15 Central Line Flush IV PUSH 20 ml PRN PRN Administration after blood draws Tramadol HCl 50 mg 03/30/25 14:56 04/03/25 12:05 Tramadol Hcl (*Crx) 50 Mg Tablet PO 50 mg Q6H PRN Administration Pain Rated 4-6 Labs Labs: Laboratory Results - last 24 hr 04/03/25 04:20 WBC 3.3 L RBC 3.25 L Hgb 9.7 L Hct 29.8 L MCV 91.7 MCH 29.8 MCHC 32.6 RDW 14.5 Plt Count 186 MPV 8.6 Sodium 137 Potassium 4.0 Chloride 106 Carbon Dioxide 29 Anion Gap 2 L BUN 12 Creatinine 0.53 L Estim Creat Clear Calc 89 Estimated GFR > 60 Glucose 84 Calcium 8.6 Total Bilirubin 0.6 AST 19 ALT 11 Alkaline Phosphatase 45 Total Protein 5.7 L Albumin 3.1 L
--- NOTE | 2025-04-03 15:10 | PC.NURSE ---
On 04/03/25, the student, [ Nel Whittaker], provided care and completed [facility] documentation on this patient. I have reviewed the student's documentation and agree with the findings.
--- NOTE | 2025-04-03 17:40 | PC.NURSE ---
This patient, Jazmin Platt, was transferred to [facility] on 04/03/25 at 1740. Personal belongings sent with patient. Report given to Marcy BUSH. Appropriate documentation sent with patient.
[2025-04-03] MEDS: lamoTRIgine 50 MG TABLET 150 MG PO (21:24)
[2025-04-04] VITALS: BP 88/57; PULSE 75; RESP 18; TEMP 36.8; O2SAT 99
[2025-04-04] MEDS: traMADol HCL (*CRX) 50 MG TABLET PO ×3 (03:14→18:50)
[2025-04-04 05:25] LABS: Hematocrit 25.9 % (37.0-47.0); Hemoglobin 8.3 g/dL (12.0-15.0); Immature Granulocyte Percent A 0.7 % (0-0.5); Lymphocytes Absolute Auto 0.76 K/mm3 (0.9-3.2); Mean Corpuscular HGB Conc 32.0 g/dl (32-36); Mean Corpuscular Hemoglobin 30.2 pg (26-34); Mean Corpuscular Volume 94.2 fl (80-100); Nucleated Red Blood Cells Absolute Auto 0.000 K/mm3 (0.0-0.012); Nucleated Red Blood Cells Perc 0.0 % (0.0-0.2); Platelet Count Result 160 k/mm3 (150-375); Red Blood Count 2.75 M/mm3 (4.2-5.4); White Blood Count 2.8 K/mm3 (4.5-10.0)
[2025-04-04 05:44] LABS: Alanine Aminotransferase 8 U/L (6-35); Albumin Level 2.7 g/dL (3.5-5.1); Alkaline Phosphatase 41 U/L (38-126); Anion Gap 1 mmol/L (4-12); Aspartate Amino Transferase 24 U/L (14-36); Bilirubin,Total 0.5 mg/dL (0.2-1.3); Blood Urea Nitrogen 10 mg/dL (7-17); Calcium 8.5 mg/dL (8.4-10.2); Carbon Dioxide 29 mmol/L (22-30); Chloride 106 mmol/L (98-107); Estimated CRCL calculation 87 ml/min; Estimated Glomerular Filt Rate > 60; Glucose 75 mg/dL (65-110); Magnesium 2.2 mg/dL (1.6-2.3); Potassium 4.2 mmol/L (3.4-5.0); Sodium 136 mmol/L (137-145); Total Protein 5.2 g/dL (6.3-8.2)
[2025-04-04] MEDS: CENTRAL LINE FLUSH 10 ML IV PUSH ×3 (05:53→20:18)
[2025-04-04] MEDS: CEPHALEXIN 500 MG CAPSULE PO ×3 (09:11→17:13)
[2025-04-04] MEDS: PANTOPRAZOLE SODIUM IV 40 MG VIAL IV PUSH (09:11)
[2025-04-04] MEDS: ACETAMINOPHEN 325 MG TABLET 650 MG PO ×2 (09:12→16:38)
[2025-04-04] MEDS: HYDROCORTISONE 1% 30 GM OINTMENT 1 APPLIC TOPICAL ×2 (09:14→20:22)
[2025-04-04 09:30] VITALS: BP 111/73
--- NOTE | 2025-04-04 11:28 | PM.IMPN ---
Progress Note: A&P Assessment and Plan (1) Shock: Code(s): R57.9 - Shock, unspecified Status: Acute Assessment and Plan: Patient presented to [facility] on 03/29 with near syncope and lightheadedness. Patient's systolic blood pressure was in the 70s at the outside hospital ER. Status post panniculectomy on 03/29 -patient was given 3 L IV fluid bolus, -1 unit of packed RBCs were transfused at the outside hospital on 03/29 -patient was started on peripheral Levophed and transferred to [facility] ICU for further management CT scan at the outside hospital showed: postoperative changes in the anterior abdominal wall and stomach with diffuse subcutaneous edema and ill-defined hemorrhagic foci measuring 18.6 by 5.6 cm. Mild soft tissue emphysema along the anterior pelvic wall bilaterally. Mild hepatic steatosis -03/30: PICC line switch Levophed from peripheral to central access -plastic surgery has been notified await their recommendation -03/30: Received 2 units of packed RBCs despite which however hemoglobin remained 9.9. Off note she also had been transfused 1 unit of packed RBCs at [facility] -03/31 morning, patient still was on Levophed, surgeon decided taken to the OR for exploration and washout abdominal hematoma. --03/31: upon arrival from the OR patient has been off Levophed - 04/01 remains off vasopressors and IV fluids over last 24 hours 04/02: Vital stable. Continue cephalexin 500 mg p.o. t.i.d.. Blood pressure borderline. Blood pressure medication on hold. (2) S/P panniculectomy: Code(s): Z98.890 - Other specified postprocedural states Status: Acute Assessment and Plan: Postop hematoma likely causing hemorrhagic shock, hypotension, patient's symptoms 04/01 status post exploration and washout abdomen hematoma Three NBA drains in place. Amount of output noted. Management per surgeon. She plans to see surgeon tomorrow (3) Bipolar disorder: Qualifiers: Active/Remission status: remission status unspecified Qualified Code(s): F31.9 - Bipolar disorder, unspecified Code(s): F31.9 - Bipolar disorder, unspecified Status: Chronic Assessment and Plan: Patient has history of bipolar, takes Lamictal at home (4) Essential hypertension: Code(s): I10 - Essential (primary) hypertension Status: Acute Assessment and Plan: Patient does take metoprolol and hydrochlorothiazide at home. Will hold for now as patient has borderline blood pressures in just came off pressors Continue to hold blood pressure medication (5) Hematoma: Code(s): T14.8XXA - Other injury of unspecified body region, initial encounter Status: Acute Assessment and Plan: See above (6) Acute blood loss anemia: Code(s): D62 - Acute posthemorrhagic anemia Status: Acute Assessment and Plan: status post transfusion of 3 units PRBC Hemoglobin 9.5 today. Output from NBA drains noted Continue to hold any anticoagulation Continue moderate hemoglobin Transfuse if hypotensive or hemoglobin less than 7 (7) Electrolyte abnormality: Code(s): E87.8 - Other disorders of electrolyte and fluid balance, not elsewhere classified Status: Acute Assessment and Plan: Replace potassium and calcium Plan DVT prophylaxis: SCDs Stress ulcer prophylaxis: Protonix Nutrition: Regular diet Code Status: Full code Up in chair Incentive spirometry PT OT Subjective Date/time seen: 04/04/25 11:28 Interval history: No overnight events. Drain in place. Blood pressure low. Denies any dizziness or lightheadedness. Labs reviewed. Review of Systems Review of Systems: All systems reviewed & are unremarkable except as noted in HPI and below Exam Narrative: General: Pleasant female currently in no acute distress HEENT:? Pupils equal and reactive, sclera is clear, moist oral mucosa Neck:? Supple Respiratory:? Clear to auscultation bilaterally, no wheezing, adequate air entry Cardiac:? S1-S2 normal, regular rate and rhythm Abdomen:? Soft, abdominal binder is on, no tenderness to palpation, NBA drains x3 with serosanguineous output Extremities:? Pedal pulses are palpable, no edema or cyanosis Neuro:? Patient is awake, alert, oriented, nonfocal, follows simple commands and answers to questions appropriately AO x3 Skin:? Surgical dressing on the surgical incision site with drain in place Psych:? Normal mentation and affect Objective Data Vital Signs Vital Signs: Vital Signs - 24 hr 04/03/25 11:32 04/03/25 11:45 04/03/25 11:46 Temperature 98.5 F Pulse Rate 70 Respiratory Rate 18 Blood Pressure 102/59 L 92/60 L 102/59 L Pulse Oximetry 100 Oxygen Delivery Fraction of Inspired Oxygen 04/03/25 12:00 04/03/25 12:00 04/03/25 14:00 Temperature Pulse Rate 76 73 Respiratory Rate Blood Pressure Pulse Oximetry Oxygen Delivery Room Air Fraction of Inspired Oxygen 04/03/25 15:52 04/03/25 16:00 04/03/25 16:00 Temperature 98.4 F Pulse Rate 73 78 Respiratory Rate 18 Blood Pressure 91/63 L Pulse Oximetry 100 Oxygen Delivery Room Air Fraction of Inspired Oxygen 04/03/25 20:00 04/04/25 00:00 04/04/25 08:00 Temperature 98.3 F Pulse Rate 78 75 Respiratory Rate 18 18 Blood Pressure 88/57 L Pulse Oximetry 100 99 Oxygen Delivery Room Air Room Air Fraction of Inspired Oxygen 97 Intake/Output Intake/Output: Intake & Output 04/01/25 04/02/25 04/03/25 04/04/25 23:59 23:59 23:59 23:59 Intake Total 1309 388 0930 980 Output Total 695 185 341 35 Balance 8524 818 7216 945 Meds/Results Medications: Active Medications Generic Name Dose Route Start Last Admin Trade Name Freq PRN Reason Stop Dose Admin Acetaminophen 650 mg 03/30/25 11:25 04/04/25 09:12 Acetaminophen 325 Mg Tablet PO 650 mg Q4H PRN Administration Mild Pain (1-3) or Fever Cephalexin HCl 500 mg 03/31/25 17:00 04/04/25 09:11 Cephalexin 500 Mg Capsule PO 04/05/25 16:59 500 mg TID HALEY Administration Hydrocortisone 1 applic 04/02/25 21:00 04/04/25 09:14 Hydrocortisone 1% 30 Gm Ointment TOPICAL 1 applic Q12HR HALEY Administration Lamotrigine 150 mg 03/31/25 21:00 04/03/25 21:24 Lamotrigine 50 Mg Tablet PO 04/30/25 20:59 150 mg HS HALEY Administration Lamotrigine 100 mg 03/31/25 13:05 04/04/25 09:11 Lamotrigine 100 Mg Tablet PO 100 mg DAILY HALEY Administration Ondansetron HCl 4 mg 03/30/25 11:25 Ondansetron Inj 4 Mg/2 Ml Vial IV PUSH Q6H PRN Nausea And Vomiting Pantoprazole Sodium 40 mg 03/30/25 11:30 04/04/25 09:11 Pantoprazole Sodium Iv 40 Mg Vial IV PUSH 40 mg QAM HALEY Administration Sodium Chloride 10 ml 03/30/25 14:00 04/04/25 05:53 Central Line Flush IV PUSH 10 ml Q8HR HALEY Administration Sodium Chloride 10 ml 03/30/25 12:29 Central Line Flush IV PUSH PRN PRN with TPN bag changes Sodium Chloride 20 ml 03/30/25 12:29 04/03/25 04:15 Central Line Flush IV PUSH 20 ml PRN PRN Administration after blood draws Tramadol HCl 50 mg 03/30/25 14:56 04/04/25 03:14 Tramadol Hcl (*Crx) 50 Mg Tablet PO 50 mg Q6H PRN Administration Pain Rated 4-6 Labs Labs: Laboratory Results - last 24 hr 04/04/25 05:06 WBC 2.8 L RBC 2.75 L Hgb 8.3 L Hct 25.9 L MCV 94.2 MCH 30.2 MCHC 32.0 RDW 14.7 H Plt Count 160 MPV 8.7 Immature Gran % (Auto) 0.7 H Neut % (Auto) 59.3 Lymph % (Auto) 26.9 Chambers % (Auto) 8.1 Eos % (Auto) 4.6 H Baso % (Auto) 0.4 Lymph # (Auto) 0.76 L Chambers # (Auto) 0.2 Eos # (Auto) 0.1 Baso # (Auto) 0.0 Abs Immat Gran (auto) 0.02 Absolute Neuts (auto) 1.7 Absolute Nucleated RBC 0.000 Nucleated RBC % 0.0 Sodium 136 L Potassium 4.2 Chloride 106 Carbon Dioxide 29 Anion Gap 1 L BUN 10 Creatinine 0.55 L Estim Creat Clear Calc 87 Estimated GFR > 60 Glucose 75 Calcium 8.5 Magnesium 2.2 Total Bilirubin 0.5 AST 24 ALT 8 Alkaline Phosphatase 41 Total Protein 5.2 L Albumin 2.7 L
[2025-04-04] MEDS: FERROUS SULFATE 325 MG TABLET PO (13:02)
[2025-04-04] MEDS: ASCORBIC ACID 125 MG TABLET PO (16:38)
[2025-04-04] MEDS: lamoTRIgine 50 MG TABLET 150 MG PO (20:18)
[2025-04-04 22:46] VITALS: BP 102/62; PULSE 66; RESP 18; TEMP 37.1; O2SAT 98
[2025-04-05] MEDS: traMADol HCL (*CRX) 50 MG TABLET PO (02:57)
[2025-04-05 05:51] LABS: Hematocrit 28.7 % (37.0-47.0); Hemoglobin 9.1 g/dL (12.0-15.0); Immature Granulocyte Percent A 0.5 % (0-0.5); Lymphocytes Absolute Auto 0.81 K/mm3 (0.9-3.2); Mean Corpuscular HGB Conc 31.7 g/dl (32-36); Mean Corpuscular Hemoglobin 29.7 pg (26-34); Mean Corpuscular Volume 93.8 fl (80-100); Nucleated Red Blood Cells Absolute Auto 0.000 K/mm3 (0.0-0.012); Nucleated Red Blood Cells Perc 0.0 % (0.0-0.2); Platelet Count Result 196 k/mm3 (150-375); Red Blood Count 3.06 M/mm3 (4.2-5.4); White Blood Count 3.7 K/mm3 (4.5-10.0)
[2025-04-05 06:00] VITALS: BP 106/77; PULSE 65; RESP 18; TEMP 36.9; O2SAT 100
[2025-04-05 06:06] LABS: Alanine Aminotransferase 12 U/L (6-35); Albumin Level 3.3 g/dL (3.5-5.1); Alkaline Phosphatase 46 U/L (38-126); Anion Gap 2 mmol/L (4-12); Aspartate Amino Transferase 21 U/L (14-36); Bilirubin,Total 0.6 mg/dL (0.2-1.3); Blood Urea Nitrogen 9 mg/dL (7-17); Calcium 8.9 mg/dL (8.4-10.2); Carbon Dioxide 27 mmol/L (22-30); Chloride 104 mmol/L (98-107); Estimated CRCL calculation 81 ml/min; Estimated Glomerular Filt Rate > 60; Glucose 82 mg/dL (65-110); Magnesium 2.2 mg/dL (1.6-2.3); Potassium 4.3 mmol/L (3.4-5.0); Sodium 133 mmol/L (137-145); Total Protein 5.9 g/dL (6.3-8.2)
--- NOTE | 2025-04-05 07:59 | PM.IMPN ---
Progress Note: A&P Assessment and Plan (1) Shock: Code(s): R57.9 - Shock, unspecified Status: Acute Assessment and Plan: Patient presented to [facility] on 03/29 with near syncope and lightheadedness. Patient's systolic blood pressure was in the 70s at the outside hospital ER. Status post panniculectomy on 03/29 -patient was given 3 L IV fluid bolus, -1 unit of packed RBCs were transfused at the outside hospital on 03/29 -patient was started on peripheral Levophed and transferred to [facility] ICU for further management CT scan at the outside hospital showed: postoperative changes in the anterior abdominal wall and stomach with diffuse subcutaneous edema and ill-defined hemorrhagic foci measuring 18.6 by 5.6 cm. Mild soft tissue emphysema along the anterior pelvic wall bilaterally. Mild hepatic steatosis -03/30: PICC line switch Levophed from peripheral to central access -plastic surgery has been notified await their recommendation -03/30: Received 2 units of packed RBCs despite which however hemoglobin remained 9.9. Off note she also had been transfused 1 unit of packed RBCs at [facility] -03/31 morning, patient still was on Levophed, surgeon decided taken to the OR for exploration and washout abdominal hematoma. --03/31: upon arrival from the OR patient has been off Levophed - 04/01 remains off vasopressors and IV fluids over last 24 hours 04/02: Vital stable. Continue cephalexin 500 mg p.o. t.i.d.. Blood pressure borderline. Blood pressure medication on hold. (2) S/P panniculectomy: Code(s): Z98.890 - Other specified postprocedural states Status: Acute Assessment and Plan: Postop hematoma likely causing hemorrhagic shock, hypotension, patient's symptoms 04/01 status post exploration and washout abdomen hematoma Three NBA drains in place. Amount of output noted. Management per surgeon. She plans to see surgeon tomorrow (3) Bipolar disorder: Qualifiers: Active/Remission status: remission status unspecified Qualified Code(s): F31.9 - Bipolar disorder, unspecified Code(s): F31.9 - Bipolar disorder, unspecified Status: Chronic Assessment and Plan: Patient has history of bipolar, takes Lamictal at home (4) Essential hypertension: Code(s): I10 - Essential (primary) hypertension Status: Acute Assessment and Plan: Patient does take metoprolol and hydrochlorothiazide at home. Will hold for now as patient has borderline blood pressures in just came off pressors Continue to hold blood pressure medication (5) Hematoma: Code(s): T14.8XXA - Other injury of unspecified body region, initial encounter Status: Acute Assessment and Plan: See above (6) Acute blood loss anemia: Code(s): D62 - Acute posthemorrhagic anemia Status: Acute Assessment and Plan: status post transfusion of 3 units PRBC Hemoglobin 9.5 today. Output from NBA drains noted Continue to hold any anticoagulation Continue moderate hemoglobin Transfuse if hypotensive or hemoglobin less than 7 (7) Electrolyte abnormality: Code(s): E87.8 - Other disorders of electrolyte and fluid balance, not elsewhere classified Status: Acute Assessment and Plan: Replace potassium and calcium Plan DVT prophylaxis: SCDs Stress ulcer prophylaxis: Protonix Nutrition: Regular diet Code Status: Full code Up in chair Incentive spirometry PT OT Subjective Date/time seen: 04/05/25 07:59 Review of Systems Review of Systems: All systems reviewed & are unremarkable except as noted in HPI and below Exam Narrative: General: Pleasant female currently in no acute distress HEENT:? Pupils equal and reactive, sclera is clear, moist oral mucosa Neck:? Supple Respiratory:? Clear to auscultation bilaterally, no wheezing, adequate air entry Cardiac:? S1-S2 normal, regular rate and rhythm Abdomen:? Soft, abdominal binder is on, no tenderness to palpation, NBA drains x3 with serosanguineous output Extremities:? Pedal pulses are palpable, no edema or cyanosis Neuro:? Patient is awake, alert, oriented, nonfocal, follows simple commands and answers to questions appropriately AO x3 Skin:? Surgical dressing on the surgical incision site with drain in place Psych:? Normal mentation and affect Const: General: comfortable and no acute distress Other: Female, nontoxic appearance HENMT: Face/Nose/Sinus: Normal nares present Mouth: Yes moist mucous membranes Eyes: General: appearance normal, both eyes and all related structures Sclera: sclerae normal Pupils: Equal, round and reactive pupils present EOM: EOMs intact bilaterally Resp: Effort & Inspection: normal respiratory effort Auscultation: clear to auscultation bilaterally Cardio: Rate: regular rate Rhythm: regular rhythm Other: S1-S2 present without murmur, rub, ectopy GI: Other: Abdomen soft and nondistended. NBA drain at present bilaterally with modest sanguinous output bilaterally. Mild tenderness at the site of her incision. Incision remains intact, approximated, and no drainage present. Skin: General skin exam: no rashes or lesions noted Wounds: no wounds Other: + pallor Neuro: Cranial nerves: Yes Equal, round and reactive pupils present Speech: normal speech Motor exam (neuro): 5/5 motor strength present throughout Sensory Exam: normal sensation Other: A/Ox4 Extrem: General: normal to inspection Psych: Mental Status: mental status grossly normal Affect: normal affect Other: Good insight and judgment, very pleasant Objective Data Vital Signs Vital Signs: Vital Signs - 24 hr 04/04/25 08:00 04/04/25 09:30 04/04/25 20:00 Temperature Pulse Rate Respiratory Rate Blood Pressure 111/73 Pulse Oximetry Oxygen Delivery Room Air Room Air 04/04/25 22:46 04/05/25 06:00 Temperature 98.8 F 98.4 F Pulse Rate 66 65 Respiratory Rate 18 18 Blood Pressure 102/62 106/77 Pulse Oximetry 98 100 Oxygen Delivery Intake/Output Intake/Output: Intake & Output 04/02/25 04/03/25 04/04/25 04/05/25 23:59 23:59 23:59 23:59 Intake Total 780 2320 3740 Output Total 185 341 100 30 Balance 595 1979 3640 -30 Meds/Results Medications: Active Medications Generic Name Dose Route Start Last Admin Trade Name Freq PRN Reason Stop Dose Admin Acetaminophen 650 mg 03/30/25 11:25 04/04/25 16:38 Acetaminophen 325 Mg Tablet PO 650 mg Q4H PRN Administration Mild Pain (1-3) or Fever Ascorbic Acid 125 mg 04/04/25 13:25 04/04/25 16:38 Ascorbic Acid 125 Mg Tablet PO 125 mg QAM HALEY Administration Cephalexin HCl 500 mg 03/31/25 17:00 04/04/25 17:13 Cephalexin 500 Mg Capsule PO 04/05/25 16:59 500 mg TID HALEY Administration Ferrous Sulfate 325 mg 04/04/25 11:35 04/04/25 13:02 Ferrous Sulfate 325 Mg Tablet PO 325 mg DAILY HALEY Administration Hydrocortisone 1 applic 04/02/25 21:00 04/04/25 20:22 Hydrocortisone 1% 30 Gm Ointment TOPICAL 1 applic Q12HR HALEY Administration Lamotrigine 150 mg 03/31/25 21:00 04/04/25 20:18 Lamotrigine 50 Mg Tablet PO 04/30/25 20:59 150 mg HS HALEY Administration Lamotrigine 100 mg 03/31/25 13:05 04/04/25 09:11 Lamotrigine 100 Mg Tablet PO 100 mg DAILY HALEY Administration Ondansetron HCl 4 mg 03/30/25 11:25 Ondansetron Inj 4 Mg/2 Ml Vial IV PUSH Q6H PRN Nausea And Vomiting Pantoprazole Sodium 40 mg 03/30/25 11:30 04/04/25 09:11 Pantoprazole Sodium Iv 40 Mg Vial IV PUSH 40 mg QAM HALEY Administration Polyethylene Glycol 17 gm 04/04/25 13:21 Polyethylene Glycol 3350 17 Gm Powd.Pack PO DAILY PRN Constipation Sodium Chloride 10 ml 03/30/25 14:00 04/05/25 04:32 Central Line Flush IV PUSH Not Given Q8HR HALEY Sodium Chloride 10 ml 03/30/25 12:29 Central Line Flush IV PUSH PRN PRN with TPN bag changes Sodium Chloride 20 ml 03/30/25 12:29 04/03/25 04:15 Central Line Flush IV PUSH 20 ml PRN PRN Administration after blood draws Tramadol HCl 50 mg 03/30/25 14:56 04/05/25 02:57 Tramadol Hcl (*Crx) 50 Mg Tablet PO 50 mg Q6H PRN Administration Pain Rated 4-6 Labs Labs: Laboratory Results - last 24 hr 04/05/25 05:41 WBC 3.7 L RBC 3.06 L Hgb 9.1 L Hct 28.7 L MCV 93.8 MCH 29.7 MCHC 31.7 L RDW 14.8 H Plt Count 196 MPV 8.7 Immature Gran % (Auto) 0.5 Neut % (Auto) 66.8 Lymph % (Auto) 21.9 [place] % (Auto) 7.3 Eos % (Auto) 3.2 Baso % (Auto) 0.3 Lymph # (Auto) 0.81 L [place] # (Auto) 0.3 Eos # (Auto) 0.1 Baso # (Auto) 0.0 Abs Immat Gran (auto) 0.02 Absolute Neuts (auto) 2.5 Absolute Nucleated RBC 0.000 Nucleated RBC % 0.0 Sodium 133 L Potassium 4.3 Chloride 104 Carbon Dioxide 27 Anion Gap 2 L BUN 9 Creatinine 0.63 L Estim Creat Clear Calc 81 Estimated GFR > 60 Glucose 82 Calcium 8.9 Magnesium 2.2 Total Bilirubin 0.6 AST 21 ALT 12 Alkaline Phosphatase 46 Total Protein 5.9 L Albumin 3.3 L Quality VTE Prophylaxis VTE prophylaxis: mechanical ordered
[2025-04-05 08:00] VITALS: PULSE 65; RESP 18; O2SAT 100
--- NOTE | 2025-04-05 08:35 | P.PN_ITS ---
Progress Note: A&P Assessment and Plan (1) Excessive skin and subcutaneous tissue: Code(s): L98.7 - Excessive and redundant skin and subcutaneous tissue Status: Acute Assessment and Plan: 49yo female pod#7 s/p panniculectdomy complicated by post-op hematoma s/p washout doing well. discussed impression and Dx and will recommend discharge with f/u in office this week. will change her post-op appointment from today to saturday Plan 1) discharge per primary 2) cont binder and drains 3) f/u in office saturday - we will call her to reschedule appointment. (2) Hematoma: Code(s): T14.8XXA - Other injury of unspecified body region, initial encounter Status: Acute Subjective Date/time seen: 04/05/25 08:35 Interval history: pt. seen and examined at bedside. pt reports doing well and no concerns and would like to be discharged. pt tolerating diet, normotensive and ambulating. drain outptus ~30-40cc/day each. Exam Narrative: abdomen binder in place and dressing clean and dry with scant dry sanguinous staining on steri strips. . adhesive bandage making operator serosanguinous drain output. some infraumbilical and scatter ecchymosis but umbilicus viable. appropriately tender. mild abdomen fullness but no clearly appreciaable fluid collection. Objective Data Vital Signs Vital Signs: Vital Signs - 24 hr 04/04/25 09:30 04/04/25 20:00 04/04/25 22:46 Temperature 37.1 C Pulse Rate 66 Respiratory Rate 18 Blood Pressure 111/73 102/62 Pulse Oximetry 98 Oxygen Delivery Room Air 04/05/25 06:00 Temperature 36.9 C Pulse Rate 65 Respiratory Rate 18 Blood Pressure 106/77 Pulse Oximetry 100 Oxygen Delivery Intake/Output Intake/Output: Intake & Output 04/02/25 04/03/25 04/04/25 04/05/25 23:59 23:59 23:59 23:59 Intake Total 780 2320 3740 Output Total 185 341 100 30 Balance 595 1979 3640 -30 Meds/Results Medications: Active Medications Generic Name Dose Route Start Last Admin Trade Name Freq PRN Reason Stop Dose Admin Acetaminophen 650 mg 03/30/25 11:25 04/04/25 16:38 Acetaminophen 325 Mg Tablet PO 650 mg Q4H PRN Administration Mild Pain (1-3) or Fever Ascorbic Acid 125 mg 04/04/25 13:25 04/04/25 16:38 Ascorbic Acid 125 Mg Tablet PO 125 mg QAM HALEY Administration Cephalexin HCl 500 mg 03/31/25 17:00 04/04/25 17:13 Cephalexin 500 Mg Capsule PO 04/05/25 16:59 500 mg TID HALEY Administration Ferrous Sulfate 325 mg 04/04/25 11:35 04/04/25 13:02 Ferrous Sulfate 325 Mg Tablet PO 325 mg DAILY HALEY Administration Hydrocortisone 1 applic 04/02/25 21:00 04/04/25 20:22 Hydrocortisone 1% 30 Gm Ointment TOPICAL 1 applic Q12HR HALEY Administration Lamotrigine 150 mg 03/31/25 21:00 04/04/25 20:18 Lamotrigine 50 Mg Tablet PO 04/30/25 20:59 150 mg HS HALEY Administration Lamotrigine 100 mg 03/31/25 13:05 04/04/25 09:11 Lamotrigine 100 Mg Tablet PO 100 mg DAILY HALEY Administration Ondansetron HCl 4 mg 03/30/25 11:25 Ondansetron Inj 4 Mg/2 Ml Vial IV PUSH Q6H PRN Nausea And Vomiting Pantoprazole Sodium 40 mg 03/30/25 11:30 04/04/25 09:11 Pantoprazole Sodium Iv 40 Mg Vial IV PUSH 40 mg QAM HALEY Administration Polyethylene Glycol 17 gm 04/04/25 13:21 Polyethylene Glycol 3350 17 Gm Powd.Pack PO DAILY PRN Constipation Sodium Chloride 10 ml 03/30/25 14:00 04/05/25 04:32 Central Line Flush IV PUSH Not Given Q8HR HALEY Sodium Chloride 10 ml 03/30/25 12:29 Central Line Flush IV PUSH PRN PRN with TPN bag changes Sodium Chloride 20 ml 03/30/25 12:29 04/03/25 04:15 Central Line Flush IV PUSH 20 ml PRN PRN Administration after blood draws Tramadol HCl 50 mg 03/30/25 14:56 04/05/25 02:57 Tramadol Hcl (*Crx) 50 Mg Tablet PO 50 mg Q6H PRN Administration Pain Rated 4-6 Labs Labs: Laboratory Results - last 24 hr 04/05/25 05:41 WBC 3.7 L RBC 3.06 L Hgb 9.1 L Hct 28.7 L MCV 93.8 MCH 29.7 MCHC 31.7 L RDW 14.8 H Plt Count 196 MPV 8.7 Immature Gran % (Auto) 0.5 Neut % (Auto) 66.8 Lymph % (Auto) 21.9 [place] % (Auto) 7.3 Eos % (Auto) 3.2 Baso % (Auto) 0.3 Lymph # (Auto) 0.81 L [place] # (Auto) 0.3 Eos # (Auto) 0.1 Baso # (Auto) 0.0 Abs Immat Gran (auto) 0.02 Absolute Neuts (auto) 2.5 Absolute Nucleated RBC 0.000 Nucleated RBC % 0.0 Sodium 133 L Potassium 4.3 Chloride 104 Carbon Dioxide 27 Anion Gap 2 L BUN 9 Creatinine 0.63 L Estim Creat Clear Calc 81 Estimated GFR > 60 Glucose 82 Calcium 8.9 Magnesium 2.2 Total Bilirubin 0.6 AST 21 ALT 12 Alkaline Phosphatase 46 Total Protein 5.9 L Albumin 3.3 L
[2025-04-05] MEDS: HYDROCORTISONE 1% 30 GM OINTMENT 1 APPLIC TOPICAL (09:41)
[2025-04-05] MEDS: PANTOPRAZOLE SODIUM IV 40 MG VIAL IV PUSH (09:41)
[2025-04-05] MEDS: ASCORBIC ACID 125 MG TABLET PO (09:41)
[2025-04-05] MEDS: CEPHALEXIN 500 MG CAPSULE PO ×2 (09:41→12:26)
[2025-04-05] MEDS: FERROUS SULFATE 325 MG TABLET PO (09:41)
[2025-04-05] MEDS: NEOMYCIN/POLYMYXIN/BACITRACIN OINTMENT PACKET 1 PACKET (12:26)
--- NOTE | 2025-04-05 12:53 | P.DS_ITS ---
DS: Admitting Diagnosis Discharge Date 04/05/2025 Admitting Diagnosis Low blood pressure DS: Discharge Diagnosis Discharge Diagnosis (1) Shock: Code(s): R57.9 - Shock, unspecified Status: Acute Assessment and Plan: Please refer to hospital course for brief summary Patient presented to [facility] on 03/29 with near syncope and lightheadedness. Patient's systolic blood pressure was in the 70s at the outside hospital ER. Status post panniculectomy on 03/29 -patient was given 3 L IV fluid bolus, -1 unit of packed RBCs were transfused at the outside hospital on 03/29 -patient was started on peripheral Levophed and transferred to [facility] ICU for further management CT scan at the outside hospital showed: postoperative changes in the anterior abdominal wall and stomach with diffuse subcutaneous edema and ill-defined hemorrhagic foci measuring 18.6 by 5.6 cm. Mild soft tissue emphysema along the anterior pelvic wall bilaterally. Mild hepatic steatosis -03/30: PICC line switch Levophed from peripheral to central access -plastic surgery has been notified await their recommendation -03/30: Received 2 units of packed RBCs despite which however hemoglobin remained 9.9. Off note she also had been transfused 1 unit of packed RBCs at [facility] -03/31 morning, patient still was on Levophed, surgeon decided taken to the OR for exploration and washout abdominal hematoma. --03/31: upon arrival from the OR patient has been off Levophed - 04/01 remains off vasopressors and IV fluids over last 24 hours 04/02: Vital stable. Continue cephalexin 500 mg p.o. t.i.d.. Blood pressure borderline. Blood pressure medication on hold. (2) S/P panniculectomy: Code(s): Z98.890 - Other specified postprocedural states Status: Acute Assessment and Plan: Postop hematoma likely causing hemorrhagic shock, hypotension, patient's symptom s 04/01 status post exploration and washout abdomen hematoma Three NBA drains in place. Amount of output noted. Management per surgeon. She plans to see surgeon tomorrow (3) Bipolar disorder: Qualifiers: Active/Remission status: remission status unspecified Qualified Code(s): F31.9 - Bipolar disorder, unspecified Code(s): F31.9 - Bipolar disorder, unspecified Status: Chronic Assessment and Plan: Patient has history of bipolar, takes Lamictal at home (4) Essential hypertension: Code(s): I10 - Essential (primary) hypertension Status: Acute Assessment and Plan: Patient does take metoprolol and hydrochlorothiazide at home. Will hold for now as patient has borderline blood pressures in just came off pressors Continue to hold blood pressure medication (5) Hematoma: Code(s): T14.8XXA - Other injury of unspecified body region, initial encounter Status: Acute Assessment and Plan: See above (6) Acute blood loss anemia: Code(s): D62 - Acute posthemorrhagic anemia Status: Acute Assessment and Plan: status post transfusion of 3 units PRBC Hemoglobin 9.5 today. Output from NBA drains noted Continue to hold any anticoagulation Continue moderate hemoglobin Transfuse if hypotensive or hemoglobin less than 7 (7) Electrolyte abnormality: Code(s): E87.8 - Other disorders of electrolyte and fluid balance, not elsewhere classified Status: Acute Assessment and Plan: Replace potassium and calcium DS: Summary Hospital Course Hospital Course: 49 y/o F with PMH of alcohol abuse, anxiety, depression, hypertension, glaucoma, bipolar disorder, history of gastric bypass, and history of panniculectomy presents here with lightheadedness and near-syncope.The patient presents here as a transfer from [facility] on on 03/30 for further evaluation of lightheadedness and near syncope. She has a past medical history significant for a panniculectomy earlier that morning on 03/29 at the outpatient surgery center affiliated with [facility] with Dr. Garcia on 03/29. She had lost 200 lbs due to Zepbound and a previous gastric bypass. Her CT of the abdomen/pelvis from the OSH was significant for postoperative changes in the anterior abdominal wall and stomach with diffuse subcutaneous edema and ill- defined hemorrhagic foci measuring 18.6 by 5.6 cm. Mild soft tissue emphysema along the anterior pelvic wall bilaterally. Patient was admitted in the ICU due to low blood pressure but later transferred to floor. Patient underwent exploration and washout abdomen hematoma on 03/[address] Garcia. On the day of discharge the patient has no complaints. On the day of discharge, the patient was seen and examined. Vital signs were stable. Physical exam were stable and labs were reviewed at length. Discharge instructions, medications, and follow-up appointments were discussed with the patient at length and all day questions were answered. ER warnings were given. Holding antihypertensive medication and zepbound. Advised to follow-up with PCP and continue those medications if necessary. Advised to follow-up with plastic surgeon and PCP within a week upon discharge. Advised to complete antibiotic course. Status at Discharge Cognitive/behavioral status at discharge: Stable Time Spent with Patient Time attestation: Total time spent providing and/or coordinating discharge services: 45 minute Exam Narrative: General: Pleasant female currently in no acute distress HEENT:? Pupils equal and reactive, sclera is clear, moist oral mucosa Neck:? Supple Respiratory:? Clear to auscultation bilaterally, no wheezing, adequate air entry Cardiac:? S1-S2 normal, regular rate and rhythm Abdomen:? Soft, abdominal binder is on, no tenderness to palpation, NBA drains x3 with serosanguineous output Extremities:? Pedal pulses are palpable, no edema or cyanosis Neuro:? Patient is awake, alert, oriented, nonfocal, follows simple commands and answers to questions appropriately AO x3 Skin:? Surgical dressing on the surgical incision site with drain in place Psych:? Normal mentation and affect Const: Other: Female, nontoxic appearance Cardio: Other: S1-S2 present without murmur, rub, ectopy GI: Other: Abdomen soft and nondistended. NBA drain at present bilaterally with modest sanguinous output bilaterally. Mild tenderness at the site of her incision. Incision remains intact, approximated, and no drainage present. Skin: Other: + pallor Neuro: Other: A/Ox4 Psych: Other: Good insight and judgment, very pleasant DS: Data Data Completed and Pending Labs on day of discharge: Labs from last 24 hours 04/05/25 05:41 WBC 3.7 L RBC 3.06 L Hgb 9.1 L Hct 28.7 L MCV 93.8 MCH 29.7 MCHC 31.7 L RDW 14.8 H Plt Count 196 MPV 8.7 Immature Gran % (Auto) 0.5 Neut % (Auto) 66.8 Lymph % (Auto) 21.9 [place] % (Auto) 7.3 Eos % (Auto) 3.2 Baso % (Auto) 0.3 Lymph # (Auto) 0.81 L [place] # (Auto) 0.3 Eos # (Auto) 0.1 Baso # (Auto) 0.0 Abs Immat Gran (auto) 0.02 Absolute Neuts (auto) 2.5 Absolute Nucleated RBC 0.000 Nucleated RBC % 0.0 Sodium 133 L Potassium 4.3 Chloride 104 Carbon Dioxide 27 Anion Gap 2 L BUN 9 Creatinine 0.63 L Estim Creat Clear Calc 81 Estimated GFR > 60 Glucose 82 Calcium 8.9 Magnesium 2.2 Total Bilirubin 0.6 AST 21 ALT 12 Alkaline Phosphatase 46 Total Protein 5.9 L Albumin 3.3 L Discharge Plan Discharge Attending physician on discharge: Zuhair Valle Consulting providers: Cr Garcia Discharging Clinician: Zuhair Valle Anticipated Discharge Date/Time: 04/05/25 12:50 Patient Disposition: Home Activity: as tolerated Diet: as tolerated Discharge Instructions: Post-Operative Instructions Panniculectomy Dressing Instructions: Keep binder and surgical dressings clean, dry, and in place at all times. Do not remove binder. You may adjust padding to maintain even firm compression. Shower Instructions: Keep surgical dressings, incisions, and drains, dry at all times. You may sponge bathe only. Activity: Avoid strenuous activity and heavy lifting/pushing/pulling until seen in office for follow up appointment. Avoid overhead arm movements. Walking is encouraged to help with bowel movement as well as help prevent blood clots in the lower extremities. Deep breathing exercises are encouraged to help prevent lung infections. Drain Care: Keep drains on suction at all times. Strip drain tubing at least every 12 hours. Empty drains at least every 12 hours and record output separately for each side. Please bring output record to your first follow up visit in office. Medication: May take Advil or Tylenol for pain. May take previously prescribed pain medication as prescribed if not controlled by Advil/Tylenol. Prescription pain medication may cause constipation. Take antibiotics as prescribed for 1 week following your procedure. Follow up: Please follow up in office in 3-5 days. Please call the office for any questions or concerns, including uncontrolled pain, fever/chills, bleeding, redness, or unexpected changes in sensation. If after normal business hours, please request the wire coating machine operator page the surgeon or PA. For emergent symptoms, please call 911 or seek assistance at the nearest Emergency Room. Patient Instructions: Antibiotic Form Patient Language: Tajik Stand Alone Forms: General Discharge Information Follow-up/Referrals: Cr Garcia MD [Physician, Plastic Surgery] Lobo,Marbin Watson MD [Primary Care Provider, Unknown] Discharge Medications: New cephalexin 500 mg Capsule 500 mg PO TID Qty: 30 0RF ferrous sulfate 325 mg (65 mg iron) Tablet,Delayed Release (Dr/Ec) 325 mg PO DAILY Qty: 30 0RF Continued lamotrigine 150 mg tablet 150 mg PO HS lamotrigine 100 mg tablet 100 mg PO DAILY tramadol 50 mg tablet 50 mg PO Q4-6H PRN (Reason: pain) Qty: 16 0RF Held hydrochlorothiazide 25 mg tablet 50 mg PO DAILY Hold Instructions: Resume on 04/26/25. Please resume the medication once appropriate and after discussing with PCP metoprolol succinate 25 mg tablet extended release 24 hr 25 mg PO DAILY Hold Instructions: Resume on 04/26/25. Please discuss with her PCP before continuing the medication Zepbound 7.5 mg/0.5 mL pen injector 7.5 mg SUBCUT WEEKLY Hold Instructions: Resume on 04/12/25. Please discuss with your PCP for continuing the medication Discontinued cephalexin 500 mg capsule 500 mg PO Q12H Qty: 14 0RF Date of admission: 03/30/25 10:46 Primary Care Provider: Toni,Marbin Watson Admitting Provider: Zuhair Valle Attending physician on admission: Zuhair Valle Condition: Stable
[2025-04-05 14:00] VITALS: BP 112/74; PULSE 74; RESP 18; TEMP 36.8; O2SAT 98
== END 2025-04-05 14:30 | disposition home or self-care (01) | DRG 909 ==
LOC: ANHICU 04-01 17:30 → ANHIMU 04-01 21:59 → ANH3MED 04-03 17:55
PROVIDERS: Internal Medicine; Plastic Surgery; Student in an Organized Health Care Education/Training Program; Admitting Provider General Practice; PCP Internal Medicine; Visit Provider General Practice
PROC: 0JC80ZZ Extirpation of Matter from Abdomen Subcutaneous Tissue and Fascia, Open Approach (ICD-10-PCS; principal; 2025-03-31 16:00)
DX: L76.32 Postprocedural hematoma of skin and subcutaneous tissue following other procedure (principal); T81.19XA Other postprocedural shock, initial encounter; Z98.890 Other specified postprocedural states; E87.6 Hypokalemia; F10.10 Alcohol abuse, uncomplicated; F41.9 Anxiety disorder, unspecified; F31.9 Bipolar disorder, unspecified; H40.9 Unspecified glaucoma; I95.1 Orthostatic hypotension; I10 Essential (primary) hypertension; Z98.84 Bariatric surgery status
CPT/HCPCS: 36415; 36430; 36569; 80053; 83605; 83735; 84100; 85025; 85027; 85610; 85730; 86850; 86900; 86901; 86923; 87641; 88304; 97161; 97165; A9270; C1751; J0690; J2003; J2004; J2250; J2470; J3010; J3475; J3480; J7050; J7120; P9016; P9047